=== PATIENT | female | born 1955 | race Caucasian/White ===

== ENCOUNTER → 2017-12-28 | Outpatient (CLI) | payer BC ==
[~2017-12-28] MED LIST: CIPR500T4 PO; IOHEXOL 350 MG/ML 100 ML (OMNIPAQUE 350) VIAL IV ONE; L.AC1CAP6 PO; LOPE-145 PO; METR500T21 PO; NS 250 ML (IVPB) BAG IV ONE; ONDA4TAB11 SL; PRM50SU RC; RANI150T11
--- NOTE | 2017-12-28 12:52 | Diagnostic Imaging Report ---
PROCEDURE: CT abdomen and pelvis with contrast, rule out appendicitis. TECHNIQUE: Multiple contiguous axial images were obtained through the abdomen and pelvis after the administration of intravenous contrast. INDICATION: Right lower quadrant pain. COMPARISON: None available. FINDINGS: Lower chest: The lung bases are clear. No pericardial or pleural effusion. Peritoneum: Liver and biliary system: Diffuse hypoattenuation of the liver is indicative of hepatic steatosis. No focal hepatic lesion. The gallbladder is normal. No biliary duct dilation. Spleen and Pancreas: Spleen is normal. The pancreas enhances normally without mass lesion or peripancreatic inflammatory changes. Adrenals: Normal. tract: The kidneys enhance normally without suspicious mass or obstruction. Urinary bladder is distended without wall thickening. The uterus and ovaries are normal in appearance. GI tract: Stomach is decompressed. No bowel obstruction. A circumferential wall thickening of the sigmoid colon with surrounding inflammation is compatible with acute colitis. From the level of the rectum extending proximally to the transverse colon, there is abnormal wall thickening of the colon but with less surrounding inflammation. There is no microperforation or abscess formation. Appendix is normal. Vasculature and Lymph nodes: Normal caliber aorta. No abdominal or pelvic lymphadenopathy. Musculoskeletal: No concerning osseous lesion. IMPRESSION: 1. There is a long segment of colitis extending from the transverse colon through the rectum, with the greatest degree of acute inflammation surrounding the sigmoid colon. Findings are most compatible with infectious colitis. Inflammatory and ischemic colitis are thought less likely given the distribution. 2. No perforation, abscess formation or bowel obstruction. 3. Normal appendix. 4. Diffuse hepatic steatosis. Dictated by: Dictated on workstation # [id number]
== END ==
LOC: RAD 11:31
PROVIDERS: ATTEND Nurse Practitioner Family
DX: K76.0 Fatty (change of) liver, not elsewhere classified (principal); K52.9 Noninfective gastroenteritis and colitis, unspecified
CPT/HCPCS: 74177

== ENCOUNTER 2017-12-30 17:40 | Inpatient (IN) | payer BC ==
[~2017-12-30] VITALS: Ht 162.6 cm; Wt 103.5 kg
[2017-12-30] MEDS ORDERED: RANI150T11 (18:10)
[2017-12-30] MEDS ORDERED: METR500T21 PO (18:10)
[2017-12-30] MEDS ORDERED: CIPR500T4 PO (18:10)
[2017-12-30] MEDS ORDERED: PRM50SU RC (18:10)
[2017-12-30] MEDS ORDERED: NS IV 1000 ML 1,000 ML IV STA (18:48)
[2017-12-30 18:54] LABS: BASOPHILS % (AUTO) 0 % (0-10); EOSINOPHILS % (AUTO) 1 % (0-10); HEMATOCRIT 27 % (35-52); HEMOGLOBIN 9.1 G/DL (11.5-16.0); LYMPHOCYTES # (AUTO) 1.1 X 10^3 (1.0-4.0); LYMPHOCYTES % (AUTO) 16 % (12-44); MEAN CORPUSCULAR HEMOGLOBIN 29 PG (25-34); MEAN CORPUSCULAR HGB CONC 33 G/DL (32-36); MEAN CORPUSCULAR VOLUME 86 FL (80-99); MEAN PLATELET VOLUME 9.7 FL (7.4-10.4); MONOCYTES # (AUTO) 0.7 X 10^3 (0.0-1.0); MONOCYTES % (AUTO) 10 % (0-12); NEUTROPHILS # (AUTO) 5.1 X 10^3 (1.8-7.8); NEUTROPHILS % (AUTO) 73 % (42-75); PLATELET COUNT 384 10^3/uL (130-400); RED BLOOD COUNT 3.18 10^6/uL (4.35-5.85); RED CELL DISTRIBUTION WIDTH 13.7 % (10.0-14.5)
--- NOTE | 2017-12-30 18:54 | ED Abdominal Pain ---
General Chief Complaint: Abdominal/GI Problems Stated Complaint: VOMITING/WEAKNESS Nursing Triage Note: AMB TO ROOM REPORTS HAS HAD VOMITING SINCE OCT HAS BEEN SEEN IN NUMEROUS URGENT CARES ,[facility] [facility],AND OUR ER. WAS SEEN IN OUR ON SUN. NEG WORK UP , SEEN AT URGENT CARE YESTERDAY RECEIVED 3 BAGS OF FLUID. Sepsis Screen: No Definite Risk Source of Information: Patient Exam Limitations: No Limitations History of Present Illness Date Seen by Provider: Dec 30, 2017 Time Seen by Provider: 18:35 Initial Comments Here with report of persistent nausea and vomiting area and she has been seen at different facilities including [facility] (formerly [facility] urgent care. She had CT scan done on Sunday which showed a significant amount of colitis. She was started on Cipro and Flagyl as well as has been on nausea medicine and she is unable to take her medications. She is unable to keep water down currently due to nausea and vomiting. Denies fever or chills. Denies weakness. Pain is generalized in the abdomen. Timing/Duration: 1 Week Severity/Quality: Moderate, Severe Location: Generalized Abdomen Radiation: No Radiation Activities at Onset: None Associated Symptoms: No Back Pain, No Chest Pain, No Fever/Chills, Nausea/ Vomiting, No Swelling/Mass in Abdomen, No Weakness Allergies and Home Medications Allergies Coded Allergies: No Known Drug Allergies (Unverified , 12/30/17) Patient Home Medication List Home Medication List Reviewed: Yes Review of Systems Constitutional: see HPI, No chills, No fever EENTM: No Symptoms Reported Respiratory: No Symptoms Reported Cardiovascular: No Symptoms Reported Gastrointestinal: See HPI, Abdominal Pain, Diarrhea, Nausea, Vomiting Genitourinary: No Symptoms Reported Musculoskeletal: no symptoms reported Skin: no symptoms reported All Other Systems Reviewed Negative Unless Noted: Yes Past Kwmsbiu-Bhnozy-Qvkdzu Hx Patient Social History Alcohol Use: Denies Use Recreational Drug Use: No Smoking Status: Never a Smoker Recent Foreign Travel: No Contact w/Someone Who Travel: No Recent Infectious Disease Expo: No Surgeries History of Surgeries: Yes Surgeries: Tubal Ligation Respiratory History of Respiratory Disorde: No Cardiovascular History of Cardiac Disorders: No Neurological History of Neurological Disord: No Genitourinary History of Genitourinary Disor: No Gastrointestinal History of Gastrointestinal Di: Yes Gastrointestinal Disorders: Colitis Musculoskeletal History of Musculoskeletal Dis: No HEENT History of HEENT Disorders: No Psychosocial History of Psychiatric Problem: Yes Reviewed Nursing Assessment Reviewed/Agree w Nursing PMH: Yes Family Medical History Significant Family History: No Pertinent Family Hx Physical Exam Vital Signs VS - Last 72 Hours, by Label 12/30/17 18:04 Temp 99.0 Pulse 109 Resp 18 B/P (MAP) 140/83 (102) Pulse Ox 99 O2 Delivery Room Air Capillary Refill : Less Than 3 Seconds General Appearance: WD/WN, no apparent distress HEENT: PERRL/EOMI, pharynx normal Neck: full range of motion, supple Respiratory: lungs clear, normal breath sounds Cardiovascular: no murmur, tachycardia Peripheral Pulses: 2+ Dorsalis Pedis (R), 2+ Left Dors-Pedis (L), 2+ Radial Pulses (R), 2+ Radial Pulses (L) Gastrointestinal: soft, abnormal bowel sounds (interactive), No guarding, No rebound, tenderness (mild diffuse) Extremities: non-tender, normal inspection Back: normal inspection, no CVA tenderness Neurologic/Psychiatric: alert, oriented x 3 Skin: normal color, warm/dry Focused Exam Evaluation Lactate Level Laboratory Tests 12/30/17 19:22: Lactic Acid Level 1.25 Lactic Acid Level Laboratory Tests Test 12/30/17 19:22 Lactic Acid Level 1.25 MMOL/L (0.50-2.00) Progress/Results/Core Measures Results/Orders Lab Results Laboratory Tests Test 12/30/17 18:45 12/30/17 19:22 12/30/17 20:00 Range/Units White Blood Count 7.0 4.3-11.0 10^3/uL Red Blood Count 3.18 L 4.35-5.85 10^6/uL Hemoglobin 9.1 L 11.5-16.0 G/DL Hematocrit 27 L 35-52 % Mean Corpuscular Volume 86 80-99 FL Mean Corpuscular Hemoglobin 29 25-34 PG Mean Corpuscular Hemoglobin Concent 33 32-36 G/DL Red Cell Distribution Width 13.7 10.0-14.5 % Platelet Count 384 130-400 10^3/uL Mean Platelet Volume 9.7 7.4-10.4 FL Neutrophils (%) (Auto) 73 42-75 % Lymphocytes (%) (Auto) 16 12-44 % Monocytes (%) (Auto) 10 0-12 % Eosinophils (%) (Auto) 1 0-10 % Basophils (%) (Auto) 0 0-10 % Neutrophils # (Auto) 5.1 1.8-7.8 X 10^3 Lymphocytes # (Auto) 1.1 1.0-4.0 X 10^3 Monocytes # (Auto) 0.7 0.0-1.0 X 10^3 Eosinophils # (Auto) 0.0 0.0-0.3 10^3/uL Basophils # (Auto) 0.0 0.0-0.1 10^3/uL Sodium Level 136 135-145 MMOL/L Potassium Level 2.8 L 3.6-5.0 MMOL/L Chloride Level 103 98-107 MMOL/L Carbon Dioxide Level 18 L 21-32 MMOL/L Anion Gap 15 H 5-14 MMOL/L Blood Urea Nitrogen 6 L 7-18 MG/DL Creatinine 0.64 0.60-1.30 MG/DL Estimat Glomerular Filtration Rate > 60 BUN/Creatinine Ratio 9 Glucose Level 105 70-105 MG/DL Calcium Level 8.0 L 8.5-10.1 MG/DL Total Bilirubin 0.5 0.1-1.0 MG/DL Aspartate Amino Transf (AST/SGOT) 18 5-34 U/L Alanine Aminotransferase (ALT/SGPT) 20 0-55 U/L Alkaline Phosphatase 72 40-136 U/L C-Reactive Protein High Sensitivity 20.97 H 0.00-0.50 MG/DL Total Protein 5.5 L 6.4-8.2 GM/DL Albumin 2.8 L 3.2-4.5 GM/DL Lactic Acid Level 1.25 0.50-2.00 MMOL/L Urine Color VIRIDIANA H Urine Clarity SLIGHTLY CLOUDY Urine pH 6 5-9 Urine Specific [place] 1.020 1.016-1.022 Urine Protein 2+ H NEGATIVE Urine Glucose (UA) NEGATIVE NEGATIVE Urine Ketones 4+ H NEGATIVE Urine Nitrite NEGATIVE NEGATIVE Urine Bilirubin NEGATIVE NEGATIVE Urine Urobilinogen NORMAL NORMAL MG/DL Urine Leukocyte Esterase 2+ H NEGATIVE Urine RBC (Auto) 1+ H NEGATIVE Urine RBC 0-2 /HPF Urine WBC 0-2 /HPF Urine Squamous Epithelial Cells 10-25 H /HPF Urine Crystals NONE /LPF Urine Bacteria FEW H /HPF Urine Casts NONE /LPF Urine Mucus SMALL H /LPF Urine Culture Indicated NO My Orders Orders - KINGSLEY JACKSON MD Cbc With Automated Diff (12/30/17 18:48) Comprehensive Metabolic Panel (12/30/17 18:48) Hs C Reactive Protein (12/30/17 18:48) Lactic Acid Analyzer (12/30/17 18:48) Ua Culture If Indicated (12/30/17 18:48) Blood Culture (12/30/17 18:48) Ondansetron Injection (Zofran Injectio (12/30/17 19:00) Ns Iv 1000 Ml (Sodium Chloride 0.9%) (12/30/17 18:48) Saline Lock/Iv-Start (12/30/17 18:48) Promethazine Injection (Phenergan Injec (12/30/17 20:13) Promethazine Injection (Phenergan Injec (12/30/17 20:15) Medications Given in ED Current Medications Medications Dose Ordered Sig/Leny Route Start Time Stop Time Status Last Admin Dose Admin Ondansetron HCl 8 mg ONCE ONCE IVP 12/30/17 19:00 12/30/17 19:01 DC 12/30/17 18:59 8 MG Promethazine HCl 25 mg STK-MED ONCE .ROUTE 12/30/17 20:13 12/30/17 20:16 DC 12/30/17 20:18 25 MG Vital Signs/I&O Vital Sign - Last 12Hours 12/30/17 18:04 Temp 99.0 Pulse 109 Resp 18 B/P (MAP) 140/83 (102) Pulse Ox 99 O2 Delivery Room Air Blood Pressure Mean: 102 Progress Note : Progress Note Seen and evaluated. IV, labs, UA, normal saline 1 L bolus. Zofran 8 mg IV. His. Admission due to outpatient failure. We have added lactic acid and blood cultures due to colitis findings on CT of the day. CT scan from 2 days ago as listed below for information purposes. 2011: Patient was feeling a little better. She has for ice chips which we gave her which she subsequently vomited. I discussed the case with Dr. Verduzco and she accepts patient for admission, inpatient status and requests surgical consult. 2013: I discussed the case with Dr. Alaniz and he agrees to consult. He is recommending Cipro and Flagyl IV which we will initiate via orders. Phenergan 25 mg IV ordered. Patient is hypokalemic and we will replace inpatient. Admit, inpatient status. Patient and family agree to plan. Diagnostic Imaging Diagonstic Imaging: CT Plain Films/CT/US/NM/MRI: abdomen, pelvis Comments These are CT results from 2 days ago NAME: DAVID CRABTREE [facility] REC#: [id number] PT STATUS: REG CLI : 1955 PHYSICIAN: JENNIFER NAGEL FERRY [employer]TAIN ADMIT DATE: 12/28/17/RAD Signed Date of Exam: 12/28/17 CT ABD/PELV W (APPENDICITIS) PROCEDURE: CT abdomen and pelvis with contrast, rule out appendicitis. TECHNIQUE: Multiple contiguous axial images were obtained through the abdomen and pelvis after the administration of intravenous contrast. INDICATION: Right lower quadrant pain. COMPARISON: None available. FINDINGS: Lower chest: The lung bases are clear. No pericardial or pleural effusion. Peritoneum: Liver and biliary system: Diffuse hypoattenuation of the liver is indicative of hepatic steatosis. No focal hepatic lesion. The gallbladder is normal. No biliary duct dilation. Spleen and Pancreas: Spleen is normal. The pancreas enhances normally without mass lesion or peripancreatic inflammatory changes. Adrenals: Normal. tract: The kidneys enhance normally without suspicious mass or obstruction. Urinary bladder is distended without wall thickening. The uterus and ovaries are normal in appearance. GI tract: Stomach is decompressed. No bowel obstruction. A circumferential wall thickening of the sigmoid colon with surrounding inflammation is compatible with acute colitis. From the level of the rectum extending proximally to the transverse colon, there is abnormal wall thickening of the colon but with less surrounding inflammation. There is no microperforation or abscess formation. Appendix is normal. Vasculature and Lymph nodes: Normal caliber aorta. No abdominal or pelvic lymphadenopathy. Musculoskeletal: No concerning osseous lesion. IMPRESSION: 1. There is a long segment of colitis extending from the transverse colon through the rectum, with the greatest degree of acute inflammation surrounding the sigmoid colon. Findings are most compatible with infectious colitis. Inflammatory and ischemic colitis are thought less likely given the distribution. 2. No perforation, abscess formation or bowel obstruction. 3. Normal appendix. 4. Diffuse hepatic steatosis. Dictated by: Dictated on workstation # [id number] Dict: 12/28/17 1242 Trans: 12/28/17 1343 Interpreted by: GRAEME TY MD Electronically signed by: GRAEME TY MD 12/28/17 1343 Departure Communication (Admissions) Time/Spoke to Admitting Phy: 20:12 Time/Spoke to Consulting Phy: 20:14 Impression Impression: Primary Impression: Colitis Additional Impressions: Intractable nausea and vomiting Qualified Codes: R11.2 - Nausea with vomiting, unspecified Hypokalemia Disposition: ADMITTED INPATIENT Condition: Stable Admissions Decision to Admit Reason: Admit from ER (General) Decision to Admit/Date: Dec 30, 2017 Time/Decision to Admit Time: 20:12 Departure-Patient Inst. Referrals: NO,LOCAL PHYSICIAN (PCP/Family) Primary Care Physician KINGSLEY JACKSON MD Dec 30, 2017 18:54
[2017-12-30] MEDS ORDERED: ONDANSETRON 4 MG/2 ML (SDV) Z0FRAN IVP ONE (19:00)
[2017-12-30 19:10] LABS: ALANINE AMINOTRANSFERASE 20 U/L (0-55); ALBUMIN 2.8 GM/DL (3.2-4.5); ALKALINE PHOSPHATASE 72 U/L (40-136); BILIRUBIN,TOTAL 0.5 MG/DL (0.1-1.0); BUN/CREATININE RATIO 9; CARBON DIOXIDE 18 MMOL/L (21-32); CHLORIDE 103 MMOL/L (98-107); CREATININE SERUM 0.64 MG/DL (0.60-1.30); GFR ESTIMATED > 60; GLUCOSE 105 MG/DL (70-105); POTASSIUM 2.8 MMOL/L (3.6-5.0); SODIUM 136 MMOL/L (135-145); TOTAL PROTEIN 5.5 GM/DL (6.4-8.2)
[2017-12-30] MEDS ORDERED: PROMETHAZINE INJ 25 MG/ML (PHENERGAN) AMP ONE (20:13)
[2017-12-30 20:14] LABS: BILIRUBIN,URINE NEGATIVE (NEGATIVE); CLARITY,URINE SLIGHTLY CLOUDY; COLOR,URINE AMBER; GLUCOSE, URINE (UA) NEGATIVE (NEGATIVE); KETONES,URINE 4+ (NEGATIVE); LEUKOCYTE ESTERASE ,URINE 2+ (NEGATIVE); NITRITE,URINE NEGATIVE (NEGATIVE); PH,URINE 6 (5-9); PROTEIN,URINE 2+ (NEGATIVE); UROBILINOGEN,URINE NORMAL (NORMAL)
[2017-12-30] MEDS ORDERED: PROMETHAZINE INJ 25 MG/ML (PHENERGAN) AMP IVP STA (20:15)
[2017-12-30 20:35] LABS: BACTERIA,URINE FEW /HPF; RBC,URINE 0-2 /HPF; WBC,URINE 0-2 /HPF
[2017-12-30] MEDS ORDERED: CATHETER FLUSH 10 ML SYR IV PRN (21:30)
[2017-12-30] MEDS ORDERED: fentaNYL INJECTION 100 MCG/2 ML AMP IV PRN (21:30)
[2017-12-30] MEDS: NS IV 1000 ML 1,000 ML IV SCH (21:45)
[2017-12-30] MEDS: metroNIDAZOLE 500 MG/100 ML IVPB (PRE-MIX) IV SCH (21:46)
[2017-12-30] MEDS: POTASSIUM CL 10 MEQ/50 ML IVPB (PRE-MIX) IV SCH ×2 (21:51→22:59)
[2017-12-30] MEDS: CATHETER FLUSH 10 ML SYR IV SCH (23:01)
[2017-12-30] MEDS: CIPROFLOXACIN 400 MG/D5W 200 ML (PRE-MIX) IV SCH (23:05)
[2017-12-31 00:10] VITALS: BP 122/66
[2017-12-31] MEDS: POTASSIUM CL 10 MEQ/50 ML IVPB (PRE-MIX) IV SCH ×2 (00:21→01:54)
[2017-12-31] MEDS: ACETAMINOPHEN 650 MG SUPP (TYLENOL) PR PRN ×2 (00:49→01:02)
[2017-12-31 04:10] VITALS: BP 114/64
[2017-12-31] MEDS: metroNIDAZOLE 500 MG/100 ML IVPB (PRE-MIX) IV SCH ×3 (05:51→21:59)
[2017-12-31] MEDS: CATHETER FLUSH 10 ML SYR IV SCH ×3 (06:05→21:03)
[2017-12-31] MEDS: NS IV 1000 ML 1,000 ML IV SCH ×3 (06:10→19:46)
[2017-12-31 06:30] LABS: BASOPHILS % (AUTO) 0 % (0-10); EOSINOPHILS # (AUTO) 0.1 10^3/uL (0.0-0.3); EOSINOPHILS % (AUTO) 2 % (0-10); HEMATOCRIT 29 % (35-52); HEMOGLOBIN 9.4 G/DL (11.5-16.0); LYMPHOCYTES # (AUTO) 1.2 X 10^3 (1.0-4.0); LYMPHOCYTES % (AUTO) 21 % (12-44); MEAN CORPUSCULAR HEMOGLOBIN 28 PG (25-34); MEAN CORPUSCULAR HGB CONC 33 G/DL (32-36); MEAN CORPUSCULAR VOLUME 87 FL (80-99); MEAN PLATELET VOLUME 9.9 FL (7.4-10.4); MONOCYTES # (AUTO) 0.7 X 10^3 (0.0-1.0); MONOCYTES % (AUTO) 12 % (0-12); NEUTROPHILS # (AUTO) 3.7 X 10^3 (1.8-7.8); NEUTROPHILS % (AUTO) 65 % (42-75); PLATELET COUNT 372 10^3/uL (130-400); RED BLOOD COUNT 3.31 10^6/uL (4.35-5.85); RED CELL DISTRIBUTION WIDTH 13.8 % (10.0-14.5); WHITE BLOOD COUNT 5.8 10^3/uL (4.3-11.0)
[2017-12-31 07:02] LABS: BUN/CREATININE RATIO 8; CALCIUM 7.8 MG/DL (8.5-10.1); CARBON DIOXIDE 23 MMOL/L (21-32); CHLORIDE 107 MMOL/L (98-107); CREATININE SERUM 0.61 MG/DL (0.60-1.30); GFR ESTIMATED > 60; GLUCOSE 88 MG/DL (70-105); POTASSIUM 2.9 MMOL/L (3.6-5.0); SODIUM 138 MMOL/L (135-145)
[2017-12-31] MEDS ORDERED: INFLUENZA TRIvalent 2017-2018 0.5 ML/45 MCG SYR IM ONE (07:30)
[2017-12-31] MEDS ORDERED: LOPE-145 PO (08:07)
[2017-12-31] MEDS ORDERED: L.AC1CAP6 PO (08:07)
[2017-12-31] MEDS ORDERED: ONDA4TAB11 SL (08:07)
[2017-12-31 08:30] VITALS: BP 117/62
[2017-12-31] MEDS: CIPROFLOXACIN 400 MG/D5W 200 ML (PRE-MIX) IV SCH ×2 (08:42→21:01)
[2017-12-31] MEDS: ONDANSETRON 4 MG/2 ML (SDV) Z0FRAN IV PRN ×3 (09:55→21:59)
[2017-12-31] MEDS: POTASSIUM CL 10MEQ/50ML IVPB 50 ML IV SCH ×4 (11:58→14:57)
[2017-12-31 12:00] VITALS: BP 118/77
--- NOTE | 2017-12-31 14:26 | History & Physical-Hospitalist ---
HPI History of Present Illness: HPI/Chief Complaint Pt is a 62yoCF who presented to the hospital with chief complaints of nausea and vomiting. She states her symptoms started in October and she was seen in the ER and given IVF and thought she just had a bug. She improved slightly for a while but never completely. She worsened 2 weeks ago with nausea and vomiting. She was seen at urgent care and was given 3L of fluid. She was seen here in the ER and was started on colitis on 12/28. She continued to worsen and was unable to take any PO intake in so presented to the ER for evaluation. She was found to have colitis on CT and meet sepsis criteria on arrival so was admitted for IV abx. She reports feeling very minimally better this morning though she vomited after some grape juice. Lying perfectly still is the only thing that helps. She is unsure if she has lost any weight. Source: patient Date Seen 12/31/17 Time Seen by Provider: 10:30 Attending Physician Elsie Verduzco DO PCP No,Local Physician Referring Physician Date of Admission Dec 30, 2017 at 20:20 Home Medications & Allergies Home Medications Reviewed patient Home Medication Reconciliation Form Allergies Allergies Coded Allergies No Known Drug Allergies (Unverified12/30/17) Past Pqrvysq-Njhrna-Zjcojv Hx Patient Social History Marrital Status: Employed/Student: part-time employed Alcohol Use: Denies Use Recreational Drug Use: No Smoking Status: Former Smoker (quit over 30 years ago) Physical Abuse Screen: No Sexual Abuse: No Recent Foreign Travel: No Contact w/other who traveled: No Recent Hopitalizations: No (ER) Recent Infectious Disease Expo: No Seasonal Allergies Seasonal Allergies: No Surgeries Yes Tubal Ligation (x2) Respiratory No Cardiovascular No Neurological No Genitourinary No Gastrointestinal Yes (new dx sunday) Colitis Musculoskeletal No Endocrine History of Endocrine Disorders: No HEENT History of HEENT Disorders: No Cancer No Psychosocial History of Psychiatric Problem: No Integumentary History of Skin or Integumenta: No Blood Transfusions History of Blood Disorders: No Reviewed Nursing Assessment Reviewed/Agree w Nursing PMH: Yes Family Medical History Significant Family History: No Pertinent Family Hx Family Hx: Patient reports no known family medical history. Review of Systems Constitutional: No chills, No fever, No weight loss EENTM: No blurred vision, No double vision, No nose congestion, No throat pain Respiratory: No cough, No dyspnea on exertion, No short of breath Cardiovascular: No chest pain, No edema, No palpitations Gastrointestinal: see HPI, No abdominal pain, No constipation, diarrhea, nausea , vomiting Genitourinary: No dysuria, No frequency Musculoskeletal: No joint pain, No muscle pain Skin: No lesions, No rash Psychiatric/Neurological: Denies Anxiety, Denies Depressed, Denies Headache, Denies Numbness, Denies Tingling Physical Exam Physical Exam Vital Signs Vital Signs - First Documented 12/30/17 18:04 Temp 99.0 Pulse 109 Resp 18 B/P (MAP) 140/83 (102) Pulse Ox 99 O2 Delivery Room Air Capillary Refill : Less Than 3 SecondsLess Than 3 Seconds General Appearance: No Apparent Distress, WD/WN HEENT: PERRL/EOMI, Moist Mucous Membranes Neck: No JVD, No Thyromegaly Respiratory: Lungs Clear, No Respiratory Distress Cardiovascular: Regular Rate, Rhythm, No Murmur Gastrointestinal: Normal Bowel Sounds, Non Tender, Soft Extremity: Normal Capillary Refill, No Calf Tenderness, No Pedal Edema Neurologic/Psychiatric: Alert, Oriented x3, Normal Mood/Affect Skin: Normal Color, Warm/Dry Results Results/Procedures Lab Laboratory Tests 12/30/17 18:45 12/31/17 05:34 Assessment/Plan Admission Diagnosis Sepsis due to colitis Admission Status: Inpatient Order (span 2 midnights) Reason for Inpatient Admission: Failed outpatient management twice Diagnosis/Problems Diagnosis/Problems (1) Colitis Status: Acute Assessment & Plan: meeting sepsis criteria On flagyl and cipro IV Blood cultures drawn in ER Lactic acid normal Not hypotensive Zofran and Phenergan prn nausea (2) Intractable nausea and vomiting Status: Acute Assessment & Plan: Phenergan and Zofran ordered prn still vomiting Will add scopolamine patch as well Continue IVF Qualifiers: Qualified Codes: R11.2 - Nausea with vomiting, unspecified (3) Hypokalemia Status: Acute Assessment & Plan: Replacement ordered Mag level ordered (4) Normocytic anemia Assessment & Plan: Trend Consider IV iron when sepsis resolved (5) Prophylactic measure Assessment & Plan: NS at 125ml/hr Lovenox Diet as tolerated Clinical Quality Measures DVT/VTE Risk/Contraindication: Risk Factor Score Per Nursin RFS Level Per Nursing on Admit: 2=Moderate YOLY NAVARRO MD Dec 31, 2017 14:26
[2017-12-31] MEDS: SCOPOLAMINE 1.5 MG (TRANSDERM-SCOP) PATCH TOP SCH (14:57)
[2017-12-31 15:34] VITALS: BP 138/74
[2017-12-31] MEDS: MAGNESIUM 1 GM/100 ML IVPB 100 ML IV SCH ×2 (17:25→18:13)
[2017-12-31 19:07] VITALS: BP 114/58
--- NOTE | 2017-12-31 21:06 | Consultation ---
History of Present Illness History of Present Illness Patient Consulted On(mario/time) 12/31/17 21:00 Date Seen by Provider: Dec 31, 2017 Time Seen by Provider: 11:12 History of Present Illness Consult requested by Dr. Verduzco for colitis. Patient is a 62-year-old female who has been having problems with nausea vomiting since October. She initially thought she had a bug and states that it did improve for short period of time. She then states about 2 weeks ago she began having problems again. She's feeling ill and having nausea and vomiting. She thinks food sometimes as many worse. She states nothing really seems to make it better as the nausea and vomiting has continued to worsen. She is never had a colonoscopy. She had a CT scan on December 28 which demonstrated colitis from the transverse colon down to the rectum. Patient states she's had a hard time keeping anything down. She denies any fever sweats chills shortness of breath or chest pain. Patient states that she's not having any abdominal pain. She denies any previous episodes prior to the last few months. Allergies and Home Medications Allergies Coded Allergies: No Known Drug Allergies (Unverified , 12/30/17) Home Medications Ciprofloxacin HCl 500 Mg Tablet, 500 MG PO BID, (Reported) 10 DAY SUPPLY FILLED 12-28-17 L.acidoph & Paracasei,B.lactis 1 Each Capsule, 1 CAP PO DAILY, (Reported) Loperamide HCl 2 Mg Capsule, PO UD PRN for DIARRHEA, (Reported) Metronidazole 500 Mg Tablet, 500 MG PO TID, (Reported) 10 DAY SUPPLY FILLED 18 Ondansetron 4 Mg Tab.rapdis, 4 MG SL Q4H PRN for NAUSEA/VOMITING-1ST LINE, ( Reported) Promethazine HCl 50 Mg Supp, 50 MG RC Q6H PRN for NAUSEA/VOMITING-2ND LINE, ( Reported) Patient Home Medication List Home Medication List Reviewed: Yes Past Edsdwfp-Bgnohr-Vwwfdz Hx Patient Social History Alcohol Use: Denies Use Recreational Drug Use: No Smoking Status: Former Smoker (quit over 30 years ago) Recent Foreign Travel: No Contact w/Someone Who Travel: No Recent Infectious Disease Expo: No Recent Hopitalizations: No (ER) Physical Abuse Screen: No Sexual Abuse: No Seasonal Allergies Seasonal Allergies: No Surgeries History of Surgeries: Yes Surgeries: Tubal Ligation (x2) Respiratory History of Respiratory Disorde: No Cardiovascular History of Cardiac Disorders: No Neurological History of Neurological Disord: No Genitourinary History of Genitourinary Disor: No Gastrointestinal History of Gastrointestinal Di: Yes (new dx sunday) Gastrointestinal Disorders: Colitis Musculoskeletal History of Musculoskeletal Dis: No Endocrine History of Endocrine Disorders: No HEENT History of HEENT Disorders: No Cancer History of Cancer: No Psychosocial History of Psychiatric Problem: No Integumentary History of Skin or Integumenta: No Blood Transfusions History of Blood Disorders: No Reviewed Nursing Assessment Reviewed/Agree w Nursing PMH: Yes Family Medical History Significant Family History: No Pertinent Family Hx Family Medial History: Patient reports no known family medical history. Review of Systems-General Constitutional: see HPI EENTM: no symptoms reported Respiratory: no symptoms reported Cardiovascular: no symptoms reported Gastrointestinal: see HPI Genitourinary: no symptoms reported Musculoskeletal: no symptoms reported Skin: no symptoms reported Psychiatric/Neurological: No Symptoms Reported Physical Exam-General Problems Physical Exam Vital Signs Vital Signs - First Documented 12/30/17 18:04 Temp 99.0 Pulse 109 Resp 18 B/P (MAP) 140/83 (102) Pulse Ox 99 O2 Delivery Room Air Capillary Refill : Less Than 3 SecondsLess Than 3 Seconds General Appearance: no apparent distress HEENT: PERRL/EOMI, normal ENT inspection Neck: non-tender, full range of motion, supple Respiratory: no respiratory distress, no accessory muscle use Cardiovascular: regular rate, rhythm Gastrointestinal: non tender, soft, no organomegaly, no pulsatile mass, No distended, No guarding, No rebound, No tenderness Rectal: deferred Back: normal inspection Extremities: non-tender, normal inspection Neurologic/Psychiatric: reflow operator II-XII nml as tested, no motor/sensory deficits, alert, normal mood/affect, oriented x 3 Skin: normal color, warm/dry Lymphatic: no adenopathy Data Review Labs Laboratory Tests 12/31/17 05:34: White Blood Count 5.8, Red Blood Count 3.31L, Hemoglobin 9.4L, Hematocrit 29L, Mean Corpuscular Volume 87, Mean Corpuscular Hemoglobin 28, Mean Corpuscular Hemoglobin Concent 33, Red Cell Distribution Width 13.8, Platelet Count 372, Mean Platelet Volume 9.9, Neutrophils (%) (Auto) 65, Lymphocytes (%) (Auto) 21, Monocytes (%) (Auto) 12, Eosinophils (%) (Auto) 2, Basophils (%) (Auto) 0, Neutrophils # (Auto) 3.7, Lymphocytes # (Auto) 1.2, Monocytes # (Auto) 0.7, Eosinophils # (Auto) 0.1, Basophils # (Auto) 0.0, Sodium Level 138, Potassium Level 2.9L, Chloride Level 107, Carbon Dioxide Level 23, Anion Gap 8, Blood Urea Nitrogen 5L, Creatinine 0.61, Estimat Glomerular Filtration Rate > 60, BUN/ Creatinine Ratio 8, Glucose Level 88, Calcium Level 7.8L, Magnesium Level 1.6L Microbiology 12/30/17 Blood Culture - Preliminary, Resulted No growth Assessment/Plan Assessment/Plan Assessment/Plan Patient is a 62-year-old female with colitis by CT scan from the transverse colon to the rectum, intractable nausea and vomiting. Patient on clear liquids we'll see if she tolerates. Patient continue on Cipro and Flagyl IV. We'll try to control nausea and vomiting. We'll continue to follow no surgical intervention at this time. We'll do a colonoscopy 6 weeks after this calms down Clinical Quality Measures DVT/VTE Risk/Contraindication: Risk Factor Score Per Nursin RFS Level Per Nursing on Admit: 2=Moderate TAMANNA ONEILL DO Dec 31, 2017 21:06
[2018-01-01 00:21] VITALS: BP 113/60
[2018-01-01 04:00] VITALS: BP 118/62
[2018-01-01] MEDS: NS IV 1000 ML 1,000 ML IV SCH (05:28)
[2018-01-01] MEDS: metroNIDAZOLE 500 MG/100 ML IVPB (PRE-MIX) IV SCH ×3 (05:28→23:08)
[2018-01-01] MEDS: CATHETER FLUSH 10 ML SYR IV SCH ×3 (05:31→22:02)
[2018-01-01 06:47] LABS: BASOPHILS % (AUTO) 0 % (0-10); EOSINOPHILS # (AUTO) 0.2 10^3/uL (0.0-0.3); EOSINOPHILS % (AUTO) 3 % (0-10); HEMATOCRIT 28 % (35-52); HEMOGLOBIN 9.2 G/DL (11.5-16.0); LYMPHOCYTES # (AUTO) 1.1 X 10^3 (1.0-4.0); LYMPHOCYTES % (AUTO) 18 % (12-44); MEAN CORPUSCULAR HEMOGLOBIN 28 PG (25-34); MEAN CORPUSCULAR HGB CONC 33 G/DL (32-36); MEAN CORPUSCULAR VOLUME 87 FL (80-99); MONOCYTES # (AUTO) 0.6 X 10^3 (0.0-1.0); MONOCYTES % (AUTO) 10 % (0-12); NEUTROPHILS # (AUTO) 3.9 X 10^3 (1.8-7.8); NEUTROPHILS % (AUTO) 68 % (42-75); PLATELET COUNT 398 10^3/uL (130-400); RED BLOOD COUNT 3.24 10^6/uL (4.35-5.85); WHITE BLOOD COUNT 5.8 10^3/uL (4.3-11.0)
[2018-01-01 07:07] LABS: BUN/CREATININE RATIO 7; CALCIUM 7.5 MG/DL (8.5-10.1); CARBON DIOXIDE 18 MMOL/L (21-32); CHLORIDE 108 MMOL/L (98-107); CREATININE SERUM 0.59 MG/DL (0.60-1.30); GFR ESTIMATED > 60; GLUCOSE 89 MG/DL (70-105); POTASSIUM 2.9 MMOL/L (3.6-5.0); SODIUM 139 MMOL/L (135-145)
[2018-01-01 08:00] VITALS: BP 120/66
[2018-01-01] MEDS: CIPROFLOXACIN 400 MG/D5W 200 ML (PRE-MIX) IV SCH ×2 (09:22→22:00)
[2018-01-01] MEDS: ONDANSETRON 4 MG/2 ML (SDV) Z0FRAN IV PRN ×2 (09:29→19:02)
[2018-01-01] MEDS ORDERED: D5 1/2 NS 1000 ML IV SOLUTION 1,000 ML IV SCH (11:30)
[2018-01-01] MEDS ORDERED: POTASSIUM CL 10MEQ/50ML IVPB 50 ML IV SCH (11:30)
[2018-01-01 12:00] VITALS: BP 131/63
[2018-01-01] MEDS ORDERED: KCL 20 MEQ TAB (K-DUR) PO NR (12:00)
--- NOTE | 2018-01-01 12:05 | Progress Note-Hospitalist ---
Subjective HPI/CC On Admission Date Seen by Provider: Jan 01, 2018 Time Seen by Provider: 11:25 Pt is a 62yoCF who presented to the hospital with chief complaints of nausea and vomiting. She states her symptoms started in October and she was seen in the ER and given IVF and thought she just had a bug. She improved slightly for a while but never completely. She worsened 2 weeks ago with nausea and vomiting. She was seen at urgent care and was given 3L of fluid. She was seen here in the ER and was started on colitis on 12/28. She continued to worsen and was unable to take any PO intake in so presented to the ER for evaluation. She was found to have colitis on CT and meet sepsis criteria on arrival so was admitted for IV abx. She reports feeling very minimally better this morning though she vomited after some grape juice. Lying perfectly still is the only thing that helps. She is unsure if she has lost any weight. Subjective/Events-last exam Pt reports still having nausea. States medications are not helping but in discussing with nurse she is refusing any nausea medicines. She feels the potassium and antibiotics are making it worse. Objective Exam Vital Signs Vital Signs Date Time Temp Pulse Resp B/P (MAP) Pulse Ox O2 Delivery O2 Flow Rate FiO2 12/30/17 18:04 99.0 109 18 140/83 (102) 99 Room Air Capillary Refill : Less Than 3 SecondsLess Than 3 Seconds General Appearance: WD/WN, Mild Distress Respiratory: Lungs Clear, No Respiratory Distress Cardiovascular: Regular Rate, Rhythm, No Murmur Gastrointestinal: Normal Bowel Sounds, Non Tender, Soft Extremity: No Calf Tenderness, No Pedal Edema Neurologic/Psychiatric: Alert, Oriented x3 Results/Procedures Lab Laboratory Tests 01/01/18 05:30 Assessment/Plan Assessment and Plan Assess & Plan/Chief Complaint Colitis Diagnosis/Problems Diagnosis/Problems (1) Colitis Status: Acute Assessment & Plan: met sepsis criteria but now resolved On flagyl and cipro IV Blood cultures drawn in ER- NGTD Zofran and Phenergan prn nausea Scopolamine added as well (2) Intractable nausea and vomiting Status: Acute Assessment & Plan: Phenergan and Zofran ordered prn still vomiting but she has been declined treatment Continue IVF- changed to D5 1/2 NS with 20KCL Qualifiers: Qualified Codes: R11.2 - Nausea with vomiting, unspecified (3) Hypokalemia Status: Acute Assessment & Plan: Replacement ordered- would like to try orally as IV makes her nauseated (4) Normocytic anemia Assessment & Plan: Trend- stable Consider IV iron when sepsis resolved (5) Prophylactic measure Assessment & Plan: d5 1/2NS with 20KCL at 100ml/hr Lovenox Diet as tolerated YOLY NAVARRO MD Jan 01, 2018 12:05
[2018-01-01] MEDS: PROMETHAZINE INJ 25 MG/ML (PHENERGAN) AMP IV PRN ×2 (12:35→21:53)
[2018-01-01] MEDS: D5 1/2 NS W/KCL 20 MEQ/L 1,000 ML IV SCH ×2 (12:39→22:35)
[2018-01-01] MEDS: ENOXAPARIN 40 MG/0.4 ML (LOVENOX) SYR SC SCH (12:39)
[2018-01-01 16:00] VITALS: BP 133/75
[2018-01-01] MEDS: POTASSIUM CL 10MEQ/50ML IVPB 50 ML IV SCH ×2 (19:55→21:04)
[2018-01-01 20:00] VITALS: BP 143/75
--- NOTE | 2018-01-01 22:23 | Progress Note ---
Subjective Date Seen by Provider: Jan 01, 2018 Time Seen by Provider: 12:48 Subjective/Events-last exam Still with nausea. Patient not having any abdominal pain. Not ambulating. No new complaints. Denies fever sweats chills shortness of breath or chest pain. Objective Exam Vital Signs Date Time Temp Pulse Resp B/P (MAP) Pulse Ox O2 Delivery O2 Flow Rate FiO2 01/01/18 20:00 100.6 99 20 143/75 (97) 98 Room Air 01/01/18 19:00 97 01/01/18 16:00 101.6 98 20 133/75 (94) 97 Room Air 01/01/18 12:00 98.9 86 18 131/63 (85) 94 Room Air 01/01/18 08:00 99.7 88 18 120/66 (84) 97 Room Air 01/01/18 04:00 97.4 87 19 118/62 (80) 96 Room Air 01/01/18 01:00 88 01/01/18 00:21 98.8 91 17 113/60 (77) 95 Room Air I & O 01/01/18 07:00 Intake Total 2700 ml Balance 2700 ml Capillary Refill : Less Than 3 SecondsLess Than 3 Seconds General Appearance: WD/WN, Mild Distress HEENT: PERRL/EOMI, Moist Mucous Membranes Neck: No JVD, No Thyromegaly Respiratory: Lungs Clear, No Respiratory Distress Cardiovascular: Regular Rate, Rhythm, No Murmur Peripheral Pulses: 2+ Dorsalis Pedis (R), 2+ Left Dors-Pedis (L), 2+ Radial Pulses (R), 2+ Radial Pulses (L) Gastrointestinal: non tender, soft, no organomegaly, no pulsatile mass, No distended, No guarding, No rebound, No tenderness Extremity: No Calf Tenderness, No Pedal Edema Neurologic/Psychiatric: Alert, Oriented x3 Skin: Normal Color, Warm/Dry Results Lab Laboratory Tests 01/01/18 05:30: White Blood Count 5.8, Red Blood Count 3.24L, Hemoglobin 9.2L, Hematocrit 28L, Mean Corpuscular Volume 87, Mean Corpuscular Hemoglobin 28, Mean Corpuscular Hemoglobin Concent 33, Red Cell Distribution Width 14.0, Platelet Count 398, Mean Platelet Volume 10.0, Neutrophils (%) (Auto) 68, Lymphocytes (%) (Auto) 18 , Monocytes (%) (Auto) 10, Eosinophils (%) (Auto) 3, Basophils (%) (Auto) 0, Neutrophils # (Auto) 3.9, Lymphocytes # (Auto) 1.1, Monocytes # (Auto) 0.6, Eosinophils # (Auto) 0.2, Basophils # (Auto) 0.0, Sodium Level 139, Potassium Level 2.9L, Chloride Level 108H, Carbon Dioxide Level 18L, Anion Gap 13, Blood Urea Nitrogen 4L, Creatinine 0.59L, Estimat Glomerular Filtration Rate > 60, BUN /Creatinine Ratio 7, Glucose Level 89, Calcium Level 7.5L, Magnesium Level 2.0 Microbiology 12/30/17 Blood Culture - Preliminary, Resulted No growth Assessment/Plan Assessment/Plan Assessment/Plan Patient is a 62-year-old female with colitis by CT scan from the transverse colon to the rectum, intractable nausea and vomiting. Hypokalemia being replaced. Patient on clear liquids we'll see if she tolerates. Patient continue on Cipro and Flagyl IV if continues to have nausea, consider changing. We'll try to control nausea and vomiting. We'll continue to follow no surgical intervention at this time. We'll do a colonoscopy 6 weeks after this calms down Clinical Quality Measures DVT/VTE Risk/Contraindication: Risk Factor Score Per Nursin RFS Level Per Nursing on Admit: 2=Moderate TAMANNA ONEILL DO Jan 01, 2018 22:23
[2018-01-01] MEDS ORDERED: PANTOPRAZOLE 40 MG/10 ML (PROTONIX) VIAL IV ONE (22:30)
[2018-01-02] VITALS: BP 130/70
[2018-01-02] MEDS: POTASSIUM CL 10MEQ/50ML IVPB 50 ML IV SCH ×6 (00:13→16:37)
[2018-01-02] MEDS: D5 1/2 NS W/KCL 20 MEQ/L 1,000 ML IV SCH ×2 (01:18→14:12)
[2018-01-02 04:00] VITALS: BP 120/74
[2018-01-02 05:57] LABS: BASOPHILS % (AUTO) 0 % (0-10); EOSINOPHILS # (AUTO) 0.2 10^3/uL (0.0-0.3); EOSINOPHILS % (AUTO) 3 % (0-10); HEMATOCRIT 28 % (35-52); HEMOGLOBIN 9.1 G/DL (11.5-16.0); LYMPHOCYTES # (AUTO) 1.4 X 10^3 (1.0-4.0); LYMPHOCYTES % (AUTO) 28 % (12-44); MEAN CORPUSCULAR HEMOGLOBIN 28 PG (25-34); MEAN CORPUSCULAR HGB CONC 33 G/DL (32-36); MEAN CORPUSCULAR VOLUME 85 FL (80-99); MEAN PLATELET VOLUME 9.6 FL (7.4-10.4); MONOCYTES # (AUTO) 0.6 X 10^3 (0.0-1.0); MONOCYTES % (AUTO) 12 % (0-12); NEUTROPHILS # (AUTO) 2.8 X 10^3 (1.8-7.8); NEUTROPHILS % (AUTO) 57 % (42-75); PLATELET COUNT 407 10^3/uL (130-400); RED BLOOD COUNT 3.23 10^6/uL (4.35-5.85); RED CELL DISTRIBUTION WIDTH 13.9 % (10.0-14.5); WHITE BLOOD COUNT 4.9 10^3/uL (4.3-11.0)
[2018-01-02] MEDS: CATHETER FLUSH 10 ML SYR IV SCH ×4 (06:13→21:13)
[2018-01-02] MEDS: metroNIDAZOLE 500 MG/100 ML IVPB (PRE-MIX) IV SCH ×3 (06:25→23:23)
[2018-01-02 06:41] LABS: BUN/CREATININE RATIO 3; CALCIUM 7.6 MG/DL (8.5-10.1); CARBON DIOXIDE 24 MMOL/L (21-32); CHLORIDE 107 MMOL/L (98-107); CREATININE SERUM 0.59 MG/DL (0.60-1.30); GFR ESTIMATED > 60; GLUCOSE 134 MG/DL (70-105); MAGNESIUM 1.7 MG/DL (1.8-2.4); POTASSIUM 3.1 MMOL/L (3.6-5.0); SODIUM 137 MMOL/L (135-145)
[2018-01-02 08:00] VITALS: BP 120/82
[2018-01-02] MEDS: CIPROFLOXACIN 400 MG/D5W 200 ML (PRE-MIX) IV SCH ×2 (09:24→21:12)
[2018-01-02] MEDS: PROMETHAZINE INJ 25 MG/ML (PHENERGAN) AMP IV PRN ×2 (09:33→16:48)
--- NOTE | 2018-01-02 10:22 | Progress Note-Hospitalist ---
Subjective HPI/CC On Admission Date Seen by Provider: Jan 02, 2018 Time Seen by Provider: 10:18 Pt is a 62yoCF who presented to the hospital with chief complaints of nausea and vomiting and found to have colitis. Subjective/Events-last exam She reports feeling better today. Less nausea. No abd pain. Has not vomited yet today. Had 14 BMs yesterday. None since early this AM. Would like to advance her diet today. No other complaints. Breathing well. No chest pain. Objective Exam Vital Signs Vital Signs Date Time Temp Pulse Resp B/P (MAP) Pulse Ox O2 Delivery O2 Flow Rate FiO2 12/30/17 18:04 99.0 109 18 140/83 (102) 99 Room Air Capillary Refill : Less Than 3 SecondsLess Than 3 Seconds General Appearance: No Apparent Distress, WD/WN Respiratory: Lungs Clear, No Respiratory Distress Cardiovascular: Regular Rate, Rhythm, No Murmur Gastrointestinal: Normal Bowel Sounds, Non Tender, Soft Neurologic/Psychiatric: Alert, Oriented x3 Results/Procedures Lab Laboratory Tests 01/02/18 05:25 Assessment/Plan Assessment and Plan Assess & Plan/Chief Complaint Colitis Diagnosis/Problems Diagnosis/Problems (1) Colitis Status: Acute Assessment & Plan: Cont on flagyl and cipro IV Blood cultures drawn in ER- NGTD Zofran and Phenergan prn nausea Scopolamine added as well Nausea improving, will advance diet Discussed with Dr Alaniz, consider EGD if still no improvement (2) Intractable nausea and vomiting Status: Acute Assessment & Plan: Phenergan and Zofran ordered prn Continue IVF- changed to D5 1/2 NS with 20KCL Protonix added Qualifiers: Qualified Codes: R11.2 - Nausea with vomiting, unspecified (3) Hypokalemia Status: Acute Assessment & Plan: Replace (4) Normocytic anemia Assessment & Plan: Trend- stable Consider IV iron when sepsis resolved Febrile last night so will hold (5) Prophylactic measure Assessment & Plan: d5 1/2NS with 20KCL at 100ml/hr Lovenox Diet as tolerated YOLY NAVARRO MD Jan 02, 2018 10:22
[2018-01-02 12:00] VITALS: BP 139/89
[2018-01-02] MEDS: ENOXAPARIN 40 MG/0.4 ML (LOVENOX) SYR SC SCH (12:03)
[2018-01-02 16:00] VITALS: BP 110/60
--- NOTE | 2018-01-02 17:40 | Progress Note ---
Subjective Date Seen by Provider: Jan 02, 2018 Time Seen by Provider: 08:18 Subjective/Events-last exam Patient feeling slightly better today. She did have some fever last night. Patient though notes that her nausea is still present but has slightly improved. She is tolerating some liquids. She denies any abdominal pain. She denies any sweats chills shortness of breath or chest pain. Objective Exam Vital Signs Date Time Temp Pulse Resp B/P (MAP) Pulse Ox O2 Delivery O2 Flow Rate FiO2 01/02/18 16:00 99.2 92 20 110/60 (77) 98 Room Air 01/02/18 12:00 99.1 93 18 139/89 (106) 95 Room Air 01/02/18 09:00 97 Room Air 01/02/18 08:00 99.5 92 18 120/82 (95) 96 Room Air 01/02/18 07:00 91 01/02/18 04:00 98.4 82 18 120/74 (89) 96 Room Air 01/02/18 01:00 102 01/02/18 00:00 100.6 92 16 130/70 (90) 96 Room Air 01/01/18 20:00 100.6 99 20 143/75 (97) 98 Room Air 01/01/18 19:00 97 I & O 01/02/18 07:00 Intake Total 2300 ml Balance 2300 ml Capillary Refill : Less Than 3 SecondsLess Than 3 Seconds General Appearance: No Apparent Distress, WD/WN HEENT: PERRL/EOMI, Moist Mucous Membranes Neck: No JVD, No Thyromegaly Respiratory: Lungs Clear, No Respiratory Distress Cardiovascular: Regular Rate, Rhythm, No Murmur Peripheral Pulses: 2+ Dorsalis Pedis (R), 2+ Left Dors-Pedis (L), 2+ Radial Pulses (R), 2+ Radial Pulses (L) Gastrointestinal: non tender, soft, no organomegaly, no pulsatile mass, No distended, No guarding, No rebound, No tenderness Extremity: No Calf Tenderness, No Pedal Edema Neurologic/Psychiatric: Alert, Oriented x3 Skin: Normal Color, Warm/Dry Lymphatic: No Adenopathy Results Lab Laboratory Tests 01/02/18 05:25: White Blood Count 4.9, Red Blood Count 3.23L, Hemoglobin 9.1L, Hematocrit 28L, Mean Corpuscular Volume 85, Mean Corpuscular Hemoglobin 28, Mean Corpuscular Hemoglobin Concent 33, Red Cell Distribution Width 13.9, Platelet Count 407H, Mean Platelet Volume 9.6, Neutrophils (%) (Auto) 57, Lymphocytes (%) (Auto) 28, Monocytes (%) (Auto) 12, Eosinophils (%) (Auto) 3, Basophils (%) (Auto) 0, Neutrophils # (Auto) 2.8, Lymphocytes # (Auto) 1.4, Monocytes # (Auto) 0.6, Eosinophils # (Auto) 0.2, Basophils # (Auto) 0.0, Sodium Level 137, Potassium Level 3.1L, Chloride Level 107, Carbon Dioxide Level 24, Anion Gap 6, Blood Urea Nitrogen 2L, Creatinine 0.59L, Estimat Glomerular Filtration Rate > 60, BUN /Creatinine Ratio 3, Glucose Level 134H, Calcium Level 7.6L, Magnesium Level 1.7L Microbiology 12/30/17 Blood Culture - Preliminary, Resulted No growth 01/02/18 C. difficile GDH Antigen & Toxins - Final, Complete Assessment/Plan Assessment/Plan Assessment/Plan Patient is a 62-year-old female with colitis by CT scan from the transverse colon to the rectum, intractable nausea and vomiting. Hypokalemia being replaced. Patient on clear liquids okay to advance as tolerates. Patient continue on Cipro and Flagyl IV if continues to have nausea, consider changing. We'll try to control nausea and vomiting. We'll continue to follow no surgical intervention at this time. We'll do a colonoscopy 6 weeks after this calms down If she continues to have symptoms of nausea vomiting would consider EGD Clinical Quality Measures DVT/VTE Risk/Contraindication: Risk Factor Score Per Nursin RFS Level Per Nursing on Admit: 2=Moderate TAMANNA ONEILL DO Jan 02, 2018 17:39
[2018-01-02] MEDS: MAGNESIUM 1 GM/100 ML IVPB 100 ML IV SCH ×2 (18:26→20:56)
[2018-01-02 20:00] VITALS: BP 114/61
[2018-01-03] VITALS: BP 117/62
[2018-01-03] MEDS: D5 1/2 NS W/KCL 20 MEQ/L 1,000 ML IV SCH ×2 (04:02→06:18)
[2018-01-03 04:15] VITALS: BP 110/67
[2018-01-03] MEDS: CATHETER FLUSH 10 ML SYR IV SCH ×3 (04:45→20:51)
[2018-01-03] MEDS: metroNIDAZOLE 500 MG/100 ML IVPB (PRE-MIX) IV SCH ×3 (06:16→22:58)
[2018-01-03 06:31] LABS: BASOPHILS % (AUTO) 0 % (0-10); EOSINOPHILS # (AUTO) 0.3 10^3/uL (0.0-0.3); EOSINOPHILS % (AUTO) 6 % (0-10); HEMATOCRIT 28 % (35-52); HEMOGLOBIN 9.3 G/DL (11.5-16.0); LYMPHOCYTES # (AUTO) 1.2 X 10^3 (1.0-4.0); LYMPHOCYTES % (AUTO) 24 % (12-44); MEAN CORPUSCULAR HEMOGLOBIN 28 PG (25-34); MEAN CORPUSCULAR HGB CONC 33 G/DL (32-36); MEAN CORPUSCULAR VOLUME 86 FL (80-99); MEAN PLATELET VOLUME 9.6 FL (7.4-10.4); MONOCYTES # (AUTO) 0.5 X 10^3 (0.0-1.0); MONOCYTES % (AUTO) 9 % (0-12); NEUTROPHILS # (AUTO) 3.1 X 10^3 (1.8-7.8); NEUTROPHILS % (AUTO) 61 % (42-75); PLATELET COUNT 414 10^3/uL (130-400); RED BLOOD COUNT 3.27 10^6/uL (4.35-5.85); RED CELL DISTRIBUTION WIDTH 14.2 % (10.0-14.5); WHITE BLOOD COUNT 5.1 10^3/uL (4.3-11.0)
[2018-01-03 06:53] LABS: BUN/CREATININE RATIO 4; CALCIUM 7.4 MG/DL (8.5-10.1); CARBON DIOXIDE 23 MMOL/L (21-32); CHLORIDE 106 MMOL/L (98-107); CREATININE SERUM 0.57 MG/DL (0.60-1.30); GFR ESTIMATED > 60; GLUCOSE 126 MG/DL (70-105); MAGNESIUM 2.1 MG/DL (1.8-2.4); POTASSIUM 3.4 MMOL/L (3.6-5.0); SODIUM 135 MMOL/L (135-145)
[2018-01-03 08:00] VITALS: BP 110/67
[2018-01-03] MEDS: CIPROFLOXACIN 400 MG/D5W 200 ML (PRE-MIX) IV SCH ×2 (09:15→20:52)
--- NOTE | 2018-01-03 10:09 | Progress Note-Hospitalist ---
Subjective HPI/CC On Admission Date Seen by Provider: Jan 03, 2018 Time Seen by Provider: 09:00 Pt is a 62yoCF who presented to the hospital with chief complaints of nausea and vomiting and found to have colitis. Subjective/Events-last exam She reports feeling well. Ate applesauce yesterday without emesis but did vomit this morning. Is unsure if she wants EGD done. Objective Exam Vital Signs Vital Signs Date Time Temp Pulse Resp B/P (MAP) Pulse Ox O2 Delivery O2 Flow Rate FiO2 12/30/17 18:04 99.0 109 18 140/83 (102) 99 Room Air Capillary Refill : Less Than 3 SecondsLess Than 3 Seconds General Appearance: No Apparent Distress, WD/WN Respiratory: Lungs Clear, No Respiratory Distress Cardiovascular: Regular Rate, Rhythm, No Murmur Gastrointestinal: Normal Bowel Sounds, Non Tender, Soft Extremity: Non Tender, No Calf Tenderness, No Pedal Edema Neurologic/Psychiatric: Alert, Oriented x3, Other (flat affect) Skin: Normal Color, Warm/Dry Results/Procedures Lab Laboratory Tests 01/03/18 05:55 Assessment/Plan Assessment and Plan Assess & Plan/Chief Complaint Colitis Diagnosis/Problems Diagnosis/Problems (1) Colitis Status: Acute Assessment & Plan: Cont on flagyl and cipro IV Blood cultures drawn in ER- NGTD Zofran and Phenergan prn nausea Scopolamine Discussed with Dr Alaniz, consider EGD if still no improvement and patient agrees Will do tomorrow if agreeable (2) Intractable nausea and vomiting Status: Acute Assessment & Plan: Scopolamine Phenergan and Zofran ordered prn Continue IVF- changed to D5 1/2 NS with 20KCL Protonix Advance diet to regular Qualifiers: Qualified Codes: R11.2 - Nausea with vomiting, unspecified (3) Hypokalemia Status: Acute Assessment & Plan: Replacing in fluids Mag normal (4) Normocytic anemia Assessment & Plan: Trend- stable Consider IV iron when sepsis resolved Febrile early yesterday morning (5) Prophylactic measure Assessment & Plan: d5 1/2NS with 20KCL at 50ml/hr Lovenox Diet as tolerated YOLY NAVARRO MD Jan 03, 2018 10:09 am
--- NOTE | 2018-01-03 11:33 | Progress Note ---
Subjective Date Seen by Provider: Jan 03, 2018 Time Seen by Provider: 11:28 Subjective/Events-last exam feeling better. less nausea but had one emesis she states. Did better with some food yesterday. she states liquid stools has turned into more solid. No abdominal pain. Denies sweats chills shortness of breath or chest pain. Objective Exam Vital Signs Date Time Temp Pulse Resp B/P (MAP) Pulse Ox O2 Delivery O2 Flow Rate FiO2 01/03/18 08:00 98.5 100 20 110/67 (81) 96 Room Air 01/03/18 07:00 90 01/03/18 04:15 98.9 89 18 110/67 (81) 97 Room Air 01/03/18 01:00 92 01/03/18 00:00 99.4 93 18 117/62 (80) 96 Room Air 01/02/18 20:00 100.1 96 18 114/61 (78) 97 Room Air 01/02/18 19:00 93 01/02/18 16:00 99.2 92 20 110/60 (77) 98 Room Air 01/02/18 13:00 100 01/02/18 12:00 99.1 93 18 139/89 (106) 95 Room Air I & O 01/03/18 07:00 Intake Total 3040 ml Output Total 1050 ml Balance 1990 ml Capillary Refill : Less Than 3 SecondsLess Than 3 Seconds General Appearance: No Apparent Distress, WD/WN HEENT: PERRL/EOMI, Moist Mucous Membranes Neck: No JVD, No Thyromegaly Respiratory: Lungs Clear, No Respiratory Distress Cardiovascular: Regular Rate, Rhythm, No Murmur Peripheral Pulses: 2+ Dorsalis Pedis (R), 2+ Left Dors-Pedis (L), 2+ Radial Pulses (R), 2+ Radial Pulses (L) Gastrointestinal: non tender, soft, no organomegaly, no pulsatile mass, No distended, No guarding, No rebound, No tenderness Extremity: Non Tender, No Calf Tenderness, No Pedal Edema Neurologic/Psychiatric: Alert, Oriented x3, Other (flat affect) Skin: Normal Color, Warm/Dry Lymphatic: No Adenopathy Results Lab Laboratory Tests 01/03/18 05:55: White Blood Count 5.1, Red Blood Count 3.27L, Hemoglobin 9.3L, Hematocrit 28L, Mean Corpuscular Volume 86, Mean Corpuscular Hemoglobin 28, Mean Corpuscular Hemoglobin Concent 33, Red Cell Distribution Width 14.2, Platelet Count 414H, Mean Platelet Volume 9.6, Neutrophils (%) (Auto) 61, Lymphocytes (%) (Auto) 24, Monocytes (%) (Auto) 9, Eosinophils (%) (Auto) 6, Basophils (%) (Auto) 0, Neutrophils # (Auto) 3.1, Lymphocytes # (Auto) 1.2, Monocytes # (Auto) 0.5, Eosinophils # (Auto) 0.3, Basophils # (Auto) 0.0, Sodium Level 135, Potassium Level 3.4L, Chloride Level 106, Carbon Dioxide Level 23, Anion Gap 6, Blood Urea Nitrogen < 2L, Creatinine 0.57L, Estimat Glomerular Filtration Rate > 60, BUN/Creatinine Ratio 4, Glucose Level 126H, Calcium Level 7.4L, Magnesium Level 2.1 Microbiology 12/30/17 Blood Culture - Preliminary, Resulted No growth 01/02/18 C. difficile GDH Antigen & Toxins - Final, Complete Assessment/Plan Assessment/Plan Assessment/Plan Patient is a 62-year-old female with colitis by CT scan from the transverse colon to the rectum, intractable nausea and vomiting. Hypokalemia Patient diet advance as tolerates. Patient continue on Cipro and Flagyl IV if continues to have nausea, consider changing. We'll try to control nausea and vomiting. We'll continue to follow no surgical intervention at this time. We'll do a colonoscopy 6 weeks after this calms down If she continues to have symptoms of nausea vomiting would consider EGD Patient considering egd tomorrow or as outpatient, see if she tolerates diet and if nausea continues, will consider. Clinical Quality Measures DVT/VTE Risk/Contraindication: Risk Factor Score Per Nursin RFS Level Per Nursing on Admit: 2=Moderate TAMANNA ONEILL DO Jan 03, 2018 11:33
[2018-01-03 12:00] VITALS: BP 133/75
[2018-01-03] MEDS: ENOXAPARIN 40 MG/0.4 ML (LOVENOX) SYR SC SCH (12:41)
[2018-01-03] MEDS: SCOPOLAMINE 1.5 MG (TRANSDERM-SCOP) PATCH TOP SCH (13:54)
[2018-01-03] MEDS: ONDANSETRON 4 MG/2 ML (SDV) Z0FRAN IV PRN ×2 (14:06→18:04)
[2018-01-03] MEDS ORDERED: SCOPOLAMINE PATCH REMOVAL TP SCH (14:45)
[2018-01-03 16:49] VITALS: BP 127/84
[2018-01-03 19:36] VITALS: BP 125/73
[2018-01-04] VITALS: BP 127/77
[2018-01-04] MEDS: CATHETER FLUSH 10 ML SYR IV SCH ×3 (03:20→22:16)
[2018-01-04 04:00] VITALS: BP 131/77
[2018-01-04] MEDS: metroNIDAZOLE 500 MG/100 ML IVPB (PRE-MIX) IV SCH (05:52)
[2018-01-04] MEDS: D5 1/2 NS W/KCL 20 MEQ/L 1,000 ML IV SCH (05:52)
[2018-01-04 06:44] LABS: BASOPHILS % (AUTO) 1 % (0-10); EOSINOPHILS # (AUTO) 0.2 10^3/uL (0.0-0.3); EOSINOPHILS % (AUTO) 3 % (0-10); HEMATOCRIT 28 % (35-52); HEMOGLOBIN 9.1 G/DL (11.5-16.0); LYMPHOCYTES # (AUTO) 1.5 X 10^3 (1.0-4.0); LYMPHOCYTES % (AUTO) 24 % (12-44); MEAN CORPUSCULAR HEMOGLOBIN 28 PG (25-34); MEAN CORPUSCULAR HGB CONC 32 G/DL (32-36); MEAN CORPUSCULAR VOLUME 86 FL (80-99); MEAN PLATELET VOLUME 9.9 FL (7.4-10.4); MONOCYTES # (AUTO) 0.5 X 10^3 (0.0-1.0); MONOCYTES % (AUTO) 8 % (0-12); NEUTROPHILS # (AUTO) 4.1 X 10^3 (1.8-7.8); NEUTROPHILS % (AUTO) 64 % (42-75); PLATELET COUNT 412 10^3/uL (130-400); RED BLOOD COUNT 3.26 10^6/uL (4.35-5.85); RED CELL DISTRIBUTION WIDTH 14.5 % (10.0-14.5); WHITE BLOOD COUNT 6.3 10^3/uL (4.3-11.0)
[2018-01-04 06:58] LABS: BUN/CREATININE RATIO 3; CALCIUM 7.5 MG/DL (8.5-10.1); CARBON DIOXIDE 23 MMOL/L (21-32); CHLORIDE 104 MMOL/L (98-107); CREATININE SERUM 0.58 MG/DL (0.60-1.30); GFR ESTIMATED > 60; GLUCOSE 103 MG/DL (70-105); POTASSIUM 3.1 MMOL/L (3.6-5.0); SODIUM 135 MMOL/L (135-145)
[2018-01-04 08:00] VITALS: BP 125/76
[2018-01-04] MEDS: CIPROFLOXACIN 400 MG/D5W 200 ML (PRE-MIX) IV SCH (09:05)
--- NOTE | 2018-01-04 10:08 | Progress Note-Hospitalist ---
Subjective HPI/CC On Admission Date Seen by Provider: Jan 04, 2018 Time Seen by Provider: 10:03 Pt is a 62yoCF who presented to the hospital with chief complaints of nausea and vomiting and found to have colitis. Subjective/Events-last exam Pt reports feeling better. Was able to keep her breakfast down so far but still feels somewhat nausea. States she is not ready to DC home. Other abreu no complaints. Objective Exam Vital Signs Vital Signs Date Time Temp Pulse Resp B/P (MAP) Pulse Ox O2 Delivery O2 Flow Rate FiO2 12/30/17 18:04 99.0 109 18 140/83 (102) 99 Room Air Capillary Refill : Less Than 3 SecondsLess Than 3 Seconds General Appearance: No Apparent Distress, WD/WN Respiratory: Lungs Clear, No Respiratory Distress Cardiovascular: Regular Rate, Rhythm, No Murmur Gastrointestinal: Normal Bowel Sounds, Non Tender, Soft Extremity: Non Tender, No Calf Tenderness Neurologic/Psychiatric: Alert, Oriented x3, Other (flat affect) Results/Procedures Lab Laboratory Tests 01/04/18 05:37 Assessment/Plan Assessment and Plan Assess & Plan/Chief Complaint Colitis Diagnosis/Problems Diagnosis/Problems (1) Colitis Status: Acute Assessment & Plan: Cont on flagyl and cipro Will switch to oral Blood cultures drawn in ER- NGTD Zofran and Phenergan prn nausea Scopolamine scheduled Declined EGD- will do at outpatient in 6 weeks Switching medications to oral in preparation for DC (2) Intractable nausea and vomiting Status: Acute Assessment & Plan: Scopolamine Phenergan and Zofran ordered prn Protonix Advance diet to regular Qualifiers: Qualified Codes: R11.2 - Nausea with vomiting, unspecified (3) Hypokalemia Status: Acute Assessment & Plan: Replacing in fluids Mag normal (4) Normocytic anemia Assessment & Plan: Trend- stable Consider IV iron when sepsis resolved Febrile early yesterday morning Has not tolerated extra IV medications well so will need as an outpatient later (5) Prophylactic measure Assessment & Plan: Saline lock Lovenox Diet as tolerated YOLY NAVARRO MD Jan 04, 2018 10:08 am
[2018-01-04] MEDS ORDERED: PROMETHAZINE 25 MG (PHENERGAN) TAB PO PRN (10:15)
[2018-01-04 12:00] VITALS: BP 120/75
[2018-01-04] MEDS: LACTOBACILLUS Acidoph/Bulgar (LACTINEX/FLORANEX) TAB PO SCH ×2 (12:32→16:57)
[2018-01-04] MEDS: ONDANSETRON 4 MG (ZOFRAN) ORAL DISSOLVE TAB PO PRN (12:32)
[2018-01-04] MEDS: ENOXAPARIN 40 MG/0.4 ML (LOVENOX) SYR SC SCH (12:33)
--- NOTE | 2018-01-04 13:13 | Progress Note ---
Subjective Date Seen by Provider: Jan 04, 2018 Time Seen by Provider: 13:10 Subjective/Events-last exam Tolerating breakfast so far. Slight nausea but improving. No fever this morning. Denies sweats chills shortness of breath or chest pain. Not having abdominal pain. Objective Exam Vital Signs Date Time Temp Pulse Resp B/P (MAP) Pulse Ox O2 Delivery O2 Flow Rate FiO2 01/04/18 12:00 98.9 94 20 120/75 (90) 96 Room Air 01/04/18 08:00 98.2 91 20 125/76 (92) 94 Room Air 01/04/18 07:00 87 01/04/18 04:00 98.9 92 18 131/77 (95) 95 Room Air 01/04/18 01:00 107 01/04/18 00:00 99.2 90 20 127/77 (94) 93 Room Air 01/03/18 19:36 100.7 100 20 125/73 (90) 96 Room Air 01/03/18 19:00 107 01/03/18 17:44 100.7 01/03/18 16:55 100.7 01/03/18 16:49 101.0 95 16 127/84 (98) 98 Room Air 01/03/18 13:44 97.7 I & O 01/04/18 07:00 Intake Total 970 ml Output Total 950 ml Balance 20 ml Capillary Refill : Less Than 3 SecondsLess Than 3 Seconds General Appearance: No Apparent Distress, WD/WN HEENT: PERRL/EOMI, Moist Mucous Membranes Neck: No JVD, No Thyromegaly Respiratory: Lungs Clear, No Respiratory Distress Cardiovascular: Regular Rate, Rhythm, No Murmur Peripheral Pulses: 2+ Dorsalis Pedis (R), 2+ Left Dors-Pedis (L), 2+ Radial Pulses (R), 2+ Radial Pulses (L) Gastrointestinal: non tender, soft, no organomegaly, no pulsatile mass, No distended, No guarding, No rebound, No tenderness Extremity: Non Tender, No Calf Tenderness Neurologic/Psychiatric: Alert, Oriented x3, Other (flat affect) Skin: Normal Color, Warm/Dry Lymphatic: No Adenopathy Results Lab Laboratory Tests 01/04/18 05:37: White Blood Count 6.3, Red Blood Count 3.26L, Hemoglobin 9.1L, Hematocrit 28L, Mean Corpuscular Volume 86, Mean Corpuscular Hemoglobin 28, Mean Corpuscular Hemoglobin Concent 32, Red Cell Distribution Width 14.5, Platelet Count 412H, Mean Platelet Volume 9.9, Neutrophils (%) (Auto) 64, Lymphocytes (%) (Auto) 24, Monocytes (%) (Auto) 8, Eosinophils (%) (Auto) 3, Basophils (%) (Auto) 1, Neutrophils # (Auto) 4.1, Lymphocytes # (Auto) 1.5, Monocytes # (Auto) 0.5, Eosinophils # (Auto) 0.2, Basophils # (Auto) 0.0, Sodium Level 135, Potassium Level 3.1L, Chloride Level 104, Carbon Dioxide Level 23, Anion Gap 8, Blood Urea Nitrogen 2L, Creatinine 0.58L, Estimat Glomerular Filtration Rate > 60, BUN /Creatinine Ratio 3, Glucose Level 103, Calcium Level 7.5L Microbiology 12/30/17 Blood Culture - Preliminary, Resulted No growth 01/02/18 C. difficile GDH Antigen & Toxins - Final, Complete Assessment/Plan Assessment/Plan Assessment/Plan Patient is a 62-year-old female with colitis by CT scan from the transverse colon to the rectum, intractable nausea and vomiting. Patient diet advance as tolerates. Patient continue on Cipro and Flagyl switching to oral We'll try to control nausea and vomiting. We'll continue to follow no surgical intervention at this time. We'll do a colonoscopy 6 weeks after this calms down If she continues to have symptoms of nausea vomiting would consider EGD but she has declined. Clinical Quality Measures DVT/VTE Risk/Contraindication: Risk Factor Score Per Nursin RFS Level Per Nursing on Admit: 2=Moderate TAMANNA ONEILL DO Jan 04, 2018 13:13
--- NOTE | 2018-01-04 13:52 | Occ Therapy Progress Note ---
Therapy Progress Note Order received for OT eval and treat. Chart review completed. Attempted OT evaluation at 1330. Pt in bed with washcloth on forehead and holding emesis bucket. Pt states she has just been up vomiting and is still nauseous at this time. Pt states she feels best when supine in bed, but nausea increases with activity. Pt declined therapy at this time. Will attempt to complete evaluation at next available time. Pt in bed with needs met. 1, visit MIMI BROWNLEE OT Jan 04, 2018 13:52
--- NOTE | 2018-01-04 14:28 | Physical Therapy Progress Note ---
Therapy Progress Note Dr. Hall notified of patient declined PT intervention x 3 on this date secondary to patient stating she is too sick and would vomit if she did. PT will attempt in a.m. 1 x 3 visits with refusal GURDEEP PUGA PT Jan 04, 2018 14:28
[2018-01-04 16:49] VITALS: BP 122/72
[2018-01-04] MEDS: NS IV 1000 ML 1,000 ML IV SCH (16:57)
[2018-01-04] MEDS: AUGMENTIN 500 MG TAB (AMOXICILLIN/CLAVULANATE) PO SCH (16:57)
[2018-01-04] MEDS ORDERED: ACETAMINOPHEN 325 MG TABLET/CAPLET (TYLENOL) PO PRN (17:00)
[2018-01-04 19:42] VITALS: BP 105/63
[2018-01-05] VITALS: BP_SYST 115; BP_SYST 134; BP_DIAS 54; BP_DIAS 87
[2018-01-05] MEDS: NS IV 1000 ML 1,000 ML IV SCH (00:55)
[2018-01-05] MEDS: ONDANSETRON 4 MG (ZOFRAN) ORAL DISSOLVE TAB PO PRN (01:23)
[2018-01-05 05:13] LABS: BASOPHILS % (AUTO) 0 % (0-10); EOSINOPHILS # (AUTO) 0.1 10^3/uL (0.0-0.3); EOSINOPHILS % (AUTO) 1 % (0-10); HEMATOCRIT 29 % (35-52); HEMOGLOBIN 9.4 G/DL (11.5-16.0); LYMPHOCYTES # (AUTO) 1.5 X 10^3 (1.0-4.0); LYMPHOCYTES % (AUTO) 22 % (12-44); MEAN CORPUSCULAR HEMOGLOBIN 28 PG (25-34); MEAN CORPUSCULAR HGB CONC 33 G/DL (32-36); MEAN CORPUSCULAR VOLUME 86 FL (80-99); MEAN PLATELET VOLUME 9.8 FL (7.4-10.4); MONOCYTES # (AUTO) 0.6 X 10^3 (0.0-1.0); MONOCYTES % (AUTO) 8 % (0-12); NEUTROPHILS # (AUTO) 4.9 X 10^3 (1.8-7.8); NEUTROPHILS % (AUTO) 69 % (42-75); PLATELET COUNT 426 10^3/uL (130-400); RED BLOOD COUNT 3.34 10^6/uL (4.35-5.85); RED CELL DISTRIBUTION WIDTH 14.6 % (10.0-14.5); WHITE BLOOD COUNT 7.1 10^3/uL (4.3-11.0)
[2018-01-05 05:30] LABS: BUN/CREATININE RATIO 7; CALCIUM 7.5 MG/DL (8.5-10.1); CARBON DIOXIDE 21 MMOL/L (21-32); CHLORIDE 106 MMOL/L (98-107); CREATININE SERUM 0.57 MG/DL (0.60-1.30); GFR ESTIMATED > 60; GLUCOSE 90 MG/DL (70-105); MAGNESIUM 1.7 MG/DL (1.8-2.4); POTASSIUM 3.1 MMOL/L (3.6-5.0); SODIUM 137 MMOL/L (135-145)
[2018-01-05 05:50] LABS: BAND NEUTROPHILS 45 %; EOSINOPHILS % (MANUAL) 1 %; LYMPHOCYTES % (MANUAL) 19 %; MONOCYTES % (MANUAL) 11 %; NEUTROPHILS % (MANUAL) 24 %; POIKILOCYTOSIS SLIGHT; POLYCHROMASIA SLIGHT; TOXIC GRANULATION/VACUOLAZATIO 1+
[2018-01-05] MEDS: LACTOBACILLUS Acidoph/Bulgar (LACTINEX/FLORANEX) TAB PO SCH (06:20)
[2018-01-05] MEDS: AUGMENTIN 500 MG TAB (AMOXICILLIN/CLAVULANATE) PO SCH (06:20)
[2018-01-05] MEDS ORDERED: ONDA4TAB11 SL (07:15)
[2018-01-05] MEDS ORDERED: ACID1TAB PO (07:16)
[2018-01-05] MEDS ORDERED: AMOX1TAB11 PO (07:16)
[2018-01-05] MEDS ORDERED: PROM25TA14 PO (07:16)
--- NOTE | 2018-01-05 07:20 | Discharge Instructions ---
Discharge Instructions Discharge Medications New, Converted or Re-Newed RX: Call to Patients Pharmacy New Medications: Amoxicillin/Potassium Clav (Amox Tr-K Clv 500-125 mg Tab) 1 Each Tablet 500 MG PO BID WITH MEALS, #14 TAB L. Acidophilus/Bulgaricus (Floranex Tablet) 1 Each Tablet 1 TAB.CHEW PO AC, #30 TAB Promethazine HCl (Promethazine Tablet) 25 Mg Tablet 25 MG PO Q4H PRN for NAUSEA/VOMITING-2ND LINE, #30 TAB Continued Medications: L.acidoph & Paracasei,B.lactis (Probiotic) 1 Each Capsule 1 CAP PO DAILY, CAP Ondansetron (Ondansetron Odt) 4 Mg Tab.rapdis 4 MG SL Q4H PRN for NAUSEA/VOMITING-1ST LINE, #30 TAB (This prescription has been renewed) Discontinued Medications: Ciprofloxacin HCl (Ciprofloxacin HCl) 500 Mg Tablet 500 MG PO BID for 10 Days, TAB 10 DAY SUPPLY FILLED 3-2-18 Loperamide HCl (Imodium A-D) 2 Mg Capsule PO UD PRN for DIARRHEA, CAP Metronidazole (Metronidazole) 500 Mg Tablet 500 MG PO TID for 10 Days, TAB 10 DAY SUPPLY FILLED 3-2-18 Promethazine HCl (Promethegan) 50 Mg Supp 50 MG RC Q6H PRN for NAUSEA/VOMITING-2ND LINE, EA Patient Instructions Goal/Follow Up Appt: Please schedule an appointment with a primary care provider in the next 1-[address] Alaniz in 6 weeks as well for colonoscopy. Return to The Hospital For: Inability to keep anything down orally, worsening abdominal pain, recurrent fevers that do not get better with Tylenol or Ibuprofen, or if you feel you are getting worse. Activity & Diet Discharge Diet: Other Diet (Continue clear liquids today and advance as tolerated) Activity as Tolerated: Yes YOLY NAVARRO MD Jan 05, 2018 07:20
[2018-01-05 07:59] VITALS: BP 110/73
--- NOTE | 2018-01-05 08:22 | Physical Therapy Progress Note ---
Therapy Progress Note Pt refused therapy evaluation on 01/04/18 on multiple attempts due to nausea. Attempted therapy evaluation 0815 on 01/05/18. Pt was being discharged to home at that time. Per nursing report patient was (I) with all mobility. Krishan Burns, PT KRISHAN BURNS PT Jan 05, 2018 08:22
--- NOTE | 2018-01-05 14:02 | Discharge Summary-Hospitalist ---
Diagnosis/Chief Complaint Date of Admission Dec 30, 2017 at 20:20 Date of Discharge Jan 05, 2018 at 08:17 Admission Diagnosis Sepsis due to colitis Discharge Diagnosis Colitis (1) Colitis Status: Acute Assessment & Plan: Tolerated orals- will complete course as outpatient Blood cultures drawn in ER- NGTD Zofran and Phenergan prn nausea Scopolamine scheduled Declined EGD- will do as outpatient in 6 weeks (2) Intractable nausea and vomiting Status: Acute Assessment & Plan: Scopolamine Phenergan and Zofran ordered prn Protonix Advance diet to regular (3) Hypokalemia Status: Acute Assessment & Plan: Replacing in fluids Mag normal (4) Normocytic anemia Assessment & Plan: Trend- stable Consider IV iron when sepsis resolved Febrile early yesterday morning Has not tolerated extra IV medications well so will need as an outpatient later (5) Prophylactic measure Assessment & Plan: Saline lock Lovenox Diet as tolerated Discharge Summary Consultations Dr Oneill- Surgery Discharge Physical Examination Allergies: Coded Allergies: No Known Drug Allergies (Unverified , 12/30/17) Vitals & I&Os Vital Signs Date Time Temp Pulse Resp B/P (MAP) Pulse Ox O2 Delivery O2 Flow Rate FiO2 01/05/18 08:02 Room Air 01/05/18 07:59 98.5 96 16 110/73 (85) 95 Hospital Course Pt is a 62yoCF who was admitted to the hospital for severe colitis that had failed outpatient treatment. She was unable to tolerate anything orally and presented back to the ER within 2 days of her first presentation and was admitted for failed outpatient treatment. She progressed slowly but after a few days was able to tolerate a diet. She had intermittent fevers as well throughout her admission despite antibiotics. She was trialed on all oral medication the day prior to discharge as she had had a slow course ot assure she was ready for discharge. She tolerated all of her medications well orally and had no further emesis. On day of discharge she stated she felt well and was comfortable with plan for DC. Her who was at bedside was agreeable to plan. Prescriptions were sent to her pharmacy and she was advised to schedule an appointment with Dr Lopez within a week and to follow up with Dr Oneill for outpatient colonoscopy in 6 weeks. She was advised to return to the hospital for inability to keep fluids down, intractable nausea or vomiting, worsening abd pain, or if she felt she was getting worse. Labs (last 24 hrs) Laboratory Tests 01/05/18 04:20: White Blood Count 7.1, Red Blood Count 3.34L, Hemoglobin 9.4L, Hematocrit 29L, Mean Corpuscular Volume 86, Mean Corpuscular Hemoglobin 28, Mean Corpuscular Hemoglobin Concent 33, Red Cell Distribution Width 14.6H, Platelet Count 426H, Mean Platelet Volume 9.8, Neutrophils (%) (Auto) 69, Lymphocytes (%) (Auto) 22, Monocytes (%) (Auto) 8, Eosinophils (%) (Auto) 1, Basophils (%) (Auto) 0, Neutrophils # (Auto) 4.9, Lymphocytes # (Auto) 1.5, Monocytes # (Auto) 0.6, Eosinophils # (Auto) 0.1, Basophils # (Auto) 0.0, Neutrophils % (Manual) 24, Lymphocytes % (Manual) 19, Monocytes % (Manual) 11, Eosinophils % (Manual) 1, Band Neutrophils 45, Toxic Granulation 1+, Polychromasia SLIGHT, Poikilocytosis SLIGHT, Sodium Level 137, Potassium Level 3.1L, Chloride Level 106, Carbon Dioxide Level 21, Anion Gap 10, Blood Urea Nitrogen 4L, Creatinine 0.57L, Estimat Glomerular Filtration Rate > 60, BUN/Creatinine Ratio 7, Glucose Level 90, Calcium Level 7.5L, Magnesium Level 1.7L Microbiology 12/30/17 Blood Culture - Final, Complete No growth 01/02/18 C. difficile GDH Antigen & Toxins - Final, Complete Discussion & Recommendations Discharge Planning: >30 minutes discharge planning Discharge Home Medications: Active Scripts Active Amox Tr-K Clv 500-125 mg Tab (Amoxicillin/Potassium Clav) 1 Each Tablet 500 Mg PO BID WITH MEALS Floranex Tablet (L. Acidophilus/Bulgaricus) 1 Each Tablet 1 Tab.chew PO AC Promethazine Tablet (Promethazine HCl) 25 Mg Tablet 25 Mg PO Q4H PRN Ondansetron Odt (Ondansetron) 4 Mg Tab.rapdis 4 Mg SL Q4H PRN Reported Probiotic (L.acidoph & Paracasei,B.lactis) 1 Each Capsule 1 Cap PO DAILY Instructions to patient/family Please see electronic discharge instructions given to patient. Clinical Quality Measures DVT/VTE Risk/Contraindication: Risk Factor Score Per Nursin RFS Level Per Nursing on Admit: 2=Moderate Copy Copies To 1: TAMANNA ONEILL DO; TADEO LOPEZ DO Problem Qualifiers (1) Intractable nausea and vomiting: Vomiting type: unspecified Qualified Codes: R11.2 - Nausea with vomiting, unspecified YOLY NAVARRO MD Jan 05, 2018 14:02
== END 2018-01-05 08:17 | disposition home or self-care (01) | DRG 392 ==
LOC: EDUNIT# 17:40 → ER 17:42 → 4TH 20:20
PROVIDERS: ADMIT Internal Medicine; ATTEND Internal Medicine
DX: K52.9 Noninfective gastroenteritis and colitis, unspecified (principal); E87.6 Hypokalemia; R11.2 Nausea with vomiting, unspecified; D64.9 Anemia, unspecified; Z87.891 Personal history of nicotine dependence
CPT/HCPCS: 36415; 80048; 80053; 81000; 83605; 83735; 85007; 85025; 85027; 86141; 87040; 87324; 87449; 96361; 96374; 96375

== ENCOUNTER 2018-01-11 13:44 | Inpatient (IN) | payer BC ==
[~2018-01-11] VITALS: Ht 162.6 cm; Wt 106.0 kg
[~2018-01-11 13:44] MED LIST changes: +ACID1TAB PO; +AMOX1TAB11 PO; -IOHEXOL 350 MG/ML 100 ML (OMNIPAQUE 350) VIAL IV ONE; -NS 250 ML (IVPB) BAG IV ONE; +PROM25TA14 PO
[2018-01-11] MEDS ORDERED: fentaNYL INJECTION 100 MCG/2 ML AMP IVP PRN (13:45)
[2018-01-11] MEDS ORDERED: ACETAMINOPHEN 500 MG TAB (TYLENOL) PO PRN (13:45)
[2018-01-11] MEDS ORDERED: ALPRAZolam 0.25 MG (XANAX) TAB PO PRN (13:45)
[2018-01-11] MEDS ORDERED: PIPERACILLIN SODIUM/TAZOBACTAM 4.5 GM in NS (IVPB) 100 ML IV SCH (13:45)
[2018-01-11 14:00] VITALS: BP 123/78
[2018-01-11 14:46] LABS: BASOPHILS # (AUTO) 0.1 10^3/uL (0.0-0.1); BASOPHILS % (AUTO) 1 % (0-10); EOSINOPHILS % (AUTO) 1 % (0-10); HEMATOCRIT 32 % (35-52); HEMOGLOBIN 10.2 G/DL (11.5-16.0); LYMPHOCYTES # (AUTO) 1.9 X 10^3 (1.0-4.0); LYMPHOCYTES % (AUTO) 24 % (12-44); MEAN CORPUSCULAR HEMOGLOBIN 28 PG (25-34); MEAN CORPUSCULAR HGB CONC 32 G/DL (32-36); MEAN CORPUSCULAR VOLUME 86 FL (80-99); MEAN PLATELET VOLUME 9.5 FL (7.4-10.4); MONOCYTES # (AUTO) 0.6 X 10^3 (0.0-1.0); MONOCYTES % (AUTO) 8 % (0-12); NEUTROPHILS # (AUTO) 5.1 X 10^3 (1.8-7.8); NEUTROPHILS % (AUTO) 67 % (42-75); PLATELET COUNT 565 10^3/uL (130-400); RED BLOOD COUNT 3.69 10^6/uL (4.35-5.85); RED CELL DISTRIBUTION WIDTH 15.5 % (10.0-14.5); WHITE BLOOD COUNT 7.7 10^3/uL (4.3-11.0)
[2018-01-11] MEDS ORDERED: PIPERACILLIN SODIUM/TAZOBACTAM 4.5 GM in NS (IVPB) 100 ML IV NR (15:00)
[2018-01-11] MEDS ORDERED: IOHEXOL 350 MG/ML 100 ML (OMNIPAQUE 350) VIAL IV ONE (15:00)
[2018-01-11] MEDS ORDERED: NS 250 ML (IVPB) BAG IV ONE (15:00)
[2018-01-11] MEDS ORDERED: RECEIVED CONTRAST (Hold Metformin) IV SCH (15:00)
[2018-01-11 15:05] LABS: ALANINE AMINOTRANSFERASE 13 U/L (0-55); ALBUMIN 2.5 GM/DL (3.2-4.5); ALKALINE PHOSPHATASE 67 U/L (40-136); BILIRUBIN,TOTAL 0.7 MG/DL (0.1-1.0); BUN/CREATININE RATIO 13; CALCIUM 7.6 MG/DL (8.5-10.1); CARBON DIOXIDE 25 MMOL/L (21-32); CHLORIDE 99 MMOL/L (98-107); CREATININE SERUM 0.69 MG/DL (0.60-1.30); GFR ESTIMATED > 60; GLUCOSE 116 MG/DL (70-105); POTASSIUM 3.2 MMOL/L (3.6-5.0); SODIUM 137 MMOL/L (135-145); TOTAL PROTEIN 5.6 GM/DL (6.4-8.2)
[2018-01-11 15:13] LABS: ERYTHROCYTE SEDIMENTATION RATE 31 MM/HR (0-30)
[2018-01-11 15:14] LABS: ANISOCYTOSIS SLIGHT; BAND NEUTROPHILS 31 %; EOSINOPHILS % (MANUAL) 2 %; LYMPHOCYTES % (MANUAL) 25 %; MONOCYTES % (MANUAL) 7 %; NEUTROPHILS % (MANUAL) 35 %; POIKILOCYTOSIS SLIGHT; POLYCHROMASIA SLIGHT; SPHEROCYTES SLIGHT
[2018-01-11] MEDS ORDERED: INFLUENZA TRIvalent 2017-2018 0.5 ML/45 MCG SYR IM ONE (15:15)
[2018-01-11] MEDS: CATHETER FLUSH 10 ML SYR IV PRN (15:21)
[2018-01-11] MEDS: POTASSIUM CHLORIDE INJ 10 MEQ in NS IV 1000 ML 1,000 ML IV SCH ×5 (15:48→23:30)
[2018-01-11] MEDS: PANTOPRAZOLE 40 MG/10 ML (PROTONIX) VIAL IV SCH (15:49)
[2018-01-11] MEDS: ENOXAPARIN 40 MG/0.4 ML (LOVENOX) SYR SC SCH (15:49)
[2018-01-11] MEDS: ONDANSETRON 4 MG/2 ML (SDV) Z0FRAN IVP PRN (15:49)
[2018-01-11] MEDS: SCOPOLAMINE 1.5 MG (TRANSDERM-SCOP) PATCH TOP SCH (15:49)
[2018-01-11 16:00] VITALS: BP 112/75
--- NOTE | 2018-01-11 16:07 | Diagnostic Imaging Report ---
INDICATION: Nausea and vomiting with diarrhea. Colitis. FINDINGS: PA and lateral chest shows some atelectasis right lung base with trace of right basilar pleural effusion. Left lung is clear with sharp costophrenic angle. Heart is not enlarged. There is no pulmonary edema. No pneumothorax. IMPRESSION: Small right basilar pleural effusion with mild right basilar discoid atelectasis. Dictated by: Dictated on workstation # [id number]
--- NOTE | 2018-01-11 16:18 | Diagnostic Imaging Report ---
PROCEDURE: CT abdomen and pelvis with contrast. TECHNIQUE: Multiple contiguous axial images were obtained through the abdomen and pelvis after administration of intravenous contrast. INDICATION: Nausea and vomiting for three months. Febrile. Abdominal pain. History of tubal ligation. Followup of colitis with abdominal distention and pain. COMPARISON: 12/28/2017. FINDINGS: There continues to be diffuse thickening of the colon bowel wall from just above the cecum throughout to the distal rectum. There has been slight increase in gaseous distention of the lumen, especially in the transverse and descending colon which contain a few air-fluid levels now. There continues to be diffuse edema and thickening of the sigmoid colon which shows very little gas, suggesting probable partial obstruction. There is a small amount of fluid in the rectum which shows thickening of the bowel wall. There is mild mesenteric edema along the sigmoid colon and rectum, consistent with inflammatory changes. There is no evidence of pneumatosis. No evidence of free air. The stomach and small bowel are not distended. The terminal ileum shows no thickening of the bowel wall. The appendix appears to be absent. The lung bases show atelectasis. Small right basilar effusion. There is hepatomegaly with hepatic steatosis. The gallbladder and bile ducts remain normal. Pancreas and spleen are normal. The adrenal glands and kidneys are normal. There is normal enhancement of the abdominal organs and vessels with minimal atherosclerotic change of the aorta. The vessels show good enhancement. IMPRESSION: 1. Findings are again consistent with long segment colitis from just above the cecum to the rectum. There is mild gaseous distention of the colon now to the sigmoid colon with the sigmoid colon gasless and edematous, suggesting probable partial obstruction. 2. There has been no evidence of pneumatosis or free air. There is no free fluid. 3. Development of small right basilar pleural effusion and right basilar atelectasis. Dictated by: Dictated on workstation # [id number]
--- NOTE | 2018-01-11 16:59 | Diagnostic Imaging Report ---
INDICATION: Nausea and vomiting. Diarrhea for two months. History of tubal ligation. FINDINGS: Upright and spine abdomen. The lung bases are free of infiltrate. There does appear to be a small right basilar effusion. There is gas throughout the colon to the rectum. The colon does not appear particularly distended though there is a diffuse thumbprinting present consistent with thickening of the colon bowel wall with edema. The small bowel is not distended. There does appear to be somewhat less edematous spasm of the descending colon when compared with previous CT scan of 12/28/2017. The stomach and small bowel are not distended. There is no organomegaly. No pathologic calcification. There is no evidence of free air. IMPRESSION: 1. Findings are consistent with long segment colitis. There does appear to be slight improvement when compared with previous CT scan of 12/28/2017 with slight increase in the gas within the lumen of the colon. There is no evidence of pneumatosis. No evidence of free air Dictated by: Dictated on workstation # [id number]
[2018-01-11] MEDS: MAGNESIUM 1 GM/100 ML IVPB 100 ML IV SCH ×2 (17:08→18:14)
[2018-01-11] MEDS: POTASSIUM CL 10MEQ/50ML IVPB 50 ML IV SCH ×4 (17:08→18:59)
--- NOTE | 2018-01-11 17:37 | Consultation ---
History of Present Illness History of Present Illness Patient Consulted On(mario/time) 01/11/18 17:29 Date Seen by Provider: Jan 11, 2018 Time Seen by Provider: 17:30 History of Present Illness Consult requested by Dr Verduzco for colitis. Patient is a 62 year old female with recent hospitalization for colitis. She has not had much oral intake the last few days. She has had episodes of nausea and then couldn't control it and have emesis. She is having diarrhea/loose stools approximately 2 times per day. She is not having any abdominal pain and not had any blood in her stools. She was seen in outpatient clinic today by Dr. Verduzco who admitted her to the hospital. She had a ct scan performed which demonstrated colitis from above cecum to rectum. Patient has not had colonoscopy to date. Allergies and Home Medications Allergies Coded Allergies: No Known Drug Allergies (Unverified , 12/30/17) Home Medications Amoxicillin/Potassium Clav 1 Each Tablet, 500 MG PO BID WITH MEALS Prescribed by: YOLY NAVARRO on 01/05/18 0716 L. Acidophilus/Bulgaricus 1 Each Tablet, 1 TAB.CHEW PO AC Prescribed by: YOLY NAVARRO on 01/05/18 0716 Ondansetron 4 Mg Tab.rapdis, 4 MG SL Q4H PRN for NAUSEA/VOMITING-1ST LINE Prescribed by: YOLY NAVARRO on 01/05/18 0715 Promethazine HCl 25 Mg Tablet, 25 MG PO Q4H PRN for NAUSEA/VOMITING-2ND LINE Prescribed by: YOLY NAVARRO on 01/05/18 0716 Patient Home Medication List Home Medication List Reviewed: Yes Past Totussr-Szuydo-Synhyz Hx Patient Social History Alcohol Use: Denies Use Recreational Drug Use: No Recent Foreign Travel: No Contact w/Someone Who Travel: No Recent Infectious Disease Expo: No Recent Hopitalizations: No (ER) Physical Abuse Screen: No Sexual Abuse: No Seasonal Allergies Seasonal Allergies: No Surgeries History of Surgeries: Yes Surgeries: Tubal Ligation Respiratory History of Respiratory Disorde: No Cardiovascular History of Cardiac Disorders: No Neurological History of Neurological Disord: No Genitourinary History of Genitourinary Disor: No Gastrointestinal History of Gastrointestinal Di: Yes (new dx sunday) Gastrointestinal Disorders: Colitis Musculoskeletal History of Musculoskeletal Dis: No Endocrine History of Endocrine Disorders: No HEENT History of HEENT Disorders: No Cancer History of Cancer: No Psychosocial History of Psychiatric Problem: No Integumentary History of Skin or Integumenta: No Blood Transfusions History of Blood Disorders: No Family Medical History Significant Family History: No Pertinent Family Hx Family Medial History: Patient reports no known family medical history. Review of Systems-General Constitutional: no symptoms reported EENTM: no symptoms reported Respiratory: no symptoms reported Cardiovascular: no symptoms reported Gastrointestinal: see HPI Genitourinary: no symptoms reported Musculoskeletal: no symptoms reported Skin: no symptoms reported Psychiatric/Neurological: No Symptoms Reported Physical Exam-General Problems Physical Exam Vital Signs Vital Signs - First Documented Capillary Refill : General Appearance: no apparent distress HEENT: PERRL/EOMI Neck: supple Respiratory: no respiratory distress, no accessory muscle use Cardiovascular: tachycardia Gastrointestinal: non tender, soft, no organomegaly Rectal: deferred Back: normal inspection Extremities: non-tender, normal inspection Neurologic/Psychiatric: executive director global brand marketing II-XII nml as tested, no motor/sensory deficits, alert, normal mood/affect, oriented x 3 Skin: warm/dry Lymphatic: no adenopathy Data Review Labs Laboratory Tests 01/11/18 14:25: White Blood Count 7.7, Red Blood Count 3.69L, Hemoglobin 10.2L, Hematocrit 32L, Mean Corpuscular Volume 86, Mean Corpuscular Hemoglobin 28, Mean Corpuscular Hemoglobin Concent 32, Red Cell Distribution Width 15.5H, Platelet Count 565H, Mean Platelet Volume 9.5, Neutrophils (%) (Auto) 67, Lymphocytes (%) (Auto) 24, Monocytes (%) (Auto) 8, Eosinophils (%) (Auto) 1, Basophils (%) (Auto) 1, Neutrophils # (Auto) 5.1, Lymphocytes # (Auto) 1.9, Monocytes # (Auto) 0.6, Eosinophils # (Auto) 0.0, Basophils # (Auto) 0.1, Neutrophils % (Manual) 35, Lymphocytes % (Manual) 25, Monocytes % (Manual) 7, Eosinophils % (Manual) 2, Band Neutrophils 31, Polychromasia SLIGHT, Poikilocytosis SLIGHT, Anisocytosis SLIGHT, Spherocytes SLIGHT, Erythrocyte Sedimentation Rate 31H, Sodium Level 137 , Potassium Level 3.2L, Chloride Level 99, Carbon Dioxide Level 25, Anion Gap 13 , Blood Urea Nitrogen 9, Creatinine 0.69, Estimat Glomerular Filtration Rate > 60, BUN/Creatinine Ratio 13, Glucose Level 116H, Calcium Level 7.6L, Total Bilirubin 0.7, Aspartate Amino Transf (AST/SGOT) 20, Alanine Aminotransferase ( ALT/SGPT) 13, Alkaline Phosphatase 67, Troponin I < 0.30, C-Reactive Protein High Sensitivity 14.67H, B-Type Natriuretic Peptide < 10.0, Total Protein 5.6L, Albumin 2.5L 01/11/18 15:47: Lactic Acid Level 1.95 Assessment/Plan Assessment/Plan Assessment/Plan colitis -unknown cause infectious vs low flow dehydration IV fluids On Zosyn/flagyl stool cultures c diff follow labs medical management no surgical intervention at this time will follow. Clinical Quality Measures DVT/VTE Risk/Contraindication: Risk Factor Score Per Nursin RFS Level Per Nursing on Admit: 3=High TAMANNA ONEILL DO Jan 11, 2018 17:37
[2018-01-11] MEDS ORDERED: methylPREDNISolone 40 MG/ML (Solu-MEDROL) VIAL IV SCH (18:00)
[2018-01-11 20:00] VITALS: BP 128/94
[2018-01-11] MEDS: PIPERACILLIN SODIUM/TAZOBACTAM 4.5 GM in NS (IVPB) 100 ML IV SCH (21:36)
[2018-01-11] MEDS: metroNIDAZOLE 500MG/100ML IVPB 100 ML IV SCH (21:38)
[2018-01-11] MEDS: RT-ALBUTEROL/IPRATROPIUM 3 ML (DUONEB) VIAL INH SCH (21:58)
[2018-01-11 23:59] VITALS: BP 115/66
[2018-01-12] MEDS: RT-ALBUTEROL/IPRATROPIUM 3 ML (DUONEB) VIAL INH SCH ×4 (02:55→20:31)
[2018-01-12] MEDS: POTASSIUM CHLORIDE INJ 10 MEQ in NS IV 1000 ML 1,000 ML IV SCH ×3 (03:19→13:34)
[2018-01-12 03:26] VITALS: BP 113/59
[2018-01-12 04:12] LABS: BASOPHILS % (AUTO) 0 % (0-10); EOSINOPHILS % (AUTO) 1 % (0-10); HEMATOCRIT 26 % (35-52); HEMOGLOBIN 8.3 G/DL (11.5-16.0); LYMPHOCYTES # (AUTO) 2.2 X 10^3 (1.0-4.0); LYMPHOCYTES % (AUTO) 34 % (12-44); MEAN CORPUSCULAR HEMOGLOBIN 28 PG (25-34); MEAN CORPUSCULAR HGB CONC 32 G/DL (32-36); MEAN CORPUSCULAR VOLUME 87 FL (80-99); MEAN PLATELET VOLUME 9.2 FL (7.4-10.4); MONOCYTES # (AUTO) 0.5 X 10^3 (0.0-1.0); MONOCYTES % (AUTO) 8 % (0-12); NEUTROPHILS # (AUTO) 3.6 X 10^3 (1.8-7.8); NEUTROPHILS % (AUTO) 57 % (42-75); PLATELET COUNT 470 10^3/uL (130-400); RED CELL DISTRIBUTION WIDTH 15.7 % (10.0-14.5); WHITE BLOOD COUNT 6.4 10^3/uL (4.3-11.0)
[2018-01-12] MEDS: PIPERACILLIN SODIUM/TAZOBACTAM 4.5 GM in NS (IVPB) 100 ML IV SCH ×3 (04:24→21:23)
[2018-01-12 04:44] LABS: ALANINE AMINOTRANSFERASE 9 U/L (0-55); ALBUMIN 1.9 GM/DL (3.2-4.5); ALKALINE PHOSPHATASE 46 U/L (40-136); BILIRUBIN,TOTAL 0.4 MG/DL (0.1-1.0); BUN/CREATININE RATIO 11; CALCIUM 6.7 MG/DL (8.5-10.1); CARBON DIOXIDE 20 MMOL/L (21-32); CHLORIDE 109 MMOL/L (98-107); CREATININE SERUM 0.63 MG/DL (0.60-1.30); GFR ESTIMATED > 60; GLUCOSE 100 MG/DL (70-105); POTASSIUM 3.4 MMOL/L (3.6-5.0); SODIUM 137 MMOL/L (135-145); TOTAL PROTEIN 4.1 GM/DL (6.4-8.2)
[2018-01-12] MEDS: metroNIDAZOLE 500MG/100ML IVPB 100 ML IV SCH ×3 (05:16→22:31)
[2018-01-12] MEDS: LACTOBACILLUS Acidoph/Bulgar (LACTINEX/FLORANEX) TAB PO SCH ×3 (06:33→17:45)
--- NOTE | 2018-01-12 08:16 | Progress Note ---
Subjective Date Seen by Provider: Jan 12, 2018 Time Seen by Provider: 08:10 Subjective/Events-last exam She states she's feeling a little better today. Keeping some clear liquids down. No fever. Had 2 loose stools last night. No blood in stools. Denies sweats chills shortness of breath or chest pain. Focused Exam Evaluation Lactate Level Laboratory Tests 01/11/18 15:47: Lactic Acid Level 1.95 Objective Exam Vital Signs Date Time Temp Pulse Resp B/P (MAP) Pulse Ox O2 Delivery O2 Flow Rate FiO2 01/12/18 04:00 Room Air 01/12/18 03:26 98.6 103 20 113/59 (77) 96 Room Air 01/12/18 02:55 93 Room Air 01/12/18 01:00 100 01/12/18 00:01 Room Air 01/11/18 23:59 98.9 104 18 115/66 (82) 93 Room Air 01/11/18 21:58 92 Room Air 01/11/18 21:00 95 Room Air 01/11/18 20:42 95 Room Air 01/11/18 20:00 128/94 (105) Room Air 01/11/18 19:39 Room Air 01/11/18 19:35 99.3 16 Room Air 01/11/18 19:00 100 01/11/18 16:13 Room Air 01/11/18 16:00 96 16 112/75 (87) 98 Room Air 01/11/18 14:00 Room Air 01/11/18 14:00 99.3 104 16 123/78 (93) 99 Room Air I & O 01/12/18 07:00 Intake Total 1305 ml Output Total 100 ml Balance 1205 ml Capillary Refill : General Appearance: No Apparent Distress HEENT: PERRL/EOMI Neck: Supple Respiratory: No Accessory Muscle Use, No Respiratory Distress Cardiovascular: Tachycardia Gastrointestinal: non tender (slight distention), soft, no organomegaly Extremity: Normal Inspection, Non Tender Neurologic/Psychiatric: Alert, Oriented x3 Skin: Warm/Dry Lymphatic: No Adenopathy Results Lab Laboratory Tests 01/11/18 14:25: White Blood Count 7.7, Red Blood Count 3.69L, Hemoglobin 10.2L, Hematocrit 32L, Mean Corpuscular Volume 86, Mean Corpuscular Hemoglobin 28, Mean Corpuscular Hemoglobin Concent 32, Red Cell Distribution Width 15.5H, Platelet Count 565H, Mean Platelet Volume 9.5, Neutrophils (%) (Auto) 67, Lymphocytes (%) (Auto) 24, Monocytes (%) (Auto) 8, Eosinophils (%) (Auto) 1, Basophils (%) (Auto) 1, Neutrophils # (Auto) 5.1, Lymphocytes # (Auto) 1.9, Monocytes # (Auto) 0.6, Eosinophils # (Auto) 0.0, Basophils # (Auto) 0.1, Neutrophils % (Manual) 35, Lymphocytes % (Manual) 25, Monocytes % (Manual) 7, Eosinophils % (Manual) 2, Band Neutrophils 31, Polychromasia SLIGHT, Poikilocytosis SLIGHT, Anisocytosis SLIGHT, Spherocytes SLIGHT, Erythrocyte Sedimentation Rate 31H, Sodium Level 137 , Potassium Level 3.2L, Chloride Level 99, Carbon Dioxide Level 25, Anion Gap 13 , Blood Urea Nitrogen 9, Creatinine 0.69, Estimat Glomerular Filtration Rate > 60, BUN/Creatinine Ratio 13, Glucose Level 116H, Calcium Level 7.6L, Total Bilirubin 0.7, Aspartate Amino Transf (AST/SGOT) 20, Alanine Aminotransferase ( ALT/SGPT) 13, Alkaline Phosphatase 67, Troponin I < 0.30, C-Reactive Protein High Sensitivity 14.67H, B-Type Natriuretic Peptide < 10.0, Total Protein 5.6L, Albumin 2.5L 01/11/18 15:47: Lactic Acid Level 1.95 01/11/18 20:30: Stool Occult Blood Immunoassay POSITIVEH 01/12/18 04:00: White Blood Count 6.4, Red Blood Count 3.00L, Hemoglobin 8.3L, Hematocrit 26L, Mean Corpuscular Volume 87, Mean Corpuscular Hemoglobin 28, Mean Corpuscular Hemoglobin Concent 32, Red Cell Distribution Width 15.7H, Platelet Count 470H, Mean Platelet Volume 9.2, Neutrophils (%) (Auto) 57, Lymphocytes (%) (Auto) 34, Monocytes (%) (Auto) 8, Eosinophils (%) (Auto) 1, Basophils (%) (Auto) 0, Neutrophils # (Auto) 3.6, Lymphocytes # (Auto) 2.2, Monocytes # (Auto) 0.5, Eosinophils # (Auto) 0.0, Basophils # (Auto) 0.0, Sodium Level 137, Potassium Level 3.4L, Chloride Level 109H, Carbon Dioxide Level 20L, Anion Gap 8, Blood Urea Nitrogen 7, Creatinine 0.63, Estimat Glomerular Filtration Rate > 60, BUN/ Creatinine Ratio 11, Glucose Level 100, Calcium Level 6.7L, Total Bilirubin 0.4 , Aspartate Amino Transf (AST/SGOT) 18, Alanine Aminotransferase (ALT/SGPT) 9, Alkaline Phosphatase 46, Total Protein 4.1L, Albumin 1.9L Assessment/Plan Assessment/Plan Assessment/Plan colitis -unknown cause infectious vs low flow dehydration IV fluids On Zosyn/flagyl stool cultures c diff follow labs medical management no surgical intervention at this time will follow. Clinical Quality Measures DVT/VTE Risk/Contraindication: Risk Factor Score Per Nursin RFS Level Per Nursing on Admit: 3=High TAMANNA ONEILL DO Jan 12, 2018 08:16
[2018-01-12] MEDS: PANTOPRAZOLE 40 MG/10 ML (PROTONIX) VIAL IV SCH (08:19)
[2018-01-12] MEDS: ONDANSETRON 4 MG/2 ML (SDV) Z0FRAN IVP PRN ×2 (10:53→20:20)
--- NOTE | 2018-01-12 11:34 | History & Physical-Hospitalist ---
History of Present Illness HPI/Chief Complaint CC: Severe dehydration from severe colitis refractory to treatment HPI: This is a 62-year-old white female that previously had no medical problems and had no regular doctor appointments or preventive care who I saw in a hospital follow-up after she was discharged on 01/05/18 from the hospitalist service for severe colitis and dehydration. Apparently she had presented to [facility] on 11/25/17 due to three-week history of nausea and vomiting diagnosed with gastritis given 2 L of IV fluids and discharged home then worsened to the point that she presented to urgent care on 12/28/17 and again on 12/29/17 then she presented to [facility] ER was found to have failed outpatient treatment for colitis confirmed on CT scan and was admitted to the hospitalist service with appropriate antibiotics and she failed Cipro and Flagyl as an outpatient. She had had all cultures that were negative C. difficile was negative at that time and she was doing well otherwise so she was discharged in improved condition on 01/05/18 but follow-up yesterday I walked in and she was febrile at 100.9 tachycardic at 124 and appeared to be very dehydrated and acutely ill. I did speak with Dr. Alaniz who had seen her on the hospitalist service in consultation and recommended the EGD for dysphagia 6 weeks after discharge so he graciously saw her yesterday and again this morning reviewed CT scan and changed the treatment plan from steroid initiation for autoimmune colitis to discontinuation of the steroids and adding Flagyl IV to the Zosyn empirically placed her on. Her C. difficile has yet to be obtained for testing but her Hemoccult is positive. Her hemoglobin did go down from 11- 8.3 but no ian blood per rectum. Her albumin decreased to 1.9 after 3 L bolus of normal saline IV fluid then at 175 after those are completed. She is still low on potassium so I will be replaced and that along with magnesium empirically. She denies any abdominal pain she reports no more nausea or vomiting and very minimal stools now. She is significantly ill and has lost a significant amount of reserve in the past 9 weeks since all of this started . Source: patient, family Exam Limitations: no limitations Date Seen 01/12/18 Time Seen by Provider: 11:00 Attending Physician Elsie Verduzco DO PCP No,Local Physician Referring Physician Date of Admission Jan 11, 2018 at 14:32 Home Medications & Allergies Home Medications Reviewed patient Home Medication Reconciliation performed by pharmacy medication reconciliations electrophysiology technician and/or nursing. Patients Allergies have been reviewed. 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 No Pertinent Family Hx (no colon or GI issues in FH) Review of Systems Constitutional: see HPI, dizziness, fever, malaise, weakness, weight loss (20# in 9 weeks) EENTM: throat pain Respiratory: no symptoms reported Cardiovascular: no symptoms reported Gastrointestinal: diarrhea, dysphagia, loss of appetite, nausea, vomiting Genitourinary: decreased output Musculoskeletal: no symptoms reported Skin: no symptoms reported Psychiatric/Neurological: Anxiety, Depressed All Other Systems Reviewed Negative Unless Noted: Yes Physical Exam Physical Exam Vital Signs Vital Signs - First Documented Capillary Refill : General Appearance: WD/WN, Chronically ill, Mild Distress (due to dehydration and acute illness) Eyes: Bilateral Eye Normal Inspection, Bilateral Eye PERRL HEENT: PERRL/EOMI, Normal ENT Inspection, Pharynx Normal Neck: Full Range of Motion, Normal Inspection, Non Tender, Supple, Carotid Bruit Respiratory: Chest Non Tender, Lungs Clear, Normal Breath Sounds, No Accessory Muscle Use, No Respiratory Distress Cardiovascular: No Edema, No Gallop, No JVD, No Murmur, Normal Peripheral Pulses, Tachycardia Gastrointestinal: Normal Bowel Sounds, No Organomegaly, No Pulsatile Mass, Non Tender, Soft Back: Normal Inspection, No CVA Tenderness, No Vertebral Tenderness Extremity: Normal Capillary Refill, Normal Inspection, Normal Range of Motion, Non Tender, No Calf Tenderness, No Pedal Edema Neurologic/Psychiatric: Alert, Oriented x3, No Motor/Sensory Deficits, Depressed Affect Skin: Normal Color, Warm/Dry Lymphatic: No Adenopathy Results Results/Procedures Labs Laboratory Tests 01/11/18 14:25 01/12/18 04:00 Patient resulted labs reviewed. Assessment/Plan Admission Diagnosis Severe colitis refractory to treatment Severe dehydration Admission Status: Inpatient Order (span 2 midnights) Reason for Inpatient Admission: Profound dehydration and colitis requiring IV abx and endoscopy once clinically stable Assessment and Plan Plan: Continue IV fluid but decreased normal saline to 100 mL an hour along with 20meq of potassium per liter Replace potassium and magnesium aggressively Supportive care I appreciate Dr. Alaniz's assistance Endoscopy likely on Sunday Out of bed with physical therapy today Guarded status so will remain in cardiac stepdown unit today Diagnosis/Problems Diagnosis/Problems (1) Dehydration Status: Acute Assessment & Plan: Profound and severe Continue IVF (2) Colitis Status: Acute Assessment & Plan: CT scan confirmed left sided colitis severe C diff pending this visit but negative 12/30/17 Cover with Zosyn and Flagyl and await C diff results (3) GI bleed Status: Acute Qualifiers: GI bleed type/associated pathology: unspecified gastrointestinal hemorrhage type Qualified Codes: K92.2 - Gastrointestinal hemorrhage, unspecified (4) Hypokalemia Status: Acute Assessment & Plan: Replace potassium aggressively (5) Protein malnutrition Status: Acute Assessment & Plan: Profound decline in reserve since 11/25/16 (6) Weight loss Status: Acute Assessment & Plan: 20# in 9 weeks (7) Normocytic anemia Status: Acute Assessment & Plan: Monitor closely (8) Dysphagia Status: Acute Qualifiers: Dysphagia type: pharyngoesophageal phase Qualified Codes: R13.14 - Dysphagia, pharyngoesophageal phase Clinical Quality Measures DVT/VTE Risk/Contraindication: Risk Factor Score Per Nursin RFS Level Per Nursing on Admit: 3=High ELSIE VERDUZCO DO Jan 12, 2018 11:34
[2018-01-12] MEDS: NS W/KCL 20 MEQ/L 1,000 ML IV SCH ×2 (11:45→19:46)
--- NOTE | 2018-01-12 12:18 | Physical Therapy Evaluation ---
PT Evaluation-General Medical Diagnosis Admission Date Jan 11, 2018 at 14:32 Medical Diagnosis: severe colitis/dehydration Onset Date: Jan 11, 2018 Therapy Diagnosis Therapy Diagnosis: debility Height/Weight Height (Feet): 5 Height (Inches): 4.00 Weight (Pounds): 231 Weight (Ounces): 1.0 Precautions Precautions/Isolations: Standard Precautions Weight Bear Status Right Lower Extremity: Right Full Weight Bearing Left Lower Extremity: Left Full Weight Bearing Referral Physician: Dax Reason for Referral: Evaluation/Treatment Medical History Current History chronic colitis/multiple hospital admits Reviewed History: Yes Social History Home: Single Level Current Living Status: Spouse Prior/Core FIM Prior Level of Function Functional [place] Measure 0=Not Assessed/NA 4=Minimal Assistance 1=Total Assistance 5=Supervision or Setup 2=Maximal Assistance 6=Modified [place] 3=Moderate Assistance 7=Complete [place] Bed Mobility: 7 Transfers (B,C,W/C) (FIM): 7 Gait: 7 PT Evaluation-Current Subjective Patient initially declined PT, then reluctantly agrees. Family present and very attentive. Pain Numeric Pain Scale: 5-Moderate Pain Location: Lower Location Body Site: Abdomen Pain Description: Ache Objective Patient Orientation: Normal For Age Problem Solving: Fair Attachments: IV ROM/Strength ROM Lower Extremities bilateral LE WNL Strength Lower Extremities bilateral LE WNL Integumentary/Posture Integumentary refer to nursing notes Bowel Incontinence: No Bladder Incontinence: No Posture WNL Neuromuscular (Tone, Coordination, Reflexes) grossly intact Sensory Vision: Functional Hearing: Functional Sensation Right Lower Extremit: Intact Sensation Left Lower Extremity: Intact Transfers Functional [place] Measure 0=Not Assessed/NA 4=Minimal Assistance 1=Total Assistance 5=Supervision or Setup 2=Maximal Assistance 6=Modified [place] 3=Moderate Assistance 7=Complete [place] Transfers (B, C, W/C) (FIM): 5 Scootin Rollin Supine to/from Sit: 5 Sit to/from Stand: 7 Gait Mode of Locomotion: Walk Anticipated Mode of Locomotion: Walk Gait (FIM): 1 Distance (FIM): 1=up to 49 ft Distance: 30' Gait Level of Assist: 7 Gait Assistive Device: None Comments/Gait Description safe and functional Balance Sitting Static: Normal Sitting Dynamic: Normal Standing Static: Normal Standing Dynamic: Normal Assessment/Needs 62 y.o. female, will be seen short term to ensure increase in activity level due to very low motivation. Rehab Potential: Fair Post Rehab Potential-Barriers: compliance PT Short Term Goals Short Term Goals Time Frame: Jan 16, 2018 Transfers (B,C,W/C) (FIM): 7 Gait (FIM): 7 Distance (FIM): 3=150 ft Gait Level of Assist: 7 Gait Assistive Device: None PT Plan Problem List motivation Treatment/Plan Treatment Plan: Continue Plan of Care Treatment Plan: Education, Functional Activity Filiberto, Functional Strength, Gait , Safety Treatment Duration: Jan 16, 2018 Frequency: 3 times per week Estimated Hrs Per Day: .25 hour per day Patient and/or Family Agrees t: Yes Time/GCodes Time In: 1140 Time Out: 1150 Total Billed Treatment Time: 10 Total Billed Treatment 1 visit EVLowC 10 min GURDEEP PUGA PT Jan 12, 2018 12:18
[2018-01-12] MEDS: PROMETHAZINE INJ 25 MG/ML (PHENERGAN) AMP IM PRN ×2 (12:35→17:54)
[2018-01-12] MEDS: MAGNESIUM 1 GM/100 ML IVPB 100 ML IV SCH ×2 (13:34→13:39)
[2018-01-12] MEDS: POTASSIUM CL 10MEQ/50ML IVPB 50 ML IV SCH ×7 (13:34→19:47)
[2018-01-12] MEDS ORDERED: MAGNESIUM 1 GM/100 ML IVPB 100 ML IV ONE (14:55)
[2018-01-12] MEDS: ENOXAPARIN 40 MG/0.4 ML (LOVENOX) SYR SC SCH (18:01)
[2018-01-12 20:20] VITALS: BP 113/59
[2018-01-13] VITALS: BP 111/62
[2018-01-13] MEDS: PROMETHAZINE INJ 25 MG/ML (PHENERGAN) AMP IM PRN (00:49)
[2018-01-13] MEDS: RT-ALBUTEROL/IPRATROPIUM 3 ML (DUONEB) VIAL INH SCH ×4 (03:03→19:49)
[2018-01-13 04:00] VITALS: BP 113/58
[2018-01-13 04:10] LABS: BASOPHILS % (AUTO) 0 % (0-10); EOSINOPHILS # (AUTO) 0.1 10^3/uL (0.0-0.3); EOSINOPHILS % (AUTO) 1 % (0-10); HEMATOCRIT 28 % (35-52); LYMPHOCYTES # (AUTO) 1.9 X 10^3 (1.0-4.0); LYMPHOCYTES % (AUTO) 29 % (12-44); MEAN CORPUSCULAR HEMOGLOBIN 27 PG (25-34); MEAN CORPUSCULAR HGB CONC 33 G/DL (32-36); MEAN CORPUSCULAR VOLUME 84 FL (80-99); MEAN PLATELET VOLUME 8.9 FL (7.4-10.4); MONOCYTES # (AUTO) 0.5 X 10^3 (0.0-1.0); MONOCYTES % (AUTO) 8 % (0-12); NEUTROPHILS % (AUTO) 61 % (42-75); PLATELET COUNT 511 10^3/uL (130-400); RED BLOOD COUNT 3.29 10^6/uL (4.35-5.85); RED CELL DISTRIBUTION WIDTH 16.2 % (10.0-14.5); WHITE BLOOD COUNT 6.5 10^3/uL (4.3-11.0)
[2018-01-13 04:32] LABS: ALANINE AMINOTRANSFERASE 9 U/L (0-55); ALKALINE PHOSPHATASE 60 U/L (40-136); BILIRUBIN,TOTAL 0.4 MG/DL (0.1-1.0); BUN/CREATININE RATIO 13; CALCIUM 7.3 MG/DL (8.5-10.1); CARBON DIOXIDE 17 MMOL/L (21-32); CHLORIDE 114 MMOL/L (98-107); CREATININE SERUM 0.61 MG/DL (0.60-1.30); GFR ESTIMATED > 60; GLUCOSE 87 MG/DL (70-105); POTASSIUM 4.7 MMOL/L (3.6-5.0); SODIUM 139 MMOL/L (135-145); TOTAL PROTEIN 4.6 GM/DL (6.4-8.2)
[2018-01-13] MEDS: PIPERACILLIN SODIUM/TAZOBACTAM 4.5 GM in NS (IVPB) 100 ML IV SCH ×3 (05:40→21:38)
[2018-01-13] MEDS: LACTOBACILLUS Acidoph/Bulgar (LACTINEX/FLORANEX) TAB PO SCH ×3 (06:11→16:48)
[2018-01-13] MEDS: NS W/KCL 20 MEQ/L 1,000 ML IV SCH (06:50)
[2018-01-13] MEDS: metroNIDAZOLE 500MG/100ML IVPB 100 ML IV SCH ×3 (06:50→22:37)
[2018-01-13 08:22] VITALS: BP 119/69
[2018-01-13] MEDS: PANTOPRAZOLE 40 MG/10 ML (PROTONIX) VIAL IV SCH (08:26)
[2018-01-13] MEDS: CATHETER FLUSH 10 ML SYR IV PRN (08:26)
--- NOTE | 2018-01-13 12:10 | Progress Note-Hospitalist ---
Progress Note HPI/CC on Admission CC: Severe dehydration from severe colitis refractory to treatment HPI: This is a 62-year-old white female that previously had no medical problems and had no regular doctor appointments or preventive care who I saw in a hospital follow-up after she was discharged on 01/05/18 from the hospitalist service for severe colitis and dehydration. Apparently she had presented to [facility] on 11/25/17 due to three-week history of nausea and vomiting diagnosed with gastritis given 2 L of IV fluids and discharged home then worsened to the point that she presented to urgent care on 12/28/17 and again on 12/29/17 then she presented to [facility] ER was found to have failed outpatient treatment for colitis confirmed on CT scan and was admitted to the hospitalist service with appropriate antibiotics and she failed Cipro and Flagyl as an outpatient. She had had all cultures that were negative C. difficile was negative at that time and she was doing well otherwise so she was discharged in improved condition on 01/05/18 but follow-up yesterday I walked in and she was febrile at 100.9 tachycardic at 124 and appeared to be very dehydrated and acutely ill. I did speak with Dr. Alaniz who had seen her on the hospitalist service in consultation and recommended the EGD for dysphagia 6 weeks after discharge so he graciously saw her yesterday and again this morning reviewed CT scan and changed the treatment plan from steroid initiation for autoimmune colitis to discontinuation of the steroids and adding Flagyl IV to the Zosyn empirically placed her on. Her C. difficile has yet to be obtained for testing but her Hemoccult is positive. Her hemoglobin did go down from 11- 8.3 but no ian blood per rectum. Her albumin decreased to 1.9 after 3 L bolus of normal saline IV fluid then at 175 after those are completed. She is still low on potassium so I will be replaced and that along with magnesium empirically. She denies any abdominal pain she reports no more nausea or vomiting and very minimal stools now. She is significantly ill and has lost a significant amount of reserve in the past 9 weeks since all of this started . Progress Notes/Assess & Plan Date Seen 01/13/18 Time Seen by Provider: 10:30 Admission Dx/Process Severe colitis refractory to treatment Severe dehydration Diagonsis/Assessment & Plan Having significant issues with motivation and I spoke with the nurse and then talk to the patient and her of 38 years regarding the need to motivate to get out of bed to take a shower to start recovery considering we are at a crossroads in if she does not contribute with motivation to become more active and get out of bed then a catastrophic decline will occur and there will be significant changes in her life that may even require care home placement Patient appears to understand the gravity of the situation and the opportunity to begin the recovery process today I have a suspicion that the left side of the colon has been disease for quite some time and could even require a partial resection but we will await for Dr. Alaniz's endoscopy findings before that is even at rest but I suspect that will be required Patient has not had a doctor or sought any medical care since her early 20s and I suspect a decline in her overall clinical status had begun as early as one year prior. Patient appears to be about the same but she does have a crystal clear understanding that she needs to motivate to get out of bed and will keep on stepdown status due to her weakened state and Jessy her nurse understands the plan Will begin peripheral nutrition with Clinimix Will place midline tomorrow Will likely require inpatient rehabilitation placement due to the severity of her weakness AFVSS, tachy 108, pale, ashen, weekend, chronically debilitated, flat affect, overtly depressed Tachy 100 HR CTAB no rales noted Non-tender abdomen Laboratory Tests 01/13/18 03:50 Severe colitis refractory to treatment Severe dehydration Plan: Change IVF to peripheral nutrition until midline placed and may very well require TPN Replaced potassium and magnesium aggressively yesterday which resolved the deficit Supportive care I appreciate Dr. Alaniz's assistance Endoscopy tomorrow by Dr Alaniz Out of bed and take shower today and use walker and begin walking Guarded status so will remain in cardiac stepdown unit today due to poor motivation and needs 1-on-1 with nurse as much as possible to salvage clinical status Placed on anti-depressant Focused Exam Evaluation Lactate Level Laboratory Tests 01/11/18 15:47: Lactic Acid Level 1.95 Diagnosis/Problems Diagnosis/Problems (1) Dehydration Status: Acute Assessment & Plan: Profound and severe Continue IVF but changed to Clinimix today and may need TPN (2) Colitis Status: Acute Assessment & Plan: CT scan confirmed left sided colitis severe C diff negative this visit and negative 12/30/17 Cover with Zosyn and Flagyl and and C diff negative (3) GI bleed Status: Acute Qualifiers: Qualified Codes: K92.2 - Gastrointestinal hemorrhage, unspecified (4) Hypokalemia Status: Acute Assessment & Plan: Replace potassium aggressively (5) Protein malnutrition Status: Acute Assessment & Plan: Profound decline in reserve since 11/25/16 (6) Weight loss Status: Acute Assessment & Plan: 20# in 9 weeks (7) Normocytic anemia Status: Acute Assessment & Plan: Monitor closely (8) Dysphagia Status: Acute Qualifiers: Qualified Codes: R13.14 - Dysphagia, pharyngoesophageal phase (9) Depressed affect Status: Acute (10) Lack of motivation Status: Acute (11) Debility Status: Acute TADEO LOPEZ DO Jan 13, 2018 12:10
[2018-01-13] MEDS: AA 4.25% W/LYTES IN D5W IV SOL 1,000 ML IV SCH ×2 (12:28→22:13)
[2018-01-13] MEDS: ONDANSETRON 4 MG/2 ML (SDV) Z0FRAN IVP PRN (12:28)
[2018-01-13 12:38] VITALS: BP 110/70
[2018-01-13 16:06] VITALS: BP 116/66
[2018-01-13 20:00] VITALS: BP 118/68
--- NOTE | 2018-01-13 20:39 | Progress Note ---
Subjective Date Seen by Provider: Jan 13, 2018 Time Seen by Provider: 16:14 Subjective/Events-last exam Patient feels about the same as yesterday. Had a couple of liquid stools today. No blood in stools. She is not having any abdominal pain. She is still having nausea but keeping some liquids down at this time. She is having some dysphagia which we are planning and EGD for tomorrow. Not having fever sweats chills shortness of breath or chest pain. Focused Exam Evaluation Lactate Level Laboratory Tests 01/11/18 15:47: Lactic Acid Level 1.95 Objective Exam Vital Signs Date Time Temp Pulse Resp B/P (MAP) Pulse Ox O2 Delivery O2 Flow Rate FiO2 01/13/18 20:00 Room Air 01/13/18 20:00 97.5 96 18 118/68 (85) 98 Room Air 01/13/18 19:51 96 Room Air 01/13/18 19:00 102 01/13/18 16:06 98.6 105 16 116/66 (83) 94 Room Air 01/13/18 16:00 Room Air 01/13/18 14:38 96 Room Air 01/13/18 13:00 93 01/13/18 12:38 Room Air 01/13/18 12:38 98.2 96 20 110/70 (83) 95 Room Air 01/13/18 08:22 97 Room Air 01/13/18 08:22 97 Room Air 01/13/18 08:22 98.8 104 14 119/69 (86) 97 Room Air 01/13/18 07:00 107 01/13/18 06:40 94 Room Air 01/13/18 04:00 98.6 110 14 113/58 (76) 98 Room Air 01/13/18 04:00 Room Air 01/13/18 03:04 90 Room Air 01/13/18 01:00 104 01/13/18 00:00 Room Air 01/13/18 00:00 98.6 105 16 111/62 (78) 98 Room Air 01/12/18 21:00 96 Room Air I & O 01/13/18 07:00 Intake Total 2610 ml Output Total 350 ml Balance 2260 ml Capillary Refill : General Appearance: No Apparent Distress (sitting up in chair), WD/WN, Chronically ill HEENT: PERRL/EOMI, Normal ENT Inspection, Pharynx Normal Neck: Full Range of Motion, Normal Inspection, Non Tender, Supple, Carotid Bruit Respiratory: Chest Non Tender, Lungs Clear, Normal Breath Sounds, No Accessory Muscle Use, No Respiratory Distress Cardiovascular: No Edema, No Gallop, No JVD, No Murmur, Normal Peripheral Pulses, Tachycardia Gastrointestinal: non tender (slight distention), soft, no organomegaly Extremity: Normal Capillary Refill, Normal Inspection, Normal Range of Motion, Non Tender, No Calf Tenderness, No Pedal Edema Neurologic/Psychiatric: Alert, Oriented x3, No Motor/Sensory Deficits, Depressed Affect Skin: Normal Color, Warm/Dry Lymphatic: No Adenopathy Results Lab Laboratory Tests 01/13/18 03:50: White Blood Count 6.5, Red Blood Count 3.29L, Hemoglobin 9.0L, Hematocrit 28L, Mean Corpuscular Volume 84, Mean Corpuscular Hemoglobin 27, Mean Corpuscular Hemoglobin Concent 33, Red Cell Distribution Width 16.2H, Platelet Count 511H, Mean Platelet Volume 8.9, Neutrophils (%) (Auto) 61, Lymphocytes (%) (Auto) 29, Monocytes (%) (Auto) 8, Eosinophils (%) (Auto) 1, Basophils (%) (Auto) 0, Neutrophils # (Auto) 4.0, Lymphocytes # (Auto) 1.9, Monocytes # (Auto) 0.5, Eosinophils # (Auto) 0.1, Basophils # (Auto) 0.0, Sodium Level 139, Potassium Level 4.7, Chloride Level 114H, Carbon Dioxide Level 17L, Anion Gap 8, Blood Urea Nitrogen 8, Creatinine 0.61, Estimat Glomerular Filtration Rate > 60, BUN/ Creatinine Ratio 13, Glucose Level 87, Calcium Level 7.3L, Total Bilirubin 0.4, Aspartate Amino Transf (AST/SGOT) 16, Alanine Aminotransferase (ALT/SGPT) 9, Alkaline Phosphatase 60, Total Protein 4.6L, Albumin 2.0L Microbiology 01/12/18 C. difficile GDH Antigen & Toxins - Final, Complete Assessment/Plan Assessment/Plan Assessment/Plan colitis -unknown cause infectious vs low flow dehydration dysphagia cdiff negative stool cultures preliminary normal tami altered, no aerobes, yeast abundant IV fluids On Zosyn/flagyl follow labs medical management plan EGD in am, will review ct scan with radiology and consider BE no surgical intervention at this time will follow. Clinical Quality Measures DVT/VTE Risk/Contraindication: Risk Factor Score Per Nursin RFS Level Per Nursing on Admit: 3=High TAMANNA ONEILL DO Jan 13, 2018 20:39
[2018-01-13] MEDS: SERTRALINE 50 MG (ZOLOFT) TABLET PO SCH (21:33)
[2018-01-13] MEDS: MIRTAZAPINE 15 MG (REMERON) TAB PO SCH (21:33)
[2018-01-14] VITALS (7 sets, daily range): BP systolic 115–140; BP diastolic 68–78
[2018-01-14] MEDS: ONDANSETRON 4 MG/2 ML (SDV) Z0FRAN IVP PRN ×3 (00:26→22:02)
[2018-01-14] MEDS: RT-ALBUTEROL/IPRATROPIUM 3 ML (DUONEB) VIAL INH SCH ×4 (02:48→21:11)
[2018-01-14] MEDS: PIPERACILLIN SODIUM/TAZOBACTAM 4.5 GM in NS (IVPB) 100 ML IV SCH ×3 (05:38→21:28)
[2018-01-14 05:59] LABS: BASOPHILS % (AUTO) 0 % (0-10); EOSINOPHILS # (AUTO) 0.1 10^3/uL (0.0-0.3); EOSINOPHILS % (AUTO) 3 % (0-10); HEMATOCRIT 26 % (35-52); HEMOGLOBIN 8.2 G/DL (11.5-16.0); LYMPHOCYTES % (AUTO) 25 % (12-44); MEAN CORPUSCULAR HEMOGLOBIN 28 PG (25-34); MEAN CORPUSCULAR HGB CONC 32 G/DL (32-36); MEAN CORPUSCULAR VOLUME 86 FL (80-99); MEAN PLATELET VOLUME 8.9 FL (7.4-10.4); MONOCYTES # (AUTO) 0.3 X 10^3 (0.0-1.0); MONOCYTES % (AUTO) 7 % (0-12); NEUTROPHILS # (AUTO) 2.7 X 10^3 (1.8-7.8); NEUTROPHILS % (AUTO) 65 % (42-75); PLATELET COUNT 486 10^3/uL (130-400); RED BLOOD COUNT 2.97 10^6/uL (4.35-5.85); RED CELL DISTRIBUTION WIDTH 16.3 % (10.0-14.5); WHITE BLOOD COUNT 4.2 10^3/uL (4.3-11.0)
[2018-01-14] MEDS: LACTOBACILLUS Acidoph/Bulgar (LACTINEX/FLORANEX) TAB PO SCH ×3 (06:00→16:07)
[2018-01-14] MEDS: metroNIDAZOLE 500MG/100ML IVPB 100 ML IV SCH (06:06)
[2018-01-14 06:39] LABS: ALANINE AMINOTRANSFERASE 7 U/L (0-55); ALBUMIN 1.9 GM/DL (3.2-4.5); ALKALINE PHOSPHATASE 63 U/L (40-136); BILIRUBIN,TOTAL 0.2 MG/DL (0.1-1.0); BUN/CREATININE RATIO 15; CALCIUM 7.2 MG/DL (8.5-10.1); CARBON DIOXIDE 21 MMOL/L (21-32); CHLORIDE 112 MMOL/L (98-107); CREATININE SERUM 0.61 MG/DL (0.60-1.30); GFR ESTIMATED > 60; GLUCOSE 150 MG/DL (70-105); SODIUM 137 MMOL/L (135-145); TOTAL PROTEIN 4.1 GM/DL (6.4-8.2)
--- NOTE | 2018-01-14 08:18 | Progress Note-Hospitalist ---
Subjective HPI/CC On Admission Date Seen by Provider: Jan 14, 2018 Time Seen by Provider: 08:12 CC: Severe dehydration from severe colitis refractory to treatment HPI: This is a 62-year-old white female that previously had no medical problems and had no regular doctor appointments or preventive care who I saw in a hospital follow-up after she was discharged on 01/05/18 from the hospitalist service for severe colitis and dehydration. Apparently she had presented to [facility] on 11/25/17 due to three-week history of nausea and vomiting diagnosed with gastritis given 2 L of IV fluids and discharged home then worsened to the point that she presented to urgent care on 12/28/17 and again on 12/29/17 then she presented to [facility] ER was found to have failed outpatient treatment for colitis confirmed on CT scan and was admitted to the hospitalist service with appropriate antibiotics and she failed Cipro and Flagyl as an outpatient. She had had all cultures that were negative C. difficile was negative at that time and she was doing well otherwise so she was discharged in improved condition on 01/05/18 but follow-up yesterday I walked in and she was febrile at 100.9 tachycardic at 124 and appeared to be very dehydrated and acutely ill. I did speak with Dr. Alaniz who had seen her on the hospitalist service in consultation and recommended the EGD for dysphagia 6 weeks after discharge so he graciously saw her yesterday and again this morning reviewed CT scan and changed the treatment plan from steroid initiation for autoimmune colitis to discontinuation of the steroids and adding Flagyl IV to the Zosyn empirically placed her on. Her C. difficile has yet to be obtained for testing but her Hemoccult is positive. Her hemoglobin did go down from 11- 8.3 but no ian blood per rectum. Her albumin decreased to 1.9 after 3 L bolus of normal saline IV fluid then at 175 after those are completed. She is still low on potassium so I will be replaced and that along with magnesium empirically. She denies any abdominal pain she reports no more nausea or vomiting and very minimal stools now. She is significantly ill and has lost a significant amount of reserve in the past 9 weeks since all of this started . Subjective/Events-last exam Pt reports feeling okay today. Had an episode of emesis overnight and one episode of diarrhea per . Otherwise no complaints. No abd pain. Focused Exam Evaluation Lactate Level Laboratory Tests 01/11/18 15:47: Lactic Acid Level 1.95 Objective Exam Vital Signs Vital Signs Date Time Temp Pulse Resp B/P (MAP) Pulse Ox O2 Delivery O2 Flow Rate FiO2 01/11/18 14:00 99.3 104 16 123/78 (93) 99 Room Air Capillary Refill : General Appearance: No Apparent Distress, WD/WN Respiratory: Lungs Clear, No Accessory Muscle Use, No Respiratory Distress Cardiovascular: Regular Rate, Rhythm, No Murmur Gastrointestinal: Normal Bowel Sounds, Non Tender, Soft Extremity: Normal Capillary Refill, No Calf Tenderness, No Pedal Edema Neurologic/Psychiatric: Alert, Oriented x3 Results/Procedures Lab Laboratory Tests 01/14/18 05:22 Patient resulted labs reviewed. Assessment/Plan Assessment and Plan Assess & Plan/Chief Complaint Colitis Diagnosis/Problems Diagnosis/Problems (1) Colitis Status: Acute Assessment & Plan: Continue on Zosyn/Flagyl Continue probiotic Surgery consulted, appreciate recs Discussed with Dr Alaniz- will push scope until tomorrow and attempt EGD and flex sig at same time Started on PO Vanc as well (2) Intractable nausea and vomiting Assessment & Plan: EGD planned for tomorrow Continue Zofran, Phenergan, and Scopolamine Continue PPI Qualifiers: Vomiting type: unspecified Qualified Codes: R11.2 - Nausea with vomiting, unspecified (3) Normocytic anemia Status: Acute Assessment & Plan: Will need IV iron likely at discharge (4) Depressed affect Status: Acute Assessment & Plan: Continue Zoloft and Remeron (5) Prophylactic measure Assessment & Plan: Started on TPN yesterday Lovenox held for EGD and potential biopsies CLD for scope prep Clinical Quality Measures DVT/VTE Risk/Contraindication: Risk Factor Score Per Nursin RFS Level Per Nursing on Admit: 3=High YOLY NAVARRO MD Jan 14, 2018 8:18 am
[2018-01-14] MEDS: AA 4.25% W/LYTES IN D5W IV SOL 1,000 ML IV SCH ×2 (08:25→16:07)
[2018-01-14] MEDS: PANTOPRAZOLE 40 MG/10 ML (PROTONIX) VIAL IV SCH (08:26)
[2018-01-14] MEDS: CATHETER FLUSH 10 ML SYR IV PRN (08:26)
[2018-01-14] MEDS: methylPREDNISolone 40 MG/ML (Solu-MEDROL) VIAL IV SCH ×2 (09:26→21:28)
--- NOTE | 2018-01-14 09:50 | Physical Therapy Progress Note ---
Therapy Progress Note Patient is in bed and PICC nursing present. Patient would not speak to PT. Spouse spoke for patient and reports she is able to get up with them and when she does she does not have any problem. PT educated spouse on importance of increasing activity to improve strength and mobility and he reports he understands. Patient continued to not speak. No PT given on this date and will continue to monitor patient status. 1 ref GURDEEP PUGA PT Jan 14, 2018 09:50
[2018-01-14] MEDS: VANCOMYCIN ORAL 250 MG/5 ML 60 ML PO SCH ×8 (10:11→23:52)
[2018-01-14] MEDS: GOLYTELY POWDER 4000 ML BTL PO NR ×2 (11:37→11:38)
[2018-01-14] MEDS: SCOPOLAMINE 1.5 MG (TRANSDERM-SCOP) PATCH TOP SCH (13:49)
--- NOTE | 2018-01-14 14:01 | Occupational Therapy Eval ---
OT Evaluation-General/PLF Medical Diagnosis Admission Date Jan 11, 2018 at 14:32 Medical Diagnosis: severe colitis/dehydration Onset Date: Jan 11, 2018 Therapy Diagnosis Therapy Diagnosis: decr funct use L UE, weakness Height/Weight Height (Feet): 5 Height (Inches): 4.00 Weight (Pounds): 235 Weight (Ounces): 3.2 Precautions Precautions/Isolations: Fall Prevention, Standard Precautions Safety Interventions: Notify Family Referral Physician: Dax Referral Reason: Evaluation/Treatment Medical History Additional Medical History GI bleed, weight loss, severe colitis Current History Admitted with dehydration and colitis. Nausea/vomiting and diarrhea Reviewed History: Yes Social History Home: Single Level Current Living Status: Spouse ADL-Prior Level of Function ADL PLOF Comments Pt and reported that she has been able to manage her basic self care needs except said that he sometimes helps her get clean after diarrhea episodes. OT Current Status Subjective Pt seen in room, up in bed, agreeable to OT. No pain mentioned Appearance Alert, cooperative, looks fatigued Mental Status/Objective Attachments: Central Line, IV Current Glasses/Contacts: Yes (reading) Hand Dominance: Right Upper Extremity ROM Grossly WFL bilat Upper Extremity Strength grossly 4/5 bilat Edema: Significant pitting edema L hand, pt thinks from IV ADL-Treatment ADL-Current Pt's and pt report that she has been walking to the bathroom and getting on/off toilet without difficulty. PT eval shows indep walking. She has had difficulty keeping food and drinks down. She has been wearing hospital gowns for comfort and ease in changing as needed. Functional [place] Measure 0=Not Assessed/NA 4=Minimal Assistance 1=Total Assistance 5=Supervision or Setup 2=Maximal Assistance 6=Modified [place] 3=Moderate Assistance 7=Complete IndependenceIRFPAI Quality Coding Scale 6 Independent with activity with or without an assistive device 5 Patient requires set up or clean up by helper. Patient completes activity by themselves 4 Supervision or touching assist (CGA). [place] provide cues , steadying assist 3 The helper provides less than half the effort to complete the activity 2 The helper provides more than half the effort to complete the activity 1 Dependent. The helper does all the effort to complete an activity 7 Patient refused to complete or attempt activity 9 The patient did not perform the activity before the current illness or injury 88 Not attempted due to Medical conditions or safety concerns Pt and spouse education on decreasing edema. Pt provided with additional pillow so that she can raise L arm above heart, to let gravity assist. Provided pt with lotion and education on retrograde massage, which she return demonstrated. Pt educ on three exercises that she can do every hour or so to help mobilize edema and maintain finger function -including intrinsic exercises. Pt return demo and information written on white board in room. Pt left up in bed, all needs met. Education OT Patient Education: Exercise program, Purpose of tx/functional activities, Rehab process, Other (alverto amanagement) Teaching Recipient: Patient, Family Teaching Methods: Demonstration, Discussion Response to Teaching: Verbalize Understanding, Return Demonstration, Reinforcement Needed OT Prison Goals Enforcement Officer Goals Time Frame: Jan 21, 2018 Toileting(FIM): 6 Toilet/Commode Transfer(FIM): 6 Edema decreased in L UE to allow functional use L hand Additional Goals: 2-Verbalize Understanding, 3-ImproveStrength/Filiberto 1=Demonstrate adherence to instructed precautions during ADL tasks. 2=Patient will verbalize/demonstrate understanding of assistive devices/ modifications for ADL. 3=Patient will improve strength/tolerance for activity to enable patient to perform ADL's. OT Education/Plan Problem List/Assessment Assessment: Decreased UE Strength, Edema Pt would benefit from skilled OT to increase use of L UE to increase her independence in basic self care. Discharge Recommendations Plan/Recommendations: Continue POC Treatment Plan/Plan of Care Treatment,Training & Education: Yes Patient would benefit from OT for education, treatment and training to promote independence in ADL's, mobility, safety and/or upper extremity function for ADL' s. Plan of Care: ADL Retraining, Caregiver Training, UE Funct Exercise/Act Treatment Duration: Jan 21, 2018 Frequency: 5 times per week Estimated Hrs Per Day: .25 hour per day Agreement: Yes Rehab Potential: Fair Time/GCodes Start Time: 13:30 Stop Time: 13:50 Total Time Billed (hr/min): 20 Billed Treatment Time visit, 10 minutes evaluation low intensity, 10 minutes ADL KUSH RYAN OT Jan 14, 2018 14:01
--- NOTE | 2018-01-14 16:43 | Progress Note ---
Subjective Date Seen by Provider: Jan 14, 2018 Time Seen by Provider: 08:11 Subjective/Events-last exam States she's feeling a little bit better today. She still having some nausea but not as bad as it has been. She still having liquid stools. Probably had approximately 4 over the last 24 hours she states. She has no abdominal pain. She denies any fever sweats chills shortness of breath or chest pain at this time. Objective Exam Vital Signs Date Time Temp Pulse Resp B/P (MAP) Pulse Ox O2 Delivery O2 Flow Rate FiO2 01/14/18 16:01 97.8 91 16 140/72 (94) 93 Room Air 01/14/18 14:30 94 Room Air 01/14/18 12:00 98.4 87 20 138/78 (98) 94 Room Air 01/14/18 10:28 98.6 94 20 139/68 (91) 94 Room Air 01/14/18 09:55 Room Air 01/14/18 09:55 98 Room Air 01/14/18 08:30 97.8 94 16 122/73 (89) 97 Room Air 01/14/18 08:30 Room Air 01/14/18 08:30 Room Air 01/14/18 07:00 93 01/14/18 04:00 Room Air 01/14/18 04:00 98.9 103 20 123/71 (88) 95 Room Air 01/14/18 02:50 94 Room Air 01/14/18 01:00 92 01/14/18 00:00 Room Air 01/14/18 00:00 98.4 96 20 115/71 (86) 96 Room Air 01/13/18 21:00 98 Room Air 01/13/18 20:00 Room Air 01/13/18 20:00 97.5 96 18 118/68 (85) 98 Room Air 01/13/18 19:51 96 Room Air 01/13/18 19:00 102 I & O 01/14/18 07:00 Intake Total 2255 ml Output Total 550 ml Balance 1705 ml Capillary Refill : General Appearance: No Apparent Distress, WD/WN HEENT: PERRL/EOMI, Normal ENT Inspection, Pharynx Normal Neck: Full Range of Motion, Normal Inspection, Non Tender, Supple Respiratory: Lungs Clear, No Accessory Muscle Use, No Respiratory Distress Cardiovascular: Regular Rate, Rhythm, No Murmur Gastrointestinal: non tender (slight distention), soft, no organomegaly Extremity: Normal Capillary Refill, No Calf Tenderness, No Pedal Edema Neurologic/Psychiatric: Alert, Oriented x3, No Motor/Sensory Deficits, Normal Mood/Affect, tumbler operator II-XII Norm as Tested Skin: Normal Color, Warm/Dry Lymphatic: No Adenopathy Results Lab Laboratory Tests 01/14/18 05:22: White Blood Count 4.2L, Red Blood Count 2.97L, Hemoglobin 8.2L, Hematocrit 26L, Mean Corpuscular Volume 86, Mean Corpuscular Hemoglobin 28, Mean Corpuscular Hemoglobin Concent 32, Red Cell Distribution Width 16.3H, Platelet Count 486H, Mean Platelet Volume 8.9, Neutrophils (%) (Auto) 65, Lymphocytes (%) (Auto) 25, Monocytes (%) (Auto) 7, Eosinophils (%) (Auto) 3, Basophils (%) (Auto) 0, Neutrophils # (Auto) 2.7, Lymphocytes # (Auto) 1.0, Monocytes # (Auto) 0.3, Eosinophils # (Auto) 0.1, Basophils # (Auto) 0.0, Sodium Level 137, Potassium Level 4.0, Chloride Level 112H, Carbon Dioxide Level 21, Anion Gap 4L, Blood Urea Nitrogen 9, Creatinine 0.61, Estimat Glomerular Filtration Rate > 60, BUN/ Creatinine Ratio 15, Glucose Level 150H, Calcium Level 7.2L, Total Bilirubin 0.2 , Aspartate Amino Transf (AST/SGOT) 16, Alanine Aminotransferase (ALT/SGPT) 7, Alkaline Phosphatase 63, Total Protein 4.1L, Albumin 1.9L Microbiology 01/14/18 Ova and Parasites, Unverified Pending Assessment/Plan Assessment/Plan Assessment/Plan colitis -unknown cause infectious vs low flow dehydration dysphagia cdiff negative stool cultures preliminary normal tami altered, no aerobes, yeast abundant IV fluids On Zosyn/flagyl Discussed with Dr. Luna about doing a barium enema but feels it would not be beneficial he recommends endoscopy. I discussed EGD and flexible sigmoidoscopy/colonoscopy with patient and she understands and understands that a flexible sigmoidoscopy/colonoscopy has a bit higher risk but may give us better input of diagnosis She agrees with endoscopies and we'll start GoLYTELY prep. Nothing by mouth after midnight. Scopes tomorrow. Also started her on oral vancomycin in case of C. difficile and also started low -dose steroids. Patient understands and agrees with plan. Clinical Quality Measures DVT/VTE Risk/Contraindication: Risk Factor Score Per Nursin RFS Level Per Nursing on Admit: 3=High TAMANNA ONEILL DO Jan 14, 2018 16:43
[2018-01-14] MEDS: SERTRALINE 50 MG (ZOLOFT) TABLET PO SCH (21:28)
[2018-01-14] MEDS: MIRTAZAPINE 15 MG (REMERON) TAB PO SCH (21:28)
[2018-01-15] VITALS (7 sets, daily range): BP systolic 132–188; BP diastolic 67–86
[2018-01-15] MEDS: AA 4.25% W/LYTES IN D5W IV SOL 1,000 ML IV SCH ×3 (02:21→23:34)
[2018-01-15] MEDS: ONDANSETRON 4 MG/2 ML (SDV) Z0FRAN IVP PRN (02:21)
[2018-01-15] MEDS: RT-ALBUTEROL/IPRATROPIUM 3 ML (DUONEB) VIAL INH SCH ×4 (05:06→19:32)
[2018-01-15] MEDS: VANCOMYCIN ORAL 250 MG/5 ML 60 ML PO SCH ×4 (05:07→12:14)
[2018-01-15] MEDS: PIPERACILLIN SODIUM/TAZOBACTAM 4.5 GM in NS (IVPB) 100 ML IV SCH ×3 (05:07→20:45)
[2018-01-15] MEDS: LACTOBACILLUS Acidoph/Bulgar (LACTINEX/FLORANEX) TAB PO SCH ×3 (06:08→16:21)
[2018-01-15 06:44] LABS: BASOPHILS % (AUTO) 0 % (0-10); EOSINOPHILS % (AUTO) 0 % (0-10); HEMATOCRIT 25 % (35-52); HEMOGLOBIN 7.9 G/DL (11.5-16.0); LYMPHOCYTES % (AUTO) 31 % (12-44); MEAN CORPUSCULAR HEMOGLOBIN 28 PG (25-34); MEAN CORPUSCULAR HGB CONC 31 G/DL (32-36); MEAN CORPUSCULAR VOLUME 89 FL (80-99); MONOCYTES # (AUTO) 0.2 X 10^3 (0.0-1.0); MONOCYTES % (AUTO) 7 % (0-12); NEUTROPHILS % (AUTO) 63 % (42-75); PLATELET COUNT 420 10^3/uL (130-400); RED BLOOD COUNT 2.87 10^6/uL (4.35-5.85); RED CELL DISTRIBUTION WIDTH 16.2 % (10.0-14.5); WHITE BLOOD COUNT 3.2 10^3/uL (4.3-11.0)
--- NOTE | 2018-01-15 07:12 | Physical Therapy Progress Note ---
Therapy Progress Note Patient to have procedure on this date. PT will continue to monitor patient status and progress as patient agrees. GURDEEP PUGA PT Jan 15, 2018 07:12
[2018-01-15 07:20] LABS: ALANINE AMINOTRANSFERASE 7 U/L (0-55); ALBUMIN 1.9 GM/DL (3.2-4.5); ALKALINE PHOSPHATASE 132 U/L (40-136); BILIRUBIN,TOTAL 0.2 MG/DL (0.1-1.0); BUN/CREATININE RATIO 19; CALCIUM 7.4 MG/DL (8.5-10.1); CARBON DIOXIDE 21 MMOL/L (21-32); CHLORIDE 108 MMOL/L (98-107); CREATININE SERUM 0.53 MG/DL (0.60-1.30); GFR ESTIMATED > 60; GLUCOSE 167 MG/DL (70-105); POTASSIUM 4.5 MMOL/L (3.6-5.0); SODIUM 133 MMOL/L (135-145); TOTAL PROTEIN 4.5 GM/DL (6.4-8.2)
[2018-01-15] MEDS: PANTOPRAZOLE 40 MG/10 ML (PROTONIX) VIAL IV SCH (08:00)
[2018-01-15] MEDS: methylPREDNISolone 40 MG/ML (Solu-MEDROL) VIAL IV SCH ×2 (08:00→20:44)
--- NOTE | 2018-01-15 10:25 | Progress Note-Hospitalist ---
Subjective HPI/CC On Admission Date Seen by Provider: Jan 15, 2018 Time Seen by Provider: 10:16 CC: Severe dehydration from severe colitis refractory to treatment HPI: This is a 62-year-old white female that previously had no medical problems and had no regular doctor appointments or preventive care who I saw in a hospital follow-up after she was discharged on 01/05/18 from the hospitalist service for severe colitis and dehydration. Apparently she had presented to [facility] on 11/25/17 due to three-week history of nausea and vomiting diagnosed with gastritis given 2 L of IV fluids and discharged home then worsened to the point that she presented to urgent care on 12/28/17 and again on 12/29/17 then she presented to [facility] ER was found to have failed outpatient treatment for colitis confirmed on CT scan and was admitted to the hospitalist service with appropriate antibiotics and she failed Cipro and Flagyl as an outpatient. She had had all cultures that were negative C. difficile was negative at that time and she was doing well otherwise so she was discharged in improved condition on 01/05/18 but follow-up yesterday I walked in and she was febrile at 100.9 tachycardic at 124 and appeared to be very dehydrated and acutely ill. I did speak with Dr. Alaniz who had seen her on the hospitalist service in consultation and recommended the EGD for dysphagia 6 weeks after discharge so he graciously saw her yesterday and again this morning reviewed CT scan and changed the treatment plan from steroid initiation for autoimmune colitis to discontinuation of the steroids and adding Flagyl IV to the Zosyn empirically placed her on. Her C. difficile has yet to be obtained for testing but her Hemoccult is positive. Her hemoglobin did go down from 11- 8.3 but no ian blood per rectum. Her albumin decreased to 1.9 after 3 L bolus of normal saline IV fluid then at 175 after those are completed. She is still low on potassium so I will be replaced and that along with magnesium empirically. She denies any abdominal pain she reports no more nausea or vomiting and very minimal stools now. She is significantly ill and has lost a significant amount of reserve in the past 9 weeks since all of this started . Subjective/Events-last exam She reports feeling "great." She was unable to tolerate the bowel prep yesterday and only drank half. She was requesting scrambled eggs and womack this morning to eat. Objective Exam Vital Signs Vital Signs Date Time Temp Pulse Resp B/P (MAP) Pulse Ox O2 Delivery O2 Flow Rate FiO2 01/11/18 14:00 99.3 104 16 123/78 (93) 99 Room Air Capillary Refill : General Appearance: No Apparent Distress, WD/WN Respiratory: Lungs Clear, No Accessory Muscle Use, No Respiratory Distress Cardiovascular: Regular Rate, Rhythm, No Edema, No Murmur Gastrointestinal: Normal Bowel Sounds, Non Tender, Soft Neurologic/Psychiatric: Alert, Oriented x3 Results/Procedures Lab Laboratory Tests 01/15/18 06:16 Patient resulted labs reviewed. Assessment/Plan Assessment and Plan Assess & Plan/Chief Complaint Colitis Diagnosis/Problems Diagnosis/Problems (1) Colitis Status: Acute Assessment & Plan: Continue on Zosyn/Flagyl Continue probiotic Surgery consulted, appreciate recs Discussed with Dr Alaniz- EGD and flex sig at same time hopefully today but will defer to Dr Alaniz as she had poor prep (2) Intractable nausea and vomiting Assessment & Plan: EGD planned for today Continue Zofran, Phenergan, and Scopolamine Continue PPI Qualifiers: Vomiting type: unspecified Qualified Codes: R11.2 - Nausea with vomiting, unspecified (3) Normocytic anemia Status: Acute Assessment & Plan: Will need IV iron likely at discharge (4) Depressed affect Status: Acute Assessment & Plan: Continue Zoloft and Remeron (5) Prophylactic measure Assessment & Plan: Started on Clinimix yesterday Lovenox held for EGD and potential biopsies NPO Clinical Quality Measures DVT/VTE Risk/Contraindication: Risk Factor Score Per Nursin RFS Level Per Nursing on Admit: 3=High YOLY NAVARRO MD Jan 15, 2018 10:25
[2018-01-15] MEDS ORDERED: proPOfol 200 MG/20 ML (DIPRIVAN) VIAL IV ONE (12:41)
[2018-01-15] MEDS ORDERED: MIDAZOLAM 2 MG/2 ML (VERSED) VIAL ONE (12:43)
[2018-01-15] MEDS ORDERED: LACTATED RINGERS 1,000 ML IV ONE ×2 (12:45→14:15)
--- NOTE | 2018-01-15 12:45 | Progress Note-Pre Operative ---
Pre-Operative Progress Note H&P Reviewed The H&P was reviewed, patient examined and no changes noted. Date Seen by Provider: Jan 15, 2018 Time Seen by Provider: 12:46 Date H&P Reviewed: Jan 15, 2018 Time H&P Reviewed: 12:45 Pre-Operative Diagnosis: dysphagia, colitis TAMANNA ONEILL DO Jan 15, 2018 12:45
[2018-01-15] MEDS ORDERED: HURRICAINE EXT TUBE (BENZOCAINE) XX PRN (13:30)
--- NOTE | 2018-01-15 14:36 | Anesthesia-General Post-Op ---
MAC Patient Condition Mental Status/LOC: Same as Preop Cardiovascular: Satisfactory Nausea/Vomiting: Absent Respiratory: Satisfactory Pain: Controlled Complications: Absent Post Op Complications Complications None Follow Up Care/Instructions Patient Instructions None needed. Anesthesiology Discharge Order Discharge Order Patient is doing well, no complaints, stable vital signs, no apparent adverse anesthesia problems. No complications reported per nursing. JESENIA BEAR CRNA Jan 15, 2018 14:36
--- NOTE | 2018-01-15 16:00 | Occupational Ther Daily Note ---
OT Current Status-Daily Note Subjective Pt seen in room, up in bed, agreeable to OT. Appearance Alert, cooperative but fatigued from medical procedure Mental Status/Objective Functional [place] Measure 0=Not Assessed/NA 4=Minimal Assistance 1=Total Assistance 5=Supervision or Setup 2=Maximal Assistance 6=Modified [place] 3=Moderate Assistance 7=Complete [place] ADL-Treatment Pt and both agreed that edema had gone down in L UE, with following elevation, massage and exercise. They were pleased that edema had decreased significantly and were encouraged to continue practices. asked if he could do gentle massage on her legs as well, which have pitting edema. Slipper socks adjusted for more even distribution. Pt left up in bed, all needs met. Education OT Patient Education: Instructions to caregiver, Progress toward Goal/Update tx plan, Purpose of tx/functional activities Teaching Recipient: Patient Teaching Methods: Discussion Response to Teaching: Verbalize Understanding OT Short Term Goals Short Term Goals 1=Demonstrate adherence to instructed precautions during ADL tasks. 2=Patient will verbalize/demonstrate understanding of assistive devices/ modifications for ADL. 3=Patient will improve strength/tolerance for activity to enable patient to perform ADL's. OT Cell Plasterer Goals Cell Plasterer Goals Time Frame: Jan 21, 2018 Toileting(FIM): 6 Toilet/Commode Transfer(FIM): 6 Edema decreased in L UE to allow functional use L hand Additional Goals: 2-Verbalize Understanding, 3-ImproveStrength/Fil[place]erto 1=Demonstrate adherence to instructed precautions during ADL tasks. 2=Patient will verbalize/demonstrate understanding of assistive devices/ modifications for ADL. 3=Patient will improve strength/tolerance for activity to enable patient to perform ADL's. OT Education/Plan Problem List/Assessment Pt would benefit from skilled OT to increase use of L UE to increase her independence in basic self care. Discharge Recommendations Plan/Recommendations: Continue POC Treatment Plan/Plan of Care Patient would benefit from OT for education, treatment and training to promote independence in ADL's, mobility, safety and/or upper extremity function for ADL' s. Plan of Care: ADL Retraining, Caregiver Training, UE Funct Exercise/Act Treatment Duration: Jan 21, 2018 Frequency: 5 times per week Estimated Hrs Per Day: .25 hour per day Agreement: Yes Rehab Potential: Fair Time/GCodes Start Time: 15:05 Stop Time: 15:15 Total Time Billed (hr/min): 10 Billed Treatment Time visit, 10 minutes KUSH LINARES OT Jan 15, 2018 16:00
--- NOTE | 2018-01-15 19:08 | Progress Note-Post Operative ---
Post-Operative Progess Note Surgeon (s)/Warp Yarn Sorter (s) Surgeon TAMANNA ONEILL DO Warp Yarn Sorter: na Pre-Operative Diagnosis dysphagia, colitis Post-Operative Diagnosis slight gastritis, small hiatal hernia, ulcerative colitis Procedure & Operative Findings Date of Procedure 01/15/18 Procedure Performed/Findings egd c biopsies, flexible sigmoidoscopy with cold rectal biopsies Anesthesia Type per financial health counselor Estimated Blood Loss Estimated blood loss (mL): none Specimens/Packing Specimens Removed antrum body, ge, rectum TAMANNA ONEILL DO Jan 15, 2018 19:07
[2018-01-15] MEDS: SERTRALINE 50 MG (ZOLOFT) TABLET PO SCH (20:45)
[2018-01-15] MEDS: MESALAMINE DR 400 MG (ASACOL/DELZICOL) TAB/CAPS PO SCH (20:45)
[2018-01-15] MEDS: MIRTAZAPINE 15 MG (REMERON) TAB PO SCH (20:46)
--- NOTE | 2018-01-15 22:25 | OPERATIVE REPORT ---
DATE OF SERVICE: 01/15/2018 PREOPERATIVE DIAGNOSES: Dysphagia, colitis. POSTOPERATIVE DIAGNOSES: Slight gastritis, small hiatal hernia, ulcerative colitis. PROCEDURE: EGD with biopsies and flexible sigmoidoscopy with colorectal biopsies. ANESTHESIA: Per TACO MAKER. SURGEON: Tamanna Alaniz DO ESTIMATED BLOOD LOSS: None. COMPLICATIONS: None. INDICATIONS: The patient is a 62-year-old female with dysphagia, nausea and vomiting. She also being treated for colitis and infectious source not able to be found. We discussed risks and benefits of an EGD and flexible sigmoidoscopy and all other indicated procedures. She understands risks and benefits and wishes to proceed. Consent was signed in the chart. PROCEDURE: The patient was taken to the endoscopy suite, placed in left lower recumbent position. Timeout was performed. Scope was inserted in mouth, down the esophagus, stomach and into the duodenum. There were no polyps, masses or ulcerations within the duodenum. Scope was slowly retracted back into the stomach where further insufflated. There was some slight erythematous changes around the stomach, which biopsy of the antrum and biopsy of the body was obtained. Scope was also retroflexed noting a small hiatal hernia. The scope was then returned to its normal position, slowly withdrawn to the distal esophagus. Biopsy of the GE junction was obtained. There is an area that have a little bit of narrowing but then is able to be does open up with a more air along the air to continue to buildup opens up without difficulty. Scope was able to be passed through this area without difficulty as well. Scope was then slowly retracted back with no other pathology noted. Digital rectal exam was performed. No palpable polyps, masses or ulcerations. Scope was inserted in the rectum and noted significant inflammatory changes with ulcerations. The scope was continually advanced up into the sigmoid colon, which this was a continuous process from the rectum. All have been in through the sigmoid colon. Some slight areas of slight ooze of blood from the areas of the colon. The characteristic consistent with ulcerative colitis present. Scope was then slowly retracted back. Prep was adequate for visualization. Cold biopsies of the rectum were obtained. Scope was slowly retracted back to completely removed. RECOMMENDATIONS: The patient has been started on steroids and mesalamine. The patient will need a repeat endoscopy in the near future once her symptoms have resolved approximately 6 weeks after that. Would also consider GI consultation. We will start on clear liquids and see how she does and continue to watch her progress. No surgical intervention at this time. Job ID: [id number] DocumentID: [id number] Dictated Date: 01/15/2018 19:14:21 Water Pipe Installer Date: 01/15/2018 22:25:09 Dictated By: TAMANNA ALANIZ DO
[2018-01-16] VITALS: BP 135/70
[2018-01-16] MEDS: RT-ALBUTEROL/IPRATROPIUM 3 ML (DUONEB) VIAL INH SCH ×4 (02:18→19:06)
[2018-01-16 04:00] VITALS: BP 142/87
[2018-01-16 06:11] LABS: BASOPHILS % (AUTO) 1 % (0-10); EOSINOPHILS % (AUTO) 0 % (0-10); HEMATOCRIT 28 % (35-52); HEMOGLOBIN 8.6 G/DL (11.5-16.0); LYMPHOCYTES # (AUTO) 0.9 X 10^3 (1.0-4.0); LYMPHOCYTES % (AUTO) 26 % (12-44); MEAN CORPUSCULAR HEMOGLOBIN 28 PG (25-34); MEAN CORPUSCULAR HGB CONC 31 G/DL (32-36); MEAN CORPUSCULAR VOLUME 90 FL (80-99); MEAN PLATELET VOLUME 8.9 FL (7.4-10.4); MONOCYTES # (AUTO) 0.3 X 10^3 (0.0-1.0); MONOCYTES % (AUTO) 8 % (0-12); NEUTROPHILS # (AUTO) 2.3 X 10^3 (1.8-7.8); NEUTROPHILS % (AUTO) 66 % (42-75); PLATELET COUNT 449 10^3/uL (130-400); RED BLOOD COUNT 3.08 10^6/uL (4.35-5.85); RED CELL DISTRIBUTION WIDTH 16.4 % (10.0-14.5); WHITE BLOOD COUNT 3.5 10^3/uL (4.3-11.0)
[2018-01-16 06:28] LABS: ALANINE AMINOTRANSFERASE 11 U/L (0-55); ALBUMIN 2.1 GM/DL (3.2-4.5); ALKALINE PHOSPHATASE 140 U/L (40-136); BILIRUBIN,TOTAL 0.2 MG/DL (0.1-1.0); BUN/CREATININE RATIO 18; CALCIUM 7.7 MG/DL (8.5-10.1); CARBON DIOXIDE 22 MMOL/L (21-32); CHLORIDE 108 MMOL/L (98-107); CREATININE SERUM 0.61 MG/DL (0.60-1.30); GFR ESTIMATED > 60; GLUCOSE 155 MG/DL (70-105); POTASSIUM 4.9 MMOL/L (3.6-5.0); SODIUM 135 MMOL/L (135-145); TOTAL PROTEIN 4.9 GM/DL (6.4-8.2)
[2018-01-16] MEDS: LACTOBACILLUS Acidoph/Bulgar (LACTINEX/FLORANEX) TAB PO SCH ×3 (06:46→16:30)
[2018-01-16] MEDS: PIPERACILLIN SODIUM/TAZOBACTAM 4.5 GM in NS (IVPB) 100 ML IV SCH ×2 (06:46→13:43)
[2018-01-16 08:00] VITALS: BP 136/74
[2018-01-16] MEDS ORDERED: ONDANSETRON 4 MG (ZOFRAN) ORAL DISSOLVE TAB PO PRN (09:00)
--- NOTE | 2018-01-16 09:09 | Progress Note-Hospitalist ---
Subjective HPI/CC On Admission Date Seen by Provider: Jan 16, 2018 Time Seen by Provider: 08:50 CC: Severe dehydration from severe colitis refractory to treatment HPI: This is a 62-year-old white female that previously had no medical problems and had no regular doctor appointments or preventive care who I saw in a hospital follow-up after she was discharged on 01/05/18 from the hospitalist service for severe colitis and dehydration. Apparently she had presented to [facility] on 11/25/17 due to three-week history of nausea and vomiting diagnosed with gastritis given 2 L of IV fluids and discharged home then worsened to the point that she presented to urgent care on 12/28/17 and again on 12/29/17 then she presented to [facility] ER was found to have failed outpatient treatment for colitis confirmed on CT scan and was admitted to the hospitalist service with appropriate antibiotics and she failed Cipro and Flagyl as an outpatient. She had had all cultures that were negative C. difficile was negative at that time and she was doing well otherwise so she was discharged in improved condition on 01/05/18 but follow-up yesterday I walked in and she was febrile at 100.9 tachycardic at 124 and appeared to be very dehydrated and acutely ill. I did speak with Dr. Alaniz who had seen her on the hospitalist service in consultation and recommended the EGD for dysphagia 6 weeks after discharge so he graciously saw her yesterday and again this morning reviewed CT scan and changed the treatment plan from steroid initiation for autoimmune colitis to discontinuation of the steroids and adding Flagyl IV to the Zosyn empirically placed her on. Her C. difficile has yet to be obtained for testing but her Hemoccult is positive. Her hemoglobin did go down from 11- 8.3 but no ian blood per rectum. Her albumin decreased to 1.9 after 3 L bolus of normal saline IV fluid then at 175 after those are completed. She is still low on potassium so I will be replaced and that along with magnesium empirically. She denies any abdominal pain she reports no more nausea or vomiting and very minimal stools now. She is significantly ill and has lost a significant amount of reserve in the past 9 weeks since all of this started . Subjective/Events-last exam Reports feeling better. No abd pain. Wanting to eat. Discussed options for rehab. Previously would walk 6 blocks most days and [place] Would like to go home for PT but is willing to talk to IRU today for evaluation. Objective Exam Vital Signs Vital Signs Date Time Temp Pulse Resp B/P (MAP) Pulse Ox O2 Delivery O2 Flow Rate FiO2 01/11/18 14:00 99.3 104 16 123/78 (93) 99 Room Air Capillary Refill : General Appearance: No Apparent Distress, WD/WN Respiratory: Lungs Clear, No Respiratory Distress Cardiovascular: Regular Rate, Rhythm, No Murmur Gastrointestinal: Normal Bowel Sounds, Non Tender, Soft Extremity: Normal Capillary Refill, No Calf Tenderness, Pedal Edema Neurologic/Psychiatric: Alert, Oriented x3, Other (flat affect though improving ) Results/Procedures Lab Laboratory Tests 01/16/18 05:15 01/16/18 05:39 Patient resulted labs reviewed. Assessment/Plan Assessment and Plan Assess & Plan/Chief Complaint Colitis Diagnosis/Problems Diagnosis/Problems (1) Colitis Status: Acute Assessment & Plan: Scope revealed ulcerative colitis Started on mesalamine and will switch steroids to orals DC Zosyn and Vanc Advance diet to soft (2) Intractable nausea and vomiting Assessment & Plan: Continue Zofran, Phenergan, and Scopolamine Attempt orals first in preparation for DC Continue PPI Qualifiers: Vomiting type: unspecified Qualified Codes: R11.2 - Nausea with vomiting, unspecified (3) Normocytic anemia Status: Acute Assessment & Plan: Will need IV iron likely upon discharge (4) Depressed affect Status: Acute Assessment & Plan: Continue Zoloft and Remeron (5) Prophylactic measure Assessment & Plan: Soft diet Lovenox Saline Lock Clinical Quality Measures DVT/VTE Risk/Contraindication: Risk Factor Score Per Nursin RFS Level Per Nursing on Admit: 3=High YOLY NAVARRO MD Jan 16, 2018 9:09 am
[2018-01-16] MEDS: MESALAMINE DR 400 MG (ASACOL/DELZICOL) TAB/CAPS PO SCH ×3 (09:46→20:21)
[2018-01-16] MEDS: predniSONE 20 MG TAB PO SCH ×2 (09:47→16:30)
[2018-01-16 12:00] VITALS: BP 113/64
[2018-01-16] MEDS: CATHETER FLUSH 10 ML SYR IV PRN (13:43)
--- NOTE | 2018-01-16 13:52 | Physical Therapy Daily Note ---
PT Daily Note-Current Subjective Patient report she is doing better all the time. She is walking ad rich with assist from her . She reports she does not need PT at this time. Mental Status Patient Orientation: Normal For Age Attachments: IV Transfers Functional [place] Measure 0=Not Assessed/NA 4=Minimal Assistance 1=Total Assistance 5=Supervision or Setup 2=Maximal Assistance 6=Modified [place] 3=Moderate Assistance 7=Complete IndependenceIRFPAI Quality Coding Scale 6 Independent with activity with or without an assistive device 5 Patient requires set up or clean up by helper. Patient completes activity by themselves 4 Supervision or touching assist (CGA). [place] provide cues , steadying assist 3 The helper provides less than half the effort to complete the activity 2 The helper provides more than half the effort to complete the activity 1 Dependent. The helper does all the effort to complete an activity 7 Patient refused to complete or attempt activity 9 The patient did not perform the activity before the current illness or injury 88 Not attempted due to Medical conditions or safety concerns Transfers (B, C, W/C) (FIM): 6 Scootin Rollin Supine to/from Sit: 6 Sit to/from Stand: 6 Holding IV during transfers. Pt is steady and not in need of assistive device. Weight Bearing Right Lower Extremity: Right Full Weight Bearing Left Lower Extremity: Left Full Weight Bearing Gait Training Distance (FIM): 3=150 ft Distance: 150 Gait Level of Assist: 6 Gait Assistive Device: None Assessment Current Status: Excellent Progress Pt has reached modified independent level for ambulation and transfers. She is doing long distance ambulation with assist for IV pole from her . Skilled PT intervention is no longer needed at this time. Pt is discharged from PT services with instruction to continue daily walks to build endurance. PT Short Term Goals Short Term Goals Time Frame: Jan 16, 2018 Gait (FIM): 7 Distance (FIM): 3=150 ft Gait Level of Assist: 7 Gait Assistive Device: None PT Plan Treatment/Plan Treatment Plan: Discontinue PT, goals met Treatment Plan: Education, Functional Activity Filiberto, Functional Strength, Gait , Safety Treatment Duration: Jan 16, 2018 Frequency: 3 times per week Estimated Hrs Per Day: .25 hour per day Patient and/or Family Agrees t: Yes Discharge Recommendations Therapy D/C Recommendations: Home w/ Family Support, Home Independently Time/GCodes Time In: 1035 Time Out: 1040 Total Billed Treatment Time: 5 Total Billed Treatment visit 5 minutes for dc instructions KALLIE MCALLISTER PT Jan 16, 2018 13:52
[2018-01-16] MEDS: ENOXAPARIN 40 MG/0.4 ML (LOVENOX) SYR SC SCH (14:04)
--- NOTE | 2018-01-16 14:41 | Occupational Ther Daily Note ---
OT Current Status-Daily Note Subjective Pt seen in room, up in bed, agreeable to OT. Very pleased with decrease in edema in L hand. Waiting for lunch, no pain reported Appearance Alert, cooperative Mental Status/Objective Functional [place] Measure 0=Not Assessed/NA 4=Minimal Assistance 1=Total Assistance 5=Supervision or Setup 2=Maximal Assistance 6=Modified [place] 3=Moderate Assistance 7=Complete [place] ADL-Treatment Edema in L hand essentially gone and pt used L hand for eating lunch, independent with setup. Pt and reported that he has been walking with her to the bathroom, helping with IV, but that she has been managing toilet transfers and toileting without assistance. Discussed bathroom needs at home and provided pt with information on how to make toilet about 3" taller, safely. did not think that they would need this but appreciated the information. All OT goals met. Will DC OT. Education OT Patient Education: Purpose of tx/functional activities, Use of adapted equipment Teaching Recipient: Patient, Family Teaching Methods: Discussion Response to Teaching: Verbalize Understanding OT Short Term Goals Short Term Goals 1=Demonstrate adherence to instructed precautions during ADL tasks. 2=Patient will verbalize/demonstrate understanding of assistive devices/ modifications for ADL. 3=Patient will improve strength/tolerance for activity to enable patient to perform ADL's. OT Director Of Teacher Education Goals Director Of Teacher Education Goals Time Frame: Jan 21, 2018 Toileting(FIM): 6 Toilet/Commode Transfer(FIM): 6 Edema decreased in L UE to allow functional use L hand Additional Goals: 2-Verbalize Understanding, 3-ImproveStrength/Filiberto 1=Demonstrate adherence to instructed precautions during ADL tasks. 2=Patient will verbalize/demonstrate understanding of assistive devices/ modifications for ADL. 3=Patient will improve strength/tolerance for activity to enable patient to perform ADL's. OT Education/Plan Problem List/Assessment Pt would benefit from skilled OT to increase use of L UE to increase her independence in basic self care. Discharge Recommendations Plan/Recommendations: Discharge/Goals Met Treatment Plan/Plan of Care Patient would benefit from OT for education, treatment and training to promote independence in ADL's, mobility, safety and/or upper extremity function for ADL' s. Plan of Care: ADL Retraining, Caregiver Training, UE Funct Exercise/Act Treatment Duration: Jan 21, 2018 Frequency: 5 times per week Estimated Hrs Per Day: .25 hour per day Agreement: Yes Rehab Potential: Fair Time/GCodes Start Time: 13:15 Stop Time: 13:35 Total Time Billed (hr/min): 20 Billed Treatment Time visit, 20 minutes ADL KUSH RYAN OT Jan 16, 2018 14:41
--- NOTE | 2018-01-16 15:07 | Progress Note ---
Subjective Date Seen by Provider: Jan 16, 2018 Time Seen by Provider: 08:12 Subjective/Events-last exam Doing better today than yesterday. Patient is passing flatus. She's not having any nausea vomiting she's been tolerating liquids. Her hemoglobin has increased. She denies any fever sweats chills shortness of breath or chest pain. No abdominal pain. Objective Exam Vital Signs Date Time Temp Pulse Resp B/P (MAP) Pulse Ox O2 Delivery O2 Flow Rate FiO2 01/16/18 14:37 95 Room Air 01/16/18 12:00 98.1 94 20 113/64 (80) 92 Room Air 01/16/18 08:55 97 Room Air 01/16/18 08:00 97.6 86 20 136/74 (94) 93 Room Air 01/16/18 08:00 Room Air 01/16/18 04:00 98.5 92 20 142/87 (105) 95 Room Air 01/16/18 02:19 Room Air 01/16/18 00:00 98.3 84 16 135/70 (91) 92 Room Air 01/15/18 21:00 Room Air 01/15/18 19:56 98.4 84 18 188/86 (120) 94 Room Air 01/15/18 19:32 96 Room Air 01/15/18 16:00 99.1 90 18 180/79 (112) 94 Room Air 01/15/18 15:38 93 Room Air I & O 01/16/18 07:00 Intake Total 1670 ml Balance 1670 ml Capillary Refill : General Appearance: No Apparent Distress, WD/WN HEENT: PERRL/EOMI, Normal ENT Inspection, Pharynx Normal Neck: Full Range of Motion, Normal Inspection, Non Tender, Supple Respiratory: Lungs Clear, No Accessory Muscle Use, No Respiratory Distress Cardiovascular: Regular Rate, Rhythm, No Murmur Gastrointestinal: non tender (less distention), soft, no organomegaly Extremity: Normal Capillary Refill, No Calf Tenderness, Pedal Edema Neurologic/Psychiatric: Alert, Oriented x3, No Motor/Sensory Deficits, Normal 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, 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 Norm as Tested, Other (flat affect though improving) Skin: Normal Color, Warm/Dry Lymphatic: No Adenopathy Results Lab Laboratory Tests 01/16/18 05:15: White Blood Count 3.5L, Red Blood Count 3.08L, Hemoglobin 8.6L, Hematocrit 28L, Mean Corpuscular Volume 90, Mean Corpuscular Hemoglobin 28, Mean Corpuscular Hemoglobin Concent 31L, Red Cell Distribution Width 16.4H, Platelet Count 449H, Mean Platelet Volume 8.9, Neutrophils (%) (Auto) 66, Lymphocytes (%) (Auto) 26, Monocytes (%) (Auto) 8, Eosinophils (%) (Auto) 0, Basophils (%) (Auto) 1, Neutrophils # (Auto) 2.3, Lymphocytes # (Auto) 0.9L, Monocytes # (Auto) 0.3, Eosinophils # (Auto) 0.0, Basophils # (Auto) 0.0 01/16/18 05:39: Sodium Level 135, Potassium Level 4.9, Chloride Level 108H, Carbon Dioxide Level 22, Anion Gap 5, Blood Urea Nitrogen 11, Creatinine 0.61, Estimat Glomerular Filtration Rate > 60, BUN/Creatinine Ratio 18, Glucose Level 155H, Calcium Level 7.7L, Total Bilirubin 0.2, Aspartate Amino Transf (AST/SGOT) 25, Alanine Aminotransferase (ALT/SGPT) 11, Alkaline Phosphatase 140H, Total Protein 4.9L, Albumin 2.1L Microbiology 01/14/18 C. difficile DNA Amplification - Final, Complete Assessment/Plan Assessment/Plan Assessment/Plan Ulcerative Colitis by endoscopy visualization Slight gastritis, hiatal hernia dehydration dysphagia Anemia - her hemoglobin improved cdiff negative stool cultures preliminary normal tami altered, no aerobes, yeast abundant Advance diet to soft On steroids and mesalamine they've been converted to oral home soon awaiting biopsy results Clinical Quality Measures DVT/VTE Risk/Contraindication: Risk Factor Score Per Nursin RFS Level Per Nursing on Admit: 3=High TAMANNA ONEILL DO Jan 16, 2018 15:07
[2018-01-16 16:00] VITALS: BP 112/65
[2018-01-16 19:54] VITALS: BP 124/79
[2018-01-16] MEDS: MIRTAZAPINE 15 MG (REMERON) TAB PO SCH (20:21)
[2018-01-16] MEDS: SERTRALINE 50 MG (ZOLOFT) TABLET PO SCH (20:21)
[2018-01-17] VITALS: BP 110/61
[2018-01-17] MEDS: RT-ALBUTEROL/IPRATROPIUM 3 ML (DUONEB) VIAL INH SCH ×2 (02:52→09:34)
[2018-01-17 04:00] VITALS: BP 118/65
[2018-01-17] MEDS: predniSONE 20 MG TAB PO SCH (06:24)
[2018-01-17] MEDS: LACTOBACILLUS Acidoph/Bulgar (LACTINEX/FLORANEX) TAB PO SCH ×2 (06:25→11:52)
[2018-01-17 06:46] LABS: BASOPHILS % (AUTO) 1 % (0-10); EOSINOPHILS # (AUTO) 0.1 10^3/uL (0.0-0.3); EOSINOPHILS % (AUTO) 2 % (0-10); HEMATOCRIT 26 % (35-52); HEMOGLOBIN 8.1 G/DL (11.5-16.0); LYMPHOCYTES # (AUTO) 1.1 X 10^3 (1.0-4.0); LYMPHOCYTES % (AUTO) 27 % (12-44); MEAN CORPUSCULAR HEMOGLOBIN 28 PG (25-34); MEAN CORPUSCULAR HGB CONC 31 G/DL (32-36); MEAN CORPUSCULAR VOLUME 88 FL (80-99); MEAN PLATELET VOLUME 9.5 FL (7.4-10.4); MONOCYTES # (AUTO) 0.4 X 10^3 (0.0-1.0); MONOCYTES % (AUTO) 8 % (0-12); NEUTROPHILS # (AUTO) 2.7 X 10^3 (1.8-7.8); NEUTROPHILS % (AUTO) 63 % (42-75); PLATELET COUNT 180 10^3/uL (130-400); RED BLOOD COUNT 2.94 10^6/uL (4.35-5.85); RED CELL DISTRIBUTION WIDTH 16.4 % (10.0-14.5); WHITE BLOOD COUNT 4.2 10^3/uL (4.3-11.0)
[2018-01-17] MEDS ORDERED: PANTOPRAZOLE 20 MG TABLET (PROTONIX) PO SCH (07:00)
[2018-01-17 07:17] LABS: ALANINE AMINOTRANSFERASE 16 U/L (0-55); ALBUMIN 2.2 GM/DL (3.2-4.5); ALKALINE PHOSPHATASE 180 U/L (40-136); BILIRUBIN,TOTAL 0.2 MG/DL (0.1-1.0); BUN/CREATININE RATIO 21; CALCIUM 7.6 MG/DL (8.5-10.1); CARBON DIOXIDE 22 MMOL/L (21-32); CHLORIDE 109 MMOL/L (98-107); CREATININE SERUM 0.53 MG/DL (0.60-1.30); GFR ESTIMATED > 60; GLUCOSE 126 MG/DL (70-105); POTASSIUM 4.6 MMOL/L (3.6-5.0); SODIUM 136 MMOL/L (135-145); TOTAL PROTEIN 4.6 GM/DL (6.4-8.2)
[2018-01-17] MEDS: MESALAMINE DR 400 MG (ASACOL/DELZICOL) TAB/CAPS PO SCH (07:48)
[2018-01-17 08:00] VITALS: BP 132/75
[2018-01-17] MEDS ORDERED: PRD20T PO (09:39)
[2018-01-17] MEDS ORDERED: Mesalamine PO (09:39)
[2018-01-17] MEDS ORDERED: MIRT15TA8 PO (09:39)
[2018-01-17] MEDS ORDERED: SERT50TA9 PO (09:39)
[2018-01-17 12:00] VITALS: BP 122/68
--- NOTE | 2018-01-17 13:06 | Progress Note ---
Subjective Date Seen by Provider: Jan 17, 2018 Time Seen by Provider: 09:30 Subjective/Events-last exam Patient continues to feel better. Passing flatus and having bm. Tolerating diet. Denies n/v fever sweats chills shortness of breath or chest pain. Objective Exam Vital Signs Date Time Temp Pulse Resp B/P (MAP) Pulse Ox O2 Delivery O2 Flow Rate FiO2 01/17/18 12:16 01/17/18 09:34 96 Room Air 01/17/18 08:51 Room Air 01/17/18 08:00 98.4 92 18 132/75 (94) 100 Room Air 01/17/18 04:00 98.2 83 16 118/65 (82) 93 Room Air 01/17/18 02:53 95 Room Air 01/17/18 00:00 98.2 78 16 110/61 (77) 92 Room Air 01/16/18 21:00 Room Air 01/16/18 19:54 98.5 98 20 124/79 (94) 92 Room Air 01/16/18 19:07 94 Room Air 01/16/18 16:00 98.3 99 20 112/65 (81) 95 Room Air 01/16/18 14:37 95 Room Air I & O 01/17/18 07:00 Intake Total 2580 ml Output Total 3 ml Balance 2577 ml Capillary Refill : General Appearance: No Apparent Distress, WD/WN HEENT: PERRL/EOMI, Normal ENT Inspection, Pharynx Normal Neck: Full Range of Motion, Normal Inspection, Non Tender, Supple Respiratory: Lungs Clear, No Accessory Muscle Use, No Respiratory Distress Cardiovascular: Regular Rate, Rhythm, No Murmur Gastrointestinal: non tender, soft, no organomegaly Extremity: Normal Capillary Refill, No Calf Tenderness, Pedal Edema Neurologic/Psychiatric: Alert, Oriented x3, No Motor/Sensory Deficits, Normal 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, 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, Other Skin: Normal Color, Warm/Dry Lymphatic: No Adenopathy Results Lab Laboratory Tests 01/17/18 06:35: White Blood Count 4.2L, Red Blood Count 2.94L, Hemoglobin 8.1L, Hematocrit 26L, Mean Corpuscular Volume 88, Mean Corpuscular Hemoglobin 28, Mean Corpuscular Hemoglobin Concent 31L, Red Cell Distribution Width 16.4H, Platelet Count 180, Mean Platelet Volume 9.5, Neutrophils (%) (Auto) 63, Lymphocytes (%) (Auto) 27, Monocytes (%) (Auto) 8, Eosinophils (%) (Auto) 2, Basophils (%) (Auto) 1, Neutrophils # (Auto) 2.7, Lymphocytes # (Auto) 1.1, Monocytes # (Auto) 0.4, Eosinophils # (Auto) 0.1, Basophils # (Auto) 0.0, Sodium Level 136, Potassium Level 4.6, Chloride Level 109H, Carbon Dioxide Level 22, Anion Gap 5, Blood Urea Nitrogen 11, Creatinine 0.53L, Estimat Glomerular Filtration Rate > 60, BUN /Creatinine Ratio 21, Glucose Level 126H, Calcium Level 7.6L, Total Bilirubin 0.2, Aspartate Amino Transf (AST/SGOT) 31, Alanine Aminotransferase (ALT/SGPT) 16, Alkaline Phosphatase 180H, Total Protein 4.6L, Albumin 2.2L Microbiology 01/14/18 C. difficile DNA Amplification - Final, Complete Assessment/Plan Assessment/Plan Assessment/Plan Ulcerative Colitis by endoscopy visualization Slight gastritis, hiatal hernia dehydration dysphagia Anemia cdiff negative stool cultures preliminary normal tami altered, no aerobes, yeast abundant Diet as tolerates On steroids and mesalamine oral wanting to go home no surgical intervention will follow up with me in 3 weeks. Clinical Quality Measures DVT/VTE Risk/Contraindication: Risk Factor Score Per Nursin RFS Level Per Nursing on Admit: 3=High TAMANNA ONEILL DO Jan 17, 2018 13:06
== END 2018-01-17 12:50 | disposition home or self-care (01) | DRG 641 ==
LOC: ICU 14:32 → 4TH 01-14 09:54
PROVIDERS: ADMIT Internal Medicine; ATTEND Internal Medicine
PROC: 0DBP8ZX Excision of Rectum, Via Natural or Artificial Opening Endoscopic, Diagnostic (ICD-10-PCS; 2018-01-15)
PROC: 0DJD8ZZ Inspection of Lower Intestinal Tract, Via Natural or Artificial Opening Endoscopic (ICD-10-PCS; 2018-01-15)
PROC: 0DB78ZX Excision of Stomach, Pylorus, Via Natural or Artificial Opening Endoscopic, Diagnostic (ICD-10-PCS; principal; 2018-01-15 12:45)
PROC: 0DB48ZX Excision of Esophagogastric Junction, Via Natural or Artificial Opening Endoscopic, Diagnostic (ICD-10-PCS; 2018-01-15 12:45)
DX: E86.0 Dehydration (principal); K51.90 Ulcerative colitis, unspecified, without complications; K92.2 Gastrointestinal hemorrhage, unspecified; E46 Unspecified protein-calorie malnutrition; E87.6 Hypokalemia; K44.9 Diaphragmatic hernia without obstruction or gangrene; K29.60 Other gastritis without bleeding; D64.9 Anemia, unspecified; R13.14 Dysphagia, pharyngoesophageal phase; F32.9 Major depressive disorder, single episode, unspecified; R53.81 Other malaise
CPT/HCPCS: 36415; 71046; 74019; 74177; 76937; 80053; 82274; 83605; 83880; 84484; 85007; 85025; 85027; 85652; 86141; 87045; 87046; 87177; 87324; 87328; 87449; 87493; 93005; 94640; 94664; 94760

== ENCOUNTER → 2018-02-25 | Outpatient (CLI) | payer BC ==
[~2018-02-25] MED LIST changes: +FOLI1TAB24 PO; +MESA800T3 PO; +METH2.5T PO; +METO-387 PO; +MIRT15TA8 PO; +Mesalamine PO; +NITA500T2 PO; +ONDA8TAB13 PO; +PRD20T PO; +SERT50TA9 PO; +VANC125S PO
== END ==
LOC: CARD 15:00
PROVIDERS: ATTEND Internal Medicine Gastroenterology
DX: I49.9 Cardiac arrhythmia, unspecified (principal)
CPT/HCPCS: 93005

== ENCOUNTER 2018-03-07 17:28 | Inpatient (IN) | payer BC ==
[~2018-03-07] VITALS: Ht 162.6 cm; Wt 94.3 kg
[~2018-03-07 17:28] MED LIST changes: -FOLI1TAB24 PO; -MESA800T3 PO; -METH2.5T PO; -METO-387 PO; -NITA500T2 PO; -ONDA8TAB13 PO; -VANC125S PO
[2018-03-07] MEDS ORDERED: LACTATED RINGERS 1,000 ML IV ONE (18:19)
[2018-03-07 18:29] LABS: BASOPHILS % (AUTO) 0 % (0-10); EOSINOPHILS # (AUTO) 0.1 10^3/uL (0.0-0.3); EOSINOPHILS % (AUTO) 1 % (0-10); HEMATOCRIT 33 % (35-52); HEMOGLOBIN 10.4 G/DL (11.5-16.0); LYMPHOCYTES # (AUTO) 2.5 X 10^3 (1.0-4.0); LYMPHOCYTES % (AUTO) 39 % (12-44); MEAN CORPUSCULAR HEMOGLOBIN 28 PG (25-34); MEAN CORPUSCULAR HGB CONC 32 G/DL (32-36); MEAN CORPUSCULAR VOLUME 87 FL (80-99); MEAN PLATELET VOLUME 9.4 FL (7.4-10.4); MONOCYTES # (AUTO) 0.4 X 10^3 (0.0-1.0); MONOCYTES % (AUTO) 6 % (0-12); NEUTROPHILS # (AUTO) 3.5 X 10^3 (1.8-7.8); NEUTROPHILS % (AUTO) 54 % (42-75); PLATELET COUNT 530 10^3/uL (130-400); RED BLOOD COUNT 3.77 10^6/uL (4.35-5.85); RED CELL DISTRIBUTION WIDTH 17.3 % (10.0-14.5); WHITE BLOOD COUNT 6.6 10^3/uL (4.3-11.0)
[2018-03-07] MEDS ORDERED: raNItidine 50 MG/2 ML INJ (ZANTAC) IJ ONE (18:30)
[2018-03-07] MEDS ORDERED: PROMETHAZINE INJ 25 MG/ML (PHENERGAN) AMP IVP ONE (18:30)
--- NOTE | 2018-03-07 18:37 | ED Abdominal Pain ---
General Chief Complaint: Abdominal/GI Problems Stated Complaint: V/D-COLITIS Nursing Triage Note: c/o abd pain/n-v/diarrhea. Diarrhea x 1 week. N/V last 2 days. Hx of ulcerative colitis. Sepsis Screen: No Definite Risk Source of Information: Patient, Old Records Exam Limitations: No Limitations History of Present Illness Date Seen by Provider: March 07, 2018 Time Seen by Provider: 18:12 Initial Comments This 62 year old woman presents to the emergency room with complaints of diarrhea for the past week and vomiting for the past 3 days. She has known history of ulcerative colitis and sees Dr. Hartley. A colonoscopy is planned for next week. She takes methotrexate and has also been prescribed mesalamine. She has not been able to keep down her medications because of vomiting. She reports symptoms worsened when she went off prednisone 4 days ago. She has had a small amount of blood in her stools. She is afebrile. She has lower abdominal pain. She took a sublingual Zofran just prior to arrival which she states did not improve her nausea. Dr. Lopez is her primary care provider. Allergies and Home Medications Allergies Coded Allergies: No Known Drug Allergies (Unverified , 12/30/17) Home Medications L. Acidophilus/Bulgaricus 1 Each Tablet, 1 TAB.CHEW PO AC Prescribed by: YOLY NAVARRO on 01/05/18715 Mirtazapine 15 Mg Tab.rapdis, 7.5 MG PO HS Prescribed by: YOLY NAVARRO on 01/17/18938 Ondansetron 4 Mg Tab.rapdis, 4 MG SL Q4H PRN for NAUSEA/VOMITING-1ST LINE Prescribed by: YOLY NAVARRO on 01/05/18714 Prednisone 20 Mg Tab, 40 MG PO BID WITH MEALS Prescribed by: YOLY NAVARRO on 01/17/18938 Promethazine HCl 25 Mg Tablet, 25 MG PO Q4H PRN for NAUSEA/VOMITING-2ND LINE Prescribed by: YOLY NAVARRO on 01/05/18715 Sertraline HCl 50 Mg Tablet, 50 MG PO HS Prescribed by: YOLY NAVARRO on 01/17/18938 [Mesalamine] 400 MG TAB, 800 MG PO TID Prescribed by: YOLY NAVARRO on 01/17/18938 Patient Home Medication List Home Medication List Reviewed: Yes Review of Systems Constitutional: no symptoms reported EENTM: No Symptoms Reported Respiratory: No Symptoms Reported Cardiovascular: No Symptoms Reported Gastrointestinal: See HPI Genitourinary: No Symptoms Reported Musculoskeletal: no symptoms reported Skin: no symptoms reported Psychiatric/Neurological: No Symptoms Reported Endocrine: No Symptoms Reported Hematologic/Lymphatic: See HPI Past Hheozxw-Jeayhj-Fdvdld Hx Patient Social History Alcohol Use: Denies Use Recreational Drug Use: No Recent Foreign Travel: No Contact w/Someone Who Travel: No Recent Infectious Disease Expo: No Recent Hopitalizations: No (ER) Immunizations Up To Date Tetanus Booster (TDap): Unknown Seasonal Allergies Seasonal Allergies: No Past Medical History Surgeries: Yes Tubal Ligation Respiratory: No Cardiac: No Neurological: No : No Reproductive Disorders: No Genitourinary: No Gastrointestinal: Yes Colitis (Ulcerative colitis) Musculoskeletal: No Endocrine: No HEENT: No Cancer: No Psychosocial: No Integumentary: No Blood Disorders: No Family Medical History Patient reports no known family medical history. No Pertinent Family Hx Physical Exam Vital Signs Vital Signs - First Documented 03/07/18 18:06 Temp 97.5 Pulse 70 Resp 16 B/P (MAP) 116/92 (100) Pulse Ox 98 O2 Delivery Room Air Capillary Refill : Less Than 3 Seconds General Appearance: WD/WN, no apparent distress HEENT: PERRL/EOMI, normal ENT inspection, other (oropharynx somewhat dry) Neck: normal inspection Respiratory: lungs clear, normal breath sounds, no respiratory distress, no accessory muscle use Cardiovascular: regular rate, rhythm, no edema, no murmur Peripheral Pulses: 0 Carotid (R), 0 Carotid (L), 0 Femoral (R), 0 Femoral (L), 0 Dorsalis Pedis (R), 0 Left Dors-Pedis (L), 0 Radial Pulses (R), 0 Radial Pulses (L) Gastrointestinal: normal bowel sounds, soft, tenderness (across the lower abdomen) Extremities: non-tender, no pedal edema Neurologic/Psychiatric: medical records coder II-XII nml as tested, no motor/sensory deficits, alert, normal mood/affect, oriented x 3 Skin: normal color, warm/dry Progress/Results/Core Measures Results/Orders Lab Results Laboratory Tests Test 03/07/18 18:00 Range/Units White Blood Count 6.6 4.3-11.0 10^3/uL Red Blood Count 3.77 L 4.35-5.85 10^6/uL Hemoglobin 10.4 L 11.5-16.0 G/DL Hematocrit 33 L 35-52 % Mean Corpuscular Volume 87 80-99 FL Mean Corpuscular Hemoglobin 28 25-34 PG Mean Corpuscular Hemoglobin Concent 32 32-36 G/DL Red Cell Distribution Width 17.3 H 10.0-14.5 % Platelet Count 530 H 130-400 10^3/uL Mean Platelet Volume 9.4 7.4-10.4 FL Neutrophils (%) (Auto) 54 42-75 % Lymphocytes (%) (Auto) 39 12-44 % Monocytes (%) (Auto) 6 0-12 % Eosinophils (%) (Auto) 1 0-10 % Basophils (%) (Auto) 0 0-10 % Neutrophils # (Auto) 3.5 1.8-7.8 X 10^3 Lymphocytes # (Auto) 2.5 1.0-4.0 X 10^3 Monocytes # (Auto) 0.4 0.0-1.0 X 10^3 Eosinophils # (Auto) 0.1 0.0-0.3 10^3/uL Basophils # (Auto) 0.0 0.0-0.1 10^3/uL Erythrocyte Sedimentation Rate 43 H 0-30 MM/HR Sodium Level 141 135-145 MMOL/L Potassium Level 3.2 L 3.6-5.0 MMOL/L Chloride Level 108 H 98-107 MMOL/L Carbon Dioxide Level 22 21-32 MMOL/L Anion Gap 11 5-14 MMOL/L Blood Urea Nitrogen 8 7-18 MG/DL Creatinine 0.74 0.60-1.30 MG/DL Estimat Glomerular Filtration Rate > 60 BUN/Creatinine Ratio 11 Glucose Level 105 70-105 MG/DL Calcium Level 8.2 L 8.5-10.1 MG/DL Total Bilirubin 0.5 0.1-1.0 MG/DL Aspartate Amino Transf (AST/SGOT) 21 5-34 U/L Alanine Aminotransferase (ALT/SGPT) 16 0-55 U/L Alkaline Phosphatase 87 40-136 U/L C-Reactive Protein High Sensitivity 8.38 H 0.00-0.50 MG/DL Total Protein 5.6 L 6.4-8.2 GM/DL Albumin 2.6 L 3.2-4.5 GM/DL Lipase 7 L 8-78 U/L My Orders Orders - HEATH VALADEZ MD Cbc With Automated Diff (03/07/18 18:19) Comprehensive Metabolic Panel (03/07/18 18:19) Hs C Reactive Protein (03/07/18 18:19) Lipase (03/07/18 18:19) Ua Culture If Indicated (03/07/18 18:) Erythrocyte Sedimentation Rate (03/07/18 18:19) Saline Lock/Iv-Start (03/07/18 18:19) Lactated Ringers (Lr 1000 Ml Iv Solution (03/07/18 18:19) Promethazine Injection (Phenergan Injec (03/07/18 18:30) Ranitidine Injection (Zantac Injection) (03/07/18 18:30) Potassium Chloride (Tablet) (Klor Con Ta (03/07/18 19:30) Methylprednisolone Sod Succ (Solu-Medrol (03/07/18 19:30) Medications Given in ED Current Medications Medications Dose Ordered Sig/Leny Route Start Time Stop Time Status Last Admin Dose Admin Lactated Ringer's 1,000 ml @ 0 mls/hr Q0M ONCE IV 03/07/18 18:19 03/07/18 18:23 DC 03/07/18 18:48 1,000 MLS/HR Methylprednisolone Sodium Succinate 125 mg ONCE ONCE IVP 03/07/18 19:30 03/07/18 19:32 DC 03/07/18 19:37 125 MG Potassium Chloride 20 meq ONCE ONCE PO 03/07/18 19:30 03/07/18 19:32 DC 03/07/18 19:37 20 MEQ Promethazine HCl 25 mg ONCE ONCE IVP 03/07/18 18:30 03/07/18 18:31 DC 03/07/18 18:47 25 MG Ranitidine HCl 50 mg ONCE ONCE IJ 03/07/18 18:30 03/07/18 18:31 DC 03/07/18 18:47 50 MG Vital Signs/I&O 03/07/18 5 18:06 18:47 Temp 97.5 97.5 Pulse 70 Resp 16 B/P (MAP) 116/92 (100) Pulse Ox 98 O2 Delivery Room Air Blood Pressure Mean: 4 Progress Progress Note #1: Time: 18:40 Progress Note Patient seen and examined. Labs are pending. A liter of LR is infusing. Nausea is being treated with Phenergan. Progress Note #2: Time: 19:36 Progress Note IV fluids are still infusing. Patient is denying any significant pain or nausea at the moment. We will try some oral water and oral potassium replacement. CRP and ESR both elevated. Therefore we will treat with steroids as well. Solu-Medrol 125 mg is being administered by IV route. Progress Note #3: Time: 20:23 Progress Note Patient tolerated oral fluids and potassium without problem. Dr. Lopez called to review case. She requests that the patient be admitted based on her past history with decompensation during exacerbation of ulcerative colitis in the past. She would like to exercise caution in this case. Patient is agreeable to admission. Admission orders were discussed with Dr. Lopez. Treatment plan includes Zosyn, stool studies, IV Solu-Medrol, and IV hydration with potassium supplementation. Departure Communication (Admissions) Time/Spoke to Admitting Phy: 20:20 Dr. Lopez Impression Primary Impression: Exacerbation of ulcerative colitis Qualified Codes: K51.918 - Ulcerative colitis, unspecified with other complication Additional Impression: Nausea vomiting and diarrhea Disposition: ADMITTED INPATIENT Condition: Improved Admissions Decision to Admit Reason: Admit from ER (General) Decision to Admit/Date: March 07, 2018 Time/Decision to Admit Time: 20:20 Departure-Patient Inst. Referrals: TADEO LOPEZ DO (PCP/Family) Primary Care Physician Patient Instructions: Ulcerative Colitis (DC) Add. Discharge Instructions: All discharge instructions reviewed with patient and/or family. Voiced understanding. HEATH VAALDEZ MD March 07, 2018 18:37
[2018-03-07 18:45] LABS: ALANINE AMINOTRANSFERASE 16 U/L (0-55); ALBUMIN 2.6 GM/DL (3.2-4.5); ALKALINE PHOSPHATASE 87 U/L (40-136); BILIRUBIN,TOTAL 0.5 MG/DL (0.1-1.0); BUN/CREATININE RATIO 11; CALCIUM 8.2 MG/DL (8.5-10.1); CARBON DIOXIDE 22 MMOL/L (21-32); CHLORIDE 108 MMOL/L (98-107); CREATININE SERUM 0.74 MG/DL (0.60-1.30); GFR ESTIMATED > 60; GLUCOSE 105 MG/DL (70-105); LIPASE 7 U/L (8-78); POTASSIUM 3.2 MMOL/L (3.6-5.0); SODIUM 141 MMOL/L (135-145); TOTAL PROTEIN 5.6 GM/DL (6.4-8.2)
[2018-03-07 18:47] LABS: ERYTHROCYTE SEDIMENTATION RATE 43 MM/HR (0-30)
[2018-03-07] MEDS ORDERED: methylPREDNISolone 125 MG (Solu-MEDROL) VIAL IVP ONE (19:30)
[2018-03-07] MEDS ORDERED: KCL 10 MEQ TAB (MICRO K) PO ONE (19:30)
[2018-03-07 21:10] VITALS: BP 126/73
[2018-03-07] MEDS ORDERED: PIPERACILLIN/TAZO 4.5 GM/D5W 100 ML IVPB IV ONE ×2 (21:30)
[2018-03-07] MEDS ORDERED: CATHETER FLUSH 10 ML SYR IV PRN (21:30)
[2018-03-07] MEDS ORDERED: ONDANSETRON 4 MG/2 ML (SDV) Z0FRAN IV PRN (21:30)
[2018-03-07] MEDS ORDERED: PROMETHAZINE INJ 25 MG/ML (PHENERGAN) AMP IV PRN (21:30)
[2018-03-07] MEDS ORDERED: fentaNYL INJECTION 100 MCG/2 ML AMP IV PRN (21:30)
[2018-03-07] MEDS: D5 1/2 NS W/KCL 20 MEQ/L 1,000 ML IV SCH (21:47)
[2018-03-07] MEDS: CATHETER FLUSH 10 ML SYR IV SCH (21:54)
[2018-03-07] MEDS ORDERED: ACETAMINOPHEN 500 MG TAB (TYLENOL) PO PRN (22:00)
[2018-03-07 23:14] VITALS: BP 111/59
[2018-03-07] MEDS: methylPREDNISolone 125 MG (Solu-MEDROL) VIAL IV SCH (23:17)
[2018-03-08] MEDS: PIPERACILLIN/TAZO 4.5 GM/D5W 100 ML IVPB IV SCH ×4 (02:38→09:46)
[2018-03-08 03:06] LABS: BILIRUBIN,URINE NEGATIVE (NEGATIVE); CLARITY,URINE CLEAR; COLOR,URINE YELLOW; GLUCOSE, URINE (UA) NEGATIVE (NEGATIVE); KETONES,URINE NEGATIVE (NEGATIVE); LEUKOCYTE ESTERASE ,URINE 2+ (NEGATIVE); NITRITE,URINE NEGATIVE (NEGATIVE); PH,URINE 6 (5-9); PROTEIN,URINE NEGATIVE (NEGATIVE); UROBILINOGEN,URINE NORMAL (NORMAL)
[2018-03-08 03:14] LABS: BACTERIA,URINE TRACE /HPF; RBC,URINE RARE /HPF; WBC,URINE 0-2 /HPF
[2018-03-08 04:00] VITALS: BP 96/61
[2018-03-08] MEDS: D5 1/2 NS W/KCL 20 MEQ/L 1,000 ML IV SCH ×3 (05:21→21:34)
[2018-03-08] MEDS: methylPREDNISolone 125 MG (Solu-MEDROL) VIAL IV SCH ×2 (05:21→17:17)
[2018-03-08] MEDS: CATHETER FLUSH 10 ML SYR IV SCH ×3 (05:21→21:34)
[2018-03-08 06:37] LABS: BASOPHILS % (AUTO) 0 % (0-10); EOSINOPHILS % (AUTO) 0 % (0-10); HEMATOCRIT 30 % (35-52); HEMOGLOBIN 9.2 G/DL (11.5-16.0); LYMPHOCYTES # (AUTO) 1.1 X 10^3 (1.0-4.0); LYMPHOCYTES % (AUTO) 36 % (12-44); MEAN CORPUSCULAR HEMOGLOBIN 27 PG (25-34); MEAN CORPUSCULAR HGB CONC 31 G/DL (32-36); MEAN CORPUSCULAR VOLUME 88 FL (80-99); MEAN PLATELET VOLUME 9.6 FL (7.4-10.4); MONOCYTES # (AUTO) 0.1 X 10^3 (0.0-1.0); MONOCYTES % (AUTO) 2 % (0-12); NEUTROPHILS # (AUTO) 1.9 X 10^3 (1.8-7.8); NEUTROPHILS % (AUTO) 62 % (42-75); PLATELET COUNT 417 10^3/uL (130-400); RED BLOOD COUNT 3.38 10^6/uL (4.35-5.85)
[2018-03-08 06:51] LABS: ALANINE AMINOTRANSFERASE 13 U/L (0-55); ALBUMIN 2.4 GM/DL (3.2-4.5); ALKALINE PHOSPHATASE 78 U/L (40-136); BILIRUBIN,TOTAL 0.3 MG/DL (0.1-1.0); BUN/CREATININE RATIO 8; CARBON DIOXIDE 21 MMOL/L (21-32); CHLORIDE 109 MMOL/L (98-107); CREATININE SERUM 0.83 MG/DL (0.60-1.30); GFR ESTIMATED > 60; GLUCOSE 185 MG/DL (70-105); SODIUM 141 MMOL/L (135-145)
[2018-03-08 07:14] LABS: ERYTHROCYTE SEDIMENTATION RATE 44 MM/HR (0-30)
[2018-03-08 07:53] VITALS: BP 99/63
[2018-03-08] MEDS ORDERED: raNItidine 50 MG/2 ML INJ (ZANTAC) IV SCH (09:00)
[2018-03-08] MEDS ORDERED: raNItidine 50 MG/NS 50 ML IVPB IV PRN ×2 (09:01)
[2018-03-08] MEDS ORDERED: ACID1TAB PO (09:02)
[2018-03-08] MEDS ORDERED: FOLI1TAB24 PO (09:02)
[2018-03-08] MEDS ORDERED: METH2.5T PO (09:02)
[2018-03-08] MEDS ORDERED: MESA800T3 PO (09:02)
[2018-03-08] MEDS ORDERED: METO-387 PO (09:02)
[2018-03-08] MEDS ORDERED: ONDA8TAB13 PO (09:02)
[2018-03-08] MEDS ORDERED: NS (IVPB) 50 ML ONE (09:03)
[2018-03-08] MEDS: raNItidine 50 MG/NS 50 ML IVPB IV SCH ×4 (09:07→21:29)
[2018-03-08] MEDS ORDERED: VANCOMYCIN ORAL SUSPENSION 60 ML BOTTLE PO SCH (11:00)
--- NOTE | 2018-03-08 11:02 | History & Physical-Hospitalist ---
History of Present Illness HPI/Chief Complaint CC: Vomiting and diarrhea HPI: This is a 62-year-old white female clinic patient of mine at the [facility] who had a recent diagnosis of ulcerative colitis [address] Alaniz's help and then referral to Dr. Hartley who I had just seen in the office one week prior preparing for a colonoscopy on 03/11/[address] Hartley fluid just completed the prednisone taper dose and currently on methotrexate and mesalamine who began having vomiting and diarrhea once again. She called the office Zofran was sent in that did not help so she was sent to the ER for further evaluation in case she was in septic shock and needed high volume fluid resuscitation and to evaluate for septic colitis but she was found to have just mild hypokalemia mild elevated inflammatory markers of sedimentation rate of 44 in need of fluid resuscitation and potassium supplements and IV steroids. I did confer with Dr. Hartley and updated him on all of the lab levels and clinical picture and he agreed that IV steroids and IV fluids and correction of the potassium was indicated and likely she'll require admission over the weekend and discharge early Sunday morning for arrival at [place] 6:00 in preparation for Hand colonoscopy for further evaluation and likely will require biological immunomodulators to control the severe colitis. She reports her cramping is much improved with the Zantac every 6 hours and she denies any other significant issues at all. Her vomiting is much improved on the Zofran and IV fluids and we will correct the potassium. Source: patient Exam Limitations: no limitations Date Seen 03/08/18 Time Seen by Provider: 09:00 Attending Physician Elsie Verduzco DO PCP Elsie Verduzco DO Referring Physician Date of Admission March 07, 2018 at 20:41 Home Medications & Allergies Home Medications Reviewed patient Home Medication Reconciliation performed by pharmacy medication reconciliations veterinary surgery technician and/or nursing. Patients Allergies have been reviewed. Allergies Allergies Coded Allergies No Known Drug Allergies (Unverified12/30/17) Past Hsabwsj-Togfli-Mwgeyv Hx Past Med/Social Hx: Reviewed Nursing Past Med/Soc Hx, Reviewed and Corrections made Patient Social History Marrital Status: Employed/Student: employed ([employer] dept) Alcohol Use: Denies Use Recreational Drug Use: No Smoking Status: Former Smoker Physical Abuse Screen: No Sexual Abuse: No Recent Foreign Travel: No Contact w/other who traveled: No Recent Hopitalizations: No (ER) Recent Infectious Disease Expo: No Immunizations Up To Date Tetanus Booster (TDap): Unknown Seasonal Allergies Seasonal Allergies: No Past Medical History Surgeries: Tubal Ligation : No Reproductive: No Gastrointestinal: Colitis (01/18/18 UC) History of Blood Disorders: No Family History Patient reports no known family medical history. No Pertinent Family Hx, Hypertension Review of Systems Constitutional: see HPI, diaphoresis, dizziness, fever, malaise, weakness EENTM: no symptoms reported Respiratory: no symptoms reported Cardiovascular: no symptoms reported Gastrointestinal: LUQ, abdominal pain (LLQ), diarrhea, heartburn, loss of appetite, nausea, vomiting Genitourinary: no symptoms reported Musculoskeletal: no symptoms reported Skin: no symptoms reported Psychiatric/Neurological: No Symptoms Reported All Other Systems Reviewed Negative Unless Noted: Yes Physical Exam Physical Exam Vital Signs Vital Signs - First Documented 03/07/18 18:06 Temp 97.5 Pulse 70 Resp 16 B/P (MAP) 116/92 (100) Pulse Ox 98 O2 Delivery Room Air Capillary Refill : Less Than 3 Seconds General Appearance: WD/WN, Chronically ill, Mild Distress Eyes: Bilateral Eye Normal Inspection, Bilateral Eye PERRL HEENT: PERRL/EOMI, Normal ENT Inspection, Pharynx Normal Neck: Full Range of Motion, Normal Inspection, Non Tender, Supple, Carotid Bruit Respiratory: Chest Non Tender, Lungs Clear, Normal Breath Sounds, No Accessory Muscle Use, No Respiratory Distress Cardiovascular: Regular Rate, Rhythm, No Edema, No Gallop, No JVD, No Murmur, Normal Peripheral Pulses Gastrointestinal: Soft, Abnormal Bowel Sounds, Tenderness Back: Normal Inspection, No CVA Tenderness, No Vertebral Tenderness Extremity: Normal Capillary Refill, Normal Inspection, Normal Range of Motion, Non Tender, No Calf Tenderness, No Pedal Edema Neurologic/Psychiatric: Alert, Oriented x3, No Motor/Sensory Deficits, Normal Mood/Affect Skin: Normal Color, Warm/Dry Lymphatic: No Adenopathy Results Results/Procedures Labs Laboratory Tests 03/07/18 18:00 03/08/18 05:39 Patient resulted labs reviewed. Assessment/Plan Admission Diagnosis Assessment: Severe Ulcerative Colitis flare Acute C. Diff colitis Severe dehydration Refractory vomiting Severe diarrhea with hemoccult positive stools Plan: IV steroids IVF Pain meds Zantac Vanc PO Flagyl IV Colonoscopy Sunday per Dr Hartley in [place] Admission Status: Inpatient Order (span 2 midnights) Reason for Inpatient Admission: Sevre UC in flare Diagnosis/Problems Diagnosis/Problems (1) C. difficile colitis Status: Acute (2) Exacerbation of ulcerative colitis Status: Acute Qualifiers: Digestive disease complication type: other complication Qualified Codes: K51.918 - Ulcerative colitis, unspecified with other complication (3) Intractable nausea and vomiting Status: Acute Qualifiers: Vomiting type: unspecified Qualified Codes: R11.2 - Nausea with vomiting, unspecified (4) GI bleed Status: Acute (5) Normocytic anemia Status: Acute (6) Weight loss Status: Acute (7) Hypokalemia Status: Acute (8) Dehydration Status: Acute (9) Protein malnutrition Status: Acute Clinical Quality Measures DVT/VTE Risk/Contraindication: Risk Factor Score Per Nursin RFS Level Per Nursing on Admit: 3=High ELSIE VERDUZCO DO March 08, 2018 11:02
[2018-03-08] MEDS: VANCOMYCIN ORAL 250 MG/5 ML 120 ML PO SCH ×6 (11:43→23:23)
[2018-03-08 12:00] VITALS: BP 116/76
[2018-03-08] MEDS: CHOLESTYRAMINE 4 GM (QUESTRAN LITE, PREVALITE) PKT PO SCH ×2 (12:13→20:10)
[2018-03-08] MEDS: metroNIDAZOLE 500MG/100ML IVPB 100 ML IV SCH ×2 (13:14→22:29)
[2018-03-08 16:45] VITALS: BP 98/64
[2018-03-09 00:24] VITALS: BP 107/71
[2018-03-09] MEDS: D5 1/2 NS W/KCL 20 MEQ/L 1,000 ML IV SCH (02:45)
[2018-03-09 04:31] LABS: BASOPHILS % (AUTO) 0 % (0-10); EOSINOPHILS % (AUTO) 0 % (0-10); HEMATOCRIT 25 % (35-52); HEMOGLOBIN 7.6 G/DL (11.5-16.0); LYMPHOCYTES # (AUTO) 1.3 X 10^3 (1.0-4.0); LYMPHOCYTES % (AUTO) 22 % (12-44); MEAN CORPUSCULAR HEMOGLOBIN 27 PG (25-34); MEAN CORPUSCULAR HGB CONC 30 G/DL (32-36); MEAN CORPUSCULAR VOLUME 89 FL (80-99); MEAN PLATELET VOLUME 9.3 FL (7.4-10.4); MONOCYTES # (AUTO) 0.5 X 10^3 (0.0-1.0); MONOCYTES % (AUTO) 8 % (0-12); NEUTROPHILS % (AUTO) 70 % (42-75); PLATELET COUNT 373 10^3/uL (130-400); RED BLOOD COUNT 2.84 10^6/uL (4.35-5.85); RED CELL DISTRIBUTION WIDTH 16.9 % (10.0-14.5); WHITE BLOOD COUNT 5.7 10^3/uL (4.3-11.0)
[2018-03-09] MEDS: VANCOMYCIN ORAL 250 MG/5 ML 120 ML PO SCH ×8 (05:06→23:17)
[2018-03-09] MEDS: methylPREDNISolone 125 MG (Solu-MEDROL) VIAL IV SCH ×2 (05:06→18:06)
[2018-03-09] MEDS: metroNIDAZOLE 500MG/100ML IVPB 100 ML IV SCH ×3 (05:06→21:47)
[2018-03-09] MEDS: CATHETER FLUSH 10 ML SYR IV SCH ×3 (05:11→21:12)
[2018-03-09 05:28] LABS: ALANINE AMINOTRANSFERASE 9 U/L (0-55); ALBUMIN 2.1 GM/DL (3.2-4.5); ALKALINE PHOSPHATASE 66 U/L (40-136); BILIRUBIN,TOTAL 0.1 MG/DL (0.1-1.0); BUN/CREATININE RATIO 10; CALCIUM 7.7 MG/DL (8.5-10.1); CARBON DIOXIDE 21 MMOL/L (21-32); CHLORIDE 113 MMOL/L (98-107); CREATININE SERUM 0.79 MG/DL (0.60-1.30); GFR ESTIMATED > 60; GLUCOSE 175 MG/DL (70-105); POTASSIUM 4.1 MMOL/L (3.6-5.0); SODIUM 140 MMOL/L (135-145); TOTAL PROTEIN 4.4 GM/DL (6.4-8.2)
[2018-03-09 08:00] VITALS: BP 108/71
[2018-03-09] MEDS: CHOLESTYRAMINE 4 GM (QUESTRAN LITE, PREVALITE) PKT PO SCH (08:38)
[2018-03-09] MEDS: raNItidine 50 MG/NS 50 ML IVPB IV SCH ×4 (08:39→21:11)
--- NOTE | 2018-03-09 10:37 | Progress Note-Hospitalist ---
Subjective HPI/CC On Admission Date Seen by Provider: March 09, 2018 Time Seen by Provider: 10:00 CC: Vomiting and diarrhea HPI: This is a 62-year-old white female clinic patient of mine at the [facility] who had a recent diagnosis of ulcerative colitis [address] Alaniz's help and then referral to Dr. Hartley who I had just seen in the office one week prior preparing for a colonoscopy on 03/11/[address] Hartley fluid just completed the prednisone taper dose and currently on methotrexate and mesalamine who began having vomiting and diarrhea once again. She called the office Zofran was sent in that did not help so she was sent to the ER for further evaluation in case she was in septic shock and needed high volume fluid resuscitation and to evaluate for septic colitis but she was found to have just mild hypokalemia mild elevated inflammatory markers of sedimentation rate of 44 in need of fluid resuscitation and potassium supplements and IV steroids. I did confer with Dr. Hartley and updated him on all of the lab levels and clinical picture and he agreed that IV steroids and IV fluids and correction of the potassium was indicated and likely she'll require admission over the weekend and discharge early Sunday morning for arrival at [place] 6:00 in preparation for Hand colonoscopy for further evaluation and likely will require biological immunomodulators to control the severe colitis. She reports her cramping is much improved with the Zantac every 6 hours and she denies any other significant issues at all. Her vomiting is much improved on the Zofran and IV fluids and we will correct the potassium. Subjective/Events-last exam Patient doing much better on Flagyl IV 500 MG IV every 8 hours in addition to vancomycin oral solution 4 times a day for C. difficile colitis Low potassium will be treated Stool culture they reported as positive for cryptosporidium and Giardiasis so I did confer with Dr. Hartley and placed her on treatment for both of those with Alinia 500 MG twice daily Colonoscopy has been canceled for Sunday per Dr. Hartley We'll monitor patient closely in the meantime Has started getting swollen so will decrease and Hep-Lock IV fluid and patient will ambulate Pain is controlled abdominal cramps are resolved Potassium replaced Diarrhea much improved and will DC Radha Review of Systems General: Fatigue Cardiovascular: Edema Objective Exam Vital Signs Vital Signs Date Time Temp Pulse Resp B/P (MAP) Pulse Ox O2 Delivery O2 Flow Rate FiO2 03/09/18 15:56 98.2 87 18 104/71 (82) 96 Room Air Capillary Refill : Less Than 3 Seconds General Appearance: No Apparent Distress, WD/WN Neck: Normal Inspection Respiratory: Lungs Clear, Normal Breath Sounds Cardiovascular: Regular Rate, Rhythm, No Edema Gastrointestinal: Non Tender, Soft Extremity: Normal Capillary Refill, Normal Inspection, Normal Range of Motion, Non Tender Neurologic/Psychiatric: Alert, Oriented x3, No Motor/Sensory Deficits, Normal Mood/Affect Results/Procedures Lab Laboratory Tests 03/09/18 04:18 Patient resulted labs reviewed. Assessment/Plan Assessment and Plan Assess & Plan/Chief Complaint Assessment: Acute C. difficile colitis Flare of ulcerative colitis on steroids Giardia on stool culture Cryptosporidium on stool culture Edema due to IV fluids Plan: Alinia Hep-Lock IV fluids Monitor labs Ambulate Diagnosis/Problems Diagnosis/Problems (1) Cryptosporidiosis Status: Acute (2) Giardiasis [lambliasis] Status: Acute (3) C. difficile colitis Status: Acute (4) Exacerbation of ulcerative colitis Status: Acute Qualifiers: Digestive disease complication type: other complication Qualified Codes: K51.918 - Ulcerative colitis, unspecified with other complication (5) Intractable nausea and vomiting Status: Acute Qualifiers: Vomiting type: unspecified Qualified Codes: R11.2 - Nausea with vomiting, unspecified (6) GI bleed Status: Acute (7) Normocytic anemia Status: Acute (8) Weight loss Status: Acute (9) Hypokalemia Status: Acute (10) Dehydration Status: Acute (11) Protein malnutrition Status: Acute Clinical Quality Measures DVT/VTE Risk/Contraindication: Risk Factor Score Per Nursin RFS Level Per Nursing on Admit: 3=High TADEO LOPEZ DO March 09, 2018 10:37
[2018-03-09] MEDS ORDERED: NITAZOXANIDE 500 MG PO SCH (14:02)
[2018-03-09] MEDS ORDERED: NITAZOXANIDE 500 MG PO ONE ×2 (14:18)
[2018-03-09 15:56] VITALS: BP 104/71
[2018-03-09] MEDS ORDERED: CALCIUM CARBONATE 500 MG (TUMS) TAB.CHEW PO PRN (19:30)
[2018-03-10] VITALS: BP 108/62
[2018-03-10] MEDS: NITAZOXANIDE 500 MG PO SCH ×2 (02:12→14:29)
[2018-03-10] MEDS ORDERED: NITAZOXANIDE 500 MG PO ONE ×4 (02:12→14:29)
[2018-03-10 04:49] LABS: BASOPHILS % (AUTO) 0 % (0-10); EOSINOPHILS % (AUTO) 0 % (0-10); HEMATOCRIT 26 % (35-52); HEMOGLOBIN 7.6 G/DL (11.5-16.0); LYMPHOCYTES # (AUTO) 1.1 X 10^3 (1.0-4.0); LYMPHOCYTES % (AUTO) 22 % (12-44); MEAN CORPUSCULAR HEMOGLOBIN 27 PG (25-34); MEAN CORPUSCULAR HGB CONC 30 G/DL (32-36); MEAN CORPUSCULAR VOLUME 90 FL (80-99); MEAN PLATELET VOLUME 9.5 FL (7.4-10.4); MONOCYTES # (AUTO) 0.4 X 10^3 (0.0-1.0); MONOCYTES % (AUTO) 9 % (0-12); NEUTROPHILS # (AUTO) 3.6 X 10^3 (1.8-7.8); NEUTROPHILS % (AUTO) 70 % (42-75); PLATELET COUNT 377 10^3/uL (130-400); RED BLOOD COUNT 2.82 10^6/uL (4.35-5.85); WHITE BLOOD COUNT 5.2 10^3/uL (4.3-11.0)
[2018-03-10 05:10] LABS: ALANINE AMINOTRANSFERASE 10 U/L (0-55); ALBUMIN 2.3 GM/DL (3.2-4.5); ALKALINE PHOSPHATASE 81 U/L (40-136); BILIRUBIN,TOTAL < 0.1 MG/DL (0.1-1.0); BUN/CREATININE RATIO 14; CALCIUM 7.9 MG/DL (8.5-10.1); CARBON DIOXIDE 18 MMOL/L (21-32); CHLORIDE 116 MMOL/L (98-107); GFR ESTIMATED > 60; GLUCOSE 125 MG/DL (70-105); POTASSIUM 4.3 MMOL/L (3.6-5.0); SODIUM 140 MMOL/L (135-145); TOTAL PROTEIN 4.4 GM/DL (6.4-8.2)
[2018-03-10] MEDS: CATHETER FLUSH 10 ML SYR IV SCH ×3 (05:44→20:24)
[2018-03-10] MEDS: methylPREDNISolone 125 MG (Solu-MEDROL) VIAL IV SCH (05:44)
[2018-03-10] MEDS: metroNIDAZOLE 500MG/100ML IVPB 100 ML IV SCH ×3 (05:44→22:18)
[2018-03-10] MEDS: VANCOMYCIN ORAL 250 MG/5 ML 120 ML PO SCH ×8 (05:45→23:58)
[2018-03-10 08:00] VITALS: BP 141/71
[2018-03-10] MEDS: raNItidine 50 MG/NS 50 ML IVPB IV SCH ×4 (08:48→20:24)
--- NOTE | 2018-03-10 11:46 | Progress Note-Hospitalist ---
Subjective HPI/CC On Admission Date Seen by Provider: March 10, 2018 Time Seen by Provider: 11:00 CC: Vomiting and diarrhea HPI: This is a 62-year-old white female clinic patient of mine at the [facility] who had a recent diagnosis of ulcerative colitis [address] Alaniz's help and then referral to Dr. Hartley who I had just seen in the office one week prior preparing for a colonoscopy on 03/11/[address] Hartley fluid just completed the prednisone taper dose and currently on methotrexate and mesalamine who began having vomiting and diarrhea once again. She called the office Zofran was sent in that did not help so she was sent to the ER for further evaluation in case she was in septic shock and needed high volume fluid resuscitation and to evaluate for septic colitis but she was found to have just mild hypokalemia mild elevated inflammatory markers of sedimentation rate of 44 in need of fluid resuscitation and potassium supplements and IV steroids. I did confer with Dr. Hartley and updated him on all of the lab levels and clinical picture and he agreed that IV steroids and IV fluids and correction of the potassium was indicated and likely she'll require admission over the weekend and discharge early Sunday morning for arrival at [place] 6:00 in preparation for Hand colonoscopy for further evaluation and likely will require biological immunomodulators to control the severe colitis. She reports her cramping is much improved with the Zantac every 6 hours and she denies any other significant issues at all. Her vomiting is much improved on the Zofran and IV fluids and we will correct the potassium. Subjective/Events-last exam Patient doing much better Notified her of Giardia and cryptosporidium in her stool studies in the [facility] Department will notify her Tolerating Alinia well No nausea and diarrhea is much improved Colonoscopy has been canceled that was scheduled for tomorrow due to the acute infection Vancomycin by mouth is maintained Objective Exam Vital Signs Vital Signs Date Time Temp Pulse Resp B/P (MAP) Pulse Ox O2 Delivery O2 Flow Rate FiO2 03/10/18 09:00 Room Air 03/10/18 08:00 97.7 88 20 141/71 (94) 95 Capillary Refill : Less Than 3 Seconds General Appearance: No Apparent Distress, WD/WN, Chronically ill Respiratory: Lungs Clear, Normal Breath Sounds Cardiovascular: Regular Rate, Rhythm, No Edema Gastrointestinal: Non Tender, Soft Neurologic/Psychiatric: Alert, Oriented x3, No Motor/Sensory Deficits, Normal Mood/Affect Skin: Normal Color, Warm/Dry Results/Procedures Lab Laboratory Tests 03/10/18 04:01 Patient resulted labs reviewed. Assessment/Plan Assessment and Plan Assess & Plan/Chief Complaint Assessment: Acute C. difficile colitis Flare of ulcerative colitis on steroids Giardia on stool culture Cryptosporidium on stool culture Edema due to IV fluids much improved since HLIVF yesterday Plan: Samara Hep-Lock IV fluids Monitor labs Ambulate DC home Sunday and follow up with me on Sunday, patient will need to call for appt. Diagnosis/Problems Diagnosis/Problems (1) Cryptosporidiosis Status: Acute (2) Giardiasis [lambliasis] Status: Acute (3) C. difficile colitis Status: Acute (4) Exacerbation of ulcerative colitis Status: Acute Qualifiers: Digestive disease complication type: other complication Qualified Codes: K51.918 - Ulcerative colitis, unspecified with other complication (5) Intractable nausea and vomiting Status: Acute Qualifiers: Vomiting type: unspecified Qualified Codes: R11.2 - Nausea with vomiting, unspecified (6) GI bleed Status: Acute (7) Normocytic anemia Status: Acute (8) Weight loss Status: Acute (9) Hypokalemia Status: Acute (10) Dehydration Status: Acute (11) Protein malnutrition Status: Acute Clinical Quality Measures DVT/VTE Risk/Contraindication: Risk Factor Score Per Nursin RFS Level Per Nursing on Admit: 3=High TADEO LOPEZ DO March 10, 2018 11:46
[2018-03-10] MEDS ORDERED: RELABEL FOR HOME USE MC SCH (15:45)
[2018-03-10 16:15] VITALS: BP 115/73
[2018-03-10] MEDS: methylPREDNISolone 40 MG/ML (Solu-MEDROL) VIAL IV SCH (18:28)
[2018-03-11 00:05] VITALS: BP 121/81
[2018-03-11] MEDS ORDERED: NITAZOXANIDE 500 MG PO ONE ×2 (01:57)
[2018-03-11] MEDS: NITAZOXANIDE 500 MG PO SCH (01:57)
[2018-03-11] MEDS: metroNIDAZOLE 500MG/100ML IVPB 100 ML IV SCH (05:22)
[2018-03-11] MEDS: VANCOMYCIN ORAL 250 MG/5 ML 120 ML PO SCH ×4 (05:23→11:29)
[2018-03-11] MEDS: methylPREDNISolone 40 MG/ML (Solu-MEDROL) VIAL IV SCH (05:23)
[2018-03-11] MEDS: CATHETER FLUSH 10 ML SYR IV SCH ×2 (05:23→10:53)
[2018-03-11 07:00] LABS: BASOPHILS % (AUTO) 0 % (0-10); EOSINOPHILS % (AUTO) 0 % (0-10); HEMATOCRIT 27 % (35-52); LYMPHOCYTES # (AUTO) 1.5 X 10^3 (1.0-4.0); LYMPHOCYTES % (AUTO) 26 % (12-44); MEAN CORPUSCULAR HEMOGLOBIN 27 PG (25-34); MEAN CORPUSCULAR HGB CONC 30 G/DL (32-36); MEAN CORPUSCULAR VOLUME 90 FL (80-99); MONOCYTES # (AUTO) 0.5 X 10^3 (0.0-1.0); MONOCYTES % (AUTO) 8 % (0-12); NEUTROPHILS # (AUTO) 3.7 X 10^3 (1.8-7.8); NEUTROPHILS % (AUTO) 66 % (42-75); PLATELET COUNT 406 10^3/uL (130-400); RED BLOOD COUNT 2.96 10^6/uL (4.35-5.85); RED CELL DISTRIBUTION WIDTH 17.5 % (10.0-14.5); WHITE BLOOD COUNT 5.6 10^3/uL (4.3-11.0)
[2018-03-11 07:30] LABS: ALANINE AMINOTRANSFERASE 9 U/L (0-55); ALBUMIN 2.4 GM/DL (3.2-4.5); ALKALINE PHOSPHATASE 83 U/L (40-136); BILIRUBIN,TOTAL 0.2 MG/DL (0.1-1.0); BUN/CREATININE RATIO 13; CALCIUM 7.9 MG/DL (8.5-10.1); CARBON DIOXIDE 21 MMOL/L (21-32); CHLORIDE 116 MMOL/L (98-107); GFR ESTIMATED > 60; GLUCOSE 111 MG/DL (70-105); SODIUM 141 MMOL/L (135-145); TOTAL PROTEIN 4.6 GM/DL (6.4-8.2)
[2018-03-11 07:42] LABS: ERYTHROCYTE SEDIMENTATION RATE 36 MM/HR (0-30)
[2018-03-11 08:00] VITALS: BP 145/94
[2018-03-11] MEDS: raNItidine 50 MG/NS 50 ML IVPB IV SCH ×2 (08:51)
[2018-03-11] MEDS ORDERED: NITA500T2 PO (09:48)
--- NOTE | 2018-03-11 10:56 | Discharge Inst-Simple/Standard ---
Discharge Inst-Standard Discharge Medications New, Converted or Re-Newed RX: Call to Patients Pharmacy Patient Instructions/Follow Up Plan of Care/Instructions/FU: Please continue to take your medications as written. Please make appt with Dr Verduzco on Sunday of this week and with Dr Sandoval in 2 weeks. Activity as Tolerated: Yes Discharge Diet: Avoid Fatty Foods Return to The Hospital For: Abd pain, nausea and vomiting, if you feel you are getting worse. YOLY NAVARRO MD March 11, 2018 10:56
[2018-03-11] MEDS ORDERED: VANC125S PO (10:59)
[2018-03-11 12:30] VITALS: BP 145/94
[2018-03-11] MEDS ORDERED: NITAZOXANIDE 500 MG PO SCH (14:00)
--- NOTE | 2018-03-11 20:58 | Discharge Summary-Hospitalist ---
Diagnosis/Chief Complaint Date of Admission March 07, 2018 at 20:41 Date of Discharge March 11, 2018 at 12:30 Discharge Date: March 11, 2018 Admission Diagnosis Assessment: Severe Ulcerative Colitis flare Acute C. Diff colitis Severe dehydration Refractory vomiting Severe diarrhea with hemoccult positive stools Plan: IV steroids IVF Pain meds Zantac Vanc PO Flagyl IV Colonoscopy Sunday per Dr Hartley in [place] Discharge Diagnosis (1) Cryptosporidiosis Status: Acute (2) Giardiasis [lambliasis] Status: Acute (3) C. difficile colitis Status: Acute (4) Exacerbation of ulcerative colitis Status: Acute (5) Intractable nausea and vomiting Status: Acute (6) GI bleed Status: Acute (7) Normocytic anemia Status: Acute (8) Weight loss Status: Acute (9) Hypokalemia Status: Acute (10) Dehydration Status: Acute (11) Protein malnutrition Status: Acute Discharge Summary Discharge Physical Exam Allergies: Coded Allergies: No Known Drug Allergies (Unverified , 12/30/17) Vitals & I&Os Vital Signs Date Time Temp Pulse Resp B/P (MAP) Pulse Ox O2 Delivery O2 Flow Rate FiO2 03/11/18 12:30 100 20 145/94 95 Room Air 03/11/18 08:00 98.1 General Appearance: Alert, Oriented X3, Cooperative HEENT: Atraumatic, PERRLA Respiratory: Clear to Auscultation, Normal Air Movement Abdominal: Normal Bowel Sounds, Soft Neuro: Normal Gait, Normal Speech, Strength at 5/5 X4 Ext Psych/Mental Status: Mental Status NL, Mood NL Hospital Course Hospital course: Patient had a brief Hospital course she was admitted due to flare of ulcerative colitis and hypokalemia and dehydration and was placed in isolation and C. difficile was diagnosed. I spoke with Dr. Hartley multiple times during the hospital stay especially when the ova and parasite tests came back positive for Giardia and cryptosporidium in addition to the C. difficile. Patient was placed on vancomycin oral and Alinia was initiated for treatment and overall patient will have close follow-up with Dr. Hartley for hand colonoscopy as was planned for day of discharge prior to her acute illness so that will be delayed and I will see her in close follow-up clinic in 4 days at the [facility]. Labs (last 24 hrs) Laboratory Tests 03/11/18 06:45: White Blood Count 5.6, Red Blood Count 2.96L, Hemoglobin 8.0L, Hematocrit 27L, Mean Corpuscular Volume 90, Mean Corpuscular Hemoglobin 27, Mean Corpuscular Hemoglobin Concent 30L, Red Cell Distribution Width 17.5H, Platelet Count 406H, Mean Platelet Volume 9.0, Neutrophils (%) (Auto) 66, Lymphocytes (%) (Auto) 26, Monocytes (%) (Auto) 8, Eosinophils (%) (Auto) 0, Basophils (%) (Auto) 0, Neutrophils # (Auto) 3.7, Lymphocytes # (Auto) 1.5, Monocytes # (Auto) 0.5, Eosinophils # (Auto) 0.0, Basophils # (Auto) 0.0, Erythrocyte Sedimentation Rate 36H, Sodium Level 141, Potassium Level 4.0, Chloride Level 116H, Carbon Dioxide Level 21, Anion Gap 4L, Blood Urea Nitrogen 9, Creatinine 0.70, Estimat Glomerular Filtration Rate > 60, BUN/Creatinine Ratio 13, Glucose Level 111H, Calcium Level 7.9L, Total Bilirubin 0.2, Aspartate Amino Transf (AST/SGOT) 14, Alanine Aminotransferase (ALT/SGPT) 9, Alkaline Phosphatase 83, Total Protein 4.6L, Albumin 2.4L Microbiology 03/08/18 C. difficile DNA Amplification - Final, Complete Patient resulted labs reviewed. Discussion & Recommendations Discharge Planning: <30 minutes discharge planning Discharge Home Medications: Active Scripts Active Vancomycin ORAL Compound 250mg/5 ml (Vancomycin HCl) 125 Mg/2.5 Ml Syringe 125 Mg PO QID 7 Days Alinia (Nitazoxanide) 500 Mg Tablet 500 Mg PO BID TAKE ONE DOSE ON 03/12/18 Reported Floranex Tablet (L. Acidophilus/Bulgaricus) 1 Each Tablet 1 Tab PO TID Mesalamine 800 Mg Tablet.dr 800 Mg PO TID Methotrexate (Methotrexate Sodium) 2.5 Mg Tablet 5 Mg PO TU TAKES 2 (2.5MG) TABLETS Folic Acid 1 Mg Tablet 1 Mg PO DAILY Metoprolol Succinate 25 Mg Tab.er.24h 25 Mg PO 1430 Ondansetron Odt (Ondansetron) 8 Mg Tab.rapdis 8 Mg PO Q6H PRN Instructions to patient/family Please see electronic discharge instructions given to patient. Clinical Quality Measures DVT/VTE Risk/Contraindication: Risk Factor Score Per Nursin RFS Level Per Nursing on Admit: 3=High Problem Qualifiers (1) Exacerbation of ulcerative colitis: Digestive disease complication type: other complication Qualified Codes: K51.918 - Ulcerative colitis, unspecified with other complication (2) Intractable nausea and vomiting: Vomiting type: unspecified Qualified Codes: R11.2 - Nausea with vomiting, unspecified TADEO LOPEZ DO March 11, 2018 20:58
== END 2018-03-11 12:30 | disposition home or self-care (01) | DRG 372 ==
LOC: EDUNIT# 17:28 → ER 17:30 → 4TH 20:41
PROVIDERS: ADMIT Internal Medicine; ATTEND Internal Medicine
DX: A04.72 Enterocolitis due to Clostridium difficile, not specified as recurrent (principal); K51.918 Ulcerative colitis, unspecified with other complication; A07.1 Giardiasis [lambliasis]; A07.2 Cryptosporidiosis; E46 Unspecified protein-calorie malnutrition; E86.0 Dehydration; E87.6 Hypokalemia; D64.9 Anemia, unspecified; R60.9 Edema, unspecified; R11.2 Nausea with vomiting, unspecified; Z79.899 Other long term (current) drug therapy
CPT/HCPCS: 36415; 80053; 81000; 82274; 83690; 85025; 85652; 86141; 87045; 87046; 87324; 87328; 87329; 87449; 87493; 96361; 96374; 96375

== ENCOUNTER 2018-03-15 15:01 | Inpatient (IN) | payer BC ==
[~2018-03-15] VITALS: Ht 162.6 cm; Wt 94.8 kg
[~2018-03-15 15:01] MED LIST changes: +FOLI1TAB24 PO; +MESA800T3 PO; +METH2.5T PO; +METO-387 PO; +NITA500T2 PO; +ONDA8TAB13 PO; +VANC125S PO
[2018-03-15 15:05] VITALS: BP 120/83
[2018-03-15] MEDS ORDERED: MILK OF MAGNESIA 400 MG/5 ML 30 ML UDC PO PRN (15:45)
[2018-03-15] MEDS ORDERED: ANTACID SUSP 30 ML UDC (MYLANTA) PO PRN (15:45)
[2018-03-15] MEDS ORDERED: PROMETHAZINE INJ 25 MG/ML (PHENERGAN) AMP IVP PRN (15:45)
[2018-03-15] MEDS ORDERED: MELATONIN 3 MG TABLET PO PRN (15:45)
--- NOTE | 2018-03-15 15:57 | History & Physical-Hospitalist ---
History of Present Illness HPI/Chief Complaint Pt is a 62yoCF well known to me frommultiple previous admissions who was direct admitted from her PCP's office due to dehydration. She was recently diagnosed with UC and has established with Dr Hartley for her GI. She was on a steroid taper and as soon as she was taken off she had a flare and was readmitted. She was also found to have C Diff, Giardia, and cryptosporidium in her stool and was treated with Oral vanc and Alinia. She has completed Alinia but has not been able to complete her course of Vanc due to her nausea and vomiting. She was discharged from her on 03/11 and on 03/13 started to feel ill again. She had profound nausea and vomiting. The only thing she has been able to keep down in the past two days is some chicken noodle soup. She was seen at her PCP's Dr Verduzco and was found to be dehydrated with HR in the 120s. Source: patient Date Seen 03/15/18 Time Seen by Provider: 15:56 Attending Physician Yoly Hall MD PCP Elsie Verduzco DO Referring Physician Date of Admission March 15, 2018 at 3:01 pm Home Medications & Allergies Home Medications Reviewed patient Home Medication Reconciliation performed by pharmacy medication reconciliations it service technician and/or nursing. Patients Allergies have been reviewed. Allergies Allergies Coded Allergies No Known Drug Allergies (Unverified03/15/18) Past Jszufdx-[id number]-Abklge Hx Past Med/Social Hx: Reviewed Nursing Past Med/Soc Hx Patient Social History Marrital Status: Alcohol Use: Denies Use Smoking Status: Former Smoker Former Smoker, Quit: Oct 29, 1967 Recent Foreign Travel: No Contact w/other who traveled: No Recent Hopitalizations: No (ER) Recent Infectious Disease Expo: No Immunizations Up To Date Tetanus Booster (TDap): Unknown Seasonal Allergies Seasonal Allergies: No Past Medical History Surgeries: Tubal Ligation Reproductive: No Gastrointestinal: Colitis History of Blood Disorders: No Family History Reviewed Nursing Family Hx Patient reports no known family medical history. No Pertinent Family Hx, Hypertension Review of Systems Constitutional: No chills, No fever; weakness EENTM: No blurred vision, No double vision, No nose congestion, No throat pain Respiratory: No cough, No dyspnea on exertion, No short of breath Cardiovascular: No chest pain, No edema, No palpitations Gastrointestinal: see HPI; No abdominal pain, No constipation; diarrhea (scant - mostly formed stools), nausea, vomiting Genitourinary: No dysuria, No frequency Musculoskeletal: No joint pain, No muscle pain Skin: No lesions, No rash Psychiatric/Neurological: Denies Headache, Denies Numbness, Denies Tingling Physical Exam Physical Exam Vital Signs Vital Signs - First Documented 03/15/18 15:05 Temp 98.9 Pulse 106 Resp 20 B/P (MAP) 120/83 (95) Pulse Ox 99 O2 Delivery Room Air Capillary Refill : General Appearance: No Apparent Distress, WD/WN Neck: Normal Inspection, Supple Respiratory: Lungs Clear, No Respiratory Distress Cardiovascular: Regular Rate, Rhythm, No Murmur Gastrointestinal: Normal Bowel Sounds, Non Tender, Soft Extremity: Non Tender, No Calf Tenderness, No Pedal Edema Neurologic/Psychiatric: Alert, Oriented x3, Normal Mood/Affect Skin: Normal Color, Warm/Dry Results Results/Procedures Labs Laboratory Tests 03/17/18 06:25 03/18/18 06:50 03/18/18 06:56 Patient resulted labs reviewed. Imaging: Reviewed Imaging Report Assessment/Plan Admission Diagnosis Colitis Admission Status: Inpatient Order (span 2 midnights) Reason for Inpatient Admission: failed outpatient management Diagnosis/Problems Diagnosis/Problems (1) Intractable nausea and vomiting Status: Acute Assessment & Plan: Dehydrated from persistent nausea Will get labs to make sure no electrolyte imbalance Zofran and Phenergan prn IVF Qualifiers: Vomiting type: unspecified Qualified Codes: R11.2 - Nausea with vomiting, unspecified (2) Colitis Status: Acute Assessment & Plan: No longer having diarrhea Will resume Vanc to complete course for recent c diff colitis Resume home meds (3) Dehydration Status: Acute Assessment & Plan: IVF (4) Prophylactic measure Assessment & Plan: NS @125ml/hr SCDs Soft Diet YOLY HALL MD March 15, 2018 15:57
[2018-03-15] MEDS ORDERED: CATHETER FLUSH 10 ML SYR IV PRN (16:00)
[2018-03-15] MEDS ORDERED: ACETAMINOPHEN 325 MG TABLET/CAPLET (TYLENOL) PO PRN (16:00)
[2018-03-15] MEDS: NS IV 1000 ML 1,000 ML IV SCH (16:13)
[2018-03-15 16:18] LABS: BASOPHILS % (AUTO) 0 % (0-10); EOSINOPHILS # (AUTO) 0.3 10^3/uL (0.0-0.3); EOSINOPHILS % (AUTO) 7 % (0-10); HEMATOCRIT 29 % (35-52); HEMOGLOBIN 8.9 G/DL (11.5-16.0); LYMPHOCYTES # (AUTO) 1.4 X 10^3 (1.0-4.0); LYMPHOCYTES % (AUTO) 31 % (12-44); MEAN CORPUSCULAR HEMOGLOBIN 27 PG (25-34); MEAN CORPUSCULAR HGB CONC 31 G/DL (32-36); MEAN CORPUSCULAR VOLUME 87 FL (80-99); MEAN PLATELET VOLUME 9.1 FL (7.4-10.4); MONOCYTES # (AUTO) 0.3 X 10^3 (0.0-1.0); MONOCYTES % (AUTO) 7 % (0-12); NEUTROPHILS # (AUTO) 2.4 X 10^3 (1.8-7.8); NEUTROPHILS % (AUTO) 55 % (42-75); PLATELET COUNT 470 10^3/uL (130-400); RED BLOOD COUNT 3.32 10^6/uL (4.35-5.85); RED CELL DISTRIBUTION WIDTH 17.9 % (10.0-14.5); WHITE BLOOD COUNT 4.3 10^3/uL (4.3-11.0)
[2018-03-15 16:36] LABS: ALANINE AMINOTRANSFERASE 13 U/L (0-55); ALBUMIN 2.5 GM/DL (3.2-4.5); ALKALINE PHOSPHATASE 95 U/L (40-136); BILIRUBIN,TOTAL 0.4 MG/DL (0.1-1.0); BUN/CREATININE RATIO 10; CALCIUM 8.1 MG/DL (8.5-10.1); CARBON DIOXIDE 25 MMOL/L (21-32); CHLORIDE 107 MMOL/L (98-107); CREATININE SERUM 0.72 MG/DL (0.60-1.30); GFR ESTIMATED > 60; GLUCOSE 96 MG/DL (70-105); MAGNESIUM 1.6 MG/DL (1.8-2.4); POTASSIUM 3.2 MMOL/L (3.6-5.0); SODIUM 140 MMOL/L (135-145)
[2018-03-15] MEDS ORDERED: [UNRECOGNIZED DRUG - OTHER] PO SCH (17:00)
[2018-03-15] MEDS ORDERED: VANCOMYCIN HCL PO SCH (17:00)
[2018-03-15] MEDS: VANCOMYCIN ORAL 250 MG/5 ML 120 ML PO SCH ×4 (17:13→23:41)
[2018-03-15] MEDS: POTASSIUM CL 10MEQ/50ML IVPB 50 ML IV SCH ×2 (18:21→19:58)
[2018-03-15] MEDS: MAGNESIUM 1 GM/100 ML IVPB 100 ML IV SCH ×2 (18:22→18:26)
[2018-03-15 19:30] VITALS: BP 117/56
[2018-03-15] MEDS: LACTOBACILLUS Acidoph/Bulgar (LACTINEX/FLORANEX) TAB PO SCH (19:58)
[2018-03-15] MEDS: MESALAMINE DR 400 MG (ASACOL/DELZICOL) TAB/CAPS PO SCH (19:58)
[2018-03-16 00:33] VITALS: BP 98/57
[2018-03-16] MEDS: NS IV 1000 ML 1,000 ML IV SCH ×4 (01:33→20:11)
[2018-03-16 04:20] VITALS: BP 90/54
[2018-03-16 06:03] LABS: BASOPHILS % (AUTO) 0 % (0-10); EOSINOPHILS # (AUTO) 0.3 10^3/uL (0.0-0.3); EOSINOPHILS % (AUTO) 8 % (0-10); HEMATOCRIT 26 % (35-52); HEMOGLOBIN 7.6 G/DL (11.5-16.0); LYMPHOCYTES # (AUTO) 1.1 X 10^3 (1.0-4.0); LYMPHOCYTES % (AUTO) 25 % (12-44); MEAN CORPUSCULAR HEMOGLOBIN 26 PG (25-34); MEAN CORPUSCULAR HGB CONC 30 G/DL (32-36); MEAN CORPUSCULAR VOLUME 89 FL (80-99); MONOCYTES # (AUTO) 0.3 X 10^3 (0.0-1.0); MONOCYTES % (AUTO) 7 % (0-12); NEUTROPHILS # (AUTO) 2.6 X 10^3 (1.8-7.8); NEUTROPHILS % (AUTO) 60 % (42-75); PLATELET COUNT 429 10^3/uL (130-400); RED BLOOD COUNT 2.89 10^6/uL (4.35-5.85); RED CELL DISTRIBUTION WIDTH 17.7 % (10.0-14.5); WHITE BLOOD COUNT 4.4 10^3/uL (4.3-11.0)
[2018-03-16 06:25] LABS: ALANINE AMINOTRANSFERASE 12 U/L (0-55); ALBUMIN 2.1 GM/DL (3.2-4.5); ALKALINE PHOSPHATASE 80 U/L (40-136); BILIRUBIN,TOTAL 0.2 MG/DL (0.1-1.0); BUN/CREATININE RATIO 8; CALCIUM 7.3 MG/DL (8.5-10.1); CARBON DIOXIDE 23 MMOL/L (21-32); CHLORIDE 110 MMOL/L (98-107); CREATININE SERUM 0.71 MG/DL (0.60-1.30); GFR ESTIMATED > 60; GLUCOSE 90 MG/DL (70-105); POTASSIUM 3.3 MMOL/L (3.6-5.0); SODIUM 139 MMOL/L (135-145); TOTAL PROTEIN 4.2 GM/DL (6.4-8.2)
[2018-03-16] MEDS: VANCOMYCIN ORAL 250 MG/5 ML 120 ML PO SCH ×6 (06:30→17:36)
[2018-03-16] MEDS: FOLIC ACID 1 MG TAB PO SCH (06:31)
[2018-03-16 08:30] VITALS: BP 107/68
[2018-03-16] MEDS: MESALAMINE DR 400 MG (ASACOL/DELZICOL) TAB/CAPS PO SCH ×3 (08:37→20:48)
[2018-03-16] MEDS: LACTOBACILLUS Acidoph/Bulgar (LACTINEX/FLORANEX) TAB PO SCH ×3 (08:37→20:49)
--- NOTE | 2018-03-16 10:44 | Progress Note-Hospitalist ---
Subjective HPI/CC On Admission Date Seen by Provider: March 16, 2018 Time Seen by Provider: 10:41 Pt is a 62yoCF well known to me frommultiple previous admissions who was direct admitted from her PCP's office due to dehydration. She was recently diagnosed with UC and has established with Dr Hartley for her GI. She was on a steroid taper and as soon as she was taken off she had a flare and was readmitted. She was also found to have C Diff, Giardia, and cryptosporidium in her stool and was treated with Oral vanc and Alinia. She has completed Alinia but has not been able to complete her course of Vanc due to her nausea and vomiting. She was discharged from her on 03/11 and on 03/13 started to feel ill again. She had profound nausea and vomiting. The only thing she has been able to keep down in the past two days is some chicken noodle soup. She was seen at her PCP's Dr Verduzco and was found to be dehydrated with HR in the 120s. Subjective/Events-last exam Reports feeling better. Did not eat last night but was able to tolerate malt-o- meal this morning. No other complaints or concerns. Objective Exam Vital Signs Vital Signs Date Time Temp Pulse Resp B/P (MAP) Pulse Ox O2 Delivery O2 Flow Rate FiO2 03/16/18 08:30 98.8 102 18 107/68 (81) 96 Room Air Capillary Refill : General Appearance: No Apparent Distress, WD/WN Respiratory: Lungs Clear, No Respiratory Distress Cardiovascular: Regular Rate, Rhythm, No Murmur Gastrointestinal: Normal Bowel Sounds, Soft Extremity: No Calf Tenderness, No Pedal Edema Neurologic/Psychiatric: Alert, Oriented x3, Normal Mood/Affect Results/Procedures Lab Laboratory Tests 03/15/18 16:09 03/16/18 05:20 Patient resulted labs reviewed. Imaging: Reviewed Imaging Report Assessment/Plan Assessment and Plan Assess & Plan/Chief Complaint Colitis Diagnosis/Problems Diagnosis/Problems (1) Intractable nausea and vomiting Status: Acute Assessment & Plan: Dehydrated from persistent nausea- improving Zofran and Phenergan prn IVF Dysphagia diet- can advance as tolerated Qualifiers: Vomiting type: unspecified Qualified Codes: R11.2 - Nausea with vomiting, unspecified (2) Colitis Status: Acute Assessment & Plan: No longer having diarrhea Will resume Vanc to complete course for recent c diff colitis (3) Dehydration Status: Acute Assessment & Plan: IVF Volume status improving (4) Prophylactic measure Assessment & Plan: NS @75ml/hr SCDs Soft Diet Clinical Quality Measures DVT/VTE Risk/Contraindication: Risk Factor Score Per Nursin RFS Level Per Nursing on Admit: 4+=Very High YOLY NAVARRO MD March 16, 2018 10:44
[2018-03-16] MEDS: POTASSIUM CL 10MEQ/50ML IVPB 50 ML IV SCH ×2 (11:06→13:16)
[2018-03-16 11:59] VITALS: BP 113/72
[2018-03-16 16:29] VITALS: BP 126/96
[2018-03-16 20:29] VITALS: BP 113/75
[2018-03-17] MEDS: VANCOMYCIN ORAL 250 MG/5 ML 120 ML PO SCH ×8 (00:04→18:09)
[2018-03-17 00:59] VITALS: BP 98/61
[2018-03-17 04:43] VITALS: BP 120/74
[2018-03-17] MEDS: FOLIC ACID 1 MG TAB PO SCH (06:40)
[2018-03-17 06:49] LABS: BASOPHILS % (AUTO) 0 % (0-10); EOSINOPHILS # (AUTO) 0.5 10^3/uL (0.0-0.3); EOSINOPHILS % (AUTO) 7 % (0-10); HEMATOCRIT 30 % (35-52); HEMOGLOBIN 9.2 G/DL (11.5-16.0); LYMPHOCYTES # (AUTO) 1.5 X 10^3 (1.0-4.0); LYMPHOCYTES % (AUTO) 22 % (12-44); MEAN CORPUSCULAR HEMOGLOBIN 27 PG (25-34); MEAN CORPUSCULAR HGB CONC 31 G/DL (32-36); MEAN CORPUSCULAR VOLUME 90 FL (80-99); MONOCYTES # (AUTO) 0.5 X 10^3 (0.0-1.0); MONOCYTES % (AUTO) 7 % (0-12); NEUTROPHILS # (AUTO) 4.4 X 10^3 (1.8-7.8); NEUTROPHILS % (AUTO) 64 % (42-75); PLATELET COUNT 496 10^3/uL (130-400); RED BLOOD COUNT 3.36 10^6/uL (4.35-5.85); RED CELL DISTRIBUTION WIDTH 18.2 % (10.0-14.5); WHITE BLOOD COUNT 6.9 10^3/uL (4.3-11.0)
[2018-03-17 07:07] LABS: ALANINE AMINOTRANSFERASE 15 U/L (0-55); ALBUMIN 2.4 GM/DL (3.2-4.5); ALKALINE PHOSPHATASE 107 U/L (40-136); BILIRUBIN,TOTAL 0.3 MG/DL (0.1-1.0); BUN/CREATININE RATIO 6; CALCIUM 7.7 MG/DL (8.5-10.1); CARBON DIOXIDE 18 MMOL/L (21-32); CHLORIDE 112 MMOL/L (98-107); CREATININE SERUM 0.66 MG/DL (0.60-1.30); GFR ESTIMATED > 60; GLUCOSE 89 MG/DL (70-105); POTASSIUM 3.5 MMOL/L (3.6-5.0); SODIUM 139 MMOL/L (135-145); TOTAL PROTEIN 4.9 GM/DL (6.4-8.2)
[2018-03-17 07:56] VITALS: BP 116/77
[2018-03-17] MEDS: MESALAMINE DR 400 MG (ASACOL/DELZICOL) TAB/CAPS PO SCH ×3 (08:21→20:36)
[2018-03-17] MEDS: LACTOBACILLUS Acidoph/Bulgar (LACTINEX/FLORANEX) TAB PO SCH ×3 (08:21→20:36)
[2018-03-17] MEDS: NS IV 1000 ML 1,000 ML IV SCH ×2 (09:44→18:09)
--- NOTE | 2018-03-17 10:31 | Progress Note-Hospitalist ---
Subjective HPI/CC On Admission Date Seen by Provider: March 17, 2018 Time Seen by Provider: 10:30 Pt is a 62yoCF well known to me frommultiple previous admissions who was direct admitted from her PCP's office due to dehydration. She was recently diagnosed with UC and has established with Dr Hartley for her GI. She was on a steroid taper and as soon as she was taken off she had a flare and was readmitted. She was also found to have C Diff, Giardia, and cryptosporidium in her stool and was treated with Oral vanc and Alinia. She has completed Alinia but has not been able to complete her course of Vanc due to her nausea and vomiting. She was discharged from her on 03/11 and on 03/13 started to feel ill again. She had profound nausea and vomiting. The only thing she has been able to keep down in the past two days is some chicken noodle soup. She was seen at her PCP's Dr Verduzco and was found to be dehydrated with HR in the 120s. Subjective/Events-last exam Pt reports feeling better. Would like to try advancing diet. Mild nausea but no vomiting with her current diet. Objective Exam Vital Signs Vital Signs Date Time Temp Pulse Resp B/P (MAP) Pulse Ox O2 Delivery O2 Flow Rate FiO2 03/17/18 09:00 96 Room Air 03/17/18 07:56 99.0 95 18 116/77 (90) Capillary Refill : General Appearance: No Apparent Distress, WD/WN Respiratory: Lungs Clear, No Respiratory Distress Cardiovascular: Regular Rate, Rhythm, No Murmur Gastrointestinal: Normal Bowel Sounds, Non Tender, Soft Neurologic/Psychiatric: Alert, Oriented x3, Normal Mood/Affect Results/Procedures Lab Laboratory Tests 03/17/18 06:25 Patient resulted labs reviewed. Imaging: Reviewed Imaging Report Assessment/Plan Assessment and Plan Assess & Plan/Chief Complaint Colitis Diagnosis/Problems Diagnosis/Problems (1) Intractable nausea and vomiting Status: Acute Assessment & Plan: Dehydration improved Zofran and Phenergan prn- has not needed Will advance diet to regular but discussed self limiting to bland and soft food Qualifiers: Vomiting type: unspecified Qualified Codes: R11.2 - Nausea with vomiting, unspecified (2) Colitis Status: Acute Assessment & Plan: No longer having diarrhea Will resume Vanc to complete course for recent c diff colitis Discussed with Dr Trotter who will assume care tomorrow Will contact Dr Johnson (GI at [facility]) to discuss possible transfer or outpatient referral (3) Dehydration Status: Acute Assessment & Plan: IVF Volume status improving (4) Hypokalemia Status: Acute Assessment & Plan: persistent but improving Will replace (5) Prophylactic measure Assessment & Plan: NS @75ml/hr SCDs Regular Diet Clinical Quality Measures DVT/VTE Risk/Contraindication: Risk Factor Score Per Nursin RFS Level Per Nursing on Admit: 4+=Very High YOLY NAVARRO MD March 17, 2018 10:31 am
[2018-03-17] MEDS: POTASSIUM CL 10MEQ/50ML IVPB 50 ML IV SCH ×2 (10:52→10:54)
[2018-03-17] MEDS: ONDANSETRON 4 MG/2 ML (SDV) Z0FRAN IV PRN (15:00)
[2018-03-17 16:00] VITALS: BP 117/73
[2018-03-18] MEDS: VANCOMYCIN ORAL 250 MG/5 ML 120 ML PO SCH ×6 (00:15→13:01)
[2018-03-18 00:50] VITALS: BP 109/70
[2018-03-18] MEDS: FOLIC ACID 1 MG TAB PO SCH (06:04)
[2018-03-18] MEDS: NS IV 1000 ML 1,000 ML IV SCH ×2 (06:52→21:10)
[2018-03-18 07:02] LABS: BASOPHILS % (AUTO) 1 % (0-10); EOSINOPHILS # (AUTO) 0.3 10^3/uL (0.0-0.3); EOSINOPHILS % (AUTO) 7 % (0-10); HEMATOCRIT 27 % (35-52); HEMOGLOBIN 8.1 G/DL (11.5-16.0); LYMPHOCYTES # (AUTO) 1.5 X 10^3 (1.0-4.0); LYMPHOCYTES % (AUTO) 36 % (12-44); MEAN CORPUSCULAR HEMOGLOBIN 27 PG (25-34); MEAN CORPUSCULAR HGB CONC 31 G/DL (32-36); MEAN CORPUSCULAR VOLUME 89 FL (80-99); MEAN PLATELET VOLUME 8.9 FL (7.4-10.4); MONOCYTES # (AUTO) 0.4 X 10^3 (0.0-1.0); MONOCYTES % (AUTO) 10 % (0-12); NEUTROPHILS # (AUTO) 1.9 X 10^3 (1.8-7.8); NEUTROPHILS % (AUTO) 46 % (42-75); PLATELET COUNT 395 10^3/uL (130-400); RED BLOOD COUNT 2.98 10^6/uL (4.35-5.85); RED CELL DISTRIBUTION WIDTH 17.6 % (10.0-14.5); WHITE BLOOD COUNT 4.1 10^3/uL (4.3-11.0)
[2018-03-18 07:25] LABS: ALANINE AMINOTRANSFERASE 12 U/L (0-55); ALBUMIN 2.1 GM/DL (3.2-4.5); ALKALINE PHOSPHATASE 96 U/L (40-136); BILIRUBIN,TOTAL 0.2 MG/DL (0.1-1.0); BUN/CREATININE RATIO 5; CALCIUM 7.5 MG/DL (8.5-10.1); CARBON DIOXIDE 20 MMOL/L (21-32); CHLORIDE 113 MMOL/L (98-107); CREATININE SERUM 0.64 MG/DL (0.60-1.30); GFR ESTIMATED > 60; GLUCOSE 92 MG/DL (70-105); POTASSIUM 3.4 MMOL/L (3.6-5.0); SODIUM 139 MMOL/L (135-145); TOTAL PROTEIN 4.2 GM/DL (6.4-8.2)
[2018-03-18 08:02] VITALS: BP 117/74
[2018-03-18] MEDS: MESALAMINE DR 400 MG (ASACOL/DELZICOL) TAB/CAPS PO SCH ×3 (08:26→21:08)
[2018-03-18] MEDS: LACTOBACILLUS Acidoph/Bulgar (LACTINEX/FLORANEX) TAB PO SCH ×3 (08:26→21:10)
[2018-03-18] MEDS: ONDANSETRON 4 MG/2 ML (SDV) Z0FRAN IV PRN (13:30)
--- NOTE | 2018-03-18 14:44 | Progress Note-Hospitalist ---
Progress Note Progress Notes/Assess & Plan Date Seen 03/18/18 Time Seen by Provider: 14:39 Assessment & Plan The patient is a 62-year-old white female who has been diagnosed of ulcerative colitis. Her symptoms began in October of this year and she is had virtually continuous problems since that time. There is blood in the stools at times. Prior to admission she had had several days of inability to eat or take water. During this hospitalization at on day 2 she had 7 loose and watery stools. She has had attempts at therapy but has had difficulty tolerating medications. She was also apparently was recently cultured and had positive identification of clostridium difficile, Giardia, and cryptosporidium. Dr. Rhodes increased her oral options yesterday. She has tolerated those poorly and feels as if she might vomited any time. She has had only one stool today. Physical exam: The patient appears rather washed out. Lungs are clear to auscultation. CV is regular without murmur. Abdomen was obese and soft. There was no pain to palpation. Bowel sounds were hypoactive Impression: Biopsy proven ulcerative colitis with poor performance at present MARISOL GARCIA MD March 18, 2018 14:44
[2018-03-18 16:00] VITALS: BP 128/72
[2018-03-19 00:21] VITALS: BP 126/62
[2018-03-19 04:56] LABS: BASOPHILS % (AUTO) 0 % (0-10); EOSINOPHILS # (AUTO) 0.3 10^3/uL (0.0-0.3); EOSINOPHILS % (AUTO) 5 % (0-10); HEMATOCRIT 25 % (35-52); HEMOGLOBIN 7.9 G/DL (11.5-16.0); LYMPHOCYTES # (AUTO) 1.6 X 10^3 (1.0-4.0); LYMPHOCYTES % (AUTO) 30 % (12-44); MEAN CORPUSCULAR HEMOGLOBIN 28 PG (25-34); MEAN CORPUSCULAR HGB CONC 31 G/DL (32-36); MEAN CORPUSCULAR VOLUME 88 FL (80-99); MEAN PLATELET VOLUME 9.2 FL (7.4-10.4); MONOCYTES # (AUTO) 0.6 X 10^3 (0.0-1.0); MONOCYTES % (AUTO) 10 % (0-12); NEUTROPHILS % (AUTO) 55 % (42-75); PLATELET COUNT 405 10^3/uL (130-400); RED BLOOD COUNT 2.87 10^6/uL (4.35-5.85); WHITE BLOOD COUNT 5.4 10^3/uL (4.3-11.0)
[2018-03-19 05:14] LABS: ALANINE AMINOTRANSFERASE 14 U/L (0-55); ALKALINE PHOSPHATASE 93 U/L (40-136); BILIRUBIN,TOTAL 0.2 MG/DL (0.1-1.0); BUN/CREATININE RATIO 3; CALCIUM 7.4 MG/DL (8.5-10.1); CARBON DIOXIDE 19 MMOL/L (21-32); CHLORIDE 113 MMOL/L (98-107); CREATININE SERUM 0.59 MG/DL (0.60-1.30); GFR ESTIMATED > 60; GLUCOSE 84 MG/DL (70-105); POTASSIUM 3.4 MMOL/L (3.6-5.0); SODIUM 141 MMOL/L (135-145); TOTAL PROTEIN 4.1 GM/DL (6.4-8.2)
[2018-03-19] MEDS: FOLIC ACID 1 MG TAB PO SCH (06:34)
[2018-03-19 08:30] VITALS: BP 115/72
[2018-03-19] MEDS: MESALAMINE DR 400 MG (ASACOL/DELZICOL) TAB/CAPS PO SCH (08:34)
[2018-03-19] MEDS: LACTOBACILLUS Acidoph/Bulgar (LACTINEX/FLORANEX) TAB PO SCH (08:35)
[2018-03-19] MEDS ORDERED: VANCOMYCIN ORAL SUSPENSION 60 ML BOTTLE PO SCH (09:30)
--- NOTE | 2018-03-19 09:30 | Discharge Summary-Hospitalist ---
Diagnosis/Chief Complaint Date of Admission March 15, 2018 at 15:01 Date of Discharge Discharge Date: March 19, 2018 Admission Diagnosis Colitis Discharge Diagnosis (1) Intractable nausea and vomiting Status: Acute Assessment & Plan: Dehydrated from persistent nausea Will get labs to make sure no electrolyte imbalance Zofran and Phenergan prn IVF (2) Colitis Status: Acute Assessment & Plan: No longer having diarrhea Will resume Vanc to complete course for recent c diff colitis Resume home meds (3) Dehydration Status: Acute Assessment & Plan: IVF (4) Prophylactic measure Assessment & Plan: NS @125ml/hr SCDs Soft Diet (5) C. difficile colitis Status: Acute (6) Cryptosporidiosis Status: Acute (7) Giardiasis [lambliasis] Status: Acute (8) Normocytic anemia Status: Acute (9) Weight loss Status: Acute (10) Hypokalemia Status: Acute (11) Protein malnutrition Status: Acute (12) Debility Status: Acute Discharge Summary Discharge Physical Exam Allergies: Coded Allergies: No Known Drug Allergies (Unverified , 03/15/18) Vitals & I&Os Vital Signs Date Time Temp Pulse Resp B/P (MAP) Pulse Ox O2 Delivery O2 Flow Rate FiO2 03/19/18 11:55 03/19/18 08:30 99.1 96 20 95 Room Air General Appearance: Alert, Oriented X3, Cooperative, Other (pale, flat affect) Respiratory: Clear to Auscultation, Normal Air Movement Abdominal: Normal Bowel Sounds, Soft Neuro: Normal Gait, Normal Speech, Strength at 5/5 X4 Ext Psych/Mental Status: Mental Status NL Hospital Course Hospital course: patient was directly admitted from [facility] on Sunday afternoon due to severe N/V and tachycardia and hypotension with diarrhea and abdominal cramping just as she had presented several times before. Considering the fact of more frequent hospital stays and less time in between those hospital stays because of the recurrent issue and the severity of her ulcerative colitis we maintained IV fluid monitor blood work and Anti-emetics maintained while her hospital stay progressed. It was at that point that we reached out to gastroenterology specialist Dr. Chris Johnson and relayed the entire case and considering the severity of her colitis it was not feasible for discharge and close outpatient follow-up so the process was initiated for transfer up to [facility] all details communicated to the transfer center and the process was completed in order to achieve higher level of care at an academic center and possibility of a resection of bowel if the severity of her ulcerative colitis cannot be managed with intensive medical treatment with the biological being held currently due to the C. difficile colitis and recent Giardia and cryptosporidium on O&P test 2 weeks prior. Labs (last 24 hrs) Laboratory Tests 03/19/18 04:30: White Blood Count 5.4, Red Blood Count 2.87L, Hemoglobin 7.9L, Hematocrit 25L, Mean Corpuscular Volume 88, Mean Corpuscular Hemoglobin 28, Mean Corpuscular Hemoglobin Concent 31L, Red Cell Distribution Width 18.0H, Platelet Count 405H, Mean Platelet Volume 9.2, Neutrophils (%) (Auto) 55, Lymphocytes (%) (Auto) 30, Monocytes (%) (Auto) 10, Eosinophils (%) (Auto) 5, Basophils (%) (Auto) 0, Neutrophils # (Auto) 3.0, Lymphocytes # (Auto) 1.6, Monocytes # (Auto) 0.6, Eosinophils # (Auto) 0.3, Basophils # (Auto) 0.0, Sodium Level 141, Potassium Level 3.4L, Chloride Level 113H, Carbon Dioxide Level 19L, Anion Gap 9, Blood Urea Nitrogen 2L, Creatinine 0.59L, Estimat Glomerular Filtration Rate > 60, BUN /Creatinine Ratio 3, Glucose Level 84, Calcium Level 7.4L, Total Bilirubin 0.2, Aspartate Amino Transf (AST/SGOT) 26, Alanine Aminotransferase (ALT/SGPT) 14, Alkaline Phosphatase 93, Total Protein 4.1L, Albumin 2.0L Patient resulted labs reviewed. Pending Labs Imaging: Reviewed Imaging Report Discussion & Recommendations Discharge Planning: >30 minutes discharge planning Discharge Home Medications: Active Scripts Active Vancomycin ORAL Compound 250mg/5 ml (Vancomycin HCl) 125 Mg/2.5 Ml Syringe 125 Mg PO QID 7 Days Reported Floranex Tablet (L. Acidophilus/Bulgaricus) 1 Each Tablet 1 Tab PO TID Mesalamine 800 Mg Tablet.dr 800 Mg PO TID Folic Acid 1 Mg Tablet 1 Mg PO DAILY Metoprolol Succinate 25 Mg Tab.er.24h 25 Mg PO 1430 Ondansetron Odt (Ondansetron) 8 Mg Tab.rapdis 8 Mg PO Q6H PRN Instructions to patient/family Please see electronic discharge instructions given to patient. Clinical Quality Measures DVT/VTE Risk/Contraindication: Risk Factor Score Per Nursin RFS Level Per Nursing on Admit: 4+=Very High Problem Qualifiers (1) Intractable nausea and vomiting: Vomiting type: unspecified Qualified Codes: R11.2 - Nausea with vomiting, unspecified TADEO LOPEZ DO March 19, 2018 09:30
[2018-03-19] MEDS: NS IV 1000 ML 1,000 ML IV SCH (09:43)
[2018-03-19] MEDS: MAGNESIUM 1 GM/100 ML IVPB 100 ML IV SCH ×2 (09:49→10:52)
[2018-03-19] MEDS: POTASSIUM CL 10MEQ/50ML IVPB 50 ML IV SCH ×2 (09:49→11:57)
[2018-03-19] MEDS ORDERED: VANCOMYCIN ORAL 250 MG/5 ML 120 ML PO SCH ×2 (12:00)
== END 2018-03-19 11:55 | disposition short-term general hospital (02) | DRG 372 ==
LOC: 4TH 15:01
PROVIDERS: ADMIT Family Medicine; ATTEND Family Medicine
DX: A07.2 Cryptosporidiosis (principal); K51.90 Ulcerative colitis, unspecified, without complications; E86.0 Dehydration; A04.72 Enterocolitis due to Clostridium difficile, not specified as recurrent; A07.1 Giardiasis [lambliasis]; E46 Unspecified protein-calorie malnutrition; E87.6 Hypokalemia; D64.9 Anemia, unspecified; R53.81 Other malaise; Z87.891 Personal history of nicotine dependence
CPT/HCPCS: 36415; 80053; 83735; 85025

== ENCOUNTER 2018-03-29 11:29 | Emergency (ER) | payer BC ==
[~2018-03-29] VITALS: Ht 162.6 cm; Wt 88.0 kg
--- NOTE | 2018-03-29 12:11 | ED GI ---
General Chief Complaint: Abdominal/GI Problems Stated Complaint: ABD PAIN VOMITING/DIARRHEA Source of Information: Patient Exam Limitations: No Limitations History of Present Illness Date Seen by Provider: Mar 29, 2018 Time Seen by Provider: 12:09 Initial Comments The patient is a 62-year-old white female patient of Dr. Veronica Lopez She has been recently hospitalized twice with GI problems. She began having troubles in October of this year was ultimately worked up and has biopsy proven ulcerative colitis. She has not been in remission since the onset of original symptoms. She was sent to [facility] on 03/19 for GI service workup and recommendations. She has returned home and has continued to fall back into the pits. Dr. Lopez had previously talked to Dr. Chris Johnson of the GI service. He recommended stabilizing her here and sending her back up there for admission. Timing/Duration: Other () Severity/Quality: Moderate Allergies and Home Medications Allergies Coded Allergies: No Known Drug Allergies (Unverified , 03/15/18) Home Medications Folic Acid 1 Mg Tablet, 1 MG PO DAILY, (Reported) L. Acidophilus/Bulgaricus 1 Each Tablet, 1 TAB PO TID, (Reported) Mesalamine 800 Mg Tablet.dr, 800 MG PO TID, (Reported) Metoprolol Succinate 25 Mg Tab.er.24h, 25 MG PO 1430, (Reported) Ondansetron 8 Mg Tab.rapdis, 8 MG PO Q6H PRN for NAUSEA/VOMITING-1ST LINE, ( Reported) Vancomycin HCl 125 Mg/2.5 Ml Syringe, 125 MG PO QID Prescribed by: YOLY NAVARRO on 03/11/18 1059 Patient Home Medication List Home Medication List Reviewed: Yes Review of Systems Constitutional: see HPI EENTM: No Symptoms Reported Respiratory: No Symptoms Reported Cardiovascular: No Symptoms Reported Gastrointestinal: Diarrhea, Nausea, Vomiting Genitourinary: No Symptoms Reported Musculoskeletal: no symptoms reported Skin: no symptoms reported Psychiatric/Neurological: No Symptoms Reported Endocrine: No Symptoms Reported Hematologic/Lymphatic: No Symptoms Reported Past Mvkwhjr-Essucx-Qudqtm Hx Patient Social History Former Smoker, Quit: Oct 29, 1967 Recent Foreign Travel: No Contact w/Someone Who Travel: No Recent Hopitalizations: Yes Immunizations Up To Date Tetanus Booster (TDap): Unknown Seasonal Allergies Seasonal Allergies: No Past Medical History Surgeries: Yes Tubal Ligation Respiratory: No (ASTHMA A CHILD) Asthma Cardiac: Yes Neurological: No Reproductive Disorders: No Genitourinary: No Gastrointestinal: Yes Colitis Musculoskeletal: No Endocrine: No HEENT: No Cancer: No Psychosocial: No Integumentary: No Blood Disorders: No Family Medical History Patient reports no known family medical history. No Pertinent Family Hx, Hypertension Physical Exam Vital Signs Vital Signs - First Documented 03/29/18 11:45 Temp 99.8 Pulse 109 Resp 20 B/P (MAP) 136/83 (100) Pulse Ox 97 Capillary Refill : General Appearance: mild distress, moderate distress HEENT: normal ENT inspection Neck: full range of motion Respiratory: chest non-tender, lungs clear, normal breath sounds, no respiratory distress, no accessory muscle use Cardiovascular: normal peripheral pulses, regular rate, rhythm, no edema, no gallop, no JVD, no murmur Gastrointestinal: abnormal bowel sounds (decreased) Extremities: normal range of motion, non-tender, normal inspection, no pedal edema, no calf tenderness, normal capillary refill, pelvis stable Back: normal inspection 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, no motor/sensory deficits, alert, normal mood/affect, oriented x 3 Skin: normal color, warm/dry Lymphatic: no adenopathy Progress/Results/Core Measures Results/Orders Lab Results Laboratory Tests Test 03/29/18 12:04 Range/Units White Blood Count 9.8 4.3-11.0 10^3/uL Red Blood Count 3.53 L 4.35-5.85 10^6/uL Hemoglobin 9.4 L 11.5-16.0 G/DL Hematocrit 31 L 35-52 % Mean Corpuscular Volume 88 80-99 FL Mean Corpuscular Hemoglobin 27 25-34 PG Mean Corpuscular Hemoglobin Concent 30 L 32-36 G/DL Red Cell Distribution Width 18.8 H 10.0-14.5 % Platelet Count 622 H 130-400 10^3/uL Mean Platelet Volume 9.0 7.4-10.4 FL Neutrophils (%) (Auto) 69 42-75 % Lymphocytes (%) (Auto) 22 12-44 % Monocytes (%) (Auto) 9 0-12 % Eosinophils (%) (Auto) 0 0-10 % Basophils (%) (Auto) 0 0-10 % Neutrophils # (Auto) 6.8 1.8-7.8 X 10^3 Lymphocytes # (Auto) 2.1 1.0-4.0 X 10^3 Monocytes # (Auto) 0.9 0.0-1.0 X 10^3 Eosinophils # (Auto) 0.0 0.0-0.3 10^3/uL Basophils # (Auto) 0.0 0.0-0.1 10^3/uL Sodium Level 141 135-145 MMOL/L Potassium Level 3.6 3.6-5.0 MMOL/L Chloride Level 108 H 98-107 MMOL/L Carbon Dioxide Level 22 21-32 MMOL/L Anion Gap 11 5-14 MMOL/L Blood Urea Nitrogen 8 7-18 MG/DL Creatinine 0.69 0.60-1.30 MG/DL Estimat Glomerular Filtration Rate > 60 BUN/Creatinine Ratio 12 Glucose Level 92 70-105 MG/DL Calcium Level 8.8 8.5-10.1 MG/DL Total Bilirubin 0.7 0.1-1.0 MG/DL Aspartate Amino Transf (AST/SGOT) 22 5-34 U/L Alanine Aminotransferase (ALT/SGPT) 18 0-55 U/L Alkaline Phosphatase 96 40-136 U/L Total Protein 5.9 L 6.4-8.2 GM/DL Albumin 3.1 L 3.2-4.5 GM/DL My Orders Orders - MARISOL GARCIA MD Cbc With Automated Diff (03/29/18 11:33) Comprehensive Metabolic Panel (03/29/18 11:33) Ns Iv 1000 Ml (Sodium Chloride 0.9%) (03/29/18 12:15) Urinalysis (03/29/18 12:40) Vital Signs/I&O 03/29/18 11:45 Temp 99.8 Pulse 109 Resp 20 B/P (MAP) 136/83 (100) Pulse Ox 97 Departure Communication (Admissions) 1318 discussed patient with the transfer service at [facility]. They took the information and will call back when they have a bed available. Impression Primary Impression: ulcerative colitis Additional Impression: colonic stricture Disposition: 02 XFER SHT-TRM HOSP Condition: Stable/Unchanged Transfer Time Spoke to Accepting Phy: 13:18 Transfer Progress Notes 1350 informed patient was still waiting for call back approval Transfer Time: 15:53 Transfer Facility: [facility] accepting physician Dr. MARTIN Method of Transfer: EMS Departure-Patient Inst. Referrals: VERONICA LOPEZ DO (PCP/Family) Primary Care Physician MARISOL GARCIA MD Mar 29, 2018 12:11
[2018-03-29 12:14] LABS: BASOPHILS % (AUTO) 0 % (0-10); EOSINOPHILS % (AUTO) 0 % (0-10); HEMATOCRIT 31 % (35-52); HEMOGLOBIN 9.4 G/DL (11.5-16.0); LYMPHOCYTES # (AUTO) 2.1 X 10^3 (1.0-4.0); LYMPHOCYTES % (AUTO) 22 % (12-44); MEAN CORPUSCULAR HEMOGLOBIN 27 PG (25-34); MEAN CORPUSCULAR HGB CONC 30 G/DL (32-36); MEAN CORPUSCULAR VOLUME 88 FL (80-99); MONOCYTES # (AUTO) 0.9 X 10^3 (0.0-1.0); MONOCYTES % (AUTO) 9 % (0-12); NEUTROPHILS # (AUTO) 6.8 X 10^3 (1.8-7.8); NEUTROPHILS % (AUTO) 69 % (42-75); PLATELET COUNT 622 10^3/uL (130-400); RED BLOOD COUNT 3.53 10^6/uL (4.35-5.85); RED CELL DISTRIBUTION WIDTH 18.8 % (10.0-14.5); WHITE BLOOD COUNT 9.8 10^3/uL (4.3-11.0)
[2018-03-29] MEDS ORDERED: NS IV 1000 ML 1,000 ML IV SCH ×2 (12:15→16:00)
[2018-03-29 12:35] LABS: ALANINE AMINOTRANSFERASE 18 U/L (0-55); ALBUMIN 3.1 GM/DL (3.2-4.5); ALKALINE PHOSPHATASE 96 U/L (40-136); BILIRUBIN,TOTAL 0.7 MG/DL (0.1-1.0); BUN/CREATININE RATIO 12; CALCIUM 8.8 MG/DL (8.5-10.1); CARBON DIOXIDE 22 MMOL/L (21-32); CHLORIDE 108 MMOL/L (98-107); CREATININE SERUM 0.69 MG/DL (0.60-1.30); GFR ESTIMATED > 60; GLUCOSE 92 MG/DL (70-105); POTASSIUM 3.6 MMOL/L (3.6-5.0); SODIUM 141 MMOL/L (135-145); TOTAL PROTEIN 5.9 GM/DL (6.4-8.2)
[2018-03-29 16:47] VITALS: BP 136/83
== END 2018-03-29 16:47 | disposition short-term general hospital (02) ==
LOC: EDUNIT# 11:29 → ER 11:31
DX: K51.90 Ulcerative colitis, unspecified, without complications (principal); K56.609 Unspecified intestinal obstruction, unspecified as to partial versus complete obstruction; J45.909 Unspecified asthma, uncomplicated; Z87.19 Personal history of other diseases of the digestive system; Z87.891 Personal history of nicotine dependence; Z98.51 Tubal ligation status
CPT/HCPCS: 36415; 80053; 85025; 96360; 96361

== ENCOUNTER → 2018-04-16 | Outpatient (CLI) | payer BC ==
[2018-04-16 16:08] LABS: BASOPHILS % (AUTO) 0 % (0-10); EOSINOPHILS % (AUTO) 0 % (0-10); HEMATOCRIT 33 % (35-52); HEMOGLOBIN 9.8 G/DL (11.5-16.0); LYMPHOCYTES # (AUTO) 1.1 X 10^3 (1.0-4.0); LYMPHOCYTES % (AUTO) 14 % (12-44); MEAN CORPUSCULAR HEMOGLOBIN 28 PG (25-34); MEAN CORPUSCULAR HGB CONC 29 G/DL (32-36); MEAN CORPUSCULAR VOLUME 95 FL (80-99); MEAN PLATELET VOLUME 10.1 FL (7.4-10.4); MONOCYTES # (AUTO) 0.2 X 10^3 (0.0-1.0); MONOCYTES % (AUTO) 2 % (0-12); NEUTROPHILS # (AUTO) 6.8 X 10^3 (1.8-7.8); NEUTROPHILS % (AUTO) 84 % (42-75); PLATELET COUNT 418 10^3/uL (130-400); RED BLOOD COUNT 3.52 10^6/uL (4.35-5.85); RED CELL DISTRIBUTION WIDTH 21.4 % (10.0-14.5); WHITE BLOOD COUNT 8.1 10^3/uL (4.3-11.0)
[2018-04-16 16:26] LABS: ALANINE AMINOTRANSFERASE 123 U/L (0-55); ALBUMIN 3.9 GM/DL (3.2-4.5); ALKALINE PHOSPHATASE 122 U/L (40-136); BILIRUBIN,TOTAL 0.2 MG/DL (0.1-1.0); BUN/CREATININE RATIO 25; CALCIUM 9.5 MG/DL (8.5-10.1); CARBON DIOXIDE 25 MMOL/L (21-32); CHLORIDE 111 MMOL/L (98-107); CREATININE SERUM 0.75 MG/DL (0.60-1.30); GFR ESTIMATED > 60; GLUCOSE 130 MG/DL (70-105); POTASSIUM 4.5 MMOL/L (3.6-5.0); SODIUM 143 MMOL/L (135-145); TOTAL PROTEIN 6.6 GM/DL (6.4-8.2)
== END ==
LOC: LAB 15:45
PROVIDERS: ATTEND Internal Medicine
DX: A04.72 Enterocolitis due to Clostridium difficile, not specified as recurrent (principal); K51.819 Other ulcerative colitis with unspecified complications
CPT/HCPCS: 36415; 80053; 85025; 85652; 86141

== ENCOUNTER 2018-05-13 14:41 | Outpatient (RCR) | payer BC ==
[2018-04-30 10:50] LABS: BASOPHILS % (AUTO) 0 % (0-10); EOSINOPHILS # (AUTO) 0.1 10^3/uL (0.0-0.3); EOSINOPHILS % (AUTO) 1 % (0-10); HEMATOCRIT 38 % (35-52); HEMOGLOBIN 11.5 G/DL (11.5-16.0); LYMPHOCYTES # (AUTO) 2.2 X 10^3 (1.0-4.0); LYMPHOCYTES % (AUTO) 24 % (12-44); MEAN CORPUSCULAR HEMOGLOBIN 29 PG (25-34); MEAN CORPUSCULAR HGB CONC 31 G/DL (32-36); MEAN CORPUSCULAR VOLUME 95 FL (80-99); MEAN PLATELET VOLUME 9.6 FL (7.4-10.4); MONOCYTES # (AUTO) 0.5 X 10^3 (0.0-1.0); MONOCYTES % (AUTO) 6 % (0-12); NEUTROPHILS # (AUTO) 6.2 X 10^3 (1.8-7.8); NEUTROPHILS % (AUTO) 69 % (42-75); PLATELET COUNT 353 10^3/uL (130-400); RED BLOOD COUNT 3.98 10^6/uL (4.35-5.85); RED CELL DISTRIBUTION WIDTH 19.7 % (10.0-14.5)
[2018-04-30 11:09] LABS: ALANINE AMINOTRANSFERASE 42 U/L (0-55); ALKALINE PHOSPHATASE 79 U/L (40-136); BILIRUBIN,TOTAL 0.3 MG/DL (0.1-1.0); BUN/CREATININE RATIO 23; CALCIUM 9.6 MG/DL (8.5-10.1); CARBON DIOXIDE 25 MMOL/L (21-32); CHLORIDE 108 MMOL/L (98-107); CREATININE SERUM 0.81 MG/DL (0.60-1.30); GFR ESTIMATED > 60; GLUCOSE 90 MG/DL (70-105); POTASSIUM 3.8 MMOL/L (3.6-5.0); SODIUM 142 MMOL/L (135-145); TOTAL PROTEIN 6.3 GM/DL (6.4-8.2)
[2018-04-30 11:22] LABS: ERYTHROCYTE SEDIMENTATION RATE 17 MM/HR (0-30)
[~2018-05-13 14:41] MED LIST changes: -METH2.5T PO; +MTX2.5T PO
[2018-05-13 14:49] LABS: BASOPHILS % (AUTO) 0 % (0-10); EOSINOPHILS # (AUTO) 0.1 10^3/uL (0.0-0.3); EOSINOPHILS % (AUTO) 2 % (0-10); HEMATOCRIT 40 % (35-52); HEMOGLOBIN 12.6 G/DL (11.5-16.0); LYMPHOCYTES # (AUTO) 2.2 X 10^3 (1.0-4.0); LYMPHOCYTES % (AUTO) 31 % (12-44); MEAN CORPUSCULAR HEMOGLOBIN 29 PG (25-34); MEAN CORPUSCULAR HGB CONC 31 G/DL (32-36); MEAN CORPUSCULAR VOLUME 93 FL (80-99); MEAN PLATELET VOLUME 9.9 FL (7.4-10.4); MONOCYTES # (AUTO) 0.5 X 10^3 (0.0-1.0); MONOCYTES % (AUTO) 6 % (0-12); NEUTROPHILS # (AUTO) 4.3 X 10^3 (1.8-7.8); NEUTROPHILS % (AUTO) 61 % (42-75); PLATELET COUNT 327 10^3/uL (130-400); RED BLOOD COUNT 4.33 10^6/uL (4.35-5.85); RED CELL DISTRIBUTION WIDTH 17.9 % (10.0-14.5); WHITE BLOOD COUNT 7.2 10^3/uL (4.3-11.0)
[2018-05-13 15:12] LABS: ALANINE AMINOTRANSFERASE 25 U/L (0-55); ALKALINE PHOSPHATASE 80 U/L (40-136); BILIRUBIN,TOTAL 0.3 MG/DL (0.1-1.0); BUN/CREATININE RATIO 26; CALCIUM 9.7 MG/DL (8.5-10.1); CARBON DIOXIDE 25 MMOL/L (21-32); CHLORIDE 107 MMOL/L (98-107); CREATININE SERUM 0.78 MG/DL (0.60-1.30); GFR ESTIMATED > 60; GLUCOSE 100 MG/DL (70-105); POTASSIUM 4.1 MMOL/L (3.6-5.0); SODIUM 141 MMOL/L (135-145); TOTAL PROTEIN 6.8 GM/DL (6.4-8.2)
[2018-05-13 15:23] LABS: ERYTHROCYTE SEDIMENTATION RATE 16 MM/HR (0-30)
[2018-06-17] MEDS ORDERED: ACHD5005 PO (13:51)
[2018-06-17] MEDS ORDERED: SULF1TAB35 PO (13:51)
[2018-06-17] MEDS ORDERED: ONDA4TAB8 SL (13:51)
[2018-06-19] MEDS ORDERED: FERR325T18 PO (09:46)
[2018-06-19] MEDS ORDERED: METH2.5T PO (09:46)
[2018-06-19] MEDS ORDERED: ASCO-262 PO (09:46)
[2018-06-19] MEDS ORDERED: PRED10TA22 PO (10:40)
[2018-06-19] MEDS ORDERED: DICY20TA10 PO (10:40)
[2018-06-20] MEDS ORDERED: ACET-2267 PO (16:50)
[2018-06-20] MEDS ORDERED: MULT-166 PO (16:50)
[2018-06-20] MEDS ORDERED: DOCU-143 PO (16:50)
[2018-06-23] MEDS ORDERED: PRED10TA22 PO (12:11)
== END 2018-05-28 | disposition home or self-care (01) ==
LOC: LAB 14:41
PROVIDERS: ATTEND Internal Medicine
DX: A04.72 Enterocolitis due to Clostridium difficile, not specified as recurrent (principal); K51.819 Other ulcerative colitis with unspecified complications
CPT/HCPCS: 36415; 80053; 85025; 85652; 86141

== ENCOUNTER 2018-07-26 13:24 | Inpatient (IN) | payer BC ==
[2018-07-26] VITALS (24 sets, daily range): BP systolic 86–140; BP diastolic 55–86
[~2018-07-26] VITALS: Ht 162.6 cm; Wt 103.9 kg
[~2018-07-26 13:24] MED LIST changes: +ACET-2267 PO; +ACHD5005 PO; +ASCO-262 PO; +DICY20TA10 PO; +DOCU-143 PO; +FERR325T18 PO; +METH2.5T PO; +MULT-166 PO; +ONDA4TAB8 SL; +PRED10TA22 PO; +SULF1TAB35 PO
[2018-07-26] MEDS ORDERED: methylPREDNISolone 125 MG (Solu-MEDROL) VIAL IV NR (13:30)
[2018-07-26] MEDS ORDERED: HYDROcodone/APAP 5 MG/325 MG (LORTAB) TAB PO PRN (13:30)
[2018-07-26] MEDS ORDERED: ALPRAZolam 0.25 MG (XANAX) TAB PO PRN (13:30)
[2018-07-26] MEDS ORDERED: methylPREDNISolone 125 MG (Solu-MEDROL) VIAL IM NR (13:30)
[2018-07-26] MEDS ORDERED: NS IV ONE (13:30)
[2018-07-26] MEDS ORDERED: CATHETER FLUSH 10 ML SYR IV PRN (13:45)
[2018-07-26 14:21] LABS: ABG BASE EXCESS -1.1 MMOL/L (-2.5-2.5); ABG OXYGEN SATURATION 98 % (94-100); ABG PCO2 22 MMHG (35-45); ABG PH 7.58 (7.37-7.43); ABG PO2 86 MMHG (79-93); ABG TCO2 21.2 MMOL/L (21.0-31.0)
[2018-07-26 14:23] LABS: ALLENS TEST POSITIVE; PATIENT TEMP 100; VENTILATOR NO
[2018-07-26] MEDS: ONDANSETRON 4 MG/2 ML (SDV) Z0FRAN IVP PRN (14:37)
[2018-07-26] MEDS ORDERED: FLU QUADRIvalent (5+ YOA) 2018-2019 (AFLURIA) 0.5 ML IM ONE (15:00)
[2018-07-26 15:01] LABS: BASOPHILS % (AUTO) 0 % (0-10); EOSINOPHILS % (AUTO) 0 % (0-10); HEMATOCRIT 44 % (35-52); HEMOGLOBIN 14.8 G/DL (11.5-16.0); LYMPHOCYTES # (AUTO) 1.5 X 10^3 (1.0-4.0); LYMPHOCYTES % (AUTO) 7 % (12-44); MEAN CORPUSCULAR HEMOGLOBIN 30 PG (25-34); MEAN CORPUSCULAR HGB CONC 34 G/DL (32-36); MEAN CORPUSCULAR VOLUME 89 FL (80-99); MEAN PLATELET VOLUME 9.9 FL (7.4-10.4); MONOCYTES # (AUTO) 1.4 X 10^3 (0.0-1.0); MONOCYTES % (AUTO) 6 % (0-12); NEUTROPHILS # (AUTO) 19.8 X 10^3 (1.8-7.8); NEUTROPHILS % (AUTO) 87 % (42-75); PLATELET COUNT 280 10^3/uL (130-400); RED BLOOD COUNT 4.89 10^6/uL (4.35-5.85); WHITE BLOOD COUNT 22.8 10^3/uL (4.3-11.0)
[2018-07-26 15:20] LABS: ALANINE AMINOTRANSFERASE 20 U/L (0-55); ALBUMIN 3.2 GM/DL (3.2-4.5); ALKALINE PHOSPHATASE 62 U/L (40-136); BILIRUBIN,TOTAL 1.2 MG/DL (0.1-1.0); BUN/CREATININE RATIO 24; CALCIUM 8.8 MG/DL (8.5-10.1); CARBON DIOXIDE 21 MMOL/L (21-32); CHLORIDE 104 MMOL/L (98-107); CREATININE SERUM 0.79 MG/DL (0.60-1.30); GFR ESTIMATED > 60; GLUCOSE 129 MG/DL (70-105); POTASSIUM 3.3 MMOL/L (3.6-5.0); SODIUM 137 MMOL/L (135-145); TOTAL PROTEIN 5.7 GM/DL (6.4-8.2)
[2018-07-26 15:30] LABS: BAND NEUTROPHILS 23 %; BASOPHILS % (MANUAL) 0 %; EOSINOPHILS % (MANUAL) 0 %; LYMPHOCYTES % (MANUAL) 9 %; MONOCYTES % (MANUAL) 6 %; NEUTROPHILS % (MANUAL) 62 %; RBC MORPH NORMAL
[2018-07-26] MEDS: fentaNYL INJECTION 100 MCG/2 ML AMP IVP PRN (15:35)
--- NOTE | 2018-07-26 15:35 | Diagnostic Imaging Report ---
PATIENT HISTORY: Sepsis, nausea, vomiting, ulcerative colitis TECHNIQUE: Single frontal view of the chest COMPARISON: 06/18/2018 FINDINGS: Lung volumes are normal. No focal consolidation is seen. There is no pleural effusion or pneumothorax. There is mild central vascular congestion. The cardiac silhouette is normal in size. IMPRESSION: 1. Mild central vascular congestion with no acute pulmonary abnormality seen. Dictated by: Dictated on workstation # [id number]
--- NOTE | 2018-07-26 15:43 | Progress Note-Hospitalist ---
Progress Note Patient seen in [facility] as scheduled but had the acute illness that abruptly came on. Patient has been experiencing for a few days nausea, vomiting, abdominal pain Not able to keep down medication to keep pain at bay Today she is in lots of pain, has not eaten, has not been able to take any meds No change to medications- reviewed medications Denies blood in vomit Exam: patient is lying down, appears very uncomfortable, diaphoretic, unable to talk, describes pain in bilateral lower abdominal compartments A: Crohn's flare, dehydration, possible sepsis Plan: iv fluids, steroids, antibiotics, Dr Salazar consultation, avoid abx due to severe C diff in the past TADEO LOPEZ DO Jul 26, 2018 15:43
[2018-07-26] MEDS ORDERED: MAGNESIUM 1 GM/100 ML IVPB 100 ML IV ONE (15:45)
[2018-07-26] MEDS ORDERED: PRED10TA22 PO (16:03)
[2018-07-26] MEDS ORDERED: DILTIAZEM IV FOR DRIP 125 MG in NS (IVPB) 100 ML IV SCH (16:30)
[2018-07-26] MEDS ORDERED: PIPERACILLIN/TAZO 4.5 GM/NS 100 ML IV NR ×2 (16:30)
[2018-07-26] MEDS ORDERED: DILTIAZEM 25 MG/5 ML INJ (CARDIZEM) VIAL ONE (16:40)
--- NOTE | 2018-07-26 16:44 | Consultation ---
History of Present Illness History of Present Illness Patient Consulted On(mario/time) 07/26/18 16:38 Time Seen by Provider: 16:01 History of Present Illness Surgery asked to consult regarding abdominal pain and UC flare up. HPI: pt was admitted with a sepsis diagnosis. She states that she has been doing good for about a month and then a few days ago started having diffuse abdominal pain, "felt like cramps" and then started vomiting "mostly dry heaves". She continues to have daily diarrhea, denies recent blood in it. She states nothing has helped the pain. She thinks she had a fever at home but didn't check temp. Allergies and Home Medications Allergies Coded Allergies: sulfamethoxazole (Verified Allergy, Unknown, 06/21/18) Flushing trimethoprim (Verified Allergy, Unknown, 06/21/18) Flushing Home Medications Acetaminophen 500 Mg Tablet, 1,000 MG PO Q6H PRN for PAIN-MILD, (Reported) Ascorbate Calcium 500 Mg Tablet, 2 TAB PO DAILY, (Reported) Dicyclomine HCl 20 Mg Tablet, 20 MG PO ACHS PRN for ABDOMINAL PAIN Prescribed by: TADEO LOPEZ on 06/19/18 1040 Docusate Sodium 100 Mg Capsule, 100 MG PO DAILY PRN for CONSTIPATION-1ST LINE, ( Reported) Ferrous Sulfate 325 Mg Tablet, 325 MG PO TuTh, (Reported) Folic Acid 1 Mg Tablet, 1 MG PO DAILY, (Reported) L. Acidophilus/Bulgaricus 1 Each Tablet, 1 TAB PO BID, (Reported) Mesalamine 800 Mg Tablet.dr, 800 MG PO TID, (Reported) Methotrexate Sodium 2.5 Mg Tablet, 5 MG PO Tu, (Reported) TAKES 2 (2.5MG) TABLETS Multivitamin with Minerals 1 Each Tablet, 1 TAB PO DAILY, (Reported) Prednisone 10 Mg Tab.ds.pk, 32.5 MG PO DAILY, (Reported) START 32.5MG DAILY DOSE 07-26-18 AND TAPER DOWN 2.5MG EVERY TWO WEEKS Patient Home Medication List Home Medication List Reviewed: Yes Past Etibkaq-Pezwns-Tgsyvo Hx Patient Social History Alcohol Use: Denies Use Recreational Drug Use: No Smoking Status: Never a Smoker Former Smoker, Quit: Oct 29, 1967 2nd Hand Smoke Exposure: No Recent Foreign Travel: No Contact w/Someone Who Travel: No Recent Infectious Disease Expo: No Recent Hopitalizations: Yes (06/19) Physical Abuse Screen: No Sexual Abuse: No Immunizations Up To Date Tetanus Booster (TDap): Unknown Seasonal Allergies Seasonal Allergies: No Surgeries History of Surgeries: No Surgeries: Tubal Ligation Respiratory History of Respiratory Disorde: Yes Respiratory Disorders: Asthma Cardiovascular History of Cardiac Disorders: Yes Cardiac Disorders: Hypertension Neurological History of Neurological Disord: No Reproductive System Hx Reproductive Disorders: No Sexually Transmitted Disease: No HIV/AIDS: No Female Reproductive Disorders: Denies 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, 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 Genitourinary History of Genitourinary Disor: No Gastrointestinal History of Gastrointestinal Di: Yes Gastrointestinal Disorders: Colitis Musculoskeletal History of Musculoskeletal Dis: No Endocrine History of Endocrine Disorders: No HEENT History of HEENT Disorders: No Loss of Vision: Denies Hearing Impairment: Denies Cancer History of Cancer: No Psychosocial History of Psychiatric Problem: No Behavioral Health Disorders: Anxiety Integumentary History of Skin or Integumenta: No Blood Transfusions History of Blood Disorders: No Adverse Reaction to a Blood Tr: No Family Medical History Significant Family History: Hypertension Family Medial History: Colitis G8 BROTHER G8 SISTER Respiratory disorder 19 MOTHER (COPD) Review of Systems-General Constitutional: No chills, No diaphoresis; weakness EENTM: No blurred vision, No double vision, No mouth pain, No mouth swelling, No epistaxis Respiratory: No cough, No dyspnea on exertion, No phlegm, No short of breath Cardiovascular: No chest pain; palpitations Gastrointestinal: abdominal pain, diarrhea; No hematemesis, No jaundice; vomiting Genitourinary: No dysuria, No frequency, No hematuria Musculoskeletal: back pain, muscle pain, muscle stiffness Skin: No change in color, No change in hair/nails Psychiatric/Neurological: Anxiety, Depressed Other pt denies any abnormal bruising or bleeding, no heat or cold intolerance Physical Exam-General Problems Physical Exam Vital Signs Vital Signs - First Documented 07/26/18 13:49 Temp 100.7 Pulse 80 Resp 20 B/P (MAP) 100/74 (83) Pulse Ox 99 O2 Delivery Room Air Capillary Refill : General Appearance: WD/WN, mild distress Eyes: Bilateral Eye PERRL, Bilateral Eye EOMI HEENT: pharynx normal; No scleral icterus (R), No scleral icterus (L) Neck: non-tender, full range of motion, supple, normal inspection Respiratory: chest non-tender, lungs clear, normal breath sounds, no respiratory distress, no accessory muscle use Cardiovascular: no JVD, no murmur, irregularly irregular Gastrointestinal: normal bowel sounds, soft, no organomegaly; No guarding, No rebound; tenderness (diffusely to even mild palpation) Back: no CVA tenderness, no vertebral tenderness Extremities: normal range of motion, non-tender, normal inspection, no pedal edema, no calf tenderness 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, no motor/sensory deficits, alert, normal mood/affect, oriented x 3 Skin: normal color, warm/dry Lymphatic: no adenopathy (neck, axilla or groin) Data Review Labs Laboratory Tests 07/26/18 14:15: Blood Gas Puncture Site LEFT RADIAL, Blood Gas Patient Temperature 100, Arterial Blood pH 7.58H, Arterial Blood Partial Pressure CO2 22L, Arterial Blood Partial Pressure O2 86, Arterial Blood HCO3 21L, Arterial Blood Total CO2 21.2, Arterial Blood Oxygen Saturation 98, Arterial Blood Base Excess -1.1, Calos Test POSITIVE, Blood Gas Ventilator Setting NO, Blood Gas Inspired Oxygen N/A 07/26/18 14:45: White Blood Count 22.8H, Red Blood Count 4.89, Hemoglobin 14.8, Hematocrit 44, Mean Corpuscular Volume 89, Mean Corpuscular Hemoglobin 30, Mean Corpuscular Hemoglobin Concent 34, Red Cell Distribution Width 16.0H, Platelet Count 280, Mean Platelet Volume 9.9, Neutrophils (%) (Auto) 87H, Lymphocytes (%) (Auto) 7L , Monocytes (%) (Auto) 6, Eosinophils (%) (Auto) 0, Basophils (%) (Auto) 0, Neutrophils # (Auto) 19.8H, Lymphocytes # (Auto) 1.5, Monocytes # (Auto) 1.4H, Eosinophils # (Auto) 0.0, Basophils # (Auto) 0.0, Neutrophils % (Manual) 62, Lymphocytes % (Manual) 9, Monocytes % (Manual) 6, Eosinophils % (Manual) 0, Basophils % (Manual) 0, Band Neutrophils 23, Blood Morphology Comment NORMAL, Sodium Level 137, Potassium Level 3.3L, Chloride Level 104, Carbon Dioxide Level 21, Anion Gap 12, Blood Urea Nitrogen 19H, Creatinine 0.79, Estimat Glomerular Filtration Rate > 60, BUN/Creatinine Ratio 24, Glucose Level 129H, Lactic Acid Level 2.35*H, Calcium Level 8.8, Corrected Calcium 9.4, Total Bilirubin 1.2H, Aspartate Amino Transf (AST/SGOT) 18, Alanine Aminotransferase ( ALT/SGPT) 20, Alkaline Phosphatase 62, Total Protein 5.7L, Albumin 3.2 Assessment/Plan Assessment/Plan Assessment/Plan Abdominal Pain Ulcerative Colitis - flare up Atrial Fibrillation Pt is on steroids for her flare up, has IV ABX ordered but will hold until we get a stool sample. Will monitor with serial abdominal exams and possibly another KUB. My main concern is that the pt has such bad disease that medicines are not going to work and she will need a Total Colectomy; pt is very resistant to this and I have not tried to discuss this again with her today (maybe while she is here this weekend). Max medical management. Clinical Quality Measures DVT/VTE Risk/Contraindication: Risk Factor Score Per Nursin RFS Level Per Nursing on Admit: 2=Moderate SINDHU TENA DO Jul 26, 2018 16:44
[2018-07-26] MEDS ORDERED: DILTIAZEM 25 MG/5 ML INJ (CARDIZEM) VIAL IVP NR (16:45)
--- NOTE | 2018-07-26 17:10 | Diagnostic Imaging Report ---
Indication: Ulcerative colitis with nausea and vomiting KUB at 3:27 PM The descending colon appears stiff with thickened nodular mucosa. There also appears to be nodular irregularity of the hepatic flexure and transverse colon which are partly air-filled. Impression: Abnormal nodular appearance of the transverse and descending colon consistent with inflammatory bowel disease. Dictated by: Dictated on workstation # [id number]
[2018-07-26] MEDS: NS IV 1000 ML 1,000 ML IV SCH ×3 (17:18→22:13)
[2018-07-26] MEDS: POTASSIUM CL 10MEQ/50ML IVPB 50 ML IV SCH ×3 (17:19→20:55)
[2018-07-26] MEDS: methylPREDNISolone 40 MG/ML (Solu-MEDROL) VIAL IV SCH ×2 (18:46→23:50)
[2018-07-26] MEDS: PIPERACILLIN SODIUM/TAZOBACTAM 4.5 GM in NS (IVPB) 100 ML IV SCH (22:13)
[2018-07-27] VITALS (15 sets, daily range): BP systolic 100–159; BP diastolic 66–99
[2018-07-27] MEDS ORDERED: NS IV 1000 ML 1,000 ML ONE (02:18)
[2018-07-27] MEDS: NS IV 1000 ML 1,000 ML IV SCH ×2 (02:23→09:24)
[2018-07-27 03:12] LABS: BASOPHILS % (AUTO) 0 % (0-10); EOSINOPHILS % (AUTO) 0 % (0-10); HEMATOCRIT 41 % (35-52); HEMOGLOBIN 13.4 G/DL (11.5-16.0); LYMPHOCYTES # (AUTO) 0.8 X 10^3 (1.0-4.0); LYMPHOCYTES % (AUTO) 3 % (12-44); MEAN CORPUSCULAR HEMOGLOBIN 30 PG (25-34); MEAN CORPUSCULAR HGB CONC 33 G/DL (32-36); MEAN CORPUSCULAR VOLUME 91 FL (80-99); MEAN PLATELET VOLUME 9.9 FL (7.4-10.4); MONOCYTES # (AUTO) 0.4 X 10^3 (0.0-1.0); MONOCYTES % (AUTO) 2 % (0-12); NEUTROPHILS # (AUTO) 21.6 X 10^3 (1.8-7.8); NEUTROPHILS % (AUTO) 95 % (42-75); PLATELET COUNT 313 10^3/uL (130-400); RED BLOOD COUNT 4.51 10^6/uL (4.35-5.85); RED CELL DISTRIBUTION WIDTH 16.2 % (10.0-14.5); WHITE BLOOD COUNT 22.8 10^3/uL (4.3-11.0)
[2018-07-27 03:37] LABS: ALANINE AMINOTRANSFERASE 20 U/L (0-55); ALBUMIN 2.7 GM/DL (3.2-4.5); ALKALINE PHOSPHATASE 57 U/L (40-136); BILIRUBIN,TOTAL 0.6 MG/DL (0.1-1.0); BUN/CREATININE RATIO 21; CALCIUM 8.2 MG/DL (8.5-10.1); CARBON DIOXIDE 18 MMOL/L (21-32); CHLORIDE 112 MMOL/L (98-107); CREATININE SERUM 0.73 MG/DL (0.60-1.30); GFR ESTIMATED > 60; GLUCOSE 156 MG/DL (70-105); MAGNESIUM 1.8 MG/DL (1.8-2.4); PHOSPHORUS 2.8 MG/DL (2.3-4.7); POTASSIUM 3.9 MMOL/L (3.6-5.0); SODIUM 139 MMOL/L (135-145); TOTAL PROTEIN 4.7 GM/DL (6.4-8.2)
[2018-07-27] MEDS: methylPREDNISolone 40 MG/ML (Solu-MEDROL) VIAL IV SCH ×3 (05:49→18:36)
[2018-07-27] MEDS: PIPERACILLIN SODIUM/TAZOBACTAM 4.5 GM in NS (IVPB) 100 ML IV SCH (05:49)
--- NOTE | 2018-07-27 07:10 | Pulmonary Consultation ---
History of Present Illness History of Present Illness Date of Consultation 07/27/18 07:05 Time Seen by Provider: 07:05 Date of Admission History of Present Illness 63yo with hx of ulcerative colitis francine admitted secondary to progressive abdominal crampy pain, nausea, vomiting, and diarrhea. Nothing has improved abdominal pain. SHe has had previous similar episodes. Upon admission she found to have sepsis. SHe is on Zosyn. Surgery is consulted. No BM since admission. SHe has not had anything to eat since Sun. I am consulted for ICU management. Allergies and Home Medications Allergies Coded Allergies: sulfamethoxazole (Verified Allergy, Unknown, 06/21/18) Flushing trimethoprim (Verified Allergy, Unknown, 06/21/18) Flushing Home Medications Acetaminophen 500 Mg Tablet, 1,000 MG PO Q6H PRN for PAIN-MILD, (Reported) Ascorbate Calcium 500 Mg Tablet, 2 TAB PO DAILY, (Reported) Dicyclomine HCl 20 Mg Tablet, 20 MG PO ACHS PRN for ABDOMINAL PAIN Prescribed by: TADEO LOPEZ on 06/19/18 1040 Docusate Sodium 100 Mg Capsule, 100 MG PO DAILY PRN for CONSTIPATION-1ST LINE, ( Reported) Ferrous Sulfate 325 Mg Tablet, 325 MG PO TuTh, (Reported) Folic Acid 1 Mg Tablet, 1 MG PO DAILY, (Reported) L. Acidophilus/Bulgaricus 1 Each Tablet, 1 TAB PO BID, (Reported) Mesalamine 800 Mg Tablet.dr, 800 MG PO TID, (Reported) Methotrexate Sodium 2.5 Mg Tablet, 5 MG PO Tu, (Reported) TAKES 2 (2.5MG) TABLETS Multivitamin with Minerals 1 Each Tablet, 1 TAB PO DAILY, (Reported) Prednisone 10 Mg Tab.ds.pk, 32.5 MG PO DAILY, (Reported) START 32.5MG DAILY DOSE 07-26-18 AND TAPER DOWN 2.5MG EVERY TWO WEEKS Past Zyjexfj-Vjarqf-Fqogdn Hx Patient Social History Alcohol Use: Denies Use Recreational Drug Use: No Smoking Status: Never a Smoker Former Smoker, Quit: Oct 29, 1967 2nd Hand Smoke Exposure: No Recent Foreign Travel: No Contact w/Someone Who Travel: No Recent Infectious Disease Expo: No Recent Hopitalizations: Yes (06/19) Immunizations Up To Date Tetanus Booster (TDap): Unknown Seasonal Allergies Seasonal Allergies: No Past Medical History Surgeries: No Tubal Ligation Respiratory: Yes Asthma Currently Using CPAP: No Currently Using BIPAP: No Cardiac: Yes Hypertension Neurological: No Reproductive Disorders: No Female 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, 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 Sexually Transmitted Disease: No HIV/AIDS: No Genitourinary: No Gastrointestinal: Yes Colitis Musculoskeletal: No Endocrine: No HEENT: No Loss of Vision: Denies Hearing Impairment: Denies Cancer: No Did You Recieve Any Treatments: No Psychosocial: No Anxiety Integumentary: No Blood Disorders: No Adverse Reaction/Blood Tranf: No Family Medical History Colitis G8 BROTHER G8 SISTER Respiratory disorder 19 MOTHER (COPD) Hypertension Review of Systems Time Seen by Provider: 07:17 Constitutional: Fever, Sweats, Weakness, Malaise Eyes: No: Pain, Vision change, Conjunctivae inflammation, Eyelid inflammation, Other, Redness Respiratory: No: Cough, Dry, Shortness of breath, SOB with excertion, Wheezing , Hemoptysis, Pleuritic Pain, Sputum, Wheezing, Other Gastrointestinal: Nausea, Vomiting, Abdominal Pain, Diarrhea, Constipation Neurological: Weakness Sepsis Event Evaluation Height, Weight, BMI Height: 5'4.00" Weight: 232lbs. 3.0oz. 105.895043pj; 38.4 BMI Method:Stated Exam Exam Vital Signs Date Time Temp Pulse Resp B/P (MAP) Pulse Ox O2 Delivery O2 Flow Rate FiO2 07/27/18 06:00 95 15 143/88 (106) 95 Room Air 07/27/18 05:00 96 15 149/85 (106) 93 Room Air 07/27/18 04:15 98.1 07/27/18 04:00 Room Air 07/27/18 04:00 96 15 147/85 (105) 92 Room Air 07/27/18 03:00 97 16 145/88 (107) 93 Room Air 07/27/18 02:00 101 16 100/66 (77) 94 Room Air 07/27/18 01:00 101 15 147/90 (109) 93 Room Air 07/27/18 00:47 98 07/27/18 00:18 97.9 07/27/18 00:00 98 15 118/77 (91) 93 Room Air 07/27/18 00:00 Room Air 07/26/18 23:52 97.2 07/26/18 23:00 100 15 103/55 (71) 91 Room Air 07/26/18 22:00 105 17 132/81 (98) 93 Room Air 07/26/18 21:00 104 16 134/85 (101) 94 Room Air 07/26/18 20:55 99.1 07/26/18 20:00 Room Air 07/26/18 20:00 105 16 131/85 (100) 92 Room Air 07/26/18 19:00 112 12 120/76 (91) 95 Room Air 07/26/18 19:00 112 07/26/18 18:15 113 18 140/81 (100) 95 Room Air 07/26/18 18:00 112 12 137/85 (102) 94 Room Air 07/26/18 17:45 114 17 131/82 (98) 92 Room Air 07/26/18 17:30 117 12 138/79 (98) 94 Room Air 07/26/18 17:15 116 12 129/80 (96) 95 Room Air 07/26/18 17:00 120 15 127/76 (93) 95 Room Air 07/26/18 16:51 124 13 126/84 95 07/26/18 16:46 125 07/26/18 16:45 Room Air 07/26/18 16:45 128 14 124/73 (90) 94 Room Air 07/26/18 16:36 98.7 Room Air 07/26/18 16:10 117 07/26/18 16:00 178 07/26/18 15:55 68 118/68 (85) 07/26/18 15:46 107 126/86 (99) 07/26/18 15:35 156 126/85 (99) 93 Room Air 07/26/18 15:23 146 103/74 (84) 97 07/26/18 15:19 91 119/77 (91) 96 Room Air 07/26/18 15:11 99 115/83 (94) 07/26/18 15:03 121 103/63 (76) 07/26/18 14:41 89 122/73 (89) 97 Room Air 07/26/18 14:28 Room Air 07/26/18 14:24 117 125/85 (98) 99 Room Air 07/26/18 14:11 100.7 96 112/68 (83) 98 Room Air 07/26/18 14:03 123 86/63 (71) 96 Room Air 07/26/18 13:49 100.7 80 20 100/74 (83) 99 Room Air I & O 07/27/18 07:00 Intake Total 5440 ml Output Total 600 ml Balance 4840 ml Height & Weight Height: 5'4.00" Weight: 232lbs. 3.0oz. 105.612725tw; 38.4 BMI Method:Stated General Appearance: No Apparent Distress, WD/WN, Anxious, Obese HEENT: PERRL/EOMI, Pharynx Normal Neck: Full Range of Motion, Normal Inspection, Non Tender, Supple Respiratory: Chest Non Tender, No Accessory Muscle Use, No Respiratory Distress , Decreased Breath Sounds Cardiovascular: Regular Rate, Rhythm Capillary Refill: Less Than 3 Seconds Gastrointestinal: normal bowel sounds, soft, no organomegaly; No guarding, No rebound; tenderness (diffusely to even mild palpation) Extremity: Normal Capillary Refill, Normal Inspection Neurologic/Psychiatric: Alert, Oriented x3 Skin: Normal Color, Warm/Dry Lymphatic: No Adenopathy Results Lab Laboratory Tests 07/26/18 14:45 07/27/18 02:52 Assessment/Plan Assessment/Plan Abdominal pain with ulcerative colitis Acute exacerbation -- Pt states abdominal pain is now improved. -Solumedrol -Surgery is following Sepsis -Continue Zosyn -IVF Metabolic lactic acidosis MAGALIS KATE DO Jul 27, 2018 07:10
--- NOTE | 2018-07-27 08:12 | Diagnostic Imaging Report ---
INDICATION: Arrhythmia. Portable chest 3:36 a.m. FINDINGS: Heart size and pulmonary vascularity are normal. Lungs are clear. There are no effusions or pneumothoraces. IMPRESSION: Negative chest. Dictated by: Dictated on workstation # [id number]
[2018-07-27] MEDS: ONDANSETRON 4 MG/2 ML (SDV) Z0FRAN IVP PRN ×3 (09:25→19:57)
[2018-07-27] MEDS: fentaNYL INJECTION 100 MCG/2 ML AMP IVP PRN (09:25)
--- NOTE | 2018-07-27 10:15 | Consultation-Cardiology ---
HPI-Cardiology Cardiology Consultation Date of Consultation 07/27/18 Date of Admission Time Seen by Provider: 10:10 Indication: Atrial fibrillation HPI 63 years old lady with history of ulcerative colitis, she was admitted by Dr. Verduzco for flare up of her ulcerative colitis yesterday. While she was in the hospital she went to atrial fibrillation and rapid ventricular response. Patient was started on Cardizem drip and transferred up to the ICU, converted back to sinus rhythm on Cardizem drip. Denied any history of atrial fibrillation in the past. She was a symptomatically during the episode active around her abdominal pain. She denied any chest pain, palpitation, syncope or near syncopal episodes. No claudication, no previous cardiac history. Home Medications & Allergies Allergies: Coded Allergies: sulfamethoxazole (Verified Allergy, Unknown, 06/21/18) Flushing trimethoprim (Verified Allergy, Unknown, 06/21/18) Flushing Home Medication List Reviewed: Yes KCM-Hrwsum-Dcthxg Hx Patient Social History Alcohol Use: Denies Use Recreational Drug Use: No Smoking Status: Never a Smoker 2nd Hand Smoke Exposure: No Recent Foreign Travel: No Recent Infectious Disease Expo: No Recent Hopitalizations: Yes (06/19) Physical Abuse Screen: No Sexual Abuse: No Immunizations Up To Date Tetanus Booster (TDap): Unknown Past Medical History Past medical history as described above Family Medical History Significant Family History: Hypertension Family History: Colitis G8 BROTHER G8 SISTER Respiratory disorder 19 MOTHER (COPD) Review of Systems Constitutional: no symptoms reported, see HPI EENTM: see HPI, no symptoms reported Respiratory: see HPI; No cough, No dyspnea on exertion, No hemoptysis, No orthopnea, No phlegm, No short of breath, No stridor, No wheezing, No other Cardiovascular: see HPI; No chest pain, No edema, No Hx of Intervention, No palpitations, No syncope, No vascular heart diseas, No other Gastrointestinal: see HPI, abdominal pain Genitourinary: no symptoms reported, see HPI Musculoskeletal: no symptoms reported, see HPI Skin: no symptoms reported, see HPI Psychiatric/Neurological: No Symptoms Reported, See HPI Reviewed Test Results Reviewed Test Results Lab Laboratory Tests Test 07/26/18 14:15 07/26/18 14:45 07/26/18 17:00 07/27/18 02:52 Range/Units Blood Gas Puncture Site LEFT RADIAL Blood Gas Patient Temperature 100 Arterial Blood pH 7.58 H 7.37-7.43 Arterial Blood Partial Pressure CO2 22 L 35-45 MMHG Arterial Blood Partial Pressure O2 86 79-93 MMHG Arterial Blood HCO3 21 L 23-27 MMOL/L Arterial Blood Total CO2 21.2 21.0-31.0 MMOL/L Arterial Blood Oxygen Saturation 98 94-100 % Arterial Blood Base Excess -1.1 -2.5-2.5 MMOL/L Calos Test POSITIVE Blood Gas Ventilator Setting NO Blood Gas Inspired Oxygen N/A White Blood Count 22.8 H 22.8 H 4.3-11.0 10^3/uL Red Blood Count 4.89 4.51 4.35-5.85 10^6/uL Hemoglobin 14.8 13.4 11.5-16.0 G/DL Hematocrit 44 41 35-52 % Mean Corpuscular Volume 89 91 80-99 FL Mean Corpuscular Hemoglobin 30 30 25-34 PG Mean Corpuscular Hemoglobin Concent 34 33 32-36 G/DL Red Cell Distribution Width 16.0 H 16.2 H 10.0-14.5 % Platelet Count 280 313 130-400 10^3/uL Mean Platelet Volume 9.9 9.9 7.4-10.4 FL Neutrophils (%) (Auto) 87 H 95 H 42-75 % Lymphocytes (%) (Auto) 7 L 3 L 12-44 % Monocytes (%) (Auto) 6 2 0-12 % Eosinophils (%) (Auto) 0 0 0-10 % Basophils (%) (Auto) 0 0 0-10 % Neutrophils # (Auto) 19.8 H 21.6 H 1.8-7.8 X 10^3 Lymphocytes # (Auto) 1.5 0.8 L 1.0-4.0 X 10^3 Monocytes # (Auto) 1.4 H 0.4 0.0-1.0 X 10^3 Eosinophils # (Auto) 0.0 0.0 0.0-0.3 10^3/uL Basophils # (Auto) 0.0 0.0 0.0-0.1 10^3/uL Neutrophils % (Manual) 62 % Lymphocytes % (Manual) 9 % Monocytes % (Manual) 6 % Eosinophils % (Manual) 0 % Basophils % (Manual) 0 % Band Neutrophils 23 % Blood Morphology Comment NORMAL Sodium Level 137 139 135-145 MMOL/L Potassium Level 3.3 L 3.9 3.6-5.0 MMOL/L Chloride Level 104 112 H 98-107 MMOL/L Carbon Dioxide Level 21 18 L 21-32 MMOL/L Anion Gap 12 9 5-14 MMOL/L Blood Urea Nitrogen 19 H 15 7-18 MG/DL Creatinine 0.79 0.73 0.60-1.30 MG/DL Estimat Glomerular Filtration Rate > 60 > 60 BUN/Creatinine Ratio 24 21 Glucose Level 129 H 156 H 70-105 MG/DL Lactic Acid Level 2.35 *H 1.24 0.50-2.00 MMOL/L Calcium Level 8.8 8.2 L 8.5-10.1 MG/DL Corrected Calcium 9.4 9.2 8.5-10.1 MG/DL Total Bilirubin 1.2 H 0.6 0.1-1.0 MG/DL Aspartate Amino Transf (AST/SGOT) 18 16 5-34 U/L Alanine Aminotransferase (ALT/SGPT) 20 20 0-55 U/L Alkaline Phosphatase 62 57 40-136 U/L Total Protein 5.7 L 4.7 L 6.4-8.2 GM/DL Albumin 3.2 2.7 L 3.2-4.5 GM/DL Phosphorus Level 2.8 2.3-4.7 MG/DL Magnesium Level 1.8 1.8-2.4 MG/DL Physical Exam Vital Signs Vital Signs - First Documented 07/26/18 13:49 Temp 100.7 Pulse 80 Resp 20 B/P (MAP) 100/74 (83) Pulse Ox 99 O2 Delivery Room Air Capillary Refill : Less Than 3 Seconds Height, Weight, BMI Height: 5'4.00" Weight: 232lbs. 3.0oz. [id number]; 38.4 BMI Method:Stated General Appearance: No Apparent Distress, WD/WN Eyes: Bilateral Eye Normal Inspection, Bilateral Eye PERRL, Bilateral Eye EOMI HEENT: PERRL/EOMI, TMs Normal, Normal ENT Inspection, Pharynx Normal Neck: Full Range of Motion, Normal Inspection, Non Tender, Supple, Carotid Bruit Respiratory: Chest Non Tender, Lungs Clear, Normal Breath Sounds, No Accessory Muscle Use, No Respiratory Distress Cardiovascular: Regular Rate, Rhythm, No Edema, No Gallop, No JVD, No Murmur, Normal Peripheral Pulses Gastrointestinal: Normal Bowel Sounds, No Organomegaly, No Pulsatile Mass, Non Tender, Soft Back: Normal Inspection, No CVA Tenderness, No Vertebral Tenderness Extremity: Normal Capillary Refill, Normal Inspection, Normal Range of Motion, Non Tender, No Calf Tenderness, No Pedal Edema Neurologic/Psychiatric: Alert, Oriented x3, No Motor/Sensory Deficits, Normal Mood/Affect Skin: Normal Color, Warm/Dry Lymphatic: No Adenopathy A/P-Cardiology Admission Diagnosis Paroxysmal atrial fibrillation Abdominal pain Ulcerative colitis Sepsis Assessment/Plan Paroxysmal atrial fibrillation, converted to sinus rhythm while on Cardizem drip , it was discontinued. Has been in sinus tachycardia. I will start low-dose beta blockers and evaluate her tolerance and response [id number] score of 1, yearly risk of stroke without oral anticoagulation is 1.3 percent due to the fact that it is a female. Without any other comorbid condition her score will be 0. Patient would benefit from taking aspirin daily if tolerated Ulcerative colitis, status post flareup, managed by primary care physician Sepsis, metabolic acidosis, improving. Monitored and managed by primary care team Clinical Quality Measures DVT/VTE Risk/Contraindication: Risk Factor Score Per Nursin RFS Level Per Nursing on Admit: 2=Moderate RAFA VILLARREAL MD Jul 27, 2018 10:15
--- NOTE | 2018-07-27 12:34 | History & Physical-Hospitalist ---
History of Present Illness HPI/Chief Complaint CC: Near syncope HPI: This is a 63-year-old clinic patient of [facility] who has a past medical history of ulcerative colitis diagnosed by Dr. Alaniz in 12/[address] Hartley and had received a couple of consultations from [facility] who presented to my office for an already scheduled appointment for the last 6 months on the schedule that abruptly became ill 2 days prior after she thought she ate something bad with the raw potato and worsen to the point she was near critical status when I saw her at my [facility] clinic yesterday afternoon at 1 o'clock. She was immediately assessed to have a heart rate of 129 but blood pressure was maintained a low-grade fever was noted at 100.5. She was promptly admitted laboratory work evaluated and sepsis protocol aggressive IV fluids were empirically placed in process and lactic acid did come back at 2.35. Dr. Salazar was consulted. She then began having new onset atrial fibrillation with rapid ventricular response noted on telemetry so she was sent up to the ICU Dr. oWlf was consulted placed on a Cardizem drip at that point atrial fibrillation converted to normal sinus rhythm after Cardizem bolus. Elevated white count at 22,000 and low-grade fever and elevated lactic acid was concerning for acute colitis so she was placed empirically on Zosyn but she has a history of C. difficile colitis so had to balance the risk for that and Dr. Salazar agreed. She has not had any diarrhea so C. difficile has not been collected. It is been a major concern considering the mesalamine and methotrexate have not provided adequate treatment for the inflammatory bowel disease but she was placed on a slow taper and biological immunosuppression was held until failure was apparent but it does indeed appear that a complete colectomy may very well be the best treatment option for this patient considering the severity of the ulcerative colitis when she presented early this year and the continued problems she has even though being on adequate therapy and the nodular appearance of the abdominal x-ray indicating severe active bowel disease. Source: patient Exam Limitations: no limitations Date Seen 07/27/18 Time Seen by a Provider: 11:00 Attending Physician Elsie Lopez DO PCP Elsie Lopez DO Referring Physician Date of Admission Jul 26, 2018 at 13:30 Home Medications & Allergies Home Medications Reviewed patient Home Medication Reconciliation performed by pharmacy medication reconciliations artificial breeding technician and/or nursing. Patients Allergies have been reviewed. Allergies Allergies Coded Allergies sulfamethoxazole (Verified Allergy, Unknown, 06/21/18) Flushing trimethoprim (Verified Allergy, Unknown, 06/21/18) Flushing Past Vlqaytw-Lspnfe-Jrgsqg Hx Past Med/Social Hx: Reviewed Nursing Past Med/Soc Hx, Reviewed and Corrections made Patient Social History Marrital Status: Employed/Student: employed Alcohol Use: Denies Use Recreational Drug Use: No Smoking Status: Never a Smoker Former Smoker, Quit: Oct 29, 1967 2nd Hand Smoke Exposure: No Physical Abuse Screen: No Sexual Abuse: No Recent Foreign Travel: No Contact w/other who traveled: No Recent Hopitalizations: Yes (06/19) Recent Infectious Disease Expo: No Immunizations Up To Date Tetanus Booster (TDap): Unknown Seasonal Allergies Seasonal Allergies: No Past Medical History Surgeries: Tubal Ligation Respiratory: Asthma Currently Using CPAP: No Currently Using BIPAP: No Cardiac: Hypertension Reproductive: No Sexually Transmitted Disease: No HIV/AIDS: No Female Reproductive Disorders: Denies Tubal Ligation, Menopausal Gastrointestinal: Colitis Loss of Vision: Denies Hearing Impairment: Denies Did You Recieve Any Treatments: No Psychosocial: Anxiety History of Blood Disorders: No Adverse Reaction to Blood [place]: No Family History Colitis G8 BROTHER G8 SISTER Respiratory disorder 19 MOTHER (COPD) Hypertension Review of Systems Constitutional: see HPI, chills, diaphoresis, dizziness, fever, malaise, weakness EENTM: no symptoms reported Respiratory: no symptoms reported Cardiovascular: no symptoms reported Gastrointestinal: abdominal pain (LLQ), heartburn, loss of appetite, nausea, vomiting Genitourinary: decreased output Musculoskeletal: no symptoms reported Skin: no symptoms reported Psychiatric/Neurological: Anxiety All Other Systems Reviewed Negative Unless Noted: Yes Physical Exam Physical Exam Vital Signs Vital Signs - First Documented 07/26/18 13:49 Temp 100.7 Pulse 80 Resp 20 B/P (MAP) 100/74 (83) Pulse Ox 99 O2 Delivery Room Air Capillary Refill : Less Than 3 Seconds Height, Weight, BMI Height: 5'4.00" Weight: 232lbs. 3.0oz. 105.771991be; 38.4 BMI Method:Stated General Appearance: WD/WN, Chronically ill, Mild Distress Eyes: Bilateral Eye Normal Inspection, Bilateral Eye PERRL HEENT: PERRL/EOMI, TMs Normal, Normal ENT Inspection, Pharynx Normal Neck: Full Range of Motion, Normal Inspection, Non Tender, Supple, Carotid Bruit Respiratory: Chest Non Tender, Lungs Clear, Normal Breath Sounds, No Accessory Muscle Use, No Respiratory Distress Cardiovascular: Regular Rate, Rhythm, No Edema, No Gallop, No JVD, No Murmur, Normal Peripheral Pulses, Tachycardia Gastrointestinal: Normal Bowel Sounds, No Organomegaly, No Pulsatile Mass, Soft , Tenderness Back: Normal Inspection, No CVA Tenderness, No Vertebral Tenderness Extremity: Normal Capillary Refill, Normal Inspection, Normal Range of Motion, Non Tender, No Calf Tenderness, No Pedal Edema Neurologic/Psychiatric: Alert, Oriented x3, No Motor/Sensory Deficits, Normal Mood/Affect Skin: Normal Color, Warm/Dry Lymphatic: No Adenopathy Results Results/Procedures Labs Laboratory Tests 07/26/18 14:45 07/27/18 02:52 Patient resulted labs reviewed. Assessment/Plan Admission Diagnosis Acute bacterial colitis with sepsis and fever and elevated lactic acid Ulcerative colitis not in remission Dehydration AF episode Plan: Continue IVF but decrease rate Ambulate Tx to 4th SCD's PO status per general surgery Needs colectomy Admission Status: Inpatient Order (span 2 midnights) Reason for Inpatient Admission: Severe UC flare and colitis will require IV steroids and IV abx and IVF for at least 3 days Diagnosis/Problems Diagnosis/Problems (1) Sepsis Status: Resolved Qualifiers: Sepsis type: sepsis due to unspecified organism Qualified Codes: A41.9 - Sepsis, unspecified organism (2) Atrial fibrillation with RVR Status: Resolved (3) Leukocytosis Status: Acute Qualifiers: Leukocytosis type: leukemoid reaction Qualified Codes: D72.823 - Leukemoid reaction (4) Intractable nausea and vomiting Status: Resolved (5) Ulcerative colitis, acute Status: Acute Qualifiers: Digestive disease complication type: unspecified complication Qualified Codes: K51.919 - Ulcerative colitis, unspecified with unspecified complications (6) Dehydration Status: Acute (7) Colitis Status: Acute (8) Hypokalemia Status: Resolved (9) Protein malnutrition Status: Chronic Clinical Quality Measures DVT/VTE Risk/Contraindication: Risk Factor Score Per Nursin RFS Level Per Nursing on Admit: 2=Moderate ELSIE LPOEZ DO Jul 27, 2018 12:34
--- NOTE | 2018-07-27 12:38 | Progress Note ---
Subjective Time Seen by a Provider: 11:20 Subjective/Events-last exam Pt seen and examined, states she feels fine except if she moves; then she has abdominal pain. Denies nausea and vomiting. Review of Systems General: No Chills, No Night Sweats Pulmonary: No Dyspnea, No Cough Cardiovascular: No: Chest Pain Gastrointestinal: No: Nausea, Vomiting Focused Exam Lactate Level 07/26/18 14:45: Lactic Acid Level 2.35*H 07/26/18 17:00: Lactic Acid Level 1.24 Objective Exam Vital Signs Date Time Temp Pulse Resp B/P (MAP) Pulse Ox O2 Delivery O2 Flow Rate FiO2 07/27/18 11:00 98 16 137/94 (108) 92 Room Air 07/27/18 10:00 105 17 135/89 (104) 94 Room Air 07/27/18 09:00 98 16 133/77 (95) 94 Room Air 07/27/18 08:00 99 17 137/99 (112) 96 Room Air 07/27/18 07:00 99 14 128/80 (96) 94 Room Air 07/27/18 07:00 99 07/27/18 06:00 95 15 143/88 (106) 95 Room Air 07/27/18 05:00 96 15 149/85 (106) 93 Room Air 07/27/18 04:15 98.1 07/27/18 04:00 Room Air 07/27/18 04:00 96 15 147/85 (105) 92 Room Air 07/27/18 03:00 97 16 145/88 (107) 93 Room Air 07/27/18 02:00 101 16 100/66 (77) 94 Room Air 07/27/18 01:00 101 15 147/90 (109) 93 Room Air 07/27/18 00:47 98 07/27/18 00:18 97.9 07/27/18 00:00 98 15 118/77 (91) 93 Room Air 07/27/18 00:00 Room Air 07/26/18 23:52 97.2 07/26/18 23:00 100 15 103/55 (71) 91 Room Air 07/26/18 22:00 105 17 132/81 (98) 93 Room Air 07/26/18 21:00 104 16 134/85 (101) 94 Room Air 07/26/18 20:55 99.1 07/26/18 20:00 Room Air 07/26/18 20:00 105 16 131/85 (100) 92 Room Air 07/26/18 19:00 112 12 120/76 (91) 95 Room Air 07/26/18 19:00 112 07/26/18 18:15 113 18 140/81 (100) 95 Room Air 07/26/18 18:00 112 12 137/85 (102) 94 Room Air 07/26/18 17:45 114 17 131/82 (98) 92 Room Air 07/26/18 17:30 117 12 138/79 (98) 94 Room Air 07/26/18 17:15 116 12 129/80 (96) 95 Room Air 07/26/18 17:00 120 15 127/76 (93) 95 Room Air 07/26/18 16:51 124 13 126/84 95 07/26/18 16:46 125 07/26/18 16:45 Room Air 07/26/18 16:45 128 14 124/73 (90) 94 Room Air 07/26/18 16:36 98.7 Room Air 07/26/18 16:10 117 07/26/18 16:00 178 07/26/18 15:55 68 118/68 (85) 07/26/18 15:46 107 126/86 (99) 07/26/18 15:35 156 126/85 (99) 93 Room Air 07/26/18 15:23 146 103/74 (84) 97 07/26/18 15:19 91 119/77 (91) 96 Room Air 07/26/18 15:11 99 115/83 (94) 07/26/18 15:03 121 103/63 (76) 07/26/18 14:41 89 122/73 (89) 97 Room Air 07/26/18 14:28 Room Air 07/26/18 14:24 117 125/85 (98) 99 Room Air 07/26/18 14:11 100.7 96 112/68 (83) 98 Room Air 07/26/18 14:03 123 86/63 (71) 96 Room Air 07/26/18 13:49 100.7 80 20 100/74 (83) 99 Room Air I & O 07/27/18 07:00 Intake Total 5440 ml Output Total 600 ml Balance 4840 ml Capillary Refill : Less Than 3 Seconds General Appearance: No Apparent Distress, WD/WN HEENT: PERRL/EOMI, Moist Mucous Membranes Neck: Full Range of Motion, Carotid Bruit Respiratory: Chest Non Tender, Lungs Clear, Normal Breath Sounds, No Accessory Muscle Use, No Respiratory Distress Cardiovascular: Regular Rate, Rhythm, No Edema, No Murmur, Normal Peripheral Pulses Gastrointestinal: normal bowel sounds, soft, no organomegaly; No guarding, No rebound; tenderness (diffusely to even mild palpation) Extremity: No Calf Tenderness, No Pedal Edema Neurologic/Psychiatric: Alert, Oriented x3, No Motor/Sensory Deficits, Normal Mood/Affect Skin: Normal Color, Warm/Dry Lymphatic: No Adenopathy Results Lab Laboratory Tests 07/26/18 14:15: Blood Gas Puncture Site LEFT RADIAL, Blood Gas Patient Temperature 100, Arterial Blood pH 7.58H, Arterial Blood Partial Pressure CO2 22L, Arterial Blood Partial Pressure O2 86, Arterial Blood HCO3 21L, Arterial Blood Total CO2 21.2, Arterial Blood Oxygen Saturation 98, Arterial Blood Base Excess -1.1, Calos Test POSITIVE, Blood Gas Ventilator Setting NO, Blood Gas Inspired Oxygen N/A 07/26/18 14:45: White Blood Count 22.8H, Red Blood Count 4.89, Hemoglobin 14.8, Hematocrit 44, Mean Corpuscular Volume 89, Mean Corpuscular Hemoglobin 30, Mean Corpuscular Hemoglobin Concent 34, Red Cell Distribution Width 16.0H, Platelet Count 280, Mean Platelet Volume 9.9, Neutrophils (%) (Auto) 87H, Lymphocytes (%) (Auto) 7L , Monocytes (%) (Auto) 6, Eosinophils (%) (Auto) 0, Basophils (%) (Auto) 0, Neutrophils # (Auto) 19.8H, Lymphocytes # (Auto) 1.5, Monocytes # (Auto) 1.4H, Eosinophils # (Auto) 0.0, Basophils # (Auto) 0.0, Neutrophils % (Manual) 62, Lymphocytes % (Manual) 9, Monocytes % (Manual) 6, Eosinophils % (Manual) 0, Basophils % (Manual) 0, Band Neutrophils 23, Blood Morphology Comment NORMAL, Sodium Level 137, Potassium Level 3.3L, Chloride Level 104, Carbon Dioxide Level 21, Anion Gap 12, Blood Urea Nitrogen 19H, Creatinine 0.79, Estimat Glomerular Filtration Rate > 60, BUN/Creatinine Ratio 24, Glucose Level 129H, Lactic Acid Level 2.35*H, Calcium Level 8.8, Corrected Calcium 9.4, Total Bilirubin 1.2H, Aspartate Amino Transf (AST/SGOT) 18, Alanine Aminotransferase ( ALT/SGPT) 20, Alkaline Phosphatase 62, Total Protein 5.7L, Albumin 3.2 07/26/18 17:00: Lactic Acid Level 1.24 07/27/18 02:52: White Blood Count 22.8H, Red Blood Count 4.51, Hemoglobin 13.4, Hematocrit 41, Mean Corpuscular Volume 91, Mean Corpuscular Hemoglobin 30, Mean Corpuscular Hemoglobin Concent 33, Red Cell Distribution Width 16.2H, Platelet Count 313, Mean Platelet Volume 9.9, Neutrophils (%) (Auto) 95H, Lymphocytes (%) (Auto) 3L , Monocytes (%) (Auto) 2, Eosinophils (%) (Auto) 0, Basophils (%) (Auto) 0, Neutrophils # (Auto) 21.6H, Lymphocytes # (Auto) 0.8L, Monocytes # (Auto) 0.4, Eosinophils # (Auto) 0.0, Basophils # (Auto) 0.0, Sodium Level 139, Potassium Level 3.9, Chloride Level 112H, Carbon Dioxide Level 18L, Anion Gap 9, Blood Urea Nitrogen 15, Creatinine 0.73, Estimat Glomerular Filtration Rate > 60, BUN/ Creatinine Ratio 21, Glucose Level 156H, Calcium Level 8.2L, Corrected Calcium 9.2, Total Bilirubin 0.6, Aspartate Amino Transf (AST/SGOT) 16, Alanine Aminotransferase (ALT/SGPT) 20, Alkaline Phosphatase 57, Total Protein 4.7L, Albumin 2.7L, Phosphorus Level 2.8, Magnesium Level 1.8 Assessment/Plan Assessment/Plan Assessment/Plan Abdominal Pain Ulcerative Colitis - flare up Atrial Fibrillation Pt is on steroids for her flare up, has IV ABX ordered but will hold until we get a stool sample. I sat down with pt and broached the subject of Total Colectomy, J-pouch, etc and we went over all the surgical options. I explained my main concern is that if she continues to have pain like this; she will eventually perforate her jose , because the meds aren't really working. She stated she has actually been thinking about this and considering it. She does not want to go to , she doesn't like it there. We sat and talked for about 20 minutes. Clinical Quality Measures DVT/VTE Risk/Contraindication: Risk Factor Score Per Nursin RFS Level Per Nursing on Admit: 2=Moderate SINDHU TENA DO Jul 27, 2018 12:38
[2018-07-27] MEDS ORDERED: VANCOMYCIN ORAL SUSPENSION 60 ML BOTTLE PO SCH (13:45)
[2018-07-27] MEDS: NS W/KCL 20 MEQ/L 1,000 ML IV SCH (15:01)
[2018-07-27] MEDS: VANCOMYCIN ORAL 250 MG/5 ML 120 ML PO SCH ×4 (15:03→18:38)
[2018-07-27] MEDS: CALCIUM CARBONATE 500 MG (TUMS) TAB.CHEW PO PRN (17:45)
[2018-07-28] VITALS: BP 125/86
[2018-07-28] MEDS: VANCOMYCIN ORAL 250 MG/5 ML 120 ML PO SCH ×8 (00:01→18:36)
[2018-07-28] MEDS: methylPREDNISolone 40 MG/ML (Solu-MEDROL) VIAL IV SCH ×4 (00:01→23:38)
[2018-07-28] MEDS: NS W/KCL 20 MEQ/L 1,000 ML IV SCH ×4 (01:24→21:44)
[2018-07-28 04:00] VITALS: BP 137/87
--- NOTE | 2018-07-28 04:12 | Pulmonary Progress Note ---
Subjective Time Seen by a Provider: 04:10 Subjective/Events-last exam PT is considering colectomy with Dr. Salazar. Sepsis Event Evaluation Height, Weight, BMI Height: 5'4.00" Weight: 232lbs. 3.0oz. 105.975559wo; 38.4 BMI Method:Stated Focused Exam Lactate Level 07/26/18 14:45: Lactic Acid Level 2.35*H 07/26/18 17:00: Lactic Acid Level 1.24 Exam Exam Vital Signs Date Time Temp Pulse Resp B/P (MAP) Pulse Ox O2 Delivery O2 Flow Rate FiO2 07/28/18 01:01 100 07/28/18 00:00 97.9 97 20 125/86 (99) 96 Room Air 07/27/18 21:00 Room Air 07/27/18 20:31 98.3 107 16 135/85 (102) 93 Room Air 07/27/18 19:09 108 07/27/18 16:56 99.8 108 16 154/88 (110) 94 Room Air 07/27/18 12:27 97.7 105 11 159/89 (112) 95 Room Air 07/27/18 12:27 Room Air 07/27/18 11:00 98 16 137/94 (108) 92 Room Air 07/27/18 10:00 105 17 135/89 (104) 94 Room Air 07/27/18 09:25 99.0 Room Air 07/27/18 09:25 Room Air 07/27/18 09:00 98 16 133/77 (95) 94 Room Air 07/27/18 08:00 99 17 137/99 (112) 96 Room Air 07/27/18 07:00 99 14 128/80 (96) 94 Room Air 07/27/18 07:00 99 07/27/18 06:00 95 15 143/88 (106) 95 Room Air 07/27/18 05:00 96 15 149/85 (106) 93 Room Air 07/27/18 04:15 98.1 I & O 07/28/18 07:00 Intake Total 100 ml Output Total 301 ml Balance -201 ml Height & Weight Height: 5'4.00" Weight: 232lbs. 3.0oz. 105.609658uf; 38.4 BMI Method:Stated General Appearance: No Apparent Distress, WD/WN, Chronically ill HEENT: PERRL/EOMI, TMs Normal, Normal ENT Inspection, Pharynx Normal Neck: Full Range of Motion, Normal Inspection, Non Tender, Supple, Carotid Bruit Respiratory: Chest Non Tender, Lungs Clear, Normal Breath Sounds, No Accessory Muscle Use, No Respiratory Distress Cardiovascular: Regular Rate, Rhythm, No Edema, No Gallop, No JVD, No Murmur, Normal Peripheral Pulses, Tachycardia Capillary Refill: Less Than 3 Seconds Gastrointestinal: normal bowel sounds, soft, no organomegaly; No guarding, No rebound; tenderness (diffusely to even mild palpation) Extremity: Normal Capillary Refill, Normal Inspection, Normal Range of Motion, Non Tender, No Calf Tenderness, No Pedal Edema Neurologic/Psychiatric: Alert, Oriented x3, No Motor/Sensory Deficits, Normal Mood/Affect Skin: Normal Color, Warm/Dry Lymphatic: No Adenopathy Results Lab Laboratory Tests 07/26/18 14:45 07/27/18 02:52 Assessment/Plan Assessment/Plan Abdominal pain with ulcerative colitis Acute exacerbation -- Pt states abdominal pain is now improved. -Solumedrol -Surgery is following Sepsis with CDiff -Vanco PO - Zosyn d/c'd -IVF Metabolic lactic acidosis MAGALIS KATE DO Jul 28, 2018 04:12
[2018-07-28 06:41] LABS: BASOPHILS % (AUTO) 0 % (0-10); EOSINOPHILS % (AUTO) 0 % (0-10); HEMATOCRIT 44 % (35-52); HEMOGLOBIN 14.3 G/DL (11.5-16.0); LYMPHOCYTES # (AUTO) 0.8 X 10^3 (1.0-4.0); LYMPHOCYTES % (AUTO) 4 % (12-44); MEAN CORPUSCULAR HEMOGLOBIN 30 PG (25-34); MEAN CORPUSCULAR HGB CONC 32 G/DL (32-36); MEAN CORPUSCULAR VOLUME 92 FL (80-99); MEAN PLATELET VOLUME 10.6 FL (7.4-10.4); MONOCYTES # (AUTO) 1.3 X 10^3 (0.0-1.0); MONOCYTES % (AUTO) 6 % (0-12); NEUTROPHILS # (AUTO) 19.1 X 10^3 (1.8-7.8); NEUTROPHILS % (AUTO) 90 % (42-75); PLATELET COUNT 360 10^3/uL (130-400); RED CELL DISTRIBUTION WIDTH 16.1 % (10.0-14.5); WHITE BLOOD COUNT 21.2 10^3/uL (4.3-11.0)
[2018-07-28 06:59] LABS: ALANINE AMINOTRANSFERASE 15 U/L (0-55); ALBUMIN 2.5 GM/DL (3.2-4.5); ALKALINE PHOSPHATASE 53 U/L (40-136); BILIRUBIN,TOTAL 0.3 MG/DL (0.1-1.0); BUN/CREATININE RATIO 23; CALCIUM 8.6 MG/DL (8.5-10.1); CARBON DIOXIDE 20 MMOL/L (21-32); CHLORIDE 112 MMOL/L (98-107); CREATININE SERUM 0.81 MG/DL (0.60-1.30); GFR ESTIMATED > 60; GLUCOSE 158 MG/DL (70-105); POTASSIUM 4.4 MMOL/L (3.6-5.0); SODIUM 141 MMOL/L (135-145); TOTAL PROTEIN 4.7 GM/DL (6.4-8.2)
[2018-07-28 07:53] VITALS: BP 139/86
[2018-07-28] MEDS: ONDANSETRON 4 MG/2 ML (SDV) Z0FRAN IVP PRN ×2 (08:01→13:08)
[2018-07-28] MEDS: ACETAMINOPHEN 500 MG TAB (TYLENOL) PO PRN (08:02)
--- NOTE | 2018-07-28 08:09 | Cardiology Progress Note ---
Subjective Date Seen by Provider: Jul 28, 2018 Time Seen by Provider: 08:08 Subjective/Events-last exam Patient is in bed, feeling better, no new complaint Review of Systems General: No Chills, No Night Sweats, No Fatigue, No Malaise, No Appetite, No Other HEENT: No Head Aches, No Visual Changes, No Eye Pain, No Ear Pain, No Dysphasia , No Sinus Congestion, No Post Nasal Drip, No Sore Throat, No Other Pulmonary: No Dyspnea, No Cough, No Pleuritic Chest Pain, No Other Cardiovascular: No: Chest Pain, Palpitations, Orthopnea, Paroxysmal Noc. Dyspnea, Edema, Lt Headedness, Other Focused Exam Lactate Level 07/26/18 14:45: Lactic Acid Level 2.35*H 07/26/18 17:00: Lactic Acid Level 1.24 Objective-Cardiology Exam Last Set of Vital Signs Vital Signs 07/28/18 07:53 Temp 100.4 Pulse 92 Resp 18 B/P (MAP) 139/86 (103) Pulse Ox 94 O2 Delivery Room Air Capillary Refill : Less Than 3 Seconds I&O Intake and Output 07/28/18 00:00 Intake Total 1200 ml Output Total 901 ml Balance 299 ml Intake Oral 100 ml IV Total 1100 ml Output Urine Total 900 ml Stool Total 1 ml # Voids 1 General: Alert, Oriented X3, Cooperative HEENT: Atraumatic, PERRLA Neck: Supple, No JVD, No Thyromegaly Lungs: Clear to Auscultation, Normal Air Movement Heart: Regular Rate, Normal S1, Normal S2, No Murmurs Abdomen: Normal Bowel Sounds, Soft, No Tenderness, No Hepatosplenomegaly, No Masses Extremities: No Clubbing, No Cyanosis, No Edema, Normal Pulses, No Tenderness/ Swelling Skin: No Rashes, No Breakdown, No Significant Lesion Neuro: Normal Gait, Normal Speech, Strength at 5/5 X4 Ext, Normal Tone, Sensation Intact Psych/Mental Status: Mental Status NL, Mood NL Results Lab Laboratory Tests 07/28/18 05:45 A/P-Cardiology Admission Diagnosis Paroxysmal atrial fibrillation Abdominal pain Ulcerative colitis Sepsis Assessment/Plan Paroxysmal atrial fibrillation, Transient, converted to sinus rhythm on Cardizem drip, currently in sinus rhythm, no further episodes of arrhythmia. Continue to monitor Sinus tachycardia, improved after starting beta blockers, tolerating it well. Continue to monitor [id number] score of 1, yearly risk of stroke without oral anticoagulation is 1.3 percent due to the fact that it is a female. Without any other comorbid condition her score will be 0. Patient would benefit from taking aspirin daily if tolerated Ulcerative colitis, status post flareup, managed by primary care physician Sepsis, metabolic acidosis, improving. Monitored and managed by primary care team Clinical Quality Measures DVT/VTE Risk/Contraindication: Risk Factor Score Per Nursin RFS Level Per Nursing on Admit: 2=Moderate RAFA VILLARREAL MD Jul 28, 2018 08:09
[2018-07-28 11:59] VITALS: BP 129/82
--- NOTE | 2018-07-28 12:13 | Progress Note-Hospitalist ---
Subjective HPI/CC On Admission Date Seen by Provider: Jul 28, 2018 Time Seen by Provider: 11:00 CC: Near syncope HPI: This is a 63-year-old clinic patient of [facility] who has a past medical history of ulcerative colitis diagnosed by Dr. Alaniz in 12/[address] Hartley and had received a couple of consultations from [facility] who presented to my office for an already scheduled appointment for the last 6 months on the schedule that abruptly became ill 2 days prior after she thought she ate something bad with the raw potato and worsen to the point she was near critical status when I saw her at my [facility] clinic yesterday afternoon at 1 o'clock. She was immediately assessed to have a heart rate of 129 but blood pressure was maintained a low-grade fever was noted at 100.5. She was promptly admitted laboratory work evaluated and sepsis protocol aggressive IV fluids were empirically placed in process and lactic acid did come back at 2.35. Dr. Salazar was consulted. She then began having new onset atrial fibrillation with rapid ventricular response noted on telemetry so she was sent up to the ICU Dr. Wolf was consulted placed on a Cardizem drip at that point atrial fibrillation converted to normal sinus rhythm after Cardizem bolus. Elevated white count at 22,000 and low-grade fever and elevated lactic acid was concerning for acute colitis so she was placed empirically on Zosyn but she has a history of C. difficile colitis so had to balance the risk for that and Dr. Salazar agreed. She has not had any diarrhea so C. difficile has not been collected. It is been a major concern considering the mesalamine and methotrexate have not provided adequate treatment for the inflammatory bowel disease but she was placed on a slow taper and biological immunosuppression was held until failure was apparent but it does indeed appear that a complete colectomy may very well be the best treatment option for this patient considering the severity of the ulcerative colitis when she presented early this year and the continued problems she has even though being on adequate therapy and the nodular appearance of the abdominal x-ray indicating severe active bowel disease. Subjective/Events-last exam Patient doing ok Abdominal pain continues IVF maintained C Diff confirmed yesterday so Zosyn was DC and Vanc PO was initiated Patient will be meeting with Dr Hartley on 08/14/18 and will discuss colectomy and biologicals No nausea Tolerating CLD Checked meds and labs Review of Systems General: Fatigue Gastrointestinal: Abdominal Pain, Diarrhea Focused Exam Lactate Level 07/26/18 14:45: Lactic Acid Level 2.35*H 07/26/18 17:00: Lactic Acid Level 1.24 Objective Exam Vital Signs Vital Signs Date Time Temp Pulse Resp B/P (MAP) Pulse Ox O2 Delivery O2 Flow Rate FiO2 07/28/18 11:59 98.9 94 20 129/82 (98) 96 Room Air Capillary Refill : Less Than 3 Seconds General Appearance: No Apparent Distress, WD/WN, Chronically ill Respiratory: Chest Non Tender, Lungs Clear, Normal Breath Sounds, No Accessory Muscle Use, No Respiratory Distress Cardiovascular: Regular Rate, Rhythm, No Edema, No Gallop, No JVD, No Murmur, Normal Peripheral Pulses Gastrointestinal: Distended, Tenderness Neurologic/Psychiatric: Alert, Oriented x3, No Motor/Sensory Deficits, Normal Mood/Affect Results/Procedures Lab Laboratory Tests 07/28/18 05:45 Patient resulted labs reviewed. Assessment/Plan Assessment and Plan Assess & Plan/Chief Complaint Assessment: Sepsis C diff colitis acute on recurrent status Severe UC on MTX, steroids, Asacol AF episode Sunday now resolved after bolus of Cardizem Decreased albumin Plan: Supportive care Vanc PO Pain meds Ambulate Diagnosis/Problems Diagnosis/Problems (1) Sepsis Status: Resolved Qualifiers: Sepsis type: sepsis due to unspecified organism Qualified Codes: A41.9 - Sepsis, unspecified organism (2) C. difficile colitis Status: Acute (3) Atrial fibrillation with RVR Status: Resolved (4) Leukocytosis Status: Acute Qualifiers: Leukocytosis type: leukemoid reaction Qualified Codes: D72.823 - Leukemoid reaction (5) Intractable nausea and vomiting Status: Resolved (6) Ulcerative colitis, acute Status: Acute Qualifiers: Digestive disease complication type: unspecified complication Qualified Codes: K51.919 - Ulcerative colitis, unspecified with unspecified complications (7) Dehydration Status: Resolved (8) Hypokalemia Status: Resolved (9) Protein malnutrition Status: Chronic Clinical Quality Measures DVT/VTE Risk/Contraindication: Risk Factor Score Per Nursin RFS Level Per Nursing on Admit: 2=Moderate TADEO LOPEZ DO Jul 28, 2018 12:13
[2018-07-28] MEDS: ENOXAPARIN 40 MG/0.4 ML (LOVENOX) SYR SC SCH (13:08)
--- NOTE | 2018-07-28 13:43 | Progress Note ---
Subjective Time Seen by a Provider: 12:32 Subjective/Events-last exam Pt seen and examined, she states she feels fine and is tolerating diet. Still has some abdominal pain "when I move around". Still has diarrhea, denies any blood. Review of Systems General: No Chills; Night Sweats, Fatigue Pulmonary: No Dyspnea, No Cough Cardiovascular: No: Chest Pain, Palpitations Gastrointestinal: Abdominal Pain; No: Nausea, Vomiting Genitourinary: No Dysuria, No Frequency Focused Exam Lactate Level 07/26/18 14:45: Lactic Acid Level 2.35*H 07/26/18 17:00: Lactic Acid Level 1.24 Objective Exam Vital Signs Date Time Temp Pulse Resp B/P (MAP) Pulse Ox O2 Delivery O2 Flow Rate FiO2 07/28/18 11:59 98.9 94 20 129/82 (98) 96 Room Air 07/28/18 08:00 Room Air 07/28/18 07:53 100.4 92 18 139/86 (103) 94 Room Air 07/28/18 07:00 91 07/28/18 04:00 97.2 95 20 137/87 (104) 95 Room Air 07/28/18 01:01 100 07/28/18 00:00 97.9 97 20 125/86 (99) 96 Room Air 07/27/18 21:00 Room Air 07/27/18 20:31 98.3 107 16 135/85 (102) 93 Room Air 07/27/18 19:09 108 07/27/18 16:56 99.8 108 16 154/88 (110) 94 Room Air I & O 07/28/18 07:00 Intake Total 1150 ml Output Total 301 ml Balance 849 ml Capillary Refill : Less Than 3 Seconds General Appearance: No Apparent Distress, WD/WN, Chronically ill HEENT: PERRL/EOMI, Moist Mucous Membranes Neck: Carotid Bruit Respiratory: Chest Non Tender, Lungs Clear, Normal Breath Sounds, No Accessory Muscle Use, No Respiratory Distress Cardiovascular: Regular Rate, Rhythm, No Edema, No Murmur, Normal Peripheral Pulses Gastrointestinal: normal bowel sounds, soft, no organomegaly, tenderness ( diffusely, not worse than yesterday) Extremity: Normal Capillary Refill, Normal Inspection, Normal Range of Motion, Non Tender, No Calf Tenderness, No Pedal Edema Neurologic/Psychiatric: Alert, Oriented x3, No Motor/Sensory Deficits, Normal Mood/Affect, hand gluer and slicer II-XII Norm as Tested Skin: Diaphoresis; No Ecchymosis Results Lab Laboratory Tests 07/28/18 05:45: White Blood Count 21.2H, Red Blood Count 4.80, Hemoglobin 14.3, Hematocrit 44, Mean Corpuscular Volume 92, Mean Corpuscular Hemoglobin 30, Mean Corpuscular Hemoglobin Concent 32, Red Cell Distribution Width 16.1H, Platelet Count 360, Mean Platelet Volume 10.6H, Neutrophils (%) (Auto) 90H, Lymphocytes (%) (Auto) 4L, Monocytes (%) (Auto) 6, Eosinophils (%) (Auto) 0, Basophils (%) (Auto) 0, Neutrophils # (Auto) 19.1H, Lymphocytes # (Auto) 0.8L, Monocytes # (Auto) 1.3H, Eosinophils # (Auto) 0.0, Basophils # (Auto) 0.0, Sodium Level 141, Potassium Level 4.4, Chloride Level 112H, Carbon Dioxide Level 20L, Anion Gap 9, Blood Urea Nitrogen 19H, Creatinine 0.81, Estimat Glomerular Filtration Rate > 60, BUN /Creatinine Ratio 23, Glucose Level 158H, Calcium Level 8.6, Corrected Calcium 9.8, Total Bilirubin 0.3, Aspartate Amino Transf (AST/SGOT) 15, Alanine Aminotransferase (ALT/SGPT) 15, Alkaline Phosphatase 53, Total Protein 4.7L, Albumin 2.5L Microbiology 07/26/18 Blood Culture - Preliminary, Resulted No growth 07/27/18 C. difficile GDH Antigen & Toxins - Final, Complete 07/26/18 MRSA Screen - Final, Complete MRSA not isolated Assessment/Plan Assessment/Plan Assessment/Plan Abdominal Pain Ulcerative Colitis - flare up Atrial Fibrillation C. Diff + started on Oral Vancomycin I again talked with pt and her sister regarding the subject of Total Colectomy, J-pouch, etc and we went over all the surgical options. Pt stated "I was kind of out of it yesterday". I answered all her questions and her sister's questions; again explaining my concern of bowel perforation. I also talked about why a Evans- Rectal surgeon was necessary and she stated "I will do more research on it". I spoke with her and her sister for about 20 minutes. Clinical Quality Measures DVT/VTE Risk/Contraindication: Risk Factor Score Per Nursin RFS Level Per Nursing on Admit: 2=Moderate SINDHU TENA DO Jul 28, 2018 13:43
[2018-07-28 15:20] VITALS: BP 156/83
[2018-07-28] MEDS: CALCIUM CARBONATE 500 MG (TUMS) TAB.CHEW PO PRN ×2 (16:49→23:38)
[2018-07-28 19:15] VITALS: BP 138/77
[2018-07-29] VITALS: BP 140/83
[2018-07-29] MEDS: VANCOMYCIN ORAL 250 MG/5 ML 120 ML PO SCH ×10 (00:15→23:48)
[2018-07-29] MEDS: ENOXAPARIN 40 MG/0.4 ML (LOVENOX) SYR SC SCH ×3 (00:16→23:48)
[2018-07-29 04:00] VITALS: BP 164/98
[2018-07-29 06:05] LABS: BASOPHILS % (AUTO) 0 % (0-10); EOSINOPHILS % (AUTO) 0 % (0-10); HEMATOCRIT 45 % (35-52); HEMOGLOBIN 14.2 G/DL (11.5-16.0); LYMPHOCYTES # (AUTO) 0.9 X 10^3 (1.0-4.0); LYMPHOCYTES % (AUTO) 5 % (12-44); MEAN CORPUSCULAR HEMOGLOBIN 29 PG (25-34); MEAN CORPUSCULAR HGB CONC 32 G/DL (32-36); MEAN CORPUSCULAR VOLUME 92 FL (80-99); MEAN PLATELET VOLUME 10.2 FL (7.4-10.4); MONOCYTES # (AUTO) 0.7 X 10^3 (0.0-1.0); MONOCYTES % (AUTO) 4 % (0-12); NEUTROPHILS # (AUTO) 15.7 X 10^3 (1.8-7.8); NEUTROPHILS % (AUTO) 91 % (42-75); PLATELET COUNT 397 10^3/uL (130-400); RED BLOOD COUNT 4.89 10^6/uL (4.35-5.85); RED CELL DISTRIBUTION WIDTH 16.1 % (10.0-14.5); WHITE BLOOD COUNT 17.2 10^3/uL (4.3-11.0)
[2018-07-29 06:28] LABS: ALANINE AMINOTRANSFERASE 19 U/L (0-55); ALBUMIN 2.8 GM/DL (3.2-4.5); ALKALINE PHOSPHATASE 54 U/L (40-136); BILIRUBIN,TOTAL 0.3 MG/DL (0.1-1.0); BUN/CREATININE RATIO 31; CALCIUM 8.6 MG/DL (8.5-10.1); CARBON DIOXIDE 23 MMOL/L (21-32); CHLORIDE 111 MMOL/L (98-107); CREATININE SERUM 0.77 MG/DL (0.60-1.30); GFR ESTIMATED > 60; GLUCOSE 147 MG/DL (70-105); POTASSIUM 4.6 MMOL/L (3.6-5.0); SODIUM 141 MMOL/L (135-145); TOTAL PROTEIN 4.9 GM/DL (6.4-8.2)
[2018-07-29] MEDS: NS W/KCL 20 MEQ/L 1,000 ML IV SCH (07:43)
[2018-07-29 08:00] VITALS: BP 162/87
--- NOTE | 2018-07-29 08:01 | Cardiology Progress Note ---
Subjective Date Seen by Provider: Jul 29, 2018 Time Seen by Provider: 07:59 Subjective/Events-last exam Patient is laying down in bed, denied any chest pain. No palpitation. Review of Systems General: No Chills, No Night Sweats, No Fatigue, No Malaise, No Appetite, No Other HEENT: No Head Aches, No Visual Changes, No Eye Pain, No Ear Pain, No Dysphasia , No Sinus Congestion, No Post Nasal Drip, No Sore Throat, No Other Pulmonary: No Dyspnea, No Cough, No Pleuritic Chest Pain, No Other Cardiovascular: No: Chest Pain, Palpitations, Orthopnea, Paroxysmal Noc. Dyspnea, Edema, Lt Headedness, Other Focused Exam Lactate Level 07/26/18 14:45: Lactic Acid Level 2.35*H 07/26/18 17:00: Lactic Acid Level 1.24 Objective-Cardiology Exam Last Set of Vital Signs Vital Signs 07/29/18 07/29/18 04:00 07:00 Temp 97.9 Pulse 90 Resp 16 B/P (MAP) 164/98 (120) Pulse Ox 94 O2 Delivery Room Air Capillary Refill : Less Than 3 Seconds I&O Intake and Output 07/29/18 00:00 Intake Total 3630 ml Output Total 1000 ml Balance 2630 ml Intake Oral 630 ml IV Total 3000 ml Output Urine Total 1000 ml # Voids 1 # Bowel Movements 1 General: Alert, Oriented X3, Cooperative HEENT: Atraumatic, PERRLA Neck: Supple, No JVD, No Thyromegaly Lungs: Clear to Auscultation, Normal Air Movement Heart: Regular Rate, Normal S1, Normal S2, No Murmurs Abdomen: Normal Bowel Sounds, Soft, No Tenderness, No Hepatosplenomegaly, No Masses Extremities: No Clubbing, No Cyanosis, No Edema, Normal Pulses, No Tenderness/ Swelling Skin: No Rashes, No Breakdown, No Significant Lesion Neuro: Normal Gait, Normal Speech, Strength at 5/5 X4 Ext, Normal Tone, Sensation Intact Psych/Mental Status: Mental Status NL, Mood NL Results Lab Laboratory Tests 07/29/18 05:42 A/P-Cardiology Admission Diagnosis Paroxysmal atrial fibrillation Abdominal pain Ulcerative colitis Sepsis Assessment/Plan Paroxysmal atrial fibrillation, Transient, converted to sinus rhythm on Cardizem drip, currently in sinus rhythm, maintained for now on metoprolol 25 mg daily. Doing better, had transient episode of palpitation yesterday. No changes are recommended Sinus tachycardia, improved after starting beta blockers, tolerating it well. Continue to monitor [id number] score of 1, yearly risk of stroke without oral anticoagulation is 1.3 percent due to the fact that it is a female. Without any other comorbid condition her score will be 0. Patient would benefit from taking aspirin daily if tolerated Ulcerative colitis, status post flareup, possible colectomy, management per Dr. Salazar C. difficile colitis, started on oral vancomycin. Monitored by primary care team Sepsis, metabolic acidosis, improving. Monitored and managed by primary care team Clinical Quality Measures DVT/VTE Risk/Contraindication: Risk Factor Score Per Nursin RFS Level Per Nursing on Admit: 2=Moderate RAFA VILLARREAL MD Jul 29, 2018 08:01
[2018-07-29] MEDS: methylPREDNISolone 40 MG/ML (Solu-MEDROL) VIAL IV SCH ×2 (08:05→21:31)
--- NOTE | 2018-07-29 09:58 | Progress Note-Hospitalist ---
Subjective HPI/CC On Admission Date Seen by Provider: Jul 29, 2018 Time Seen by Provider: 09:15 CC: Near syncope HPI: This is a 63-year-old clinic patient of [facility] [employer] who has a past medical history of ulcerative colitis diagnosed by Dr. Alaniz in 12/[address] Hartley and had received a couple of consultations from [facility] who presented to my office for an already scheduled appointment for the last 6 months on the schedule that abruptly became ill 2 days prior after she thought she ate something bad with the raw potato and worsen to the point she was near critical status when I saw her at my [facility] clinic yesterday afternoon at 1 o'clock. She was immediately assessed to have a heart rate of 129 but blood pressure was maintained a low-grade fever was noted at 100.5. She was promptly admitted laboratory work evaluated and sepsis protocol aggressive IV fluids were empirically placed in process and lactic acid did come back at 2.35. Dr. Salazar was consulted. She then began having new onset atrial fibrillation with rapid ventricular response noted on telemetry so she was sent up to the ICU Dr. Wolf was consulted placed on a Cardizem drip at that point atrial fibrillation converted to normal sinus rhythm after Cardizem bolus. Elevated white count at 22,000 and low-grade fever and elevated lactic acid was concerning for acute colitis so she was placed empirically on Zosyn but she has a history of C. difficile colitis so had to balance the risk for that and Dr. Salazar agreed. She has not had any diarrhea so C. difficile has not been collected. It is been a major concern considering the mesalamine and methotrexate have not provided adequate treatment for the inflammatory bowel disease but she was placed on a slow taper and biological immunosuppression was held until failure was apparent but it does indeed appear that a complete colectomy may very well be the best treatment option for this patient considering the severity of the ulcerative colitis when she presented early this year and the continued problems she has even though being on adequate therapy and the nodular appearance of the abdominal x-ray indicating severe active bowel disease. Subjective/Events-last exam Patient doing better Wants to have the colectomy Checked meds and labs wbc improved Drinking well so will HLIVF Review of Systems Gastrointestinal: Abdominal Pain, Diarrhea Focused Exam Lactate Level 07/26/18 14:45: Lactic Acid Level 2.35*H 07/26/18 17:00: Lactic Acid Level 1.24 Objective Exam Vital Signs Vital Signs Date Time Temp Pulse Resp B/P (MAP) Pulse Ox O2 Delivery O2 Flow Rate FiO2 07/29/18 12:00 97.4 86 18 140/72 (94) 96 Room Air Capillary Refill : Less Than 3 SecondsLess Than 3 Seconds General Appearance: No Apparent Distress, WD/WN, Chronically ill Respiratory: Chest Non Tender, Lungs Clear, Normal Breath Sounds, No Accessory Muscle Use, No Respiratory Distress Cardiovascular: Regular Rate, Rhythm, No Edema, No Gallop, No JVD, No Murmur, Normal Peripheral Pulses Genital/Rectal: Tenderness Neurologic/Psychiatric: Alert, Oriented x3, No Motor/Sensory Deficits, Normal Mood/Affect Results/Procedures Lab Laboratory Tests 07/29/18 05:42 Patient resulted labs reviewed. Assessment/Plan Assessment and Plan Assess & Plan/Chief Complaint Assessment: Sepsis C diff colitis acute on recurrent status Severe UC on MTX, steroids, Asacol AF episode Sunday now resolved after bolus of Cardizem Decreased albumin Plan: Supportive care Vanc PO Pain meds Ambulate HLIVF Diagnosis/Problems Diagnosis/Problems (1) Sepsis Status: Resolved Qualifiers: Sepsis type: sepsis due to unspecified organism Qualified Codes: A41.9 - Sepsis, unspecified organism (2) C. difficile colitis Status: Acute (3) Atrial fibrillation with RVR Status: Resolved (4) Leukocytosis Status: Acute Qualifiers: Leukocytosis type: leukemoid reaction Qualified Codes: D72.823 - Leukemoid reaction (5) Intractable nausea and vomiting Status: Resolved (6) Ulcerative colitis, acute Status: Acute Qualifiers: Digestive disease complication type: unspecified complication Qualified Codes: K51.919 - Ulcerative colitis, unspecified with unspecified complications (7) Dehydration Status: Resolved (8) Hypokalemia Status: Resolved (9) Protein malnutrition Status: Chronic Clinical Quality Measures DVT/VTE Risk/Contraindication: Risk Factor Score Per Nursin RFS Level Per Nursing on Admit: 2=Moderate TADOE LOPEZ DO Jul 29, 2018 09:58
[2018-07-29 12:00] VITALS: BP 140/72
--- NOTE | 2018-07-29 13:52 | Progress Note ---
Subjective Time Seen by a Provider: 13:16 Subjective/Events-last exam Pt seen and examined, only complaint is of mild nausea and she is hungry. She denies diarrhea. Review of Systems General: Night Sweats, Fatigue Pulmonary: No Dyspnea, No Cough Cardiovascular: No: Chest Pain, Palpitations Gastrointestinal: Nausea; No: Vomiting, Abdominal Pain Focused Exam Lactate Level 07/26/18 14:45: Lactic Acid Level 2.35*H 07/26/18 17:00: Lactic Acid Level 1.24 Objective Exam Vital Signs Date Time Temp Pulse Resp B/P (MAP) Pulse Ox O2 Delivery O2 Flow Rate FiO2 07/29/18 12:00 97.4 86 18 140/72 (94) 96 Room Air 07/29/18 08:18 Room Air 07/29/18 08:00 98.1 95 16 162/87 (112) 95 Room Air 07/29/18 07:00 90 07/29/18 04:00 97.9 87 16 164/98 (120) 94 Room Air 07/29/18 01:00 83 07/29/18 00:00 97.4 86 20 140/83 (102) 95 Room Air 07/28/18 22:00 97.2 07/28/18 21:00 Room Air 07/28/18 19:15 99.5 88 18 138/77 (97) 95 Room Air 07/28/18 19:00 94 07/28/18 15:20 97.6 95 18 156/83 (107) 93 Room Air I & O 07/29/18 07:00 Intake Total 3171 ml Output Total 1000 ml Balance 2171 ml Capillary Refill : Less Than 3 SecondsLess Than 3 Seconds General Appearance: No Apparent Distress, WD/WN, Chronically ill HEENT: PERRL/EOMI, Moist Mucous Membranes Neck: Carotid Bruit Respiratory: Chest Non Tender, Lungs Clear, Normal Breath Sounds, No Accessory Muscle Use, No Respiratory Distress Cardiovascular: Regular Rate, Rhythm, No Edema, No Gallop, No JVD, No Murmur, Normal Peripheral Pulses Gastrointestinal: normal bowel sounds, soft, no organomegaly, tenderness ( diffusely, not worse than yesterday) Extremity: Normal Capillary Refill, Non Tender, No Calf Tenderness, No Pedal Edema Neurologic/Psychiatric: Alert, Oriented x3, No Motor/Sensory Deficits, Normal Mood/Affect Skin: Diaphoresis; No Ecchymosis Results Lab Laboratory Tests 07/29/18 05:42: White Blood Count 17.2H, Red Blood Count 4.89, Hemoglobin 14.2, Hematocrit 45, Mean Corpuscular Volume 92, Mean Corpuscular Hemoglobin 29, Mean Corpuscular Hemoglobin Concent 32, Red Cell Distribution Width 16.1H, Platelet Count 397, Mean Platelet Volume 10.2, Neutrophils (%) (Auto) 91H, Lymphocytes (%) (Auto) 5L , Monocytes (%) (Auto) 4, Eosinophils (%) (Auto) 0, Basophils (%) (Auto) 0, Neutrophils # (Auto) 15.7H, Lymphocytes # (Auto) 0.9L, Monocytes # (Auto) 0.7, Eosinophils # (Auto) 0.0, Basophils # (Auto) 0.0, Sodium Level 141, Potassium Level 4.6, Chloride Level 111H, Carbon Dioxide Level 23, Anion Gap 7, Blood Urea Nitrogen 24H, Creatinine 0.77, Estimat Glomerular Filtration Rate > 60, BUN /Creatinine Ratio 31, Glucose Level 147H, Calcium Level 8.6, Corrected Calcium 9.6, Total Bilirubin 0.3, Aspartate Amino Transf (AST/SGOT) 17, Alanine Aminotransferase (ALT/SGPT) 19, Alkaline Phosphatase 54, Total Protein 4.9L, Albumin 2.8L Microbiology 07/26/18 Blood Culture - Preliminary, Resulted No growth 07/27/18 C. difficile GDH Antigen & Toxins - Final, Complete 07/26/18 MRSA Screen - Final, Complete MRSA not isolated Assessment/Plan Assessment/Plan Assessment/Plan Abdominal Pain Ulcerative Colitis - flare up Atrial Fibrillation C. Diff + started on Oral Vancomycin Will start soft diet and give her one more day of oral ABX, probably will be ok to go home tomorrow. She had no questions today. Clinical Quality Measures DVT/VTE Risk/Contraindication: Risk Factor Score Per Nursin RFS Level Per Nursing on Admit: 2=Moderate SINDHU TENA DO Jul 29, 2018 13:52
[2018-07-29] MEDS: ONDANSETRON 4 MG/2 ML (SDV) Z0FRAN IVP PRN (14:24)
[2018-07-29 16:00] VITALS: BP 164/95
[2018-07-29] MEDS: ACETAMINOPHEN 500 MG TAB (TYLENOL) PO PRN (17:15)
[2018-07-29] MEDS ORDERED: SCOPOLAMINE 1.5 MG (TRANSDERM-SCOP) PATCH TOP SCH (17:30)
[2018-07-29 19:55] VITALS: BP 174/94
[2018-07-30] VITALS: BP 144/83
[2018-07-30 04:00] VITALS: BP 156/81
[2018-07-30] MEDS: ONDANSETRON 4 MG/2 ML (SDV) Z0FRAN IVP PRN (05:58)
[2018-07-30] MEDS: VANCOMYCIN ORAL 250 MG/5 ML 120 ML PO SCH ×2 (05:59)
[2018-07-30 06:09] LABS: BASOPHILS % (AUTO) 0 % (0-10); EOSINOPHILS % (AUTO) 0 % (0-10); HEMATOCRIT 43 % (35-52); HEMOGLOBIN 14.3 G/DL (11.5-16.0); LYMPHOCYTES # (AUTO) 1.2 X 10^3 (1.0-4.0); LYMPHOCYTES % (AUTO) 8 % (12-44); MEAN CORPUSCULAR HEMOGLOBIN 30 PG (25-34); MEAN CORPUSCULAR HGB CONC 34 G/DL (32-36); MEAN CORPUSCULAR VOLUME 90 FL (80-99); MEAN PLATELET VOLUME 10.1 FL (7.4-10.4); MONOCYTES # (AUTO) 0.5 X 10^3 (0.0-1.0); MONOCYTES % (AUTO) 3 % (0-12); NEUTROPHILS # (AUTO) 12.4 X 10^3 (1.8-7.8); NEUTROPHILS % (AUTO) 88 % (42-75); PLATELET COUNT 386 10^3/uL (130-400); RED BLOOD COUNT 4.74 10^6/uL (4.35-5.85); RED CELL DISTRIBUTION WIDTH 15.5 % (10.0-14.5); WHITE BLOOD COUNT 14.1 10^3/uL (4.3-11.0)
[2018-07-30 06:28] LABS: ALANINE AMINOTRANSFERASE 24 U/L (0-55); ALBUMIN 2.9 GM/DL (3.2-4.5); ALKALINE PHOSPHATASE 60 U/L (40-136); BILIRUBIN,TOTAL 0.3 MG/DL (0.1-1.0); BUN/CREATININE RATIO 34; CALCIUM 8.4 MG/DL (8.5-10.1); CARBON DIOXIDE 22 MMOL/L (21-32); CHLORIDE 106 MMOL/L (98-107); CREATININE SERUM 0.73 MG/DL (0.60-1.30); GFR ESTIMATED > 60; GLUCOSE 157 MG/DL (70-105); POTASSIUM 4.5 MMOL/L (3.6-5.0); SODIUM 137 MMOL/L (135-145); TOTAL PROTEIN 4.9 GM/DL (6.4-8.2)
[2018-07-30] MEDS: ACETAMINOPHEN 500 MG TAB (TYLENOL) PO PRN (06:41)
[2018-07-30 08:00] VITALS: BP 151/83
[2018-07-30] MEDS: methylPREDNISolone 40 MG/ML (Solu-MEDROL) VIAL IV SCH (09:17)
--- NOTE | 2018-07-30 09:29 | Cardiology Progress Note ---
Subjective Date Seen by Provider: Jul 30, 2018 Time Seen by Provider: 08:30 Subjective/Events-last exam Patient is laying down in bed, feeling better, denied any chest pain. Review of Systems General: No Chills, No Night Sweats, No Fatigue, No Malaise, No Appetite, No Other HEENT: No Head Aches, No Visual Changes, No Eye Pain, No Ear Pain, No Dysphasia , No Sinus Congestion, No Post Nasal Drip, No Sore Throat, No Other Pulmonary: No Dyspnea, No Cough, No Pleuritic Chest Pain, No Other Cardiovascular: No: Chest Pain, Palpitations, Orthopnea, Paroxysmal Noc. Dyspnea, Edema, Lt Headedness, Other Objective-Cardiology Exam Last Set of Vital Signs Vital Signs 07/30/18 07/30/18 04:00 07:00 Temp 98.9 Pulse 68 Resp 16 B/P (MAP) 156/81 (106) Pulse Ox 98 O2 Delivery Room Air Capillary Refill : Less Than 3 SecondsLess Than 3 Seconds I&O Intake and Output 07/30/18 00:00 Intake Total 3691 ml Output Total 600 ml Balance 3091 ml Intake Oral 2341 ml IV Total 1350 ml Output Urine Total 600 ml # Voids 4 # Bowel Movements 2 General: Alert, Oriented X3, Cooperative HEENT: Atraumatic, PERRLA Neck: Supple, No JVD, No Thyromegaly Lungs: Clear to Auscultation, Normal Air Movement Heart: Regular Rate, Normal S1, Normal S2, No Murmurs Abdomen: Normal Bowel Sounds, Soft, No Tenderness, No Hepatosplenomegaly, No Masses Extremities: No Clubbing, No Cyanosis, No Edema, Normal Pulses, No Tenderness/ Swelling Skin: No Rashes, No Breakdown, No Significant Lesion Neuro: Normal Gait, Normal Speech, Strength at 5/5 X4 Ext, Normal Tone, Sensation Intact Psych/Mental Status: Mental Status NL, Mood NL Results Lab Laboratory Tests 07/30/18 05:52 A/P-Cardiology Admission Diagnosis Paroxysmal atrial fibrillation Abdominal pain Ulcerative colitis Sepsis Assessment/Plan Paroxysmal atrial fibrillation, Transient, converted to sinus rhythm on Cardizem drip, currently in sinus rhythm, maintained for now on metoprolol 25 mg daily. Doing better, had transient episode of palpitation. No changes are recommended Sinus tachycardia, improved after starting beta blockers, tolerating it well. Continue to monitor [id number] score of 1, yearly risk of stroke without oral anticoagulation is 1.3 percent due to the fact that it is a female. Without any other comorbid condition her score will be 0. Patient would benefit from taking aspirin daily if tolerated Ulcerative colitis, status post flareup, possible colectomy in the future, started on oral antibiotics, management per Dr. Salazar C. difficile colitis, started on oral vancomycin. Monitored by primary care team Sepsis, metabolic acidosis, improving. Monitored and managed by primary care team Clinical Quality Measures DVT/VTE Risk/Contraindication: Risk Factor Score Per Nursin RFS Level Per Nursing on Admit: 2=Moderate RAFA VILLARREAL MD Jul 30, 2018 09:29
[2018-07-30] MEDS ORDERED: VANC125S PO (09:51)
[2018-07-30] MEDS ORDERED: ACHD5005 PO (09:51)
[2018-07-30] MEDS ORDERED: METO-387 PO (09:51)
--- NOTE | 2018-07-30 09:58 | Discharge Summary-Hospitalist ---
TADEO LOPEZ DO 07/30/18 0958: Diagnosis/Chief Complaint Date of Admission Jul 26, 2018 at 13:30 Date of Discharge Discharge Date: Jul 30, 2018 Admission Diagnosis Acute bacterial colitis with sepsis and fever and elevated lactic acid Ulcerative colitis not in remission Dehydration AF episode Plan: Continue IVF but decrease rate Ambulate Tx to 4th SCD's PO status per general surgery Needs colectomy Discharge Diagnosis (1) Sepsis Status: Resolved (2) C. difficile colitis Status: Acute (3) Atrial fibrillation with RVR Status: Resolved (4) Leukocytosis Status: Acute (5) Intractable nausea and vomiting Status: Resolved (6) Ulcerative colitis, acute Status: Acute (7) Dehydration Status: Resolved (8) Hypokalemia Status: Resolved (9) Protein malnutrition Status: Chronic Discharge Summary Discharge Physical Exam Allergies: Coded Allergies: sulfamethoxazole (Verified Allergy, Unknown, 06/21/18) Flushing trimethoprim (Verified Allergy, Unknown, 06/21/18) [place]ushing Vitals & I&Os Vital Signs Date Time Temp Pulse Resp B/P (MAP) Pulse Ox O2 Delivery O2 Flow Rate FiO2 07/30/18 11:30 07/30/18 09:00 Room Air 07/30/18 08:00 98.9 92 20 94 General Appearance: No Apparent Distress, WD/WN, Chronically ill Respiratory: Chest Non Tender, Lungs Clear, Normal Breath Sounds, No Accessory Muscle Use, No Respiratory Distress Cardiovascular: Regular Rate, Rhythm, No Edema, No Gallop, No JVD, No Murmur, Normal Peripheral Pulses Neurologic/Psychiatric: Alert, Oriented x3, No Motor/Sensory Deficits, Normal Mood/Affect Hospital Course patient was admitted in a near critical status and was given aggressive IVF then experienced new onset AF easily aborted after Cardizem bolus. Pt was found to have c diff so empiric abx were DC after minimal doses. Pt responded to treatment rapidly and was found to be ready for DC with close f/u. Labs (last 24 hrs) Microbiology 07/26/18 Blood Culture - Preliminary, Resulted No growth 07/27/18 C. difficile GDH Antigen & Toxins - Final, Complete 07/26/18 MRSA Screen - Final, Complete MRSA not isolated Patient resulted labs reviewed. Pending Labs Discussion & Recommendations Discharge Planning: <30 minutes discharge planning Discharge Home Medications: Active Scripts Active Vancomycin ORAL Compound 250mg/5 ml (Vancomycin HCl) 125 Mg/2.5 Ml Syringe 125 Mg PO QID 28 Days Hydrocodone/Acetaminophen 5/325mg Tablet (Acetaminophen/Hydrocodone Bitart) 1 Tab Tab 1 Tab PO Q4H PRN Metoprolol Succinate 25 Mg Tab.er.24h 25 Mg PO DAILY Dicyclomine HCl 20 Mg Tablet 20 Mg PO ACHS PRN Reported Prednisone 10 Mg Tab.ds.pk 32.5 Mg PO DAILY 14 Days START 32.5MG DAILY DOSE 07-26-18 AND TAPER DOWN 2.5MG EVERY TWO WEEKS Tylenol Extra Strength (Acetaminophen) 500 Mg Tablet 1,000 Mg PO Q6H PRN Colace (Docusate Sodium) 100 Mg Capsule 100 Mg PO DAILY PRN Multivitamins with Minerals (Multivitamin with Minerals) 1 Each Tablet 1 Tab PO DAILY Ferrous Sulfate 325 Mg Tablet 325 Mg PO TUTH Vitamin C (Ascorbate Calcium) 500 Mg Tablet 2 Tab PO DAILY Floranex Tablet (L. Acidophilus/Bulgaricus) 1 Each Tablet 1 Tab PO BID Mesalamine 800 Mg Tablet.dr 800 Mg PO TID Folic Acid 1 Mg Tablet 1 Mg PO DAILY Instructions to patient/family Please see electronic discharge instructions given to patient. Clinical Quality Measures DVT/VTE Risk/Contraindication: Risk Factor Score Per Nursin RFS Level Per Nursing on Admit: 2=Moderate [employer] MEDICAL STUDENT 07/30/18 1043: Diagnosis/Chief Complaint Discharge Time: 10:38 Discharge Summary Discharge Physical Exam Allergies: Coded Allergies: sulfamethoxazole (Verified Allergy, Unknown, 06/21/18) Flushing trimethoprim (Verified Allergy, Unknown, 06/21/18) Flushing General Appearance: No Apparent Distress, WD/WN HEENT: Normal ENT Inspection Respiratory: Chest Non Tender, Lungs Clear, Normal Breath Sounds, No Accessory Muscle Use, No Respiratory Distress Cardiovascular: Regular Rate, Rhythm, No Edema, No Gallop, No JVD, No Murmur, Normal Peripheral Pulses Gastrointestinal: Normal Bowel Sounds, Non Tender, Soft; No Distended, No Guarding, No Tenderness Extremity: Normal Inspection, Non Tender, No Calf Tenderness Skin: Normal Color, Warm/Dry Neurologic/Psychiatric: Alert, Oriented x3, Normal Mood/Affect Hospital Course Acute bacterial colitis with sepsis and fever and elevated lactic acid: This is a 63-year-old clinic patient of [employer] who has a past medical history of ulcerative colitis diagnosed by Dr. Alaniz in 12/[address] Hartley and had received a couple of consultations from [facility] who presented to my office for an already scheduled appointment for the last 6 months on the schedule that abruptly became ill 2 days prior. At that tiem, she was near critical status when I saw her at my [facility] clinic on . Patient has C Diff colitis with recurrent status. At admission, elevated white count at 22,000 and low-grade fever and elevated lactic acid was concerning for C diff acute colitis so she was placed on oral Vancomycin. Since , her WBC has improved. Discussion of continual abx treatment until resolution of C Diff symptoms was discussed with the patient. This will be followed by primary care. Ulcerative colitis not in remission: Her severe UC will be treated with MTX, steroids and Asacol. It is been a major concern considering the mesalamine and methotrexate have not provided adequate treatment. She is now agreeable with the concept of a complete colectomy considering the severity of the ulcerative colitis when she presented early this year and the continued problems she has even though being on adequate therapy. She will follow up with Dr. Salazar considering a colectomy in the future. Dehydration: Improved w/ HLIVF AF episode: She then began having new onset atrial fibrillation with rapid ventricular response noted on telemetry so she was sent up to the ICU Dr. Wolf was consulted placed on a Cardizem drip at that point atrial fibrillation converted to normal sinus rhythm after Cardizem bolus. She will go home on metoprolol 25mg qD per Dr. Wolf's instructions. Radiology Reviewed Imaging: Date of Exam: 07/26/18 CHEST 1 VIEW, AP/PA ONLY PATIENT HISTORY: Sepsis, nausea, vomiting, ulcerative colitis TECHNIQUE: Single frontal view of the chest COMPARISON: 06/18/2018 FINDINGS: Lung volumes are normal. No focal consolidation is seen. There is no pleural effusion or pneumothorax. There is mild central vascular congestion. The cardiac silhouette is normal in size. IMPRESSION: 1. Mild central vascular congestion with no acute pulmonary abnormality seen. Date of Exam: 07/27/18 CHEST 1 VIEW, AP/PA ONLY INDICATION: Arrhythmia. Portable chest 3:36 a.m. FINDINGS: Heart size and pulmonary vascularity are normal. Lungs are clear. There are no effusions or pneumothoraces. IMPRESSION: Negative chest. Date of Exam: 07/26/18 ABDOMEN/KUB 1VIEW Indication: Ulcerative colitis with nausea and vomiting KUB at 3:27 PM The descending colon appears stiff with thickened nodular mucosa. There also appears to be nodular irregularity of the hepatic flexure and transverse colon which are partly air-filled. Impression: Abnormal nodular appearance of the transverse and descending colon consistent with inflammatory bowel disease. Imaging: Reviewed Imaging Report Discussion & Recommendations Discharge Planning: <30 minutes discharge planning Problem Qualifiers (1) Sepsis: Sepsis type: sepsis due to unspecified organism Qualified Codes: A41.9 - Sepsis, unspecified organism (2) Leukocytosis: Leukocytosis type: leukemoid reaction Qualified Codes: D72.823 - Leukemoid reaction (3) Ulcerative colitis, acute: Digestive disease complication type: unspecified complication Qualified Codes : K51.919 - Ulcerative colitis, unspecified with unspecified complications TADEO LOPEZ DO Jul 30, 2018 09:58 [employer] MED[employer] STUDENT Jul 30, 2018 10:43
[2018-07-30] MEDS ORDERED: RELABEL FOR HOME USE MC SCH (10:00)
--- NOTE | 2018-07-30 11:04 | Progress Note ---
Subjective Time Seen by a Provider: 09:42 Subjective/Events-last exam Pt seen and examined states she is feeling much better, no major complaints. Tolerating diet and is going to be sent home today. She states she has decided to go ahead with surgery and does not want the J- pouch, she has chosen to go with permanent ileostomy. She will follow up in a week or so to discuss and schedule surgery. Review of Systems General: No Chills, No Night Sweats Cardiovascular: Palpitations; No: Chest Pain Gastrointestinal: No: Nausea, Vomiting, Abdominal Pain Objective Exam Vital Signs Date Time Temp Pulse Resp B/P (MAP) Pulse Ox O2 Delivery O2 Flow Rate FiO2 07/30/18 09:00 Room Air 07/30/18 08:00 98.9 92 20 151/83 (105) 94 Room Air 07/30/18 07:00 68 07/30/18 04:00 98.9 78 16 156/81 (106) 98 Room Air 07/30/18 01:00 77 07/30/18 00:00 98.0 69 20 144/83 (103) 95 Room Air 07/29/18 19:55 97.2 81 20 174/94 (120) 95 Room Air 07/29/18 19:00 76 07/29/18 16:00 99.2 80 16 164/95 (118) 96 Room Air 07/29/18 13:00 84 07/29/18 12:00 97.4 86 18 140/72 (94) 96 Room Air I & O 07/30/18 07:00 Intake Total 3250 ml Output Total 600 ml Balance 2650 ml Capillary Refill : Less Than 3 SecondsLess Than 3 Seconds General Appearance: No Apparent Distress, WD/WN HEENT: Normal ENT Inspection Neck: Carotid Bruit Respiratory: Chest Non Tender, Lungs Clear, Normal Breath Sounds, No Accessory Muscle Use, No Respiratory Distress Cardiovascular: Regular Rate, Rhythm, No Edema, No Gallop, No JVD, No Murmur, Normal Peripheral Pulses Gastrointestinal: normal bowel sounds, soft, no organomegaly, tenderness (much improved, basically gone) Extremity: Normal Inspection, Non Tender, No Calf Tenderness Neurologic/Psychiatric: Alert, Oriented x3, Normal Mood/Affect Skin: Normal Color, Warm/Dry Results Lab Laboratory Tests 07/30/18 05:52: White Blood Count 14.1H, Red Blood Count 4.74, Hemoglobin 14.3, Hematocrit 43, Mean Corpuscular Volume 90, Mean Corpuscular Hemoglobin 30, Mean Corpuscular Hemoglobin Concent 34, Red Cell Distribution Width 15.5H, Platelet Count 386, Mean Platelet Volume 10.1, Neutrophils (%) (Auto) 88H, Lymphocytes (%) (Auto) 8L , Monocytes (%) (Auto) 3, Eosinophils (%) (Auto) 0, Basophils (%) (Auto) 0, Neutrophils # (Auto) 12.4H, Lymphocytes # (Auto) 1.2, Monocytes # (Auto) 0.5, Eosinophils # (Auto) 0.0, Basophils # (Auto) 0.0, Sodium Level 137, Potassium Level 4.5, Chloride Level 106, Carbon Dioxide Level 22, Anion Gap 9, Blood Urea Nitrogen 25H, Creatinine 0.73, Estimat Glomerular Filtration Rate > 60, BUN/ Creatinine Ratio 34, Glucose Level 157H, Calcium Level 8.4L, Corrected Calcium 9.3, Total Bilirubin 0.3, Aspartate Amino Transf (AST/SGOT) 25, Alanine Aminotransferase (ALT/SGPT) 24, Alkaline Phosphatase 60, Total Protein 4.9L, Albumin 2.9L Microbiology 07/26/18 Blood Culture - Preliminary, Resulted No growth 07/27/18 C. difficile GDH Antigen & Toxins - Final, Complete 07/26/18 MRSA Screen - Final, Complete MRSA not isolated Assessment/Plan Assessment/Plan Assessment/Plan Abdominal Pain Ulcerative Colitis - flare up Atrial Fibrillation C. Diff + started on Oral Vancomycin Plan is to D/C home, with oral vanc and Asacol. Once the C. Diff is treated and her flare up is better, will schedule Total Colectomy. She will follow up in the office to discuss this more. Clinical Quality Measures DVT/VTE Risk/Contraindication: Risk Factor Score Per Nursin RFS Level Per Nursing on Admit: 2=Moderate SINDHU TENA DO Jul 30, 2018 11:04
[2018-07-30] MEDS ORDERED: ENOXAPARIN 40 MG/0.4 ML (LOVENOX) SYR SC SCH (21:00)
[2018-08-01] MEDS ORDERED: SCOPOLAMINE PATCH REMOVAL TP SCH (17:29)
== END 2018-07-30 11:30 | disposition home or self-care (01) | DRG 872 ==
LOC: 4TH 13:30 → ICU 16:35 → 4TH 07-27 13:30
PROVIDERS: ADMIT Internal Medicine; ATTEND Internal Medicine
DX: A41.9 Sepsis, unspecified organism (principal); A04.71 Enterocolitis due to Clostridium difficile, recurrent; K51.919 Ulcerative colitis, unspecified with unspecified complications; E87.2 Acidosis; E46 Unspecified protein-calorie malnutrition; E66.9 Obesity, unspecified; Z68.41 Body mass index [BMI] 40.0-44.9, adult; I48.0 Paroxysmal atrial fibrillation; E87.6 Hypokalemia; E86.0 Dehydration; R00.0 Tachycardia, unspecified; J45.909 Unspecified asthma, uncomplicated; I10 Essential (primary) hypertension; F41.9 Anxiety disorder, unspecified; F32.9 Major depressive disorder, single episode, unspecified; Z87.891 Personal history of nicotine dependence
CPT/HCPCS: 36415; 36600; 71045; 74018; 80053; 82805; 83605; 83735; 84100; 85007; 85025; 85027; 87040; 87081; 87324; 87449; 93005; 93306

== ENCOUNTER 2018-07-31 20:24 | Inpatient (IN) | payer BC ==
[~2018-07-31] VITALS: Ht 162.6 cm; Wt 105.8 kg
[2018-07-31] MEDS ORDERED: NS IV 1000 ML 1,000 ML IV ONE (23:20)
[2018-07-31 23:27] LABS: BASOPHILS # (AUTO) 0.1 10^3/uL (0.0-0.1); BASOPHILS % (AUTO) 0 % (0-10); EOSINOPHILS % (AUTO) 0 % (0-10); HEMATOCRIT 46 % (35-52); HEMOGLOBIN 15.6 G/DL (11.5-16.0); LYMPHOCYTES % (AUTO) 14 % (12-44); MEAN CORPUSCULAR HEMOGLOBIN 29 PG (25-34); MEAN CORPUSCULAR HGB CONC 34 G/DL (32-36); MEAN CORPUSCULAR VOLUME 87 FL (80-99); MEAN PLATELET VOLUME 9.9 FL (7.4-10.4); MONOCYTES # (AUTO) 0.9 X 10^3 (0.0-1.0); MONOCYTES % (AUTO) 7 % (0-12); NEUTROPHILS # (AUTO) 11.1 X 10^3 (1.8-7.8); NEUTROPHILS % (AUTO) 79 % (42-75); PLATELET COUNT 392 10^3/uL (130-400); RED BLOOD COUNT 5.31 10^6/uL (4.35-5.85); RED CELL DISTRIBUTION WIDTH 15.6 % (10.0-14.5); WHITE BLOOD COUNT 14.1 10^3/uL (4.3-11.0)
[2018-07-31] MEDS ORDERED: ONDANSETRON 4 MG/2 ML (SDV) Z0FRAN IVP ONE (23:30)
[2018-07-31 23:41] LABS: ALANINE AMINOTRANSFERASE 34 U/L (0-55); ALBUMIN 2.9 GM/DL (3.2-4.5); ALKALINE PHOSPHATASE 71 U/L (40-136); BILIRUBIN,TOTAL 0.4 MG/DL (0.1-1.0); BUN/CREATININE RATIO 27; CALCIUM 8.5 MG/DL (8.5-10.1); CARBON DIOXIDE 22 MMOL/L (21-32); CHLORIDE 103 MMOL/L (98-107); CREATININE SERUM 0.71 MG/DL (0.60-1.30); GFR ESTIMATED > 60; GLUCOSE 102 MG/DL (70-105); LIPASE 28 U/L (8-78); MAGNESIUM 2.3 MG/DL (1.8-2.4); POTASSIUM 4.3 MMOL/L (3.6-5.0); SODIUM 134 MMOL/L (135-145); TOTAL PROTEIN 4.8 GM/DL (6.4-8.2)
[2018-07-31 23:55] LABS: BAND NEUTROPHILS 3 %; BASOPHILS % (MANUAL) 0 %; EOSINOPHILS % (MANUAL) 0 %; LYMPHOCYTES % (MANUAL) 20 %; MONOCYTES % (MANUAL) 6 %; NEUTROPHILS % (MANUAL) 65 %; REACTIVE LYMPHOCYTES 6 %
[2018-07-31 23:56] LABS: ANISOCYTOSIS SLIGHT; PLATELET CLUMPS SLIGHT
[2018-08-01 00:35] LABS: CLARITY,URINE CLEAR; COLOR,URINE YELLOW; GLUCOSE, URINE (UA) NEGATIVE (NEGATIVE); KETONES,URINE 2+ (NEGATIVE); LEUKOCYTE ESTERASE ,URINE 3+ (NEGATIVE); NITRITE,URINE NEGATIVE (NEGATIVE); PH,URINE 6 (5-9); PROTEIN,URINE 2+ (NEGATIVE); UROBILINOGEN,URINE 1 MG/DL (NORMAL)
[2018-08-01 00:50] LABS: BILIRUBIN,URINE 1+ (NEGATIVE)
[2018-08-01 00:52] LABS: BACTERIA,URINE FEW /HPF; HYALINE CASTS, URINE 0-2 /LPF
[2018-08-01] MEDS ORDERED: PROMETHAZINE INJ 25 MG/ML (PHENERGAN) AMP IVP ONE (01:30)
--- NOTE | 2018-08-01 02:44 | ED GI ---
General Chief Complaint: Abdominal/GI Problems Stated Complaint: LETHARGIC,C-DIFF INFECTION Nursing Triage Note: Pt arrives to ED Room #8 with c/o lethargy, C-Diff infection. Pt states that she has been nauseated and vomitting. Pt states that she did not take any of her anti-nausea medication petrona. HX: c-diff with hospitalization, enteric colitis. Sepsis Screen: No Definite Risk Source of Information: Patient Exam Limitations: No Limitations History of Present Illness Date Seen by Provider: Jul 31, 2018 Time Seen by Provider: 23:10 Initial Comments This 63-year-old woman presents to the emergency room with complaints of vomiting and diarrhea. She has history of ulcerative colitis and C. difficile colitis. She is on oral vancomycin. She was recently admitted to the hospital and discharged yesterday for similar symptoms. She has some intermittent abdominal pain but no fevers. Her primary complaint is that she cannot keep down her medications. She has Zofran at home but did not think to take it. Instead, she presented to the emergency room. She reports that she is anticipating colectomy with Dr. Tena in the near future. She denies any hematochezia. Allergies and Home Medications Allergies Coded Allergies: sulfamethoxazole (Verified Allergy, Unknown, 06/21/18) Flushing trimethoprim (Verified Allergy, Unknown, 06/21/18) Flushing Home Medications Acetaminophen 500 Mg Tablet, 1,000 MG PO Q6H PRN for PAIN-MILD, (Reported) Ascorbate Calcium 500 Mg Tablet, 2 TAB PO DAILY, (Reported) Dicyclomine HCl 20 Mg Tablet, 20 MG PO ACHS PRN for ABDOMINAL PAIN Prescribed by: TADEO LOPEZ on 06/19/18 1040 Docusate Sodium 100 Mg Capsule, 100 MG PO DAILY PRN for CONSTIPATION-1ST LINE, ( Reported) Ferrous Sulfate 325 Mg Tablet, 325 MG PO TuTh, (Reported) Folic Acid 1 Mg Tablet, 1 MG PO DAILY, (Reported) Hydrocodone Bit/Acetaminophen 1 Tab Tab, 1 TAB PO Q4H PRN for PAIN-MODERATE Prescribed by: TADEO LOPEZ on 07/30/18 0951 L. Acidophilus/Bulgaricus 1 Each Tablet, 1 TAB PO BID, (Reported) Mesalamine 800 Mg Tablet.dr, 800 MG PO TID, (Reported) Metoprolol Succinate 25 Mg Tab.er.24h, 25 MG PO DAILY Prescribed by: TADEO LOPEZ on 07/30/18950 Multivitamin with Minerals 1 Each Tablet, 1 TAB PO DAILY, (Reported) Prednisone 10 Mg Tab.ds.pk, 32.5 MG PO DAILY, (Reported) START 32.5MG DAILY DOSE 07-26-18 AND TAPER DOWN 2.5MG EVERY TWO WEEKS Promethazine HCl 12.5 Mg Tablet, 12.5 MG PO Q6H PRN for NAUSEA/VOMITING-2ND LINE Prescribed by: HEATH OKEEFE on 08/01/18 0245 Vancomycin HCl 125 Mg/2.5 Ml Syringe, 125 MG PO QID Prescribed by: TADEO LOPEZ on 07/30/18950 Patient Home Medication List Home Medication List Reviewed: Yes Review of Systems Review of Systems Constitutional: no symptoms reported EENTM: No Symptoms Reported Respiratory: No Symptoms Reported Cardiovascular: No Symptoms Reported Gastrointestinal: See HPI Genitourinary: No Symptoms Reported Musculoskeletal: no symptoms reported Skin: no symptoms reported Psychiatric/Neurological: No Symptoms Reported Endocrine: No Symptoms Reported Hematologic/Lymphatic: No Symptoms Reported Past Pckkzxg-Ptktnu-Dkkfdp Hx Past Med/Social Hx: Reviewed and Corrections made Patient Social History Alcohol Use: Denies Use Recreational Drug Use: No Smoking Status: Never a Smoker Former Smoker, Quit: Oct 29, 1967 2nd Hand Smoke Exposure: No Recent Foreign Travel: No Contact w/Someone Who Travel: No Recent Infectious Disease Expo: Yes Recent Hopitalizations: Yes (06/19) Physical Abuse: No Sexual Abuse: No Mistreated: No Fear: No Immunizations Up To Date Tetanus Booster (TDap): Unknown Seasonal Allergies Seasonal Allergies: No Past Medical History Surgeries: Yes Tubal Ligation Respiratory: Yes Asthma Currently Using CPAP: No Currently Using BIPAP: No Cardiac: Yes Hypertension Neurological: No : No Reproductive Disorders: No 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, 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 Sexually Transmitted Disease: No HIV/AIDS: No Genitourinary: No Gastrointestinal: Yes Colitis (ulcerative colitis), C-Diff Musculoskeletal: No Endocrine: No HEENT: No Loss of Vision: Denies Hearing Impairment: Denies Cancer: No Did You Recieve Any Treatments: No Psychosocial: No Anxiety Integumentary: No Blood Disorders: No Adverse Reaction/Blood Tranf: No Family Medical History Reviewed Nursing Family Hx Colitis G8 BROTHER G8 SISTER Respiratory disorder 19 MOTHER (COPD) Hypertension Physical Exam Vital Signs Vital Signs - First Documented 07/31/18 22:30 Temp 98.4 Pulse 86 Resp 15 B/P (MAP) 136/98 (111) Pulse Ox 96 O2 Delivery Room Air Capillary Refill : Less Than 3 Seconds Height/Weight/BMI Height: 5'4.00" Weight: 229lbs. 3.0oz. 103.762102ql; 38.4 BMI Method:Stated General Appearance: WD/WN, no apparent distress HEENT: PERRL/EOMI, normal ENT inspection, pharynx normal Neck: normal inspection Respiratory: lungs clear, normal breath sounds, no respiratory distress, no accessory muscle use Cardiovascular: regular rate, rhythm, no edema, no murmur Gastrointestinal: normal bowel sounds, soft, tenderness (minimal generalized discomfort) Extremities: normal inspection, no pedal edema Neurologic/Psychiatric: manager economic II-XII nml as tested, no motor/sensory deficits, alert, normal mood/affect, oriented x 3 Skin: normal color, warm/dry Progress/Results/Core Measures Results/Orders Lab Results Laboratory Tests Test 07/31/18 22:50 08/01/18 00:30 Range/Units White Blood Count 14.1 H 4.3-11.0 10^3/uL Red Blood Count 5.31 4.35-5.85 10^6/uL Hemoglobin 15.6 11.5-16.0 G/DL Hematocrit 46 35-52 % Mean Corpuscular Volume 87 80-99 FL Mean Corpuscular Hemoglobin 29 25-34 PG Mean Corpuscular Hemoglobin Concent 34 32-36 G/DL Red Cell Distribution Width 15.6 H 10.0-14.5 % Platelet Count 392 130-400 10^3/uL Mean Platelet Volume 9.9 7.4-10.4 FL Neutrophils (%) (Auto) 79 H 42-75 % Lymphocytes (%) (Auto) 14 12-44 % Monocytes (%) (Auto) 7 0-12 % Eosinophils (%) (Auto) 0 0-10 % Basophils (%) (Auto) 0 0-10 % Neutrophils # (Auto) 11.1 H 1.8-7.8 X 10^3 Lymphocytes # (Auto) 2.0 1.0-4.0 X 10^3 Monocytes # (Auto) 0.9 0.0-1.0 X 10^3 Eosinophils # (Auto) 0.0 0.0-0.3 10^3/uL Basophils # (Auto) 0.1 0.0-0.1 10^3/uL Neutrophils % (Manual) 65 % Lymphocytes % (Manual) 20 % Monocytes % (Manual) 6 % Eosinophils % (Manual) 0 % Basophils % (Manual) 0 % Band Neutrophils 3 % Reactive Lymphocytes 6 % Clumped Platelets SLIGHT Anisocytosis SLIGHT Erythrocyte Sedimentation Rate 1 0-30 MM/HR Sodium Level 134 L 135-145 MMOL/L Potassium Level 4.3 3.6-5.0 MMOL/L Chloride Level 103 98-107 MMOL/L Carbon Dioxide Level 22 21-32 MMOL/L Anion Gap 9 5-14 MMOL/L Blood Urea Nitrogen 19 H 7-18 MG/DL Creatinine 0.71 0.60-1.30 MG/DL Estimat Glomerular Filtration Rate > 60 BUN/Creatinine Ratio 27 Glucose Level 102 70-105 MG/DL Calcium Level 8.5 8.5-10.1 MG/DL Corrected Calcium 9.4 8.5-10.1 MG/DL Magnesium Level 2.3 1.8-2.4 MG/DL Total Bilirubin 0.4 0.1-1.0 MG/DL Aspartate Amino Transf (AST/SGOT) 34 5-34 U/L Alanine Aminotransferase (ALT/SGPT) 34 0-55 U/L Alkaline Phosphatase 71 40-136 U/L C-Reactive Protein High Sensitivity 5.48 H 0.00-0.50 MG/DL Total Protein 4.8 L 6.4-8.2 GM/DL Albumin 2.9 L 3.2-4.5 GM/DL Lipase 28 8-78 U/L Urine Color YELLOW Urine Clarity CLEAR Urine pH 6 5-9 Urine Specific [place] 1.025 H 1.016-1.022 Urine Protein 2+ H NEGATIVE Urine Glucose (UA) NEGATIVE NEGATIVE Urine Ketones 2+ H NEGATIVE Urine Nitrite NEGATIVE NEGATIVE Urine Bilirubin 1+ H NEGATIVE Urine Urobilinogen 1 NORMAL MG/DL Urine Leukocyte Esterase 3+ H NEGATIVE Urine RBC (Auto) 1+ H NEGATIVE Urine RBC NONE /HPF Urine WBC 5-10 H /HPF Urine Squamous Epithelial Cells 5-10 /HPF Urine Crystals NONE /LPF Urine Bacteria FEW H /HPF Urine Casts PRESENT /LPF Urine Hyaline Casts 0-2 H /LPF Urine Mucus SMALL H /LPF Urine Culture Indicated YES My Orders Orders - HEATH VALADEZ MD Cbc With Automated Diff (07/31/18 23:20) Comprehensive Metabolic Panel (07/31/18 23:20) Lipase (07/31/18 23:20) Magnesium (07/31/18 23:20) Ua Culture If Indicated (07/31/18 23:20) Saline Lock/Iv-Start (07/31/18 23:20) Ns Iv 1000 Ml (Sodium Chloride 0.9%) (07/31/18 23:20) Ondansetron Injection (Zofran Injectio (07/31/18 23:30) Hs C Reactive Protein (07/31/18 23:23) Erythrocyte Sedimentation Rate (07/31/18 23:23) Manual Differential (07/31/18 22:50) Urine Culture (08/01/18 00:30) Promethazine Injection (Phenergan Injec (08/01/18 01:30) Medications Given in ED Current Medications Medications Dose Ordered Sig/Leny Route Start Time Stop Time Status Last Admin Dose Admin Ondansetron HCl 8 mg ONCE ONCE IVP 07/31/18 23:30 07/31/18 23:31 DC 07/31/18 23:30 8 MG Promethazine HCl 25 mg ONCE ONCE IVP 08/01/18 01:30 08/01/18 01:31 DC 08/01/18 01:39 25 MG Sodium Chloride 1,000 ml @ 0 mls/hr Q0M ONCE IV 07/31/18 23:20 07/31/18 23:22 DC 07/31/18 23:30 1,000 MLS/HR Vital Signs/I&O 07/31/18 08/01/18 22:30 01:54 Temp 98.4 98.2 Pulse 86 81 Resp 15 18 B/P (MAP) 136/98 (111) 126/78 Pulse Ox 96 98 O2 Delivery Room Air Room Air Blood Pressure Mean: 111 Progress Progress Note : Progress Note Patient's lab work was reviewed. It is relatively unchanged from yesterday. UA showed some subtle suggestion of urinary tract infection. Because of presence of C. difficile, patient is known to be treated with antibiotics until culture results are known. Nausea was not well controlled with Zofran and patient had a small amount of emesis. Phenergan was given which seemed to control her nausea. Patient was prepped for discharge, but she then began to vomit as she was getting into the wheelchair to depart. It was then felt necessary to admit her as she had been treated with Zofran, Phenergan, and had a scopolamine patch on at the time. IV was reestablished and she was admitted. Departure Communication (Admissions) Time/Spoke to Admitting Phy: 03:16 Dr. Lopez Impression Primary Impression: Nausea and vomiting Qualified Codes: R11.2 - Nausea with vomiting, unspecified Additional Impressions: C. difficile colitis Ulcerative colitis, acute Qualified Codes: K51.919 - Ulcerative colitis, unspecified with unspecified complications Disposition: 01 HOME, SELF-CARE Condition: Improved Admissions Decision to Admit Reason: Admit from ER (General) Decision to Admit/Date: Aug 01, 2018 Time/Decision to Admit Time: 03:10 Departure-Patient Inst. Decision time for Depature: 02:40 Referrals: TADEO LOPEZ DO (PCP/Family) Primary Care Physician Patient Instructions: Clostridium difficile Add. Discharge Instructions: Drink plenty of clear liquids. Gradually advance diet with small quantities of bland food as tolerated. Use Zofran (ondansetron) as prescribed for nausea and vomiting. If your nausea is not well-controlled after 10-15 minutes, add Phenergan (promethazine) as prescribed. Then you may try drinking again 15-30 minutes after taking the Phenergan. Call Dr. Lopez or return to the ER if symptoms are not controlled. Review urine culture results with Dr. Lopez at your follow-up appointment on Sunday. All discharge instructions reviewed with patient and/or family. Voiced understanding. Scripts Promethazine HCl (Promethazine HCl) 12.5 Mg Tablet 12.5 MG PO Q6H PRN for NAUSEA/VOMITING-2ND LINE, #20 TAB Prov: HEATH VALADEZ MD 08/01/18 Copy Copies To 1: TADEO LOPEZ DO Copies To 2: SINDHU TENA JOSHUA T MD Aug 01, 2018 02:44
[2018-08-01] MEDS ORDERED: PROM12.59 PO (02:45)
[2018-08-01 05:00] VITALS: BP 144/84
[2018-08-01] MEDS: D5 1/2 NS W/KCL 20 MEQ/L 1,000 ML IV SCH ×3 (05:47→14:55)
[2018-08-01] MEDS: SCOPOLAMINE 1.5 MG (TRANSDERM-SCOP) PATCH TOP SCH (05:47)
[2018-08-01] MEDS ORDERED: FLU QUADRIvalent (5+ YOA) 2018-2019 (AFLURIA) 0.5 ML IM ONE (06:45)
[2018-08-01 08:00] VITALS: BP 131/82
[2018-08-01] MEDS: VANCOMYCIN ORAL 250 MG/5 ML 120 ML PO SCH ×6 (10:06→21:29)
[2018-08-01] MEDS: FAMOTIDINE 20MG/2ML IV (PEPCID) IV SCH ×2 (10:07→21:29)
--- NOTE | 2018-08-01 10:46 | History & Physical-Hospitalist ---
History of Present Illness HPI/Chief Complaint CC: Nausea and vomiting refractory HPI: This is a 63yo[facility] clinic patient of mine since early this year after dx of UC who presents to the ER last night 6 hours after she was DC for N/V and C diff colitis. Currently patient can no longer be upright due to N/V and had a large amount of diarrhea this morning. Pt is appears more and more declined and the fact that we can't fully treat the C diff without PO access we can't treat the UC with any type of aggressive immunosuppressive meds or surgery. Dr Salazar will come and see the patient but something needs to be decided regarding the next step because she appears to be worse since last seen yesterday morning. Thrush noted so initiated Diflucan IV since can't tolerate PO. Labs reviewed. Source: patient, family, RN/MD Exam Limitations: no limitations Date Seen 08/01/18 Time Seen by a Provider: 11:30 Attending Physician Elsie Verduzco DO PCP Elsie Verduzco DO Referring Physician Date of Admission Aug 01, 2018 at 03:22 Home Medications & Allergies Home Medications Reviewed patient Home Medication Reconciliation performed by pharmacy medication reconciliations light technician and/or nursing. Patients Allergies have been reviewed. 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 Alcohol Use: Denies Use Recreational Drug Use: No Smoking Status: Former Smoker Former Smoker, Quit: Oct 29, 1967 2nd Hand Smoke Exposure: No Physical Abuse Screen: No Sexual Abuse: No Recent Foreign Travel: No Contact w/other who traveled: No Recent Hopitalizations: Yes (06/19) Recent Infectious Disease Expo: No Immunizations Up To Date Tetanus Booster (TDap): Unknown Seasonal Allergies Seasonal Allergies: No Past Medical History Surgeries: Tubal Ligation Respiratory: Asthma Currently Using CPAP: No Currently Using BIPAP: No Cardiac: Hypertension : No Reproductive: No Sexually Transmitted Disease: No HIV/AIDS: No Female Reproductive Disorders: Denies Tubal Ligation, Menopausal Gastrointestinal: Colitis (ulcerative colitis), C-Diff Loss of Vision: Denies Hearing Impairment: Denies Did You Recieve Any Treatments: No Psychosocial: Anxiety History of Blood Disorders: No Adverse Reaction to Blood [place]: No Family History Reviewed Nursing Family Hx Colitis G8 BROTHER G8 SISTER Respiratory disorder 19 MOTHER (COPD) Hypertension Review of Systems Constitutional: see HPI, dizziness, malaise, weakness EENTM: no symptoms reported Respiratory: no symptoms reported Cardiovascular: no symptoms reported Gastrointestinal: abdominal pain (LLQ), diarrhea, loss of appetite, nausea, vomiting Genitourinary: no symptoms reported Musculoskeletal: no symptoms reported Skin: no symptoms reported Psychiatric/Neurological: No Symptoms Reported All Other Systems Reviewed Negative Unless Noted: Yes Physical Exam Physical Exam Vital Signs Vital Signs - First Documented 07/31/18 22:30 Temp 98.4 Pulse 86 Resp 15 B/P (MAP) 136/98 (111) Pulse Ox 96 O2 Delivery Room Air Capillary Refill : Less Than 3 SecondsLess Than 3 Seconds Height, Weight, BMI Height: 5'4.00" Weight: 233lbs. 3.0oz. 105.633415ey; 40.0 BMI Method:Stated General Appearance: Anxious, Chronically ill, Obese, Other (acutely ill, fatigued) Neck: Full Range of Motion, Normal Inspection, Non Tender, Supple, Carotid Bruit Respiratory: Chest Non Tender, Lungs Clear, Normal Breath Sounds, No Accessory Muscle Use, No Respiratory Distress Cardiovascular: Regular Rate, Rhythm, No Edema, No Gallop, No JVD, No Murmur, Normal Peripheral Pulses Gastrointestinal: Abnormal Bowel Sounds, Tenderness (generalized) Extremity: Normal Capillary Refill, Normal Inspection, Normal Range of Motion, Non Tender, No Calf Tenderness, No Pedal Edema Neurologic/Psychiatric: Alert, Oriented x3, No Motor/Sensory Deficits, Normal Mood/Affect Skin: Normal Color, Warm/Dry Lymphatic: No Adenopathy Results Results/Procedures Labs Laboratory Tests 07/31/18 22:50 Patient resulted labs reviewed. Assessment/Plan Admission Diagnosis Assessment: Refractory N/V C diff colitis refractory Thrush Severe UC Episode of AF last admit last week IVF Dr Salazar to direct treatment Mooklucveronika Admission Status: Inpatient Order (span 2 midnights) Reason for Inpatient Admission: Pt with severe UC and refractory C diff will require IV fluids for supportive care Diagnosis/Problems Diagnosis/Problems (1) Intractable nausea and vomiting Status: Acute Qualifiers: Vomiting type: unspecified Qualified Codes: R11.2 - Nausea with vomiting, unspecified (2) C. difficile colitis Status: Acute (3) Ulcerative colitis, acute Status: Chronic Qualifiers: Digestive disease complication type: unspecified complication Qualified Codes: K51.919 - Ulcerative colitis, unspecified with unspecified complications (4) Dehydration Status: Acute (5) Protein malnutrition Status: Chronic (6) Normocytic anemia Status: Chronic Clinical Quality Measures DVT/VTE Risk/Contraindication: Risk Factor Score Per Nursin RFS Level Per Nursing on Admit: 4+=Very High ELSIE VERDUZCO DO Aug 01, 2018 10:46
[2018-08-01 12:00] VITALS: BP 132/80
[2018-08-01] MEDS ORDERED: FLUCONAZOLE 200 MG/100 ML 100 ML IV NR (12:30)
[2018-08-01] MEDS ORDERED: MIDAZOLAM 2 MG/2 ML (VERSED) VIAL ONE (14:07)
[2018-08-01] MEDS ORDERED: fentaNYL INJECTION 100 MCG/2 ML AMP ONE ×3 (14:07→18:10)
[2018-08-01] MEDS ORDERED: LIDOCAINE PF 2% 2 ML (XYLOCAINE) VIAL ONE (14:09)
[2018-08-01] MEDS ORDERED: DEXAMETHASONE 10 MG/ML (DECADRON) 1 ML VIAL ONE (14:09)
[2018-08-01] MEDS ORDERED: proPOfol 200 MG/20 ML (DIPRIVAN) VIAL IV ONE (14:09)
[2018-08-01] MEDS ORDERED: ROCURONIUM 10 MG/ML 5 ML SYRINGE IV ONE ×2 (14:09→17:01)
[2018-08-01] MEDS ORDERED: ONDANSETRON 4 MG/2 ML (SDV) Z0FRAN ONE (14:09)
--- NOTE | 2018-08-01 15:59 | Consultation ---
History of Present Illness History of Present Illness Patient Consulted On(mario/time) 08/01/18 15:53 Time Seen by Provider: 11:10 History of Present Illness Surgery asked to consult regarding abdominal pain, Ulcerative Colitis and C. Diff. HPI per IM: This is a 63yoWF clinic patient of mine since early this year after dx of UC who presents to the ER last night 6 hours after she was DC for N/ V and C diff colitis. Currently patient can no longer be upright due to N/V and had a large amount of diarrhea this morning. Pt is appears more and more declined and the fact that we can't fully treat the C diff without PO access we can't treat the UC with any type of aggressive immunosuppressive meds or surgery. Dr Salazar will come and see the patient but something needs to be decided regarding the next step because she appears to be worse since last seen yesterday morning. Andrew noted so initiated Diflucan IV since can't tolerate PO. Pt was released from hospital and home for a day, when she had to come back. Pt cannot eat and is losing weight, she is fatigued and complains of abdominal pain. Rates the pain as 6 out of 10, and thinks is it getting slightly worse; "definitely not better". Allergies and Home Medications Allergies Coded Allergies: sulfamethoxazole (Verified Allergy, Unknown, 06/21/18) Flushing trimethoprim (Verified Allergy, Unknown, 06/21/18) [place]ushing Home Medications Acetaminophen 500 Mg Tablet, 1,000 MG PO Q6H PRN for PAIN-MILD, (Reported) Ascorbate Calcium 500 Mg Tablet, 2 TAB PO DAILY, (Reported) Dicyclomine HCl 20 Mg Tablet, 20 MG PO ACHS PRN for ABDOMINAL PAIN Prescribed by: TADEO LOPEZ on 06/19/18 1040 Docusate Sodium 100 Mg Capsule, 100 MG PO DAILY PRN for CONSTIPATION-1ST LINE, ( Reported) Ferrous Sulfate 325 Mg Tablet, 325 MG PO TuTh, (Reported) Folic Acid 1 Mg Tablet, 1 MG PO DAILY, (Reported) Hydrocodone Bit/Acetaminophen 1 Tab Tab, 1 TAB PO Q4H PRN for PAIN-MODERATE Prescribed by: TADEO LOPEZ on 07/30/18 0951 L. Acidophilus/Bulgaricus 1 Each Tablet, 1 TAB PO BID, (Reported) Mesalamine 800 Mg Tablet.dr, 800 MG PO TID, (Reported) Metoprolol Succinate 25 Mg Tab.er.24h, 25 MG PO DAILY Prescribed by: TADEO LOPEZ on 07/30/18 09 Multivitamin with Minerals 1 Each Tablet, 1 TAB PO DAILY, (Reported) Prednisone 10 Mg Tab.ds.pk, 32.5 MG PO DAILY, (Reported) START 32.5MG DAILY DOSE 07-26-18 AND TAPER DOWN 2.5MG EVERY TWO WEEKS Promethazine HCl 12.5 Mg Tablet, 12.5 MG PO Q6H PRN for NAUSEA/VOMITING-2ND LINE Prescribed by: HEATH OKEEFE on 08/01/18 0245 Vancomycin HCl 125 Mg/2.5 Ml Syringe, 125 MG PO QID Prescribed by: TADEO LOPEZ on 07/30/18950 Patient Home Medication List Home Medication List Reviewed: Yes Past Vpwkmhp-Cbsbsu-Gcesgr Hx Patient Social History Alcohol Use: Denies Use Recreational Drug Use: No Smoking Status: Former Smoker Former Smoker, Quit: Oct 29, 1967 2nd Hand Smoke Exposure: No Recent Foreign Travel: No Contact w/Someone Who Travel: No Recent Infectious Disease Expo: No Recent Hopitalizations: Yes (06/19) Physical Abuse Screen: No Sexual Abuse: No Immunizations Up To Date Tetanus Booster (TDap): Unknown Seasonal Allergies Seasonal Allergies: No Surgeries History of Surgeries: Yes Surgeries: Tubal Ligation Respiratory History of Respiratory Disorde: Yes Respiratory Disorders: Asthma Cardiovascular History of Cardiac Disorders: Yes Cardiac Disorders: Hypertension Neurological History of Neurological Disord: No Reproductive System : No Hx Reproductive Disorders: No Sexually Transmitted Disease: No HIV/AIDS: No Female Reproductive Disorders: Denies COMMUNITY DIRECTOR History: Tubal Ligation, Menopausal Genitourinary History of Genitourinary Disor: No Gastrointestinal History of Gastrointestinal Di: Yes Gastrointestinal Disorders: Colitis (ulcerative colitis), C-Diff Musculoskeletal History of Musculoskeletal Dis: No Endocrine History of Endocrine Disorders: No HEENT History of HEENT Disorders: No Loss of Vision: Denies Hearing Impairment: Denies Cancer History of Cancer: No Psychosocial History of Psychiatric Problem: No Behavioral Health Disorders: Anxiety Integumentary History of Skin or Integumenta: No Blood Transfusions History of Blood Disorders: No Adverse Reaction to a Blood Tr: No Family Medical History Significant Family History: Hypertension, Lung Disease Family Medial History: Colitis G8 BROTHER G8 SISTER Respiratory disorder 19 MOTHER (COPD) Review of Systems-General Constitutional: chills, diaphoresis, malaise, weakness EENTM: No double vision, No eye pain, No mouth swelling, No epistaxis Respiratory: No cough; dyspnea on exertion; No hemoptysis, No wheezing Cardiovascular: No chest pain, No edema; palpitations Gastrointestinal: abdominal pain, diarrhea; No hematemesis Genitourinary: No dysuria, No frequency, No hematuria Musculoskeletal: joint pain, joint swelling, muscle stiffness Skin: No change in color, No change in hair/nails Psychiatric/Neurological: Depressed, Headache; Denies Seizure Other pt denies any abnormal bruising or bleeding, no heat or cold intolerance Physical Exam-General Problems Physical Exam Vital Signs Vital Signs - First Documented 07/31/18 22:30 Temp 98.4 Pulse 86 Resp 15 B/P (MAP) 136/98 (111) Pulse Ox 96 O2 Delivery Room Air Capillary Refill : Less Than 3 SecondsLess Than 3 Seconds General Appearance: moderate distress, other (looks ill) Eyes: Bilateral Eye PERRL, Bilateral Eye EOMI HEENT: pharynx normal; No scleral icterus (R), No scleral icterus (L) Neck: non-tender, supple Respiratory: chest non-tender, lungs clear, normal breath sounds, no respiratory distress, no accessory muscle use Cardiovascular: regular rate, rhythm, no murmur Gastrointestinal: soft; No distended; guarding (voluntary), tenderness ( diffusely) Rectal: deferred Back: no CVA tenderness, no vertebral tenderness Extremities: normal range of motion, no pedal edema, no calf tenderness Neurologic/Psychiatric: overweaver II-XII nml as tested, no motor/sensory deficits, alert, oriented x 3, depressed affect Skin: cool, diaphoresis, pallor Lymphatic: no adenopathy (neck, axilla or groin) Data Review Labs Laboratory Tests 07/31/18 22:50: White Blood Count 14.1H, Red Blood Count 5.31, Hemoglobin 15.6, Hematocrit 46, Mean Corpuscular Volume 87, Mean Corpuscular Hemoglobin 29, Mean Corpuscular Hemoglobin Concent 34, Red Cell Distribution Width 15.6H, Platelet Count 392, Mean Platelet Volume 9.9, Neutrophils (%) (Auto) 79H, Lymphocytes (%) (Auto) 14 , Monocytes (%) (Auto) 7, Eosinophils (%) (Auto) 0, Basophils (%) (Auto) 0, Neutrophils # (Auto) 11.1H, Lymphocytes # (Auto) 2.0, Monocytes # (Auto) 0.9, Eosinophils # (Auto) 0.0, Basophils # (Auto) 0.1, Neutrophils % (Manual) 65, Lymphocytes % (Manual) 20, Monocytes % (Manual) 6, Eosinophils % (Manual) 0, Basophils % (Manual) 0, Band Neutrophils 3, Reactive Lymphocytes 6, Clumped Platelets SLIGHT, Anisocytosis SLIGHT, Erythrocyte Sedimentation Rate 1, Sodium Level 134L, Potassium Level 4.3, Chloride Level 103, Carbon Dioxide Level 22, Anion Gap 9, Blood Urea Nitrogen 19H, Creatinine 0.71, Estimat Glomerular Filtration Rate > 60, BUN/Creatinine Ratio 27, Glucose Level 102, Calcium Level 8.5, Corrected Calcium 9.4, Magnesium Level 2.3, Total Bilirubin 0.4, Aspartate Amino Transf (AST/SGOT) 34, Alanine Aminotransferase (ALT/SGPT) 34, Alkaline Phosphatase 71, C-Reactive Protein High Sensitivity 5.48H, Total Protein 4.8L, Albumin 2.9L, Lipase 28 08/01/18 00:30: Urine Color YELLOW, Urine Clarity CLEAR, Urine pH 6, Urine Specific [place] 1.025H, Urine Protein 2+H, Urine Glucose (UA) NEGATIVE, Urine Ketones 2+H, Urine Nitrite NEGATIVE, Urine Bilirubin 1+H, Urine Urobilinogen 1, Urine Leukocyte Esterase 3+H, Urine RBC (Auto) 1+H, Urine RBC NONE, Urine WBC 5-10H, Urine Squamous Epithelial Cells 5-10, Urine Crystals NONE, Urine Bacteria FEWH, Urine Casts PRESENT, Urine Hyaline Casts 0-2H, Urine Mucus SMALLH, Urine Culture Indicated YES Microbiology 08/01/18 Urine Culture - Preliminary, Resulted Sent To [facility] Assessment/Plan Assessment/Plan Assessment/Plan Ulcerative Colitis - resistant to medical treatmen C. Diff Malnutrition Abd pain with Nausea I met with pt and her family 3 times to discuss options and treatment. The pt states she is ready for surgey; tired of the pain and wants to start getting better. She has already tried medical therapy and it keeps failing. I went over surgical options Total colectomy with APR or Subtotal colectomy; both with ileostomy creation. Pt did not want a J-pouch, but I explained to her that it might be better to at least have that option for now. At a later date we can always remove the entire rectum and anus if that is what she really wants. The family discussed this and have chosen to go with this option. All questions answered to their satisfaction and went over risks and complications; not limited to pain, bleeding, infection , scar and need for further procedure. Clinical Quality Measures DVT/VTE Risk/Contraindication: Risk Factor Score Per Nursin RFS Level Per Nursing on Admit: 4+=Very High SINDHU SALAZAR DO Aug 01, 2018 15:59
[2018-08-01] MEDS: LACTATED RINGERS 1,000 ML IV PRN ×5 (16:03→18:55)
[2018-08-01] MEDS ORDERED: LIDOCAINE/EPI 1%-1:200,000 (XYLOCAINE) 10 ML VIAL ONE (16:34)
[2018-08-01] MEDS ORDERED: PHENYLEPHRINE 100 MCG/ML 10 ML (ANESTHESIA) SYR ONE (17:00)
[2018-08-01] MEDS ORDERED: LABETALOL HCL 20 MG/4 ML VIAL ONE (17:00)
[2018-08-01] MEDS ORDERED: morphine INJ 10 MG/ML 1ML (SYR OR VIAL) IVP ONE (17:15)
[2018-08-01] MEDS ORDERED: ONDANSETRON 4 MG/2 ML (SDV) Z0FRAN IVP PRN (17:15)
[2018-08-01] MEDS ORDERED: SUGAMMADEX 500 MG/5 ML VIAL (BRIDION) IV ONE (19:08)
[2018-08-01] MEDS ORDERED: SEVOFLURANE (ULTANE) 15 ML INHAL SOLN ONE (19:08)
--- NOTE | 2018-08-01 20:00 | Progress Note-Post Operative ---
Post-Operative Progess Note Surgeon (s)/Heating Equipment Repairer (s) Surgeon SINDHU TENA DO Heating Equipment Repairer: Katty Pre-Operative Diagnosis Ulcerative Colitis, C. Diff, Malnutrition, Abd pain with nausea Post-Operative Diagnosis Same plus Meckel's Diverticula Procedure & Operative Findings Date of Procedure 08/01/18 Procedure Performed/Findings 1. Subtotal Colectomy with ileostomy creation 2. Meckel's Diverticulectomy Anesthesia Type GET Estimated Blood Loss Estimated blood loss (mL): 500ml Specimens/Packing Specimens Removed Entire Large intestine except rectal stump with small portion of TI Meckel's diverticulum SINDHU TENA DO Aug 01, 2018 20:00
[2018-08-01 21:15] VITALS: BP 124/81
[2018-08-01] MEDS: LACTATED RINGERS 1,000 ML IV SCH ×2 (21:44→22:46)
[2018-08-01] MEDS: fentaNYL INJECTION 100 MCG/2 ML AMP IV PRN (23:39)
[2018-08-02] VITALS: BP 132/75
[2018-08-02] MEDS: fentaNYL INJECTION 100 MCG/2 ML AMP IV PRN ×8 (03:18→20:37)
[2018-08-02 04:00] VITALS: BP 119/66
[2018-08-02] MEDS: LACTATED RINGERS 1,000 ML IV SCH ×2 (06:14→13:35)
[2018-08-02 08:00] VITALS: BP 120/76
[2018-08-02] MEDS: FLUCONAZOLE 200 MG/100 ML 100 ML IV SCH (08:45)
[2018-08-02] MEDS: FAMOTIDINE 20MG/2ML IV (PEPCID) IV SCH ×2 (08:45→21:30)
[2018-08-02 10:44] LABS: BASOPHILS % (AUTO) 0 % (0-10); EOSINOPHILS % (AUTO) 0 % (0-10); HEMATOCRIT 34 % (35-52); HEMOGLOBIN 11.1 G/DL (11.5-16.0); LYMPHOCYTES % (AUTO) 8 % (12-44); MEAN CORPUSCULAR HEMOGLOBIN 29 PG (25-34); MEAN CORPUSCULAR HGB CONC 32 G/DL (32-36); MEAN CORPUSCULAR VOLUME 90 FL (80-99); MEAN PLATELET VOLUME 9.7 FL (7.4-10.4); MONOCYTES # (AUTO) 0.5 X 10^3 (0.0-1.0); MONOCYTES % (AUTO) 4 % (0-12); NEUTROPHILS # (AUTO) 10.8 X 10^3 (1.8-7.8); NEUTROPHILS % (AUTO) 88 % (42-75); PLATELET COUNT 252 10^3/uL (130-400); RED BLOOD COUNT 3.81 10^6/uL (4.35-5.85); RED CELL DISTRIBUTION WIDTH 15.4 % (10.0-14.5); WHITE BLOOD COUNT 12.2 10^3/uL (4.3-11.0)
--- NOTE | 2018-08-02 10:44 | Progress Note-Hospitalist ---
TADEO LOPEZ 08/02/18 1043: Subjective HPI/CC On Admission Date Seen by Provider: Aug 02, 2018 Time Seen by Provider: 10:00 CC: Nausea and vomiting refractory HPI: This is a 63yoWF clinic patient of mine since early this year after dx of UC who presents to the ER last night 6 hours after she was DC for N/V and C diff colitis. Currently patient can no longer be upright due to N/V and had a large amount of diarrhea this morning. Pt is appears more and more declined and the fact that we can't fully treat the C diff without PO access we can't treat the UC with any type of aggressive immunosuppressive meds or surgery. Dr Salazar will come and see the patient but something needs to be decided regarding the next step because she appears to be worse since last seen yesterday morning. Thrush noted so initiated Diflucan IV since can't tolerate PO. Labs reviewed. Subjective/Events-last exam Patient is doing very well since surgery Pain is controlled IVF maintained No nausea Objective Exam Vital Signs Vital Signs Date Time Temp Pulse Resp B/P (MAP) Pulse Ox O2 Delivery O2 Flow Rate FiO2 08/02/18 08:00 97.7 76 18 120/76 (91) 97 Nasal Cannula 1.50 Capillary Refill : Less Than 3 SecondsLess Than 3 Seconds General Appearance: No Apparent Distress, WD/WN, Chronically ill Respiratory: Chest Non Tender, Lungs Clear, Normal Breath Sounds, No Accessory Muscle Use, No Respiratory Distress Cardiovascular: Regular Rate, Rhythm, No Edema, No Gallop, No JVD, No Murmur, Normal Peripheral Pulses Neurologic/Psychiatric: Alert, Oriented x3, No Motor/Sensory Deficits, Normal Mood/Affect Results/Procedures Lab Laboratory Tests 08/02/18 10:30 Patient resulted labs reviewed. Assessment/Plan Assessment and Plan Assess & Plan/Chief Complaint s/p subtotal colectomy Severe debility Diagnosis/Problems Diagnosis/Problems (1) Status post colectomy Status: Acute (2) Intractable nausea and vomiting Status: Acute Qualifiers: Vomiting type: unspecified Qualified Codes: R11.2 - Nausea with vomiting, unspecified (3) C. difficile colitis Status: Acute (4) Ulcerative colitis, acute Status: Chronic Qualifiers: Digestive disease complication type: unspecified complication Qualified Codes: K51.919 - Ulcerative colitis, unspecified with unspecified complications (5) Dehydration Status: Acute (6) Protein malnutrition Status: Chronic (7) Normocytic anemia Status: Chronic Clinical Quality Measures DVT/VTE Risk/Contraindication: Risk Factor Score Per Nursin RFS Level Per Nursing on Admit: 4+=Very High MANSOOR GHOTRA MEDICAL STUDENT 08/02/18 1224: Subjective HPI/CC On Admission Time Seen by Provider: 08:00 Subjective/Events-last exam Feeling well since surgery. Has pain at surgical site, reports no other. Slept through the night comfortably. No nausea reported since surgery. Objective Exam General Appearance: No Apparent Distress, WD/WN Respiratory: Chest Non Tender, Lungs Clear, Normal Breath Sounds, No Accessory Muscle Use, No Respiratory Distress Cardiovascular: Regular Rate, Rhythm, No Edema, No Gallop, No JVD, No Murmur, Normal Peripheral Pulses Assessment/Plan Assessment and Plan Assess & Plan/Chief Complaint 1. Ulcerative colitis S/p hemicolectomy. 2. C. diff colitis. Will continue oral vanco (?) 3. Refractory Nausea/Vomiting Improved since colectomy. Continue to monitor. Medical therapy if indicated. TADEO LOPEZ DO Aug 02, 2018 10:43 MANSOOR GHOTRA MEDICAL STUDENT Aug 02, 2018 12:24
--- NOTE | 2018-08-02 10:51 | OPERATIVE REPORT ---
DATE OF SERVICE: 08/01/2018 PREOPERATIVE DIAGNOSES: 1. Clostridium difficile. 2. Ulcerative colitis. 3. Malnutrition. POSTOPERATIVE DIAGNOSES: 1. Clostridium difficile. 2. Ulcerative colitis. 3. Malnutrition. 4. Meckel diverticulum and another diverticulum seen on the 4th portion of the duodenum. PROCEDURES: 1. Subtotal colectomy with ileostomy began laparoscopically and had to convert to open. 2. Meckel's diverticulectomy. 3. Takedown of splenic flexure. SURGEON: Jayden Salazar DO PANTOMIMIST: Doe Alaniz DO ANESTHESIA: General endotracheal tube. BLOOD LOSS: Approximately 500 mL. FLUIDS: Per anesthesia. POSTOPERATIVE CONDITION: Stable. INDICATION FOR PROCEDURE: The patient is a 63-year-old female who has ulcerative colitis and on top of that she has C. difficile. She is malnourished because she cannot eat. She continued to have abdominal pain and her ulcerative colitis is not getting better with outpatient medical therapy. FINDINGS: The patient had a very thickened colon, found a Meckel's diverticulum. Also found a small diverticulum on the fourth portion of the duodenum. There was also an area like of almost twisting and inflammation and hardening in the sigmoid colon. PROCEDURE NOTE: After informed consent was obtained, the patient was brought to the operating room, placed on the operating table in lithotomy position. She was sterilely prepped and draped in normal fashion. Local lidocaine was used to infiltrate the skin starting just above the umbilicus to below the umbilicus. Approximately 5 cm incision made with a #15 blade, carried down through skin and subcutaneous tissue, then deepened down to subcutaneous tissue with Bovie electrocautery down to fascia. Fascia incised with Bovie electrocautery. Bluntly entered the abdomen, swept the finger around, increased the incision protecting the bowel with fingers under the fascia. Once this was done, I then made a small incision in left lower quadrant after first infiltrating with local, made an incision with #11 blade, carried down through skin and subcutaneous tissue, then advanced a VersaStep system under palpation, placed a malleable into the abdomen to protect the intestine, advanced this VersaStep needle and then removed this and placed a 12 mm VersaStep port. At this point, I then placed the wound protector and the hand-assisted piece into the abdomen, created pneumoperitoneum, placed another port in the left lower quadrant. Again using local lidocaine, 11 blade for stab incision and the VersaStep system under direct visualization. Looked around, it was very hard to see the bowel, it was very distended and thickened. Started coming up the right pericolic gutter with blunt dissection as well as with the LigaSure, clamping, coagulating and transecting and then with some blunt dissection sweeping this portion of the colon inward, then went to the left side, again using LigaSure to come through the right pericolic gutter up towards the liver and gallbladder and carefully the mesentery and omentum away from the gallbladder and rotating this tissue in as well. At this point came under the terminal ileum with a LigaSure, clamping, coagulating and transecting in this fashion getting under their. Tried coming up the mesentery of the colon, but just not enough space to get to the colon. It was so thick and distended, tried to bring this up through the hand port and the wound protector, but again this was just not big enough incision, so elected to make the incision bigger going up towards the xiphoid with Bovie electrocautery through the skin down into the subcutaneous tissue and through the fascia. Placed a Bookwalter retractor and then held this up, then started coming across the small intestine did a LYNDSAY across the terminal ileum, clamped and then held for 30 seconds and transected and then came across the mesentery under the terminal ileum with LigaSure, clamping, coagulating and transecting, freeing up the appendix and then come across this mesentery of the cecum and ascending colon in a stepwise fashion clamping, coagulating and transecting going up to the hepatic flexure, coming around the hepatic flexure, then coming through the omentum from the stomach and then continued to come across the mesentery coming under the transverse colon to remove this. Continuing towards the hepatic flexure. I had carefully taken the splenic flexure previously using laparoscopically and with some blunt dissection, pulling everything to the middle, continued to come across this and across the mesentery. At the base of the mesentery, saw the duodenum at the ligament of Treitz and noted a diverticula on the small bowel and then continued to come across the splenic flexure and then coming down the descending colon again still coming across the base of the mesentery clamping, coagulating and transecting in a stepwise fashion going down to the descending colon then down to the sigmoid and into the rectum. Went all the way down to the peritoneal reflection and with below the peritoneal reflection. This is a low anterior resection using the LigaSure to go through this peritoneal reflection and then using the LigaSure to get the mesentery under here. Once all this was freed up, then placed a contour stapler across the colon, clamped and held for 30 seconds then fired and held for 20 seconds and then released. Unfortunately it looked like the contour stapler had failed. The left side of the colon actually had ann marie all the way across, but that was opened, so this was closed with 3-0 Vicryl pop-offs, 3 [id number] sutures used to close this. Removed the entire intestine. At this point, I then copiously irrigated with warm normal saline, suctioned this out. There was a little bit of bleeding down into the pelvis. This was taken care of. There was a lot of backbleeding from the colon, but packed the right pericolic gutter, liver, packed the spleen and packed the left pericolic gutter with lap sponges to hold pressure and then at this point then started running the small intestine. About 20 cm from the terminal ileum came across a Meckel's diverticulum. Elected to resect this, resected this with a LYNDSAY stapler, ran the rest of the small bowel, did not find anything besides the small, what looked like another diverticula but the fourth portion of the duodenum. At this point, then removed all packing sponges. There was no bleeding and elected to make a new hole because the right port hole was a little bit too low. Made an incision in the skin with a #10 blade, carried down to skin and subcutaneous tissue then deep down the subcutaneous tissue with Bovie electrocautery moving the fat out of the way with Santana's and [employer]'s down to the fascia, made a small cruciate incision into the fascia, brought two fingers through and then able to grasp the terminal ileum with a Reshma and pulled this through, this would create our Veronica ileostomy. At this point, then again looked in the abdomen, no bleeding. Everything looked good and then elected to close the incision, closing the fascia with #1 double stranded PDS suture, one from the superior portion, one from the inferior portion running together and meeting in the middle and then tying. Irrigated this midline incision then closed the skin with ann marie. Closed the two 12 mm port incisions with ann marie and then placed a 10/10 drape to protect the midline incision and then created a Veronica ileostomy, cut off at the distal portion of the terminal ileum and then at the 3, 6, 9, and 12 o'clock position, used 3-0 Vicryl popoff to get the skin bottom portion of the ileum and then the opening to [place] this terminal ileum down to create the ileostomy and then in between each of these placed 2 more sutures in between the 3, 6, 9, and 12 o'clock position for a total of 8 more sutures. Ileostomy looked nice, ileostomy placed, dressings placed on the rest of the incisions. The patient tolerated the procedure and she was transferred to recovery room in stable condition. Sponge, instrument and needle count correct at the end of the case. Dr. Alaniz assisted in this case helping to make incisions, close incisions, helping to identify anatomy, hold the anatomy out of the way. Job ID: [id number] DocumentID: [id number] Dictated Date: 08/01/2018 22:44:29 Theater Usher Date: 08/02/2018 00:21:04 Dictated By: DO ISAIAH CELIS
[2018-08-02 11:06] LABS: ALANINE AMINOTRANSFERASE 25 U/L (0-55); ALBUMIN 2.1 GM/DL (3.2-4.5); ALKALINE PHOSPHATASE 42 U/L (40-136); BILIRUBIN,TOTAL 0.4 MG/DL (0.1-1.0); BUN/CREATININE RATIO 11; CARBON DIOXIDE 30 MMOL/L (21-32); CHLORIDE 99 MMOL/L (98-107); CREATININE SERUM 0.64 MG/DL (0.60-1.30); GFR ESTIMATED > 60; GLUCOSE 114 MG/DL (70-105); POTASSIUM 4.6 MMOL/L (3.6-5.0); SODIUM 135 MMOL/L (135-145); TOTAL PROTEIN 3.7 GM/DL (6.4-8.2)
--- NOTE | 2018-08-02 11:34 | Anesthesia-General Post-Op ---
General Patient Condition Mental Status/LOC: Same as Preop Cardiovascular: Satisfactory Nausea/Vomiting: Absent Respiratory: Satisfactory Pain: Controlled Complications: Absent Post Op Complications Complications None Follow Up Care/Instructions Patient Instructions None needed. Anesthesia/Patient Condition Patient Condition Patient is doing well, no complaints, stable vital signs, no apparent adverse anesthesia problems. No complications reported per nursing. CHRIS ARMENTA CRNA Aug 02, 2018 11:34
--- NOTE | 2018-08-02 11:48 | Progress Note ---
Subjective Time Seen by a Provider: 09:40 Subjective/Events-last exam Pt seen and examined, actually smiling today and looks better. Main complaint is of pain at incision site, abdominal pain from before is gone and not having any nausea right now. Review of Systems General: No Chills, No Night Sweats Cardiovascular: No: Chest Pain, Palpitations Gastrointestinal: Abdominal Pain; No: Nausea, Vomiting Objective Exam Vital Signs Date Time Temp Pulse Resp B/P (MAP) Pulse Ox O2 Delivery O2 Flow Rate FiO2 08/02/18 08:00 97.7 76 18 120/76 (91) 97 Nasal Cannula 1.50 08/02/18 07:44 Nasal Cannula 1.50 08/02/18 04:00 97.9 79 18 119/66 (83) 96 OxyMask 2.00 08/02/18 00:00 97.9 82 18 132/75 (94) 96 OxyMask 2.00 08/01/18 21:15 97.7 87 20 124/81 (95) 96 OxyMask 2.00 08/01/18 21:15 OxyMask 2.00 08/01/18 12:00 97.9 97 18 132/80 (97) 94 Room Air I & O 08/02/18 07:00 Intake Total 4100 ml Output Total 2800 ml Balance 1300 ml Capillary Refill : Less Than 3 SecondsLess Than 3 Seconds General Appearance: Anxious, Chronically ill, Obese, Other (acutely ill, fatigued) Respiratory: Chest Non Tender, Lungs Clear, Normal Breath Sounds, No Accessory Muscle Use, No Respiratory Distress Cardiovascular: Regular Rate, Rhythm, No Murmur, Normal Peripheral Pulses Gastrointestinal: soft, tenderness (at incision), other (ostomy is viable with some output) Extremity: No Calf Tenderness, No Pedal Edema Neurologic/Psychiatric: Alert, Oriented x3 Skin: Damp, Pallor Results Lab Laboratory Tests 08/02/18 10:30: White Blood Count 12.2H, Red Blood Count 3.81L, Hemoglobin 11.1#L, Hematocrit 34L, Mean Corpuscular Volume 90, Mean Corpuscular Hemoglobin 29, Mean Corpuscular Hemoglobin Concent 32, Red Cell Distribution Width 15.4H, Platelet Count 252, Mean Platelet Volume 9.7, Neutrophils (%) (Auto) 88H, Lymphocytes (% ) (Auto) 8L, Monocytes (%) (Auto) 4, Eosinophils (%) (Auto) 0, Basophils (%) ( Auto) 0, Neutrophils # (Auto) 10.8H, Lymphocytes # (Auto) 1.0, Monocytes # (Auto ) 0.5, Eosinophils # (Auto) 0.0, Basophils # (Auto) 0.0, Sodium Level 135, Potassium Level 4.6, Chloride Level 99, Carbon Dioxide Level 30, Anion Gap 6, Blood Urea Nitrogen 7, Creatinine 0.64, Estimat Glomerular Filtration Rate > 60 , BUN/Creatinine Ratio 11, Glucose Level 114H, Calcium Level 8.0L, Corrected Calcium 9.5, Total Bilirubin 0.4, Aspartate Amino Transf (AST/SGOT) 24, Alanine Aminotransferase (ALT/SGPT) 25, Alkaline Phosphatase 42, Total Protein 3.7L, Albumin 2.1L Microbiology 08/01/18 Urine Culture - Preliminary, Resulted Gram Negative Bacillus 1 Assessment/Plan Assessment/Plan Assessment/Plan Ulcerative Colitis - resistant to medical treatmen C. Diff Malnutrition S/P Subtotal Colectomy with ileostomy creation. Plan to increase diet slowly and switch to oral pain medications when we can. Pt encouraged to ambulate and use IS. Clinical Quality Measures DVT/VTE Risk/Contraindication: Risk Factor Score Per Nursin RFS Level Per Nursing on Admit: 4+=Very High SINDHU TENA DO Aug 02, 2018 11:48
[2018-08-02 12:00] VITALS: BP 130/77
[2018-08-02 16:00] VITALS: BP 115/77
[2018-08-02] MEDS: methylPREDNISolone 40 MG/ML (Solu-MEDROL) VIAL IV SCH ×2 (16:25→21:30)
[2018-08-02 19:54] VITALS: BP 119/78
[2018-08-03] VITALS: BP 121/70
[2018-08-03] MEDS: LACTATED RINGERS 1,000 ML IV SCH ×3 (00:42→22:14)
[2018-08-03 04:00] VITALS: BP 137/71
[2018-08-03 08:00] VITALS: BP 150/69
[2018-08-03] MEDS: fentaNYL INJECTION 100 MCG/2 ML AMP IV PRN (08:35)
[2018-08-03] MEDS: FAMOTIDINE 20MG/2ML IV (PEPCID) IV SCH ×2 (08:47→22:14)
[2018-08-03] MEDS: FLUCONAZOLE 200 MG/100 ML 100 ML IV SCH (08:47)
[2018-08-03] MEDS: methylPREDNISolone 40 MG/ML (Solu-MEDROL) VIAL IV SCH ×2 (08:47→22:14)
--- NOTE | 2018-08-03 11:46 | Progress Note ---
Subjective Date Seen by a Provider: Aug 03, 2018 Time Seen by a Provider: 11:44 Subjective/Events-last exam Patient feeling better than a few days ago. She is postoperative day 2. She's tolerating diet. Her pain is getting better and more tolerable. Denies any nausea vomiting fever sweats chills shortness of breath or chest pain. Ostomy is having some liquid stool. Objective Exam Vital Signs Date Time Temp Pulse Resp B/P (MAP) Pulse Ox O2 Delivery O2 Flow Rate FiO2 08/03/18 08:15 Room Air 08/03/18 08:00 97.5 80 20 150/69 (96) 95 Room Air 08/03/18 07:20 Nasal Cannula 1.50 08/03/18 04:00 97.9 83 18 137/71 (93) 94 Nasal Cannula 1.50 08/03/18 00:00 97.5 91 18 121/70 (87) 96 Nasal Cannula 1.50 08/02/18 19:54 97.6 91 16 119/78 (92) 96 Nasal Cannula 1.50 08/02/18 19:20 Room Air 08/02/18 16:00 97.5 84 16 115/77 (90) 97 Nasal Cannula 1.50 08/02/18 12:00 98.8 84 18 130/77 (94) 97 Nasal Cannula 1.50 I & O 08/03/18 07:00 Intake Total 2280 ml Output Total 3900 ml Balance -1620 ml Capillary Refill : Less Than 3 SecondsLess Than 3 Seconds General Appearance: No Apparent Distress, WD/WN, Chronically ill Respiratory: Chest Non Tender, No Accessory Muscle Use, No Respiratory Distress Cardiovascular: Regular Rate, Rhythm Gastrointestinal: soft, tenderness (at incision), other (ostomy is viable with some output) Extremity: No Calf Tenderness, No Pedal Edema Neurologic/Psychiatric: Alert, Oriented x3, No Motor/Sensory Deficits, Normal Mood/Affect Skin: Pallor Results Lab Microbiology 08/01/18 MRSA Screen - Final, Complete MRSA not isolated 08/01/18 Urine Culture - Final, Complete Klebsiella species Assessment/Plan Assessment/Plan Assessment/Plan Ulcerative Colitis - resistant to medical treatment C. Diff Malnutrition S/P Subtotal Colectomy with ileostomy creation. Plan to increase diet slowly and switch to oral pain medications when we can. Pt encouraged to ambulate and use IS. Continue postoperative management. Clinical Quality Measures DVT/VTE Risk/Contraindication: Risk Factor Score Per Nursin RFS Level Per Nursing on Admit: 4+=Very High TAMANNA ONEILL DO Aug 03, 2018 11:46
--- NOTE | 2018-08-03 12:28 | Progress Note-Hospitalist ---
Subjective HPI/CC On Admission Date Seen by Provider: Aug 03, 2018 Time Seen by Provider: 11:10 CC: Nausea and vomiting refractory HPI: This is a 63yoWF clinic patient of mine since early this year after dx of UC who presents to the ER last night 6 hours after she was DC for N/V and C diff colitis. Currently patient can no longer be upright due to N/V and had a large amount of diarrhea this morning. Pt is appears more and more declined and the fact that we can't fully treat the C diff without PO access we can't treat the UC with any type of aggressive immunosuppressive meds or surgery. Dr Salazar will come and see the patient but something needs to be decided regarding the next step because she appears to be worse since last seen yesterday morning. Thrush noted so initiated Diflucan IV since can't tolerate PO. Labs reviewed. Subjective/Events-last exam Patient doing very well Ambulating better each day Colostomy bag without bowel contents but gas is being passed Pain is controlled Solumedrol low dose to taper slowly to prevent adrenal crisis Checked meds and labs Review of Systems General: Fatigue Gastrointestinal: Abdominal Pain Objective Exam Vital Signs Vital Signs Date Time Temp Pulse Resp B/P (MAP) Pulse Ox O2 Delivery O2 Flow Rate FiO2 08/03/18 08:15 Room Air 08/03/18 08:00 97.5 80 20 150/69 (96) 95 08/03/18 07:20 1.50 Capillary Refill : Less Than 3 SecondsLess Than 3 Seconds General Appearance: No Apparent Distress, WD/WN, Chronically ill Respiratory: Chest Non Tender, Lungs Clear, Normal Breath Sounds, No Accessory Muscle Use, No Respiratory Distress Cardiovascular: Regular Rate, Rhythm, No Edema, No Gallop, No JVD, No Murmur, Normal Peripheral Pulses Gastrointestinal: Soft Neurologic/Psychiatric: Alert, Oriented x3, No Motor/Sensory Deficits, Normal Mood/Affect Skin: Normal Color, Warm/Dry Results/Procedures Lab Patient resulted labs reviewed. Assessment/Plan Assessment and Plan Assess & Plan/Chief Complaint s/p subtotal colectomy Severe debility Plan: Ambulate Low dose steroids for taper Monitor closely No indication for abx for UCx results Diagnosis/Problems Diagnosis/Problems (1) Status post colectomy Status: Acute (2) Intractable nausea and vomiting Status: Resolved Qualifiers: Vomiting type: unspecified Qualified Codes: R11.2 - Nausea with vomiting, unspecified (3) C. difficile colitis Status: Acute (4) Ulcerative colitis, acute Status: Chronic Qualifiers: Digestive disease complication type: unspecified complication Qualified Codes: K51.919 - Ulcerative colitis, unspecified with unspecified complications (5) Dehydration Status: Resolved (6) Protein malnutrition Status: Chronic (7) Normocytic anemia Status: Chronic Clinical Quality Measures DVT/VTE Risk/Contraindication: Risk Factor Score Per Nursin RFS Level Per Nursing on Admit: 4+=Very High TADEO LOPEZ DO Aug 03, 2018 12:28
[2018-08-03] MEDS: HYDROcodone/APAP 5 MG/325 MG (LORTAB) TAB PO PRN (13:03)
[2018-08-03 16:20] VITALS: BP 133/70
[2018-08-04] VITALS: BP 166/87
[2018-08-04] MEDS: HYDROcodone/APAP 5 MG/325 MG (LORTAB) TAB PO PRN (01:40)
[2018-08-04] MEDS: fentaNYL INJECTION 100 MCG/2 ML AMP IV PRN ×2 (01:48→13:04)
[2018-08-04] MEDS: ONDANSETRON 4 MG/2 ML (SDV) Z0FRAN IV PRN ×4 (03:05→23:52)
[2018-08-04] MEDS: PROMETHAZINE INJ 25 MG/ML (PHENERGAN) AMP IV PRN (04:07)
[2018-08-04] MEDS: SCOPOLAMINE 1.5 MG (TRANSDERM-SCOP) PATCH TOP SCH (04:08)
[2018-08-04 06:30] LABS: BASOPHILS % (AUTO) 0 % (0-10); EOSINOPHILS % (AUTO) 0 % (0-10); HEMATOCRIT 39 % (35-52); LYMPHOCYTES # (AUTO) 1.1 X 10^3 (1.0-4.0); LYMPHOCYTES % (AUTO) 5 % (12-44); MEAN CORPUSCULAR HEMOGLOBIN 29 PG (25-34); MEAN CORPUSCULAR HGB CONC 33 G/DL (32-36); MEAN CORPUSCULAR VOLUME 88 FL (80-99); MEAN PLATELET VOLUME 9.9 FL (7.4-10.4); MONOCYTES # (AUTO) 0.7 X 10^3 (0.0-1.0); MONOCYTES % (AUTO) 4 % (0-12); NEUTROPHILS % (AUTO) 91 % (42-75); PLATELET COUNT 384 10^3/uL (130-400); RED BLOOD COUNT 4.47 10^6/uL (4.35-5.85); RED CELL DISTRIBUTION WIDTH 15.3 % (10.0-14.5); WHITE BLOOD COUNT 19.8 10^3/uL (4.3-11.0)
[2018-08-04 06:44] LABS: ALANINE AMINOTRANSFERASE 28 U/L (0-55); ALBUMIN 2.6 GM/DL (3.2-4.5); ALKALINE PHOSPHATASE 52 U/L (40-136); BILIRUBIN,TOTAL 0.4 MG/DL (0.1-1.0); BUN/CREATININE RATIO 13; CALCIUM 8.4 MG/DL (8.5-10.1); CARBON DIOXIDE 26 MMOL/L (21-32); CHLORIDE 98 MMOL/L (98-107); CREATININE SERUM 0.61 MG/DL (0.60-1.30); GFR ESTIMATED > 60; GLUCOSE 154 MG/DL (70-105); POTASSIUM 3.9 MMOL/L (3.6-5.0); SODIUM 133 MMOL/L (135-145); TOTAL PROTEIN 4.6 GM/DL (6.4-8.2)
[2018-08-04 08:00] VITALS: BP_SYST 174; BP_SYST 188; BP_DIAS 102; BP_DIAS 91
[2018-08-04] MEDS: methylPREDNISolone 40 MG/ML (Solu-MEDROL) VIAL IV SCH (08:27)
[2018-08-04] MEDS: FLUCONAZOLE 200 MG/100 ML 100 ML IV SCH (08:28)
[2018-08-04] MEDS: FAMOTIDINE 20MG/2ML IV (PEPCID) IV SCH ×2 (08:28→20:25)
--- NOTE | 2018-08-04 12:10 | Progress Note-Hospitalist ---
Subjective HPI/CC On Admission Date Seen by Provider: Aug 04, 2018 Time Seen by Provider: 11:15 CC: Nausea and vomiting refractory HPI: This is a 63yoWF clinic patient of mine since early this year after dx of UC who presents to the ER last night 6 hours after she was DC for N/V and C diff colitis. Currently patient can no longer be upright due to N/V and had a large amount of diarrhea this morning. Pt is appears more and more declined and the fact that we can't fully treat the C diff without PO access we can't treat the UC with any type of aggressive immunosuppressive meds or surgery. Dr Salazar will come and see the patient but something needs to be decided regarding the next step because she appears to be worse since last seen yesterday morning. Thrush noted so initiated Diflucan IV since can't tolerate PO. Labs reviewed. Subjective/Events-last exam Patient not having as good of the day as yesterday Had an episode of emesis at 0300 today Elevated blood pressure will be treated conservatively Overall not feeling well but output from ostomy bag looks good Review of Systems General: Fatigue, Malaise Gastrointestinal: Nausea, Vomiting, Abdominal Pain Objective Exam Vital Signs Vital Signs Date Time Temp Pulse Resp B/P (MAP) Pulse Ox O2 Delivery O2 Flow Rate FiO2 08/04/18 08:17 Room Air 08/04/18 08:00 97.5 84 18 174/102 (126) 94 188/91 (123) 08/03/18 07:20 1.50 Capillary Refill : Less Than 3 SecondsLess Than 3 Seconds General Appearance: No Apparent Distress, WD/WN, Chronically ill Respiratory: Chest Non Tender, Lungs Clear, Normal Breath Sounds, No Accessory Muscle Use, No Respiratory Distress Cardiovascular: Regular Rate, Rhythm, No Edema, No Gallop, No JVD, No Murmur, Normal Peripheral Pulses Gastrointestinal: Normal Bowel Sounds, No Organomegaly, No Pulsatile Mass, Soft , Tenderness Neurologic/Psychiatric: Alert, Oriented x3, No Motor/Sensory Deficits, Normal Mood/Affect Results/Procedures Lab Laboratory Tests 08/04/18 06:15 Patient resulted labs reviewed. Assessment/Plan Assessment and Plan Assess & Plan/Chief Complaint s/p subtotal colectomy Severe debility Plan: Ambulate Low dose steroids for taper and decrease to 40mg once daily today Monitor closely No indication for abx for UCx results Monitor closely Slow recovery Diagnosis/Problems Diagnosis/Problems (1) Status post colectomy Status: Acute (2) Intractable nausea and vomiting Status: Acute Qualifiers: Vomiting type: unspecified Qualified Codes: R11.2 - Nausea with vomiting, unspecified (3) C. difficile colitis Status: Acute (4) Ulcerative colitis, acute Status: Chronic Qualifiers: Digestive disease complication type: unspecified complication Qualified Codes: K51.919 - Ulcerative colitis, unspecified with unspecified complications (5) Dehydration Status: Resolved (6) Protein malnutrition Status: Chronic (7) Normocytic anemia Status: Chronic Clinical Quality Measures DVT/VTE Risk/Contraindication: Risk Factor Score Per Nursin RFS Level Per Nursing on Admit: 4+=Very High TADEO LOPEZ DO Aug 04, 2018 12:10
--- NOTE | 2018-08-04 12:26 | Progress Note ---
Subjective Date Seen by a Provider: Aug 04, 2018 Time Seen by a Provider: 12:21 Subjective/Events-last exam 63 year old female who is status post subtotal colectomy with ileostomy. Pt developed nausea and vomiting at ~0400 this morning. Pt was given Zofran, Phenergan and had her scopolamine patch changed which helped with the vomiting but pt states she has continued to feel nauseous. Pt admits chills, denies fever , SOB, CP. Denies any redness or warmth from surgical incisions, states ileostomy is patent and is producing stool. Objective Exam Vital Signs Date Time Temp Pulse Resp B/P (MAP) Pulse Ox O2 Delivery O2 Flow Rate FiO2 08/04/18 08:17 Room Air 08/04/18 08:00 97.5 84 18 174/102 (126) 94 Room Air 188/91 (123) 08/04/18 00:00 97.3 83 18 166/87 (113) 92 Room Air 08/03/18 16:20 97.4 80 18 133/70 (91) 92 Room Air I & O 08/04/18 07:00 Intake Total 990 ml Output Total 950 ml Balance 40 ml Capillary Refill : Less Than 3 SecondsLess Than 3 Seconds General Appearance: WD/WN, Chronically ill, Mild Distress Respiratory: Chest Non Tender, Lungs Clear, Normal Breath Sounds, No Accessory Muscle Use, No Respiratory Distress Cardiovascular: Regular Rate, Rhythm, No Edema, No Gallop, No JVD, No Murmur, Normal Peripheral Pulses Gastrointestinal: soft, tenderness (at incision), other (ileostomy is viable with output) Extremity: No Calf Tenderness, No Pedal Edema Neurologic/Psychiatric: Alert, Oriented x3, No Motor/Sensory Deficits, Normal Mood/Affect Skin: Normal Color, Warm/Dry Results Lab Laboratory Tests 08/04/18 06:15: White Blood Count 19.8H, Red Blood Count 4.47, Hemoglobin 13.0, Hematocrit 39, Mean Corpuscular Volume 88, Mean Corpuscular Hemoglobin 29, Mean Corpuscular Hemoglobin Concent 33, Red Cell Distribution Width 15.3H, Platelet Count 384, Mean Platelet Volume 9.9, Neutrophils (%) (Auto) 91H, Lymphocytes (%) (Auto) 5L , Monocytes (%) (Auto) 4, Eosinophils (%) (Auto) 0, Basophils (%) (Auto) 0, Neutrophils # (Auto) 18.0H, Lymphocytes # (Auto) 1.1, Monocytes # (Auto) 0.7, Eosinophils # (Auto) 0.0, Basophils # (Auto) 0.0, Sodium Level 133L, Potassium Level 3.9, Chloride Level 98, Carbon Dioxide Level 26, Anion Gap 9, Blood Urea Nitrogen 8, Creatinine 0.61, Estimat Glomerular Filtration Rate > 60, BUN/ Creatinine Ratio 13, Glucose Level 154H, Calcium Level 8.4L, Corrected Calcium 9.5, Total Bilirubin 0.4, Aspartate Amino Transf (AST/SGOT) 24, Alanine Aminotransferase (ALT/SGPT) 28, Alkaline Phosphatase 52, Total Protein 4.6L, Albumin 2.6L Microbiology 08/01/18 MRSA Screen - Final, Complete MRSA not isolated 08/01/18 Urine Culture - Final, Complete Klebsiella species Assessment/Plan Assessment/Plan Assessment/Plan Ulcerative Colitis - resistant to medical treatment C. Diff Malnutrition Nausea feel may be medicine related. Increase activity. Slight increase in wbc may be related to steroids, patient has been afebrile. S/P Subtotal Colectomy with ileostomy creation. Plan to increase diet slowly and switch to oral pain medications when we can. Pt encouraged to ambulate and use IS. Continue postoperative management. Clinical Quality Measures DVT/VTE Risk/Contraindication: Risk Factor Score Per Nursin RFS Level Per Nursing on Admit: 4+=Very High TAMANNA ONEILL DO Aug 04, 2018 12:26
[2018-08-04] MEDS: amLODIPine 2.5MG (NORVASC) TAB PO SCH ×2 (12:29→20:25)
[2018-08-04] MEDS: LACTATED RINGERS 1,000 ML IV SCH ×2 (14:05→14:06)
[2018-08-04 16:50] VITALS: BP 136/76
[2018-08-05 00:53] VITALS: BP_SYST 164; BP_SYST 170; BP_DIAS 83; BP_DIAS 85
[2018-08-05] MEDS: PROMETHAZINE INJ 25 MG/ML (PHENERGAN) AMP IV PRN ×3 (01:02→20:49)
[2018-08-05] MEDS: LACTATED RINGERS 1,000 ML IV SCH ×4 (01:47→19:23)
[2018-08-05 05:43] LABS: BASOPHILS % (AUTO) 0 % (0-10); EOSINOPHILS % (AUTO) 0 % (0-10); HEMATOCRIT 34 % (35-52); HEMOGLOBIN 11.2 G/DL (11.5-16.0); LYMPHOCYTES # (AUTO) 1.4 X 10^3 (1.0-4.0); LYMPHOCYTES % (AUTO) 8 % (12-44); MEAN CORPUSCULAR HEMOGLOBIN 30 PG (25-34); MEAN CORPUSCULAR HGB CONC 33 G/DL (32-36); MEAN CORPUSCULAR VOLUME 90 FL (80-99); MEAN PLATELET VOLUME 9.6 FL (7.4-10.4); MONOCYTES # (AUTO) 0.7 X 10^3 (0.0-1.0); MONOCYTES % (AUTO) 4 % (0-12); NEUTROPHILS # (AUTO) 15.3 X 10^3 (1.8-7.8); NEUTROPHILS % (AUTO) 88 % (42-75); PLATELET COUNT 350 10^3/uL (130-400); RED BLOOD COUNT 3.75 10^6/uL (4.35-5.85); RED CELL DISTRIBUTION WIDTH 15.2 % (10.0-14.5); WHITE BLOOD COUNT 17.3 10^3/uL (4.3-11.0)
[2018-08-05 06:05] LABS: ALANINE AMINOTRANSFERASE 21 U/L (0-55); ALBUMIN 2.5 GM/DL (3.2-4.5); ALKALINE PHOSPHATASE 50 U/L (40-136); ANISOCYTOSIS SLIGHT; BAND NEUTROPHILS 2 %; BASOPHILS % (MANUAL) 0 %; BILIRUBIN,TOTAL 0.4 MG/DL (0.1-1.0); BUN/CREATININE RATIO 17; CALCIUM 8.6 MG/DL (8.5-10.1); CARBON DIOXIDE 27 MMOL/L (21-32); CHLORIDE 101 MMOL/L (98-107); CREATININE SERUM 0.69 MG/DL (0.60-1.30); EOSINOPHILS % (MANUAL) 0 %; GFR ESTIMATED > 60; GLUCOSE 104 MG/DL (70-105); LYMPHOCYTES % (MANUAL) 11 %; MONOCYTES % (MANUAL) 1 %; NEUTROPHILS % (MANUAL) 86 %; POTASSIUM 3.8 MMOL/L (3.6-5.0); SODIUM 137 MMOL/L (135-145); TOTAL PROTEIN 4.3 GM/DL (6.4-8.2)
[2018-08-05 08:00] VITALS: BP 134/76
[2018-08-05] MEDS: ONDANSETRON 4 MG/2 ML (SDV) Z0FRAN IV PRN (08:02)
[2018-08-05] MEDS: FAMOTIDINE 20MG/2ML IV (PEPCID) IV SCH ×2 (08:03→20:49)
[2018-08-05] MEDS: methylPREDNISolone 40 MG/ML (Solu-MEDROL) VIAL IV SCH (08:03)
[2018-08-05] MEDS: FLUCONAZOLE 200 MG/100 ML 100 ML IV SCH (08:04)
[2018-08-05] MEDS: amLODIPine 2.5MG (NORVASC) TAB PO SCH ×2 (08:05→20:49)
--- NOTE | 2018-08-05 09:02 | Progress Note-Hospitalist ---
Subjective HPI/CC On Admission Date Seen by Provider: Aug 05, 2018 Time Seen by Provider: 08:57 CC: Nausea and vomiting refractory HPI: This is a 63yoWF clinic patient of mine since early this year after dx of UC who presents to the ER last night 6 hours after she was DC for N/V and C diff colitis. Currently patient can no longer be upright due to N/V and had a large amount of diarrhea this morning. Pt is appears more and more declined and the fact that we can't fully treat the C diff without PO access we can't treat the UC with any type of aggressive immunosuppressive meds or surgery. Dr Salazar will come and see the patient but something needs to be decided regarding the next step because she appears to be worse since last seen yesterday morning. Thrush noted so initiated Diflucan IV since can't tolerate PO. Labs reviewed. Subjective/Events-last exam Patient very nausea during my exam. limited participation in conversation. Family member at bedside concerned about nutrition and asking about TPN. Objective Exam Vital Signs Vital Signs Date Time Temp Pulse Resp B/P (MAP) Pulse Ox O2 Delivery O2 Flow Rate FiO2 08/05/18 08:00 97.5 90 18 134/76 (95) 94 Room Air 08/03/18 07:20 1.50 Capillary Refill : Less Than 3 SecondsLess Than 3 Seconds General Appearance: Chronically ill, Other (appears uncomfortable) Respiratory: Lungs Clear, No Respiratory Distress Cardiovascular: Regular Rate, Rhythm, No Murmur Neurologic/Psychiatric: Alert, Oriented x3 Results/Procedures Lab Laboratory Tests 08/05/18 05:15 Patient resulted labs reviewed. Assessment/Plan Assessment and Plan Assess & Plan/Chief Complaint Ulcerative Colitis Diagnosis/Problems Diagnosis/Problems (1) Ulcerative colitis, acute Status: Chronic Assessment & Plan: s/p colectomy with Dr Salazar Still having persistent nausea and vomiting Continue Zofran, Phenergan, and Scopolamine Consider TPN if no improvement in nausea and vomiting in the next 1-2 days Qualifiers: Digestive disease complication type: unspecified complication Qualified Codes: K51.919 - Ulcerative colitis, unspecified with unspecified complications (2) C. difficile colitis Status: Acute Assessment & Plan: Positive on 07/27 (3) Essential (primary) hypertension Assessment & Plan: Mildly elevated on amlodipine trend (4) Intractable nausea and vomiting Status: Acute Assessment & Plan: Antiemetics as above Qualifiers: Vomiting type: unspecified Qualified Codes: R11.2 - Nausea with vomiting, unspecified Clinical Quality Measures DVT/VTE Risk/Contraindication: Risk Factor Score Per Nursin RFS Level Per Nursing on Admit: 4+=Very High YOLY NAVARRO MD Aug 05, 2018 9:02 am
--- NOTE | 2018-08-05 09:46 | Physical Therapy Progress Note ---
Therapy Progress Note Patient's family adamantly declined PT stating, "She will get really mad if you bother her and ask her to do anything." Will attempt later this date. 1 ref ([id number]) GURDEEP PUGA PT Aug 05, 2018 09:46
[2018-08-05] MEDS: fentaNYL INJECTION 100 MCG/2 ML AMP IV PRN (10:29)
--- NOTE | 2018-08-05 11:15 | Physical Therapy Progress Note ---
Therapy Progress Note Patient adamantly declined PT stating, "I will walk when I want to not when you want me too. My pain is under control right now and I don't want that to change." Attempted to educated patient on importance of mobility vs. the possible negative side effects of not, however, patient dismissed PT from room. RN notified. 1 ref ([id number]) GURDEEP PUGA PT Aug 05, 2018 11:15
--- NOTE | 2018-08-05 13:37 | Physical Therapy Progress Note ---
Therapy Progress Note Patient reports she has been up to the toilet and is now eating and declined PT. She reports she will "walk" later today if she wants. 1 ref ([id number]) GURDEEP PUGA PT Aug 05, 2018 13:37
--- NOTE | 2018-08-05 14:08 | Occ Therapy Progress Note ---
Therapy Progress Note [id number] Pt declined OT, stating that she doesn't have any problems taking care of herself. OT explained benefits of therapy but she declined again. Will follow up tomorrow. visit KUSH RYAN OT Aug 05, 2018 14:08
[2018-08-05 16:00] VITALS: BP 145/71
--- NOTE | 2018-08-05 20:15 | Progress Note ---
Subjective Time Seen by a Provider: 11:51 Subjective/Events-last exam Pt seen and examined, states she was vomiting all day yesterday and is afraid to eat. She states she does not have stomach pain like she had before surgery. Now it is only at incision. Review of Systems General: Fatigue, Malaise Pulmonary: No Dyspnea, No Cough Gastrointestinal: Nausea, Vomiting Objective Exam Vital Signs Date Time Temp Pulse Resp B/P (MAP) Pulse Ox O2 Delivery O2 Flow Rate FiO2 08/05/18 16:00 98.2 87 18 145/71 (95) 91 Room Air 145/71 (95) 08/05/18 08:00 97.5 90 18 134/76 (95) 94 Room Air 08/05/18 08:00 94 Room Air 08/05/18 00:53 98.0 83 17 170/85 (113) 93 Room Air 164/83 (110) I & O 08/05/18 07:00 Intake Total 1470 ml Output Total 225 ml Balance 1245 ml Capillary Refill : Less Than 3 SecondsLess Than 3 Seconds General Appearance: No Apparent Distress, Chronically ill HEENT: PERRL/EOMI, Pharynx Normal Respiratory: Lungs Clear, No Respiratory Distress Cardiovascular: Regular Rate, Rhythm, No Murmur Gastrointestinal: soft, tenderness (at incision), other (ileostomy is viable with output) Extremity: No Calf Tenderness, No Pedal Edema Neurologic/Psychiatric: Alert, Oriented x3 Skin: Cool, Pallor Results Lab Laboratory Tests 08/05/18 05:15: White Blood Count 17.3H, Red Blood Count 3.75L, Hemoglobin 11.2L, Hematocrit 34L , Mean Corpuscular Volume 90, Mean Corpuscular Hemoglobin 30, Mean Corpuscular Hemoglobin Concent 33, Red Cell Distribution Width 15.2H, Platelet Count 350, Mean Platelet Volume 9.6, Neutrophils (%) (Auto) 88H, Lymphocytes (%) (Auto) 8L , Monocytes (%) (Auto) 4, Eosinophils (%) (Auto) 0, Basophils (%) (Auto) 0, Neutrophils # (Auto) 15.3H, Lymphocytes # (Auto) 1.4, Monocytes # (Auto) 0.7, Eosinophils # (Auto) 0.0, Basophils # (Auto) 0.0, Neutrophils % (Manual) 86, Lymphocytes % (Manual) 11, Monocytes % (Manual) 1, Eosinophils % (Manual) 0, Basophils % (Manual) 0, Band Neutrophils 2, Anisocytosis SLIGHT, Sodium Level 137, Potassium Level 3.8, Chloride Level 101, Carbon Dioxide Level 27, Anion Gap 9, Blood Urea Nitrogen 12, Creatinine 0.69, Estimat Glomerular Filtration Rate > 60, BUN/Creatinine Ratio 17, Glucose Level 104, Calcium Level 8.6, Corrected Calcium 9.8, Total Bilirubin 0.4, Aspartate Amino Transf (AST/SGOT) 17 , Alanine Aminotransferase (ALT/SGPT) 21, Alkaline Phosphatase 50, Total Protein 4.3L, Albumin 2.5L Microbiology 08/01/18 MRSA Screen - Final, Complete MRSA not isolated 08/01/18 Urine Culture - Final, Complete Klebsiella species Assessment/Plan Assessment/Plan Assessment/Plan Ulcerative Colitis - resistant to medical treatment C. Diff Malnutrition Nausea feel may be medicine related. Increase activity. Slight increase in wbc may be related to steroids, patient has been afebrile. S/P Subtotal Colectomy with ileostomy creation. I encouraged pt to increase diet slowly, she is on oral pain medications and states Phenergan helps with her nausea. Pt must encouraged to ambulate and use IS. I would like to get pt home tomorrow, but she is worried about the nausea and vomiting. Continue current care. Clinical Quality Measures DVT/VTE Risk/Contraindication: Risk Factor Score Per Nursin RFS Level Per Nursing on Admit: 4+=Very High SINDHU TENA DO Aug 05, 2018 20:15
[2018-08-06 00:46] VITALS: BP_SYST 145; BP_SYST 159; BP_DIAS 71; BP_DIAS 79
[2018-08-06] MEDS: LACTATED RINGERS 1,000 ML IV SCH ×2 (03:38→13:42)
[2018-08-06 05:47] LABS: BASOPHILS % (AUTO) 0 % (0-10); EOSINOPHILS % (AUTO) 0 % (0-10); HEMATOCRIT 32 % (35-52); HEMOGLOBIN 10.3 G/DL (11.5-16.0); LYMPHOCYTES # (AUTO) 1.3 X 10^3 (1.0-4.0); LYMPHOCYTES % (AUTO) 10 % (12-44); MEAN CORPUSCULAR HEMOGLOBIN 29 PG (25-34); MEAN CORPUSCULAR HGB CONC 32 G/DL (32-36); MEAN CORPUSCULAR VOLUME 91 FL (80-99); MEAN PLATELET VOLUME 9.2 FL (7.4-10.4); MONOCYTES # (AUTO) 0.5 X 10^3 (0.0-1.0); MONOCYTES % (AUTO) 4 % (0-12); NEUTROPHILS # (AUTO) 10.8 X 10^3 (1.8-7.8); NEUTROPHILS % (AUTO) 86 % (42-75); PLATELET COUNT 347 10^3/uL (130-400); RED BLOOD COUNT 3.55 10^6/uL (4.35-5.85); RED CELL DISTRIBUTION WIDTH 15.5 % (10.0-14.5); WHITE BLOOD COUNT 12.6 10^3/uL (4.3-11.0)
[2018-08-06 06:08] LABS: BUN/CREATININE RATIO 15; CALCIUM 8.3 MG/DL (8.5-10.1); CARBON DIOXIDE 25 MMOL/L (21-32); CHLORIDE 103 MMOL/L (98-107); CREATININE SERUM 0.67 MG/DL (0.60-1.30); GFR ESTIMATED > 60; GLUCOSE 83 MG/DL (70-105); POTASSIUM 3.7 MMOL/L (3.6-5.0); SODIUM 135 MMOL/L (135-145)
[2018-08-06 08:00] VITALS: BP_SYST 133; BP_SYST 145; BP_DIAS 70; BP_DIAS 71
[2018-08-06] MEDS: FLUCONAZOLE 200 MG/100 ML 100 ML IV SCH (09:22)
[2018-08-06] MEDS: methylPREDNISolone 40 MG/ML (Solu-MEDROL) VIAL IV SCH (09:22)
[2018-08-06] MEDS: amLODIPine 2.5MG (NORVASC) TAB PO SCH (09:23)
[2018-08-06] MEDS: HYDROcodone/APAP 5 MG/325 MG (LORTAB) TAB PO PRN ×2 (09:23→13:56)
[2018-08-06] MEDS: PROMETHAZINE INJ 25 MG/ML (PHENERGAN) AMP IV PRN (09:23)
[2018-08-06] MEDS: FAMOTIDINE 20MG/2ML IV (PEPCID) IV SCH (09:26)
--- NOTE | 2018-08-06 09:46 | Physical Therapy Progress Note ---
Therapy Progress Note Patient declined PT intervention due to patient reports she is feeling better and is going home on this date. PT encouraged patient to ambulate in hallway, however, patient declined. 1 ref GURDEEP PUGA PT Aug 06, 2018 09:45
[2018-08-06] MEDS ORDERED: SCOP1PAT11 TOP (10:38)
[2018-08-06] MEDS ORDERED: PROM12.59 PO (10:38)
[2018-08-06] MEDS ORDERED: PRD20T PO (10:38)
--- NOTE | 2018-08-06 10:43 | Discharge Inst-Simple/Standard ---
Discharge Inst-Standard Discharge Medications New, Converted or Re-Newed RX: Transmitted to Pharmacy Patient Instructions/Follow Up Plan of Care/Instructions/FU: Please continue to take your medications as written. Please follow up with Dr Salazar and Dr Verduzco as scheduled. You can discuss with them if you need to continue to see your GI doctor. Activity as Tolerated: Yes Discharge Diet: Low Residue Return to The Hospital For: Abd pain, nausea or vomiting, fever, if you feel you are getting worse. YOLY NAVARRO MD Aug 06, 2018 10:43
--- NOTE | 2018-08-06 13:09 | Discharge Inst-Surgical ---
Discharge Inst-Surgical Depart Medication/Instructions New, Converted or Re-Newed RX: RX Given to Pt/Family Patient Instructions Follow up Appt: Make appointment for 1 week. [phone] Instructions: No lifting greater than 10 pounds. No strenuous activity. May shower in 24 hours, no tub bath or soaking. Use incentive spirometer at home as directed. No Smoking Skin/Wound Care: You need to leave the ann marie in place and f/u in a week at my office for removal. Symptoms to Report: Appetite Changes, Extremity Discoloration, Numbness/Tingling, Swelling Increased , Bleeding Excessive, Eyesight Changes, Pain Increased, Urine Color Change, Constipation(Persistent), Fever over 101 degree F, Pain/Pressure in chest, Urinating Difficulty, Cough Up/Vomit Blood, Heart Beat Irreg/Pounding, Pain/ Pressure in jaw, Vaginal Bleeding Increase, Cramps in feet or legs, Lightheadedness, Pain/Pressure in shoulder, Diarrhea(Persistent), Memory Changes Suddenly, Questions/Concerns, Weight gain consecutive days, Dizziness/ Fainting, Nausea/Vomiting, Shortness of Breath, Weight gain over 2 pounds If questions or concerns contact your physician Or seek help at emergency department. Activity Activity Instructions: Avoid Stress to Incision Driving Instructions: No Driving/Refer to Dr. Gomez Discharge Diet: No Restrictions Diet After 24 Hours: Clear Liquid if Nauseous If Any Problems/Questions/Issu: Contact Your Physician Skin/Wound Care Infection Signs and Symptoms: Increased Redness, Foul Odor of Wound, Increased Drainage, Skin Itchy or Has a Rash, Increased Swelling, Temperature Above 101 F Stitches/[place]/Dermabond Dis: Care of SINDHU Goodrich DO Aug 06, 2018 13:09
--- NOTE | 2018-08-06 14:00 | Progress Note ---
Subjective Time Seen by a Provider: 12:52 Subjective/Events-last exam Pt seen and examined, she is actually smiling and looks better than yesterday. She denies any more nausea or vomiting. Review of Systems General: No Chills, No Night Sweats Pulmonary: No Dyspnea, No Cough Gastrointestinal: Abdominal Pain (minimal at incision); No: Nausea, Vomiting Objective Exam Vital Signs Date Time Temp Pulse Resp B/P (MAP) Pulse Ox O2 Delivery O2 Flow Rate FiO2 08/06/18 08:00 Room Air 08/06/18 08:00 97.1 84 18 133/70 (91) 93 Room Air 145/71 (95) 08/06/18 00:46 98.9 81 17 145/71 (95) 93 Room Air 159/79 (105) 08/05/18 20:00 Room Air 08/05/18 16:00 98.2 87 18 145/71 (95) 91 Room Air 145/71 (95) I & O 08/06/18 07:00 Intake Total 4695 ml Output Total 750 ml Balance 3945 ml Capillary Refill : Less Than 3 SecondsLess Than 3 Seconds General Appearance: No Apparent Distress, Chronically ill HEENT: PERRL/EOMI, Pharynx Normal Respiratory: Lungs Clear, No Respiratory Distress Cardiovascular: Regular Rate, Rhythm, No Murmur Gastrointestinal: soft, tenderness (at incision), other (ileostomy is viable with output) Extremity: No Calf Tenderness, No Pedal Edema Neurologic/Psychiatric: Alert, Oriented x3 Skin: Cool, Pallor Results Lab Laboratory Tests 08/06/18 05:15: White Blood Count 12.6H, Red Blood Count 3.55L, Hemoglobin 10.3L, Hematocrit 32L , Mean Corpuscular Volume 91, Mean Corpuscular Hemoglobin 29, Mean Corpuscular Hemoglobin Concent 32, Red Cell Distribution Width 15.5H, Platelet Count 347, Mean Platelet Volume 9.2, Neutrophils (%) (Auto) 86H, Lymphocytes (%) (Auto) 10L , Monocytes (%) (Auto) 4, Eosinophils (%) (Auto) 0, Basophils (%) (Auto) 0, Neutrophils # (Auto) 10.8H, Lymphocytes # (Auto) 1.3, Monocytes # (Auto) 0.5, Eosinophils # (Auto) 0.0, Basophils # (Auto) 0.0, Sodium Level 135, Potassium Level 3.7, Chloride Level 103, Carbon Dioxide Level 25, Anion Gap 7, Blood Urea Nitrogen 10, Creatinine 0.67, Estimat Glomerular Filtration Rate > 60, BUN/ Creatinine Ratio 15, Glucose Level 83, Calcium Level 8.3L Microbiology 08/01/18 MRSA Screen - Final, Complete MRSA not isolated 08/01/18 Urine Culture - Final, Complete Klebsiella species Assessment/Plan Assessment/Plan Assessment/Plan Ulcerative Colitis - resistant to medical treatment C. Diff Malnutrition Nausea -resolved Plan to D/C pt home, family to change ileostomy and will f/u with me in a week. She had no other questions. Clinical Quality Measures DVT/VTE Risk/Contraindication: Risk Factor Score Per Nursin RFS Level Per Nursing on Admit: 4+=Very High SINDHU TENA DO Aug 06, 2018 14:00
--- NOTE | 2018-08-06 15:16 | Discharge Summary-Hospitalist ---
Diagnosis/Chief Complaint Date of Admission Aug 01, 2018 at 3:22 am Date of Discharge Aug 06, 2018 at 2:39 pm Discharge Date: Aug 06, 2018 Admission Diagnosis Assessment: Refractory N/V C diff colitis refractory Thrush Severe UC Episode of AF last admit last week IVF Dr Salazar to direct treatment Diflucan Discharge Diagnosis (1) Ulcerative colitis, acute Status: Chronic Assessment & Plan: s/p colectomy with Dr Salazar Still having persistent nausea and vomiting Continue Zofran, Phenergan, and Scopolamine Consider TPN if no improvement in nausea and vomiting in the next 1-2 days (2) C. difficile colitis Status: Acute Assessment & Plan: Positive on 07/27 (3) Essential (primary) hypertension Assessment & Plan: Mildly elevated on amlodipine trend (4) Intractable nausea and vomiting Status: Acute Assessment & Plan: Antiemetics as above Discharge Summary Discharge Physical Exam Allergies: Coded Allergies: sulfamethoxazole (Verified Allergy, Unknown, 06/21/18) Flushing trimethoprim (Verified Allergy, Unknown, 06/21/18) [place] Vitals & I&Os Vital Signs Date Time Temp Pulse Resp B/P (MAP) Pulse Ox O2 Delivery O2 Flow Rate FiO2 08/06/18 08:00 Room Air 08/06/18 08:00 97.1 84 18 133/70 (91) 93 145/71 (95) 08/03/18 07:20 1.50 General Appearance: No Apparent Distress, WD/WN Cardiovascular: Regular Rate, Rhythm, Normal Peripheral Pulses Gastrointestinal: Normal Bowel Sounds, Soft Neurologic/Psychiatric: Alert, Oriented x3 Hospital Course Pt was admitted for intractable nausea and vomiting due to her ulcerative colitis. She ultimately underwent subtotal colectomy with Dr Salazar on 08/01. She had significant nausea and vomiting after her surgery but she this resolve dby day of discharge. She had patient education to do ostomy education and home health was recommended but she declined. She was discharged home with instructions to order more ostomy and to follow up with Dr Salazar for further ostomy care. She is to continue on steroids and will need a slow taper. She is to see Dr Verduzco in one week to follow up this hospital stay. Labs (last 24 hrs) Laboratory Tests 08/06/18 05:15: White Blood Count 12.6H, Red Blood Count 3.55L, Hemoglobin 10.3L, Hematocrit 32L , Mean Corpuscular Volume 91, Mean Corpuscular Hemoglobin 29, Mean Corpuscular Hemoglobin Concent 32, Red Cell Distribution Width 15.5H, Platelet Count 347, Mean Platelet Volume 9.2, Neutrophils (%) (Auto) 86H, Lymphocytes (%) (Auto) 10L , Monocytes (%) (Auto) 4, Eosinophils (%) (Auto) 0, Basophils (%) (Auto) 0, Neutrophils # (Auto) 10.8H, Lymphocytes # (Auto) 1.3, Monocytes # (Auto) 0.5, Eosinophils # (Auto) 0.0, Basophils # (Auto) 0.0, Sodium Level 135, Potassium Level 3.7, Chloride Level 103, Carbon Dioxide Level 25, Anion Gap 7, Blood Urea Nitrogen 10, Creatinine 0.67, Estimat Glomerular Filtration Rate > 60, BUN/ Creatinine Ratio 15, Glucose Level 83, Calcium Level 8.3L Microbiology 08/01/18 MRSA Screen - Final, Complete MRSA not isolated 08/01/18 Urine Culture - Final, Complete Klebsiella species Patient resulted labs reviewed. Discussion & Recommendations Discharge Planning: >30 minutes discharge planning Discharge Home Medications: Active Scripts Active Transderm-Scop (Scopolamine) 1 Each Patch.td72 1.5 Mg TOP Q72H Prednisone 20 Mg Tab 40 Mg PO DAILY Promethazine HCl 12.5 Mg Tablet 12.5 Mg PO Q6H PRN Hydrocodone/Acetaminophen 5/325mg Tablet (Acetaminophen/Hydrocodone Bitart) 1 Tab Tab 1 Tab PO Q4H PRN Metoprolol Succinate 25 Mg Tab.er.24h 25 Mg PO DAILY Dicyclomine HCl 20 Mg Tablet 20 Mg PO ACHS PRN Reported Tylenol Extra Strength (Acetaminophen) 500 Mg Tablet 1,000 Mg PO Q6H PRN Colace (Docusate Sodium) 100 Mg Capsule 100 Mg PO DAILY PRN Multivitamins with Minerals (Multivitamin with Minerals) 1 Each Tablet 1 Tab PO DAILY Ferrous Sulfate 325 Mg Tablet 325 Mg PO TUTH Vitamin C (Ascorbate Calcium) 500 Mg Tablet 2 Tab PO DAILY Floranex Tablet (L. Acidophilus/Bulgaricus) 1 Each Tablet 1 Tab PO BID Folic Acid 1 Mg Tablet 1 Mg PO DAILY Instructions to patient/family Please see electronic discharge instructions given to patient. Clinical Quality Measures DVT/VTE Risk/Contraindication: Risk Factor Score Per Nursin RFS Level Per Nursing on Admit: 4+=Very High Problem Qualifiers (1) Ulcerative colitis, acute: Digestive disease complication type: unspecified complication Qualified Codes : K51.919 - Ulcerative colitis, unspecified with unspecified complications (2) Intractable nausea and vomiting: Vomiting type: unspecified Qualified Codes: R11.2 - Nausea with vomiting, unspecified YOLY NAVARRO MD Aug 06, 2018 3:16 pm
== END 2018-08-06 14:39 | disposition home or self-care (01) | DRG 330 ==
LOC: EDUNIT# 20:24 → ER 20:25 → 4TH 08-01 03:22
PROVIDERS: ADMIT Internal Medicine; ATTEND Internal Medicine
PROC: 0DBB0ZZ Excision of Ileum, Open Approach (ICD-10-PCS; 2018-08-01)
PROC: 0D1B0Z4 Bypass Ileum to Cutaneous, Open Approach (ICD-10-PCS; 2018-08-01)
PROC: 0DBE0ZZ Excision of Large Intestine, Open Approach (ICD-10-PCS; principal; 2018-08-01 16:03)
DX: A04.72 Enterocolitis due to Clostridium difficile, not specified as recurrent (principal); K51.918 Ulcerative colitis, unspecified with other complication; E46 Unspecified protein-calorie malnutrition; B37.0 Candidal stomatitis; E86.0 Dehydration; R11.2 Nausea with vomiting, unspecified; I10 Essential (primary) hypertension; J45.909 Unspecified asthma, uncomplicated; D64.9 Anemia, unspecified; F41.9 Anxiety disorder, unspecified; Z87.891 Personal history of nicotine dependence; Q43.0 Meckel's diverticulum (displaced) (hypertrophic)
CPT/HCPCS: 36415; 80048; 80053; 81000; 83690; 83735; 85007; 85025; 85027; 85652; 86141; 87077; 87081; 87088; 87186; 88305; 94664; 96361; 96374; 96375

== ENCOUNTER 2018-08-08 13:40 | Observation (INO) | payer BC, OTHER ==
[~2018-08-08] VITALS: Ht 162.6 cm; Wt 95.8 kg
[2018-08-08 13:40] VITALS: BP 128/71
[~2018-08-08 13:40] MED LIST changes: +PROM12.59 PO; +SCOP1PAT11 TOP
[2018-08-08] MEDS ORDERED: KETOROLAC 30 MG/ML VIAL IVP PRN (14:30)
[2018-08-08] MEDS ORDERED: PROMETHAZINE INJ 25 MG/ML (PHENERGAN) AMP IVP PRN ×3 (14:30→22:00)
[2018-08-08] MEDS ORDERED: ONDANSETRON 4 MG/2 ML (SDV) Z0FRAN IVP PRN (14:30)
[2018-08-08] MEDS ORDERED: PROM25TA14 PO (15:07)
[2018-08-08] MEDS ORDERED: METO-387 PO (15:07)
--- NOTE | 2018-08-08 15:30 | History & Physical-Surgical ---
History of Present Illness History of Present Illness Reason for visit/HPI Pt is a 63-year-old female who presents to office with severe nausea and vomiting. Patient does have Zofran and Phenergan home and says they are not working. Patient was recently discharged from the hospital after a subtotal colectomy for ulcerative colitis and C. difficile. [place] [facility] patient had some nausea and vomiting but that seemed to improve with IV Phenergan and she was doing well when she was discharged home. Patient states that the nausea and vomiting started again last night she had eaten some eggs and had some lactose free milk and then the nausea and vomiting started she try to take some Zofran and Phenergan didn't seem to work. She states she's only taking Phenergan 12.5 mg at home. Patient states she woke up about the same still been nausea tried some cereal with her with a lactose-free milk and again got severe nausea she is actually vomiting in my office. Patient states she can 't keep anything down and she is afraid to eat as she is not sure what causing the nausea and vomiting. Patient denies any new medicines. Patient states his abdominal pain but only after she vomits she does not want to take the hydrocodone that she is unsure whether this causes the nausea and because her abdomen is not bad and she has vomiting. Date of Admission Aug 08, 2018 at 14:00 Time Seen by a Provider: 13:28 I consulted on this patient on 08/08/18 15:25 Attending Physician Jayden Salazar DO Admitting Physician Jayden Salazar DO Consult Allergies and Home Medications Allergies Coded Allergies: sulfamethoxazole (Verified Allergy, Unknown, 06/21/18) Flushing trimethoprim (Verified Allergy, Unknown, 06/21/18) Flushing Home Medications Acetaminophen 500 Mg Tablet, 1,000 MG PO Q6H PRN for PAIN-MILD, (Reported) Ascorbate Calcium 500 Mg Tablet, 2 TAB PO DAILY, (Reported) Dicyclomine HCl 20 Mg Tablet, 20 MG PO ACHS PRN for ABDOMINAL PAIN Prescribed by: TADEO LOPEZ on 06/19/18 1040 Docusate Sodium 100 Mg Capsule, 100 MG PO DAILY PRN for CONSTIPATION-1ST LINE, ( Reported) Ferrous Sulfate 325 Mg Tablet, 325 MG PO TuTh, (Reported) Folic Acid 1 Mg Tablet, 1 MG PO DAILY, (Reported) Hydrocodone Bit/Acetaminophen 1 Tab Tab, 1 TAB PO Q4H PRN for PAIN-MODERATE Prescribed by: TADEO LOPEZ on 07/30/18 0951 L. Acidophilus/Bulgaricus 1 Each Tablet, 1 TAB PO BID, (Reported) Metoprolol Succinate 25 Mg Tab.er.24h, 25 MG PO DAILY, (Reported) Multivitamin with Minerals 1 Each Tablet, 1 TAB PO DAILY, (Reported) Prednisone 20 Mg Tab, 40 MG PO DAILY Prescribed by: YOLY NAVARRO on 08/06/18 1038 Promethazine HCl 25 Mg Tablet, 12.5 MG PO Q6H PRN for NAUSEA/VOMITING-2ND LINE, (Reported) Patient Home Medication List Home Medication List Reviewed: Yes Past Zyvqazw-Oaoqwa-Gjviyf Hx Patient Social History Alcohol Use: Denies Use Recreational Drug Use: No Smoking Status: Former Smoker Former Smoker, Quit: Aug 08, 1968 Type Used: Cigars 2nd Hand Smoke Exposure: No Recent Foreign Travel: No Contact w/Someone Who Travel: No Recent Infectious Disease Expo: No Recent Hopitalizations: Yes (06/19) Physical Abuse Screen: No Sexual Abuse: No Immunizations Up To Date Tetanus Booster (TDap): Unknown Seasonal Allergies Seasonal Allergies: No Surgeries History of Surgeries: Yes Surgeries: Tubal Ligation Respiratory History of Respiratory Disorde: Yes Respiratory Disorders: Asthma Cardiovascular History of Cardiac Disorders: Yes Cardiac Disorders: Hypertension Neurological History of Neurological Disord: No Reproductive System Hx Reproductive Disorders: No Sexually Transmitted Disease: No HIV/AIDS: No Female Reproductive Disorders: Denies SOFTWARE 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 History: Tubal Ligation, Menopausal Genitourinary History of Genitourinary Disor: No Gastrointestinal History of Gastrointestinal Di: Yes Gastrointestinal Disorders: Colitis, C-Diff Musculoskeletal History of Musculoskeletal Dis: No Endocrine History of Endocrine Disorders: No HEENT History of HEENT Disorders: No Loss of Vision: Denies Hearing Impairment: Denies Cancer History of Cancer: No Psychosocial History of Psychiatric Problem: No Behavioral Health Disorders: Anxiety Integumentary History of Skin or Integumenta: No Blood Transfusions History of Blood Disorders: No Adverse Reaction to a Blood Tr: No Family Medical History Significant Family History: Hypertension, Lung Disease Family Medial History: Colitis G8 BROTHER G8 SISTER Respiratory disorder 19 MOTHER (COPD) Review of Systems Constitutional: diaphoresis, malaise, weakness, weight loss EENTM: No blurred vision, No hoarseness, No mouth swelling, No epistaxis, No throat swelling Respiratory: No cough, No dyspnea on exertion Cardiovascular: No chest pain, No edema, No palpitations Gastrointestinal: abdominal pain (at incision); No jaundice; loss of appetite; No melena; nausea, vomiting Genitourinary: No dysuria, No frequency, No hematuria Musculoskeletal: No back pain, No joint pain, No joint swelling Skin: No pruritus, No rash Psychiatric/Neurological: Anxiety, Depressed; Denies Seizure, Denies Tingling Pt denies abnormal bruising or bleeding, denies heat or cold intolerance Physical Exam Vital Signs Capillary Refill : Height, Weight, BMI Height: 5'4.00" Weight: 233lbs. 3.0oz. [id number]; 40.0 BMI Method:Stated General Appearance: Chronically ill, Moderate Distress Eyes: Bilateral Eye PERRL, Bilateral Eye EOMI HEENT: Pharynx Normal; No Moist Mucous Membranes, No Scleral Icterus (L), No Scleral Icterus (R) Neck: Full Range of Motion, Supple Respiratory: Chest Non Tender, Lungs Clear, Normal Breath Sounds, No Accessory Muscle Use, No Respiratory Distress Cardiovascular: No Murmur, Normal Peripheral Pulses Gastrointestinal: Normal Bowel Sounds, Soft, Other (incision is c/d/i, ileostomy is pink and functioning) Rectal: Deferred Extremity: Normal Capillary Refill, No Calf Tenderness, No Pedal Edema Neurologic/Psychiatric: Alert, Oriented x3, No Motor/Sensory Deficits, process development engineer II- XII Norm as Tested Skin: Cool, Damp Lymphatic: No Adenopathy (neck, axilla or groin) Assessment/Plan Assessment/Plan Admission Diagonsis Intractable Nausea and Vomiting Protein Malnutrition HTN Admission Status: Observation Assessment/Plan Intractable Nausea and Vomiting Protein Malnutrition HTN Patient will be admitted and started on IV fluids, nothing by mouth, we'll start IV Phenergan and Zofran as needed., She can take Tramadol for pain and will resume her home medications. Hopefully we will be able to treat this nausea and vomiting; so that we get her eating and then home again. Clinical Quality Measures DVT/VTE Risk/Contraindication: Risk Factor Score Per Nursin RFS Level Per Nursing on Admit: 4+=Very High JAYDEN SALAZAR DO Aug 08, 2018 15:30
[2018-08-08 15:50] VITALS: BP 121/65
[2018-08-08] MEDS ORDERED: predniSONE 20 MG TAB PO SCH (16:15)
[2018-08-08] MEDS ORDERED: FLU QUADRIvalent (5+ YOA) 2018-2019 (AFLURIA) 0.5 ML IM ONE (17:00)
[2018-08-08] MEDS: LACTATED RINGERS 1,000 ML IV SCH ×2 (18:19→21:55)
[2018-08-08 18:34] LABS: BASOPHILS % (AUTO) 0 % (0-10); EOSINOPHILS % (AUTO) 0 % (0-10); HEMATOCRIT 34 % (35-52); LYMPHOCYTES # (AUTO) 1.3 X 10^3 (1.0-4.0); LYMPHOCYTES % (AUTO) 8 % (12-44); MEAN CORPUSCULAR HEMOGLOBIN 29 PG (25-34); MEAN CORPUSCULAR HGB CONC 33 G/DL (32-36); MEAN CORPUSCULAR VOLUME 90 FL (80-99); MEAN PLATELET VOLUME 9.1 FL (7.4-10.4); MONOCYTES # (AUTO) 0.5 X 10^3 (0.0-1.0); MONOCYTES % (AUTO) 3 % (0-12); NEUTROPHILS # (AUTO) 15.1 X 10^3 (1.8-7.8); NEUTROPHILS % (AUTO) 89 % (42-75); PLATELET COUNT 419 10^3/uL (130-400); RED BLOOD COUNT 3.76 10^6/uL (4.35-5.85); RED CELL DISTRIBUTION WIDTH 15.7 % (10.0-14.5); WHITE BLOOD COUNT 16.9 10^3/uL (4.3-11.0)
[2018-08-08 18:54] LABS: ALANINE AMINOTRANSFERASE 85 U/L (0-55); ALBUMIN 2.9 GM/DL (3.2-4.5); ALKALINE PHOSPHATASE 97 U/L (40-136); BILIRUBIN,TOTAL 0.7 MG/DL (0.1-1.0); BUN/CREATININE RATIO 17; CALCIUM 8.5 MG/DL (8.5-10.1); CARBON DIOXIDE 25 MMOL/L (21-32); CHLORIDE 100 MMOL/L (98-107); CREATININE SERUM 0.75 MG/DL (0.60-1.30); GFR ESTIMATED > 60; GLUCOSE 88 MG/DL (70-105); POTASSIUM 3.3 MMOL/L (3.6-5.0); SODIUM 137 MMOL/L (135-145); TOTAL PROTEIN 4.9 GM/DL (6.4-8.2)
[2018-08-08 19:03] LABS: BAND NEUTROPHILS 3 %; BASOPHILS % (MANUAL) 0 %; EOSINOPHILS % (MANUAL) 0 %; LYMPHOCYTES % (MANUAL) 13 %; MONOCYTES % (MANUAL) 1 %; NEUTROPHILS % (MANUAL) 83 %; RBC MORPH NORMAL
[2018-08-08] MEDS ORDERED: POTASSIUM CL 10MEQ/50ML IVPB 200 ML IV ONE (20:05)
[2018-08-08] MEDS ORDERED: methylPREDNISolone 40 MG/ML (Solu-MEDROL) VIAL ONE (20:05)
[2018-08-08 20:20] VITALS: BP 102/63
[2018-08-08] MEDS: POTASSIUM CL 10MEQ/50ML IVPB 50 ML IV SCH ×2 (20:20→23:09)
[2018-08-08] MEDS: methylPREDNISolone 40 MG/ML (Solu-MEDROL) VIAL IV SCH (20:20)
[2018-08-08] MEDS ORDERED: PROMETHAZINE INJ 25 MG/ML (PHENERGAN) AMP ONE (20:37)
--- NOTE | 2018-08-08 20:44 | Diagnostic Imaging Report ---
INDICATION: Fever and vomiting. COMPARISON: 07/27/2018. TECHNIQUE: Single view of the chest was obtained. FINDINGS: Blunting of the right lateral costophrenic angle has developed. Visualized lungs are clear. Posterior lower lobes are poorly evaluated by portable radiography. No pneumothorax. Heart is normal in size. IMPRESSION: New blunting of the right lateral costophrenic angle could relate to pleural effusion versus subpleural atelectasis/scar. If it will alter the patient's management, consider dedicated PA and lateral chest radiographs for more detailed evaluation of the lung bases. Dictated by: Dictated on workstation # [id number]
[2018-08-09 00:07] VITALS: BP 112/62
[2018-08-09] MEDS: methylPREDNISolone 40 MG/ML (Solu-MEDROL) VIAL IV SCH ×3 (00:58→12:00)
[2018-08-09] MEDS: POTASSIUM CL 10MEQ/50ML IVPB 50 ML IV SCH ×2 (01:38→03:40)
[2018-08-09] MEDS: LACTATED RINGERS 1,000 ML IV SCH ×2 (01:55→08:56)
[2018-08-09 04:08] VITALS: BP 113/64
[2018-08-09 05:46] LABS: BASOPHILS % (AUTO) 0 % (0-10); EOSINOPHILS % (AUTO) 0 % (0-10); HEMATOCRIT 32 % (35-52); HEMOGLOBIN 10.3 G/DL (11.5-16.0); LYMPHOCYTES # (AUTO) 0.8 X 10^3 (1.0-4.0); LYMPHOCYTES % (AUTO) 6 % (12-44); MEAN CORPUSCULAR HEMOGLOBIN 29 PG (25-34); MEAN CORPUSCULAR HGB CONC 32 G/DL (32-36); MEAN CORPUSCULAR VOLUME 91 FL (80-99); MEAN PLATELET VOLUME 9.1 FL (7.4-10.4); MONOCYTES # (AUTO) 0.1 X 10^3 (0.0-1.0); MONOCYTES % (AUTO) 1 % (0-12); NEUTROPHILS # (AUTO) 12.1 X 10^3 (1.8-7.8); NEUTROPHILS % (AUTO) 94 % (42-75); PLATELET COUNT 414 10^3/uL (130-400); RED BLOOD COUNT 3.53 10^6/uL (4.35-5.85); RED CELL DISTRIBUTION WIDTH 15.6 % (10.0-14.5); WHITE BLOOD COUNT 12.9 10^3/uL (4.3-11.0)
[2018-08-09 06:07] LABS: ALANINE AMINOTRANSFERASE 81 U/L (0-55); ALBUMIN 2.7 GM/DL (3.2-4.5); ALKALINE PHOSPHATASE 94 U/L (40-136); BILIRUBIN,TOTAL 0.6 MG/DL (0.1-1.0); BUN/CREATININE RATIO 16; CALCIUM 8.4 MG/DL (8.5-10.1); CARBON DIOXIDE 25 MMOL/L (21-32); CHLORIDE 103 MMOL/L (98-107); CREATININE SERUM 0.76 MG/DL (0.60-1.30); GFR ESTIMATED > 60; GLUCOSE 115 MG/DL (70-105); POTASSIUM 4.7 MMOL/L (3.6-5.0); SODIUM 138 MMOL/L (135-145); TOTAL PROTEIN 5.3 GM/DL (6.4-8.2)
[2018-08-09 08:00] VITALS: BP 111/59
[2018-08-09 12:00] VITALS: BP 121/62
--- NOTE | 2018-08-09 12:26 | Progress Note ---
Subjective Time Seen by a Provider: 12:00 Subjective/Events-last exam Pt seen and examined, she looks much better than yesterday and states she feels great today. "Thought I was dying yesterday". She states she has not had nausea or abdominal pain and has not taken any meds either. She would like to try a soft diet for lunch and go home later if she keeps it down. Review of Systems General: No Chills, No Night Sweats Pulmonary: No Dyspnea, No Cough Cardiovascular: No: Chest Pain, Palpitations Gastrointestinal: No: Nausea, Vomiting, Abdominal Pain Objective Exam Vital Signs Date Time Temp Pulse Resp B/P (MAP) Pulse Ox O2 Delivery O2 Flow Rate FiO2 08/09/18 08:00 Room Air 08/09/18 04:08 97.9 86 16 113/64 (80) 96 Room Air 08/09/18 00:07 98.4 100 17 112/62 (79) 94 Room Air 08/08/18 20:20 98.6 107 18 102/63 (76) 93 Room Air 08/08/18 20:10 Room Air 08/08/18 15:50 101.0 103 20 121/65 (83) 97 Room Air 08/08/18 14:00 Room Air 08/08/18 13:40 99.7 111 20 128/71 (90) 95 Room Air I & O 08/09/18 07:00 Intake Total 1100 ml Output Total 1150 ml Balance -50 ml Capillary Refill : General Appearance: No Apparent Distress, WD/WN HEENT: Pharynx Normal; No Moist Mucous Membranes, No Scleral Icterus (L), No Scleral Icterus (R) Neck: Full Range of Motion, Supple Respiratory: Chest Non Tender, Lungs Clear, Normal Breath Sounds, No Accessory Muscle Use, No Respiratory Distress Cardiovascular: No Murmur, Normal Peripheral Pulses Gastrointestinal: non tender, soft, other (incision is c/d/i, ostomy pink and fxning) Extremity: Normal Capillary Refill, No Calf Tenderness, No Pedal Edema Neurologic/Psychiatric: Alert, Oriented x3, No Motor/Sensory Deficits, information technology administrator II- XII Norm as Tested Skin: Cool, Damp Lymphatic: No Adenopathy (neck, axilla or groin) Results Lab Laboratory Tests 08/08/18 18:28: White Blood Count 16.9H, Red Blood Count 3.76L, Hemoglobin 11.0L, Hematocrit 34L , Mean Corpuscular Volume 90, Mean Corpuscular Hemoglobin 29, Mean Corpuscular Hemoglobin Concent 33, Red Cell Distribution Width 15.7H, Platelet Count 419H, Mean Platelet Volume 9.1, Neutrophils (%) (Auto) 89H, Lymphocytes (%) (Auto) 8L , Monocytes (%) (Auto) 3, Eosinophils (%) (Auto) 0, Basophils (%) (Auto) 0, Neutrophils # (Auto) 15.1H, Lymphocytes # (Auto) 1.3, Monocytes # (Auto) 0.5, Eosinophils # (Auto) 0.0, Basophils # (Auto) 0.0, Neutrophils % (Manual) 83, Lymphocytes % (Manual) 13, Monocytes % (Manual) 1, Eosinophils % (Manual) 0, Basophils % (Manual) 0, Band Neutrophils 3, Blood Morphology Comment NORMAL, Sodium Level 137, Potassium Level 3.3L, Chloride Level 100, Carbon Dioxide Level 25, Anion Gap 12, Blood Urea Nitrogen 13, Creatinine 0.75, Estimat Glomerular Filtration Rate > 60, BUN/Creatinine Ratio 17, Glucose Level 88, Calcium Level 8.5, Corrected Calcium 9.4, Total Bilirubin 0.7, Aspartate Amino Transf (AST/SGOT) 38H, Alanine Aminotransferase (ALT/SGPT) 85H, Alkaline Phosphatase 97, Total Protein 4.9L, Albumin 2.9L 08/09/18 05:25: White Blood Count 12.9H, Red Blood Count 3.53L, Hemoglobin 10.3L, Hematocrit 32L , Mean Corpuscular Volume 91, Mean Corpuscular Hemoglobin 29, Mean Corpuscular Hemoglobin Concent 32, Red Cell Distribution Width 15.6H, Platelet Count 414H, Mean Platelet Volume 9.1, Neutrophils (%) (Auto) 94H, Lymphocytes (%) (Auto) 6L , Monocytes (%) (Auto) 1, Eosinophils (%) (Auto) 0, Basophils (%) (Auto) 0, Neutrophils # (Auto) 12.1H, Lymphocytes # (Auto) 0.8L, Monocytes # (Auto) 0.1, Eosinophils # (Auto) 0.0, Basophils # (Auto) 0.0, Sodium Level 138, Potassium Level 4.7, Chloride Level 103, Carbon Dioxide Level 25, Anion Gap 10, Blood Urea Nitrogen 12, Creatinine 0.76, Estimat Glomerular Filtration Rate > 60, BUN/ Creatinine Ratio 16, Glucose Level 115H, Calcium Level 8.4L, Corrected Calcium 9.4, Total Bilirubin 0.6, Aspartate Amino Transf (AST/SGOT) 39H, Alanine Aminotransferase (ALT/SGPT) 81H, Alkaline Phosphatase 94, Total Protein 5.3L, Albumin 2.7L Microbiology 08/09/18 C. difficile GDH Antigen & Toxins - Final, Complete Assessment/Plan Assessment/Plan Assessment/Plan Intractable Nausea and Vomiting Protein Malnutrition HTN Nausea and vomiting have resolved, will try soft diet. Pt told to avoid "her milk" at home and watch to see if oral prednisone is the cause of her problems. I also think she was dehydrated and the IV fluids have really helped her. If she tolerates soft diet with no nausea then I will send her home. Clinical Quality Measures DVT/VTE Risk/Contraindication: Risk Factor Score Per Nursin RFS Level Per Nursing on Admit: 4+=Very High SINDHU TENA DO Aug 09, 2018 12:26
--- NOTE | 2018-08-09 12:32 | Discharge Inst-Surgical ---
Discharge Inst-Surgical Depart Medication/Instructions New, Converted or Re-Newed RX: Other Patient Instructions Follow up Appt: Make appointment for 1 week. Instructions: No lifting greater than 10 pounds. No strenuous activity. May shower in 24 hours, no tub bath or soaking. Use incentive spirometer at home as directed. No Smoking Skin/Wound Care: Come in for staple removal. Symptoms to Report: Appetite Changes, Extremity Discoloration, Numbness/Tingling, Swelling Increased , Bleeding Excessive, Eyesight Changes, Pain Increased, Urine Color Change, Constipation(Persistent), Fever over 101 degree F, Pain/Pressure in chest, Urinating Difficulty, Cough Up/Vomit Blood, Heart Beat Irreg/Pounding, Pain/ Pressure in jaw, Vaginal Bleeding Increase, Cramps in feet or legs, Lightheadedness, Pain/Pressure in shoulder, Diarrhea(Persistent), Memory Changes Suddenly, Questions/Concerns, Weight gain consecutive days, Dizziness/ Fainting, Nausea/Vomiting, Shortness of Breath, Weight gain over 2 pounds If questions or concerns contact your physician Or seek help at emergency department. Consults/Follow Up Patient Instructions: Instruction for Taperin Prednisone 35mg 08/10-08/13 30mg 08/14-08/17 25mg 08/18-08/21 20mg 08/22-08/25 15mg 08/26-08/29 10mg 08/30-09/02 5mg 09/03-09/06 Activity Activity as Tolerated: Yes Activity Instructions: Avoid Stress to Incision Driving Instructions: No Driving/Refer to Dr. Gomez Discharge Diet: No Restrictions Diet After 24 Hours: Clear Liquid if Nauseous If Any Problems/Questions/Issu: Contact Your Physician Skin/Wound Care Infection Signs and Symptoms: Increased Redness, Foul Odor of Wound, Increased Drainage, Skin Itchy or Has a Rash, Increased Swelling, Temperature Above 101 F Stitches/[place]/Dermabond Dis: Care of SINDHU Goodrich DO Aug 09, 2018 12:32
== END 2018-08-09 12:30 | disposition home or self-care (01) ==
LOC: 4TH 13:40 → UNDOADMIN 14:00 → 4TH 08-09 12:14 → UNDODISIN 08-09 14:10 → EDSTATUS 08-14 12:42
PROVIDERS: ADMIT Surgery; ATTEND Surgery
DX: G43.A1 Cyclical vomiting, in migraine, intractable (principal); E86.0 Dehydration; E46 Unspecified protein-calorie malnutrition; I10 Essential (primary) hypertension; Z79.52 Long term (current) use of systemic steroids; Z79.899 Other long term (current) drug therapy
CPT/HCPCS: 36415; 71045; 80053; 85007; 85025; 85027; 87324; 87449; G0378

== ENCOUNTER → 2018-09-03 | Outpatient (CLI) | payer BC ==
[~2018-09-03] MED LIST changes: +METR-197 PO; -METR500T21 PO
[2018-09-03 09:45] LABS: BASOPHILS % (AUTO) 0 % (0-10); EOSINOPHILS # (AUTO) 0.1 10^3/uL (0.0-0.3); EOSINOPHILS % (AUTO) 1 % (0-10); HEMATOCRIT 38 % (35-52); HEMOGLOBIN 11.6 G/DL (11.5-16.0); LYMPHOCYTES # (AUTO) 2.5 X 10^3 (1.0-4.0); LYMPHOCYTES % (AUTO) 28 % (12-44); MEAN CORPUSCULAR HEMOGLOBIN 28 PG (25-34); MEAN CORPUSCULAR HGB CONC 30 G/DL (32-36); MEAN CORPUSCULAR VOLUME 94 FL (80-99); MEAN PLATELET VOLUME 9.6 FL (7.4-10.4); MONOCYTES # (AUTO) 0.5 X 10^3 (0.0-1.0); MONOCYTES % (AUTO) 5 % (0-12); NEUTROPHILS # (AUTO) 5.8 X 10^3 (1.8-7.8); NEUTROPHILS % (AUTO) 66 % (42-75); PLATELET COUNT 337 10^3/uL (130-400); RED BLOOD COUNT 4.08 10^6/uL (4.35-5.85); RED CELL DISTRIBUTION WIDTH 16.4 % (10.0-14.5); WHITE BLOOD COUNT 8.9 10^3/uL (4.3-11.0)
[2018-09-03 10:14] LABS: BILIRUBIN,TOTAL 0.4 MG/DL (0.1-1.0); CALCIUM 9.8 MG/DL (8.5-10.1); CREATININE SERUM 1.16 MG/DL (0.60-1.30); POTASSIUM 4.1 MMOL/L (3.6-5.0); TOTAL PROTEIN 6.5 GM/DL (6.4-8.2)
== END ==
LOC: LAB 09:21
PROVIDERS: ATTEND Internal Medicine
DX: K51.019 Ulcerative (chronic) pancolitis with unspecified complications (principal); D64.9 Anemia, unspecified
CPT/HCPCS: 36415; 80053; 82728; 83540; 85025; 86141

== ENCOUNTER 2018-10-15 05:38 | Outpatient (CLI) | payer BC ==
[~2018-10-15] VITALS: Ht 162.6 cm; Wt 95.7 kg
== END 2018-10-15 10:33 ==
LOC: PREOP 05:38
PROVIDERS: ATTEND Surgery
DX: Z01.818 Encounter for other preprocedural examination (principal)

== ENCOUNTER 2018-10-16 09:29 | Day surgery (SDC) | payer BC ==
[~2018-10-16] VITALS: Ht 162.6 cm; Wt 103.4 kg
[2018-10-16 09:35] VITALS: BP 132/77
[2018-10-16] MEDS: LACTATED RINGERS 1,000 ML IV PRN ×2 (09:46→12:47)
[2018-10-16] MEDS ORDERED: ONDANSETRON 4 MG/2 ML (SDV) Z0FRAN ONE (10:43)
[2018-10-16] MEDS ORDERED: LIDOCAINE PF 2% 5 ML (XYLOCAINE) VIAL ONE (10:43)
[2018-10-16] MEDS ORDERED: MIDAZOLAM 2 MG/2 ML (VERSED) VIAL ONE (10:43)
[2018-10-16] MEDS ORDERED: proPOfol 200 MG/20 ML (DIPRIVAN) VIAL IV ONE ×2 (10:43→12:19)
[2018-10-16] MEDS ORDERED: fentaNYL INJECTION 100 MCG/2 ML AMP ONE (10:43)
[2018-10-16] MEDS ORDERED: DEXAMETHASONE 10 MG/ML (DECADRON) 1 ML VIAL ONE (10:43)
[2018-10-16] MEDS ORDERED: SEVOFLURANE (ULTANE) 15 ML INHAL SOLN ONE (10:45)
[2018-10-16] MEDS ORDERED: FAMOTIDINE 20MG/2ML IV (PEPCID) IV ONE (10:45)
[2018-10-16] MEDS ORDERED: SCOPOLAMINE 1.5 MG (TRANSDERM-SCOP) PATCH TOP ONE (10:45)
[2018-10-16] MEDS ORDERED: ONDANSETRON 4 MG/2 ML (SDV) Z0FRAN IV ONE (10:45)
--- NOTE | 2018-10-16 11:40 | Progress Note-Pre Operative ---
Pre-Operative Progress Note H&P Reviewed The H&P was reviewed, patient examined and no changes noted. Time Seen by Provider: 11:34 Date H&P Reviewed: Oct 16, 2018 Time H&P Reviewed: 11:35 Pre-Operative Diagnosis: Rectal bleed SINDHU TENA DO Oct 16, 2018 11:40
[2018-10-16] MEDS ORDERED: LACTATED RINGERS 1,000 ML IV ONE (12:25)
--- NOTE | 2018-10-16 12:39 | Progress Note-Post Operative ---
Post-Operative Progess Note Surgeon (s)/Glass Novelty Maker (s) Surgeon SINDHU TENA DO Glass Novelty Maker: none Pre-Operative Diagnosis Rectal bleed Post-Operative Diagnosis rectal stump colitis pending path Procedure & Operative Findings Date of Procedure 10/16/18 Procedure Performed/Findings REUA Flex Sig with biopsies Anesthesia Type IV sedation by AQUATICS INSTRUCTOR Estimated Blood Loss Estimated blood loss (mL): scant, but there was a large amount of blood already in rectal stump Specimens/Packing Specimens Removed rectal stump biopsy rectal vault biopsy SINDHU TENA DO Oct 16, 2018 12:39
--- NOTE | 2018-10-16 12:41 | Discharge Inst-Surgical ---
Discharge Inst-Surgical Depart Medication/Instructions New, Converted or Re-Newed RX: Other (no RX needed at this time) Patient Instructions Follow up Appt: Make appointment for 1 week. Instructions: No Restrictions Symptoms to Report: Appetite Changes, Extremity Discoloration, Numbness/Tingling, Swelling Increased , Bleeding Excessive, Eyesight Changes, Pain Increased, Urine Color Change, Constipation(Persistent), Fever over 101 degree F, Pain/Pressure in chest, Urinating Difficulty, Cough Up/Vomit Blood, Heart Beat Irreg/Pounding, Pain/ Pressure in jaw, Vaginal Bleeding Increase, Cramps in feet or legs, Lightheadedness, Pain/Pressure in shoulder, Diarrhea(Persistent), Memory Changes Suddenly, Questions/Concerns, Weight gain consecutive days, Dizziness/ Fainting, Nausea/Vomiting, Shortness of Breath, Weight gain over 2 pounds If questions or concerns contact your physician Or seek help at emergency department. Activity Activity as Tolerated: Yes Driving Instructions: No Driving for 24 Hours Diet Discharge Diet: No Restrictions Diet After 24 Hours: Clear Liquid if Nauseous If Any Problems/Questions/Issu: Contact Your Physician, Go to Emergency Room Skin/Wound Care Infection Signs and Symptoms: Increased Drainage, Skin Itchy or Has a Rash, Increased Swelling, Temperature Above 101 F Bathing Instructions: SINDHU Alvarado DO Oct 16, 2018 12:41
[2018-10-16] MEDS ORDERED: morphine INJ 10 MG/ML 1ML (SYR OR VIAL) IVP ONE (12:45)
[2018-10-16] MEDS ORDERED: fentaNYL INJECTION 100 MCG/2 ML AMP IVP ONE (12:45)
[2018-10-16] MEDS ORDERED: MEPERIDINE (DEMEROL) INJ 50 MG/ML IVP ONE (12:45)
[2018-10-16] MEDS ORDERED: ONDANSETRON 4 MG/2 ML (SDV) Z0FRAN IVP PRN (12:45)
[2018-10-16 13:00] VITALS: BP 132/74
[2018-10-16 13:30] VITALS: BP 125/77
[2018-10-16 14:03] VITALS: BP 125/77
--- NOTE | 2018-10-18 00:59 | OPERATIVE REPORT ---
DATE OF SERVICE: 10/16/2018 PREOPERATIVE DIAGNOSIS: Rectal bleed. POSTOPERATIVE DIAGNOSIS: Rectal stump colitis. PROCEDURES: 1. Rectal exam under anesthesia. 2. Flex sig with biopsy. SURGEON: Jayden Salazar DO. RETAIL FIELD REPRESENTATIVE: None. ANESTHESIA: IV sedation. SPECIMEN: Biopsy from the rectal stump as well as some tissue. BLOOD LOSS: Scant. Although, there were already blood bleeding in there. FLUIDS: Per anesthesia. POSTOPERATIVE CONDITION: Stable. INDICATION FOR PROCEDURE: The patient is a 63-year-old female who has a history of ulcerative colitis, C. diff and had a subtotal colectomy. She was doing fine, but recently was seen in my office with complaints of blood coming out whenever she sat down to urinate. She does have an end ileostomy. We had left the rectal stump for possible reanastomosis. The patient wanted to have exam down to see if we can figure out why she is having bleeding. FINDINGS: The patient had a lot of bleeding in the rectal stump. Able to flush out some of this blood and could see some colitis. Took pictures and then did biopsies. PROCEDURE NOTE: After informed consent was obtained, the patient was brought to the operating room, placed on table in the lithotomy position. She was sterilely prepped and draped in normal fashion. Upon starting the rectal exam under anesthesia, immediately got out maroonish very liquidy fluid copious amount tried to look with a speculum, but still we getting a lot of bloody fluid out, felt in there could not really feel anything the distal portion of the stump like as far as I can feel my finger, felt like there was some little bit main possible nodule, so elected to have endoscopy, up and placed a flexible sigmoidoscopy in then a copiously flushed out the rectal stump. There was a lot of bright red blood in there. Able to get to the stump, the stump looked fine, but there are also areas of inflammation. These were biopsied. Once at the stump and then once in the rectum, there is also looked like there was almost sloughing of the tissue, so flushed this out and suctioned this up and sent this tissue for pathology and at this point then removed the scope. The patient tolerated the procedure. She was transferred to recovery room in stable condition. Sponge and needle count correct at the end of the case. Job ID: [id number] DocumentID: [id number] Dictated Date: 10/17/2018 19:06:41 Customer Service Professional Date: 10/18/2018 00:58:36 Dictated By: JAYDEN SALAZAR DO
== END 2018-10-16 14:10 | disposition home or self-care (01) ==
LOC: SDC 09:29
PROVIDERS: ATTEND Surgery
DX: K51.911 Ulcerative colitis, unspecified with rectal bleeding (principal); K62.5 Hemorrhage of anus and rectum; Z87.891 Personal history of nicotine dependence; I10 Essential (primary) hypertension; J45.909 Unspecified asthma, uncomplicated; J44.9 Chronic obstructive pulmonary disease, unspecified; Z79.899 Other long term (current) drug therapy
CPT/HCPCS: 87081

== ENCOUNTER 2018-10-28 09:38 | Inpatient (IN) | payer BC | END 2018-10-30 15:00 | disposition home or self-care (01) | LOC: 4TH 09:38 | DX: K51.911 Ulcerative colitis, unspecified with rectal bleeding (principal) ==

== ENCOUNTER → 2018-11-15 | Outpatient (CLI) | payer BC ==
[~2018-11-15] MED LIST changes: +BIOT10005 PO
[2018-11-15 11:42] LABS: BILIRUBIN,URINE NEGATIVE (NEGATIVE); CLARITY,URINE CLEAR; COLOR,URINE YELLOW; GLUCOSE, URINE (UA) NEGATIVE (NEGATIVE); KETONES,URINE NEGATIVE (NEGATIVE); LEUKOCYTE ESTERASE ,URINE 3+ (NEGATIVE); NITRITE,URINE NEGATIVE (NEGATIVE); PH,URINE 6 (5-9); PROTEIN,URINE 2+ (NEGATIVE); UROBILINOGEN,URINE NORMAL (NORMAL)
[2018-11-15 12:00] LABS: BACTERIA,URINE MODERATE /HPF; RBC,URINE 0-2 /HPF
== END ==
LOC: LAB 11:25
PROVIDERS: ATTEND Surgery
DX: R30.0 Dysuria (principal)
CPT/HCPCS: 81000; 87088

== ENCOUNTER → 2019-01-30 | Outpatient (CLI) | payer BC ==
[~2019-01-30] MED LIST changes: -MESA800T3 PO; +MESA800T9 PO; +METR-145 PO; -METR-197 PO; +MIRT-47 PO; -MIRT15TA8 PO
[2019-01-30 07:57] LABS: BASOPHILS % (AUTO) 0 % (0-10); EOSINOPHILS # (AUTO) 0.1 10^3/uL (0.0-0.3); EOSINOPHILS % (AUTO) 3 % (0-10); HEMATOCRIT 39 % (35-52); HEMOGLOBIN 12.1 G/DL (11.5-16.0); LYMPHOCYTES % (AUTO) 41 % (12-44); MEAN CORPUSCULAR HEMOGLOBIN 26 PG (25-34); MEAN CORPUSCULAR HGB CONC 31 G/DL (32-36); MEAN CORPUSCULAR VOLUME 84 FL (80-99); MONOCYTES # (AUTO) 0.3 X 10^3 (0.0-1.0); MONOCYTES % (AUTO) 7 % (0-12); NEUTROPHILS # (AUTO) 2.4 X 10^3 (1.8-7.8); NEUTROPHILS % (AUTO) 49 % (42-75); PLATELET COUNT 291 10^3/uL (130-400); RED CELL DISTRIBUTION WIDTH 16.7 % (10.0-14.5); WHITE BLOOD COUNT 4.8 10^3/uL (4.3-11.0)
[2019-01-30 08:19] LABS: ALANINE AMINOTRANSFERASE 34 U/L (0-55); ALKALINE PHOSPHATASE 112 U/L (40-136); BILIRUBIN,TOTAL 0.4 MG/DL (0.1-1.0); BUN/CREATININE RATIO 15; CALCIUM 9.9 MG/DL (8.5-10.1); CARBON DIOXIDE 24 MMOL/L (21-32); CHLORIDE 108 MMOL/L (98-107); CREATININE SERUM 0.75 MG/DL (0.60-1.30); GFR ESTIMATED > 60; GLUCOSE 95 MG/DL (70-105); POTASSIUM 4.2 MMOL/L (3.6-5.0); SODIUM 140 MMOL/L (135-145); TOTAL PROTEIN 6.6 GM/DL (6.4-8.2)
== END ==
LOC: LAB 07:37
PROVIDERS: ATTEND Internal Medicine
DX: K90.9 Intestinal malabsorption, unspecified (principal); R73.09 Other abnormal glucose; R03.0 Elevated blood-pressure reading, without diagnosis of hypertension
CPT/HCPCS: 36415; 80053; 82306; 82607; 82728; 82746; 83036; 83540; 84443; 85025

== ENCOUNTER → 2019-07-16 | Outpatient (CLI) | payer MEDICARE ==
[~2019-07-16] MED LIST changes: +PROM12.511 PO; -PROM12.59 PO
== END ==
LOC: LAB 10:07
PROVIDERS: ATTEND Internal Medicine
DX: E55.9 Vitamin D deficiency, unspecified (principal)
CPT/HCPCS: 36415; 82306

== ENCOUNTER → 2019-12-18 | Outpatient (CLI) | payer MEDICARE ==
[~2019-12-18] MED LIST changes: -LOPE-145 PO; +LOPE-175 PO; -METO-387 PO; +MTP25TSR PO
[2019-12-18 11:51] LABS: HEMOGLOBIN 13.3 G/DL (11.5-16.0); MEAN PLATELET VOLUME 10.1 FL (7.4-10.4); WHITE BLOOD COUNT 5.7 10^3/uL (4.3-11.0)
[2019-12-18 12:16] LABS: ALANINE AMINOTRANSFERASE 38 U/L (0-55); ALBUMIN 4.4 GM/DL (3.2-4.5); ALKALINE PHOSPHATASE 131 U/L (40-136); BILIRUBIN,TOTAL 0.3 MG/DL (0.1-1.0); BUN/CREATININE RATIO 12; CALCIUM 9.9 MG/DL (8.5-10.1); CARBON DIOXIDE 24 MMOL/L (21-32); CHLORIDE 107 MMOL/L (98-107); CREATININE SERUM 0.77 MG/DL (0.60-1.30); GFR ESTIMATED > 60; GLUCOSE 95 MG/DL (70-105); POTASSIUM 4.7 MMOL/L (3.6-5.0); SODIUM 140 MMOL/L (135-145); TOTAL PROTEIN 7.3 GM/DL (6.4-8.2)
== END ==
LOC: LAB 11:34
PROVIDERS: ATTEND Internal Medicine
DX: E55.9 Vitamin D deficiency, unspecified (principal); D51.9 Vitamin B12 deficiency anemia, unspecified
CPT/HCPCS: 36415; 80053; 82306; 82607; 82728; 83540; 85027

== ENCOUNTER → 2020-06-14 | Outpatient (CLI) | payer MEDICARE ==
[2020-06-14 08:24] LABS: ALANINE AMINOTRANSFERASE 50 U/L (0-55); ALBUMIN 4.3 GM/DL (3.2-4.5); ALKALINE PHOSPHATASE 116 U/L (40-136); BILIRUBIN,TOTAL 0.4 MG/DL (0.1-1.0); BUN/CREATININE RATIO 12; CALCIUM 9.7 MG/DL (8.5-10.1); CARBON DIOXIDE 25 MMOL/L (21-32); CHLORIDE 108 MMOL/L (98-107); CHOLESTEROL 166 MG/DL (< 200); CREATININE SERUM 0.83 MG/DL (0.60-1.30); GFR ESTIMATED > 60; GLUCOSE 108 MG/DL (70-105); POTASSIUM 4.5 MMOL/L (3.6-5.0); SODIUM 141 MMOL/L (135-145); TOTAL PROTEIN 7.1 GM/DL (6.4-8.2); TRIGLYCERIDES 112 MG/DL (<150)
== END ==
LOC: LAB 07:42
PROVIDERS: ATTEND Internal Medicine
DX: Z13.6 Encounter for screening for cardiovascular disorders (principal); E55.9 Vitamin D deficiency, unspecified; K51.90 Ulcerative colitis, unspecified, without complications
CPT/HCPCS: 36415; 80053; 82465; 82652; 84478

== ENCOUNTER 2021-01-17 11:09 | Emergency (ER) | payer MEDICARE ==
[~2021-01-17] VITALS: Ht 162 cm; Wt 112.4 kg
[~2021-01-17 11:09] MED LIST changes: -CIPR500T4 PO; +CIPR500T5 PO; -FOLI1TAB24 PO; +FOLI1TAB33 PO; +SERT-413 PO; -SERT50TA9 PO
--- NOTE | 2021-01-17 11:38 | ED Abdominal Pain ---
General Stated Complaint: ILEOSTSOMY SITE CLOGGED Source of Information: Patient, Family Exam Limitations: No Limitations History of Present Illness Date Seen by Provider: Jan 17, 2021 Time Seen by Provider: 11:25 Initial Comments Patient is a 65-year-old female who presents to the emergency room with a chief complaint of abdominal pain and nausea. Patient has a history of ulcerative colitis status post total colectomy 2 years ago. Patient states that she woke up fine around 6 AM this morning, had some coffee around 7 AM and that is when her pain started. Patient has progressively had increasing pain over the course of the morning as well as increasing nausea. She took 8 mg of ODT Zofran around 1030 this morning without any relief of symptoms. She is not taken anything for pain. Patient states that she has not had any ostomy output since around 6 AM this morning. Patient has never had pain quite like this before. She believes that her ileostomy is "clogged". Patient has not actually vomited yet this morning. She denies any problems with bladder specifically dysuria, urgency or frequency. She has not run a fever that she knows of. Patient states that she ate some pizza last night for dinner. She does not believe that anybody else has been sick. She states she did fine throughout the night. All other review of systems reviewed and negative except as stated. Timing/Duration: 4-6 Hours Severity/Quality: Severe ("8") Location: Generalized Abdomen Activities at Onset: None Associated Symptoms: Nausea/Vomiting Allergies and Home Medications Allergies Coded Allergies: sulfamethoxazole (Verified Allergy, Unknown, 06/21/18) Flushing trimethoprim (Verified Allergy, Unknown, 06/21/18) Flushing Home Medications Ascorbate Calcium 500 Mg Tablet, 2 TAB PO DAILY, (Reported) Biotin 10,000 Mcg Capsule, 10,000 MCG PO DAILY, (Reported) Ferrous Sulfate 325 Mg Tablet, 325 MG PO TuTh, (Reported) Hydrocodone Bit/Acetaminophen 1 Tab Tab, 1 TAB PO Q6H PRN for PAIN-MODERATE Prescribed by: SINDHU TENA on 10/30/18 1011 Hydrocodone/Acetaminophen 1 Each Tablet, 1 TAB PO Q6H PRN for PAIN-MODERATE (5- 7) Prescribed by: MELA BARAJAS on 01/17/21 1402 Metoprolol Succinate 25 Mg Tab.er.24h, 25 MG PO DAILY, (Reported) Multivitamin with Minerals 1 Each Tablet, 1 TAB PO DAILY, (Reported) Promethazine HCl 25 Mg Tablet, 25 MG PO Q6H PRN for NAUSEA/VOMITING Prescribed by: MELA BARAJAS on 01/17/21 1401 Patient Home Medication List Home Medication List Reviewed: Yes Review of Systems Review of Systems Constitutional: see HPI EENTM: No Symptoms Reported Respiratory: No Symptoms Reported Cardiovascular: No Symptoms Reported Gastrointestinal: Abdomen Distended, Abdominal Pain Genitourinary: No Symptoms Reported Musculoskeletal: no symptoms reported Skin: no symptoms reported All Other Systems Reviewed Negative Unless Noted: Yes Past Ofchwdx-Dqfljh-Ilvkyg Hx Patient Social History Type Used: Cigars Former Smoker, Quit: Aug 08, 1968 2nd Hand Smoke Exposure: No Recent Hopitalizations: No Immunizations Up To Date Tetanus Booster (TDap): Unknown Seasonal Allergies Seasonal Allergies: No Past Medical History Surgeries: Yes (colon removed ileostomy placed) Tubal Ligation Respiratory: Yes Asthma Currently Using CPAP: No Currently Using BIPAP: No Cardiac: Yes Hypertension Neurological: No Reproductive Disorders: No Female Reproductive Disorders: Denies 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, 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 Sexually Transmitted Disease: No HIV/AIDS: No Genitourinary: No Gastrointestinal: Yes (ileostomy) Colitis, C-Diff Musculoskeletal: No Endocrine: No HEENT: Yes (READING GLASSES) Loss of Vision: Bilateral Hearing Impairment: Denies Cancer: No Did You Recieve Any Treatments: No Psychosocial: No Anxiety Integumentary: No Blood Disorders: No Adverse Reaction/Blood Tranf: No Family Medical History Colitis G8 BROTHER G8 SISTER Respiratory disorder 19 MOTHER (COPD) Hypertension, Lung Disease Physical Exam Vital Signs Vital Signs - First Documented 01/17/21 01/17/21 11:37 12:11 Temp 35.9 Pulse 73 Resp 16 B/P (MAP) 175/101 (125) Pulse Ox 98 O2 Delivery Nasal Cannula O2 Flow Rate 2.00 Capillary Refill : Height/Weight/BMI Height: 5'4.00" Weight: 221lbs. 4.0oz. 100.340124vn; 38.0 BMI Method:Stated General Appearance: WD/WN, mild distress Respiratory: lungs clear, normal breath sounds, no respiratory distress, no accessory muscle use Cardiovascular: regular rate, rhythm Gastrointestinal: soft, abnormal bowel sounds (Hyperactive bowel sounds), tenderness (Exquisite tenderness diffusely, patient does not tolerate abdominal palpation well at all.) Extremities: normal range of motion, non-tender, normal inspection, no pedal edema Neurologic/Psychiatric: no motor/sensory deficits, alert, normal mood/affect, oriented x 3 Skin: normal color, warm/dry Progress/Results/Core Measures Results/Orders Lab Results Laboratory Tests Test 01/17/21 11:35 Range/Units White Blood Count 6.2 4.3-11.0 10^3/uL Red Blood Count 4.67 3.80-5.11 10^6/uL Hemoglobin 13.9 11.5-16.0 g/dL Hematocrit 43 35-52 % Mean Corpuscular Volume 93 80-99 fL Mean Corpuscular Hemoglobin 30 25-34 pg Mean Corpuscular Hemoglobin Concent 32 32-36 g/dL Red Cell Distribution Width 13.2 10.0-14.5 % Platelet Count 263 130-400 10^3/uL Mean Platelet Volume 10.5 9.0-12.2 fL Immature Granulocyte % (Auto) 1 % Neutrophils (%) (Auto) 70 42-75 % Lymphocytes (%) (Auto) 23 12-44 % Monocytes (%) (Auto) 5 0-12 % Eosinophils (%) (Auto) 1 0-10 % Basophils (%) (Auto) 0 0-10 % Neutrophils # (Auto) 4.4 1.8-7.8 10^3/uL Lymphocytes # (Auto) 1.4 1.0-4.0 10^3/uL Monocytes # (Auto) 0.3 0.0-1.0 10^3/uL Eosinophils # (Auto) 0.1 0.0-0.3 10^3/uL Basophils # (Auto) 0.0 0.0-0.1 10^3/uL Immature Granulocyte # (Auto) 0.0 0.0-0.1 10^3/uL Sodium Level 139 135-145 MMOL/L Potassium Level 4.3 3.6-5.0 MMOL/L Chloride Level 107 98-107 MMOL/L Carbon Dioxide Level 21 21-32 MMOL/L Anion Gap 11 5-14 MMOL/L Blood Urea Nitrogen 8 7-18 MG/DL Creatinine 0.82 0.60-1.30 MG/DL Estimat Glomerular Filtration Rate > 60 BUN/Creatinine Ratio 10 Glucose Level 111 H 70-105 MG/DL Calcium Level 9.4 8.5-10.1 MG/DL Corrected Calcium 9.2 8.5-10.1 MG/DL Total Bilirubin 0.4 0.1-1.0 MG/DL Aspartate Amino Transf (AST/SGOT) 37 H 5-34 U/L Alanine Aminotransferase (ALT/SGPT) 43 0-55 U/L Alkaline Phosphatase 103 40-136 U/L Total Protein 7.1 6.4-8.2 GM/DL Albumin 4.3 3.2-4.5 GM/DL My Orders Orders - MELA BARAJAS MD Cbc With Automated Diff (01/17/21 11:39) Comprehensive Metabolic Panel (01/17/21 11:39) Ct Abdomen/Pelvis Wo (01/17/21 11:39) Fentanyl Inj (Sublimaze Injection) (01/17/21 11:45) Promethazine Injection (Phenergan Injec (01/17/21 11:45) Simethicone Tablet (Mylicon Chewable Tab (01/17/21 13:15) Fentanyl Inj (Sublimaze Injection) (01/17/21 14:15) Medications Given in ED Current Medications Medications Dose Ordered Sig/Leny Route Start Time Stop Time Status Last Admin Dose Admin Fentanyl Citrate 25 mcg ONCE ONCE IVP 01/17/21 14:15 01/17/21 14:16 DC 01/17/21 14:17 25 MCG Fentanyl Citrate 50 mcg ONCE ONCE IVP 01/17/21 11:45 01/17/21 11:49 DC 01/17/21 12:02 50 MCG Promethazine HCl 25 mg ONCE ONCE IVP 01/17/21 11:45 01/17/21 11:49 DC 01/17/21 12:02 25 MG Simethicone 80 mg ONCE ONCE PO 01/17/21 13:15 01/17/21 13:16 DC 01/17/21 13:29 80 MG Vital Signs/I&O 01/17/21 01/17/21 01/17/21 11:37 12:11 14:24 Temp 35.9 Pulse 73 77 Resp 16 18 B/P (MAP) 175/101 (125) 155/78 Pulse Ox 98 95 95 O2 Delivery Nasal Cannula O2 Flow Rate 2.00 Progress Progress Note : Time: 13:40 Progress Note I discussed the CT findings of parastomal hernia with Dr. Reese. I advised that the patient feels much better and has less pain. She still has no output from h er ostomy. He states that she could have a functional obstruction due to the parastomal hernia however he believes that this will resolve on its own with bowel rest and pain medications. He recommends follow-up with Dr. Tena, the patient's primary surgeon for possible operative repair of the parastomal hernia. Patient will be given good return precautions including if she develops worsening abdominal pain with vomiting to come back to the emergency department for further evaluation. Had a long discussion with the patient and her family member who is at the bedside. They are fairly comfortable with the plan of care. I advised that if she starts vomiting she needs to come back to the emergency room for reevaluation. I advised that they call Dr. Tena's office today for a follow- up appointment on . If at any point she is uncomfortable and is having increasing pain that is not alleviated by her home pain medications or her home nausea medication she needs to come back to the emergency department. Patient will be sent home on a clear liquid diet for the next 24 hours and then once she starts having output from her ostomy she can slowly advance her diet as tolerated. She verbalizes understanding as does her daughter who is at the bedside. All questions are sought and answered. Patient is stable for discharge. Diagnostic Imaging Diagonstic Imaging: CT Plain Films/CT/US/NM/MRI: abdomen Comments [facility], [place] NAME: DAVID CRABTREE [facility] REC#: [id number] PT STATUS: REG ER : 1955 PHYSICIAN: MELA BARAJAS MD ADMIT DATE: 01/17/21/ER Draft Date of Exam:01/17/21 CT ABDOMEN/PELVIS WO EXAMINATION: CT Abdomen/Pelvis without contrast. TECHNIQUE: Multiple contiguous axial images were obtained through the abdomen and pelvis without the use of intravenous contrast. All CT scans use one or more of the following dose optimizing techniques: automated exposure control, MA and/or KvP adjustment based on a patient size and exam type, or iterative reconstruction. HISTORY: Right lower quadrant abdominal pain. COMPARISON: CT abdomen/pelvis 06/18/2018. FINDINGS: Lung bases: There is a calcified granuloma within the left lower lobe. Atelectasis within both lung bases. Solid organs: There is diffuse hypoattenuation of the liver which can be seen with hepatic steatosis. Multiple layering hyperdense stones within the gallbladder. There is no biliary ductal dilation. Pancreas is normal. Spleen is normal. Adrenal glands are normal. There is a 0.2 cm nonobstructing right renal calculus. No hydronephrosis. Bowel: Surgical changes from right lower quadrant ostomy. There are multiple loops of nondistended small bowel within the stoma site. No bowel obstruction. Surgical changes of prior colon resection. Peritoneum: There is no intraperitoneal free fluid or free air. No suspicious lymphadenopathy. Vasculature: Calcification of the aorta without aneurysm. Musculoskeletal: Degenerative changes of the spine without suspicious osseous lesion or compression fracture. Pelvis: The uterus and adnexa are normal. The urinary bladder is normal. IMPRESSION: 1. Multiple loops of bowel within the right lower quadrant ileostomy stoma site which could be post surgical as intended but could represent parastomal hernia. No dilated loops of bowel to suggest bowel obstruction. 2. No other acute abnormality in the abdomen or pelvis. 3. Hepatic steatosis. 4. Nonobstructing 0.2 cm right renal calculus without hydronephrosis. Dictated on workstation # [id number] Dict: 01/17/21 1314 Trans: 01/17/21 1324 [id number] Interpreted by: DESTINY CEDEÑO DO Electronically signed by: Departure Impression Primary Impression: Abdominal pain Qualified Codes: R10.84 - Generalized abdominal pain Additional Impression: Parastomal hernia of ileal conduit Disposition: HOME, SELF-CARE Condition: Stable Departure-Patient Inst. Decision time for Depature: 13:59 Referrals: SINDHU TENA MINDI DO (PCP/Family) Primary Care Physician Patient Instructions: Abdominal Pain, Adult ED Add. Discharge Instructions: Please follow a clear liquid diet for at least the next 24 hours. When you start having output from your ileostomy, you can slowly advance her diet as tolerated. Take your pain medication every 6 hours as needed. Phenergan every 6 hours as needed for nausea. If you develop worsening abdominal pain, vomiting, fever or any other emergent concerning symptoms, please come back to the emergency department for reevaluation. Please call Dr. Tena's office for a follow-up appointment this . See Dr Verduzco tomorrow in her [facility] at 4pm Scripts Promethazine HCl (Promethazine Tablet) 25 Mg Tablet 25 MG PO Q6H PRN for NAUSEA/VOMITING, #15 TAB Prov: MELA BARAJAS MD 01/17/21 Hydrocodone/Acetaminophen (Hydrocodone-Acetamin 5-325 mg) 1 Each Tablet 1 TAB PO Q6H PRN for PAIN-MODERATE (5-7), #15 TAB Prov: MELA BARAJAS MD 01/17/21 MELA BARAJAS MD Jan 17, 2021 11:38
[2021-01-17] MEDS ORDERED: fentaNYL INJ 100 MCG/2 ML AMP IVP ONE ×2 (11:45→14:15)
[2021-01-17] MEDS ORDERED: PROMETHAZINE INJ 25 MG/ML (PHENERGAN) AMP IVP ONE (11:45)
[2021-01-17 11:55] LABS: BASOPHILS % (AUTO) 0 % (0-10); EOSINOPHILS # (AUTO) 0.1 10^3/uL (0.0-0.3); EOSINOPHILS % (AUTO) 1 % (0-10); HEMATOCRIT 43 % (35-52); HEMOGLOBIN 13.9 g/dL (11.5-16.0); LYMPHOCYTES # (AUTO) 1.4 10^3/uL (1.0-4.0); LYMPHOCYTES % (AUTO) 23 % (12-44); MEAN CORPUSCULAR HEMOGLOBIN 30 pg (25-34); MEAN CORPUSCULAR HGB CONC 32 g/dL (32-36); MEAN CORPUSCULAR VOLUME 93 fL (80-99); MEAN PLATELET VOLUME 10.5 fL (9.0-12.2); MONOCYTES # (AUTO) 0.3 10^3/uL (0.0-1.0); MONOCYTES % (AUTO) 5 % (0-12); NEUTROPHILS # (AUTO) 4.4 10^3/uL (1.8-7.8); NEUTROPHILS % (AUTO) 70 % (42-75); PLATELET COUNT 263 10^3/uL (130-400); WHITE BLOOD COUNT 6.2 10^3/uL (4.3-11.0)
[2021-01-17 12:08] LABS: ALANINE AMINOTRANSFERASE 43 U/L (0-55); ALBUMIN 4.3 GM/DL (3.2-4.5); ALKALINE PHOSPHATASE 103 U/L (40-136); BILIRUBIN,TOTAL 0.4 MG/DL (0.1-1.0); BUN/CREATININE RATIO 10; CALCIUM 9.4 MG/DL (8.5-10.1); CARBON DIOXIDE 21 MMOL/L (21-32); CHLORIDE 107 MMOL/L (98-107); CREATININE SERUM 0.82 MG/DL (0.60-1.30); GFR ESTIMATED > 60; GLUCOSE 111 MG/DL (70-105); POTASSIUM 4.3 MMOL/L (3.6-5.0); SODIUM 139 MMOL/L (135-145); TOTAL PROTEIN 7.1 GM/DL (6.4-8.2)
[2021-01-17] MEDS ORDERED: SIMETHICONE 80 MG (MYLICON) CHEW PO ONE (13:15)
--- NOTE | 2021-01-17 13:24 | Diagnostic Imaging Report ---
EXAMINATION: CT Abdomen/Pelvis without contrast. TECHNIQUE: Multiple contiguous axial images were obtained through the abdomen and pelvis without the use of intravenous contrast. All CT scans use one or more of the following dose optimizing techniques: automated exposure control, MA and/or KvP adjustment based on a patient size and exam type, or iterative reconstruction. HISTORY: Right lower quadrant abdominal pain. COMPARISON: CT abdomen/pelvis 06/18/2018. FINDINGS: Lung bases: There is a calcified granuloma within the left lower lobe. Atelectasis within both lung bases. Solid organs: There is diffuse hypoattenuation of the liver which can be seen with hepatic steatosis. Multiple layering hyperdense stones within the gallbladder. There is no biliary ductal dilation. Pancreas is normal. Spleen is normal. Adrenal glands are normal. There is a 0.2 cm nonobstructing right renal calculus. No hydronephrosis. Bowel: Surgical changes from right lower quadrant ostomy. There are multiple loops of nondistended small bowel within the stoma site. No bowel obstruction. Surgical changes of prior colon resection. Peritoneum: There is no intraperitoneal free fluid or free air. No suspicious lymphadenopathy. Vasculature: Calcification of the aorta without aneurysm. Musculoskeletal: Degenerative changes of the spine without suspicious osseous lesion or compression fracture. Pelvis: The uterus and adnexa are normal. The urinary bladder is normal. IMPRESSION: 1. Multiple loops of bowel within the right lower quadrant ileostomy stoma site which could be post surgical as intended but could represent parastomal hernia. No dilated loops of bowel to suggest bowel obstruction. 2. No other acute abnormality in the abdomen or pelvis. 3. Hepatic steatosis. 4. Nonobstructing 0.2 cm right renal calculus without hydronephrosis. Dictated by: Dictated on workstation # [id number]
[2021-01-17] MEDS ORDERED: ACHD5005 PO (14:01)
[2021-01-17] MEDS ORDERED: PROM25TA14 PO (14:01)
[2021-01-17 14:24] VITALS: BP 155/78
[2021-01-18] MEDS ORDERED: MULT9LIQ6 PO (13:56)
[2021-01-18] MEDS ORDERED: ACET-2267 PO (13:56)
== END 2021-01-17 14:24 | disposition home or self-care (01) ==
LOC: EDUNIT# 11:09 → ER 11:11
DX: K43.5 Parastomal hernia without obstruction or gangrene (principal); J45.909 Unspecified asthma, uncomplicated; I10 Essential (primary) hypertension; Z98.51 Tubal ligation status; Z88.1 Allergy status to other antibiotic agents; Z88.2 Allergy status to sulfonamides; Z93.2 Ileostomy status
CPT/HCPCS: 36415; 74176; 80053; 85025

== ENCOUNTER 2021-01-17 18:14 | Day surgery (SDC) | payer MEDICARE ==
[~2021-01-17] VITALS: Ht 162 cm; Wt 112.4 kg
[2021-01-17] MEDS ORDERED: morphine INJ 10 MG/ML 1ML (SYR OR VIAL) ONE (19:28)
[2021-01-17 19:30] VITALS: BP 180/90
[2021-01-17] MEDS: morphine INJ 4 MG/ML 1 ML (VIAL/SYRINGE) IM ONE ×2 (19:37→19:42)
[2021-01-17] MEDS ORDERED: PROMETHAZINE INJ 25 MG/ML (PHENERGAN) AMP IVP PRN (19:45)
[2021-01-17] MEDS: LACTATED RINGERS 1,000 ML IV SCH (20:00)
[2021-01-17] MEDS: ONDANSETRON 4 MG/2 ML (SDV) Z0FRAN IVP PRN (20:00)
--- NOTE | 2021-01-17 20:02 | HISTORY AND PHYSICAL ---
DATE OF SERVICE: 01/17/2021 ATTENDING PRIMARY CARE PHYSICIAN: Elsie Verduzco DO HISTORY OF PRESENT ILLNESS: The patient is a 65-year-old female who initially presented to the Emergency Department with abdominal pain as well as nausea and vomiting. She reports that this came on all of a sudden. She does not report any hematemesis, no coffee ground emesis. She also has what appears to be an end colostomy from a previous surgery. A CT scan was performed, which did not show any signs of a bowel obstruction and questionable parastomal hernia; however, again no signs of obstruction. The patient was discharged home; however, had continued issues with pain as well as nausea and vomiting. PAST MEDICAL HISTORY: Ulcerative colitis. PAST SURGICAL HISTORY: Subtotal colectomy 07/2020 followed by abdominoperineal resection of the remaining rectum. The first surgery was in 2017 and the abdominoperineal resection 09/2018. ALLERGIES: No known drug allergies. MEDICATIONS: None. SOCIAL HISTORY: Negative smoke, negative alcohol. FAMILY HISTORY: Noncontributory. VITAL SIGNS: Temperature 35.9, blood pressure 155/78, pulse 77, respirations 18, pulse ox 95% on room air. REVIEW OF SYSTEMS: Well-nourished female currently uncomfortable due to the nausea as well as abdominal pain. She is not experiencing any shortness of breath or difficulty breathing. No chest pain, palpitations, diaphoresis. Intermittent episodes of nausea as well as vomiting. No hematemesis, no coffee ground emesis. Her ostomy was pink and appears viable. There are no obvious parastomal hernias palpable. No fever, chills, no recent inadvertent weight loss. All other review of systems negative. PHYSICAL EXAMINATION: CHEST: Clear. Good breath sounds bilaterally. HEART: Regular, no murmurs. EXTREMITIES: No lower extremity edema, negative Homans sign. HEENT: No scleral icterus. NECK: No cervical lymphadenopathy. ABDOMEN: Soft, nondistended. There is a discomfort around the stomal region. There are no obvious parastomal hernias. The stoma is pink and viable. SKIN: Warm, dry. LABORATORY DATA: WBC 6.2, hemoglobin 13.9, hematocrit 43, platelets 263. BUN 8, creatinine 0.82. ASSESSMENT AND PLAN: A 65-year-old female with parastomal abdominal pain as well as nausea and vomiting. At this time, there are no signs of obstruction and she does continue to have symptoms and so we will admit her and proceed with IV hydration as well as medications for nausea and pain. We will also monitor end ileostomy output. Job ID: [id number] DocumentID: [id number] Dictated Date: 01/17/2021 19:43:21 Front Of House Manager Date: 01/17/2021 20:01:23 Dictated By: ZAK ROBERTS MD
[2021-01-18 00:47] VITALS: BP 134/70
[2021-01-18] MEDS: ONDANSETRON 4 MG/2 ML (SDV) Z0FRAN IVP PRN ×3 (02:45→12:23)
[2021-01-18 04:44] VITALS: BP 170/85
[2021-01-18] MEDS: fentaNYL INJ 100 MCG/2 ML AMP IVP PRN ×3 (04:48→09:45)
[2021-01-18] MEDS: LACTATED RINGERS 1,000 ML IV SCH ×3 (05:46→15:57)
[2021-01-18 06:39] LABS: BASOPHILS % (AUTO) 0 % (0-10); EOSINOPHILS % (AUTO) 0 % (0-10); HEMATOCRIT 43 % (35-52); LYMPHOCYTES # (AUTO) 1.3 10^3/uL (1.0-4.0); LYMPHOCYTES % (AUTO) 15 % (12-44); MEAN CORPUSCULAR HEMOGLOBIN 30 pg (25-34); MEAN CORPUSCULAR HGB CONC 33 g/dL (32-36); MEAN CORPUSCULAR VOLUME 92 fL (80-99); MEAN PLATELET VOLUME 10.2 fL (9.0-12.2); MONOCYTES # (AUTO) 0.2 10^3/uL (0.0-1.0); MONOCYTES % (AUTO) 3 % (0-12); NEUTROPHILS # (AUTO) 7.2 10^3/uL (1.8-7.8); NEUTROPHILS % (AUTO) 82 % (42-75); PLATELET COUNT 288 10^3/uL (130-400); WHITE BLOOD COUNT 8.8 10^3/uL (4.3-11.0)
[2021-01-18 06:56] LABS: ALBUMIN 4.1 GM/DL (3.2-4.5); CHLORIDE 108 MMOL/L (98-107); POTASSIUM 4.4 MMOL/L (3.6-5.0); SODIUM 141 MMOL/L (135-145)
[2021-01-18 06:58] LABS: CALCIUM 9.2 MG/DL (8.5-10.1)
[2021-01-18 06:59] LABS: GLUCOSE 137 MG/DL (70-105); TOTAL PROTEIN 6.8 GM/DL (6.4-8.2)
[2021-01-18 07:00] LABS: CARBON DIOXIDE 22 MMOL/L (21-32)
[2021-01-18 07:01] LABS: BILIRUBIN,TOTAL 0.4 MG/DL (0.1-1.0)
[2021-01-18 07:02] LABS: ALKALINE PHOSPHATASE 95 U/L (40-136)
[2021-01-18 07:03] LABS: CREATININE SERUM 0.79 MG/DL (0.60-1.30); GFR ESTIMATED > 60
[2021-01-18 07:04] LABS: BUN/CREATININE RATIO 13
[2021-01-18 07:05] LABS: ALANINE AMINOTRANSFERASE 36 U/L (0-55)
[2021-01-18 08:00] VITALS: BP 166/84
[2021-01-18] MEDS: PANTOPRAZOLE 40 MG (PROTONIX) TAB PO SCH (09:31)
[2021-01-18] MEDS ORDERED: amLODIPine 5 MG (NORVASC) TAB PO NR (10:15)
--- NOTE | 2021-01-18 11:26 | Consultation - Hospitalist ---
[facility] 01/18/21 1126: HPI History of Present Illness: HPI/Chief Complaint Carolyn is a 65 y/o female that was admitted for observation due to abdominal pain, nausea and vomiting. PMH is a subtotal colectomy 11/30 to ulcerative colitis. Internal medicine was consulted to help manage patients nausea, vomiting, hydration and pain control. She is currently resting in bed and describes pain in her stomach as "rolling" with it reaching a 6/10. Her symptoms started Sunday with bad nausea which lead to her vomiting and having abdominal pain. She states she had pizza Sunday night, which may be why she feels sick. She denies other close sick contacts. Tenderness around ostomy is improved. CT showed multiple looks of small bowel which could be post surgical changes or parstomal hernia. She is positive for nausea and mild abdominal pain. She denies chest pain, sob, vomiting, stool output through ostomy, dysuria or feeling of incomplete empyting. Source: patient Exam Limitations: no limitations Date Seen 01/18/21 Attending Physician Chinmay Reese MD PCP Elsie Lopez DO Referring Physician Date of Admission Jan 17, 2021 at 18:14 Home Medications & Allergies Home Medications Reviewed patient Home Medication Reconciliation performed by pharmacy medication reconciliations security installation technician and/or nursing. Patients Allergies have been reviewed. Allergies Allergies Coded Allergies sulfamethoxazole (Verified Allergy, Unknown, 06/21/18) Flushing trimethoprim (Verified Allergy, Unknown, 06/21/18) Flushing Past Bthfkzf-Nxsmte-Embbig Hx Patient Social History Smoking Status: Former Smoker Former Smoker, Quit: Aug 08, 1968 Type Used: Cigars 2nd Hand Smoke Exposure: No Recent Foreign Travel: No Contact w/other who traveled: No Recent Hopitalizations: No Immunizations Up To Date Tetanus Booster (TDap): Unknown Seasonal Allergies Seasonal Allergies: No Past Medical History Surgeries: Tubal Ligation Respiratory: Asthma Currently Using CPAP: No Currently Using BIPAP: No Cardiac: Hypertension Reproductive: No Sexually Transmitted Disease: No HIV/AIDS: No Female Reproductive Disorders: Denies Tubal Ligation, Menopausal Gastrointestinal: Colitis, C-Diff Loss of Vision: Bilateral Hearing Impairment: Denies Did You Recieve Any Treatments: No Psychosocial: Anxiety History of Blood Disorders: No Adverse Reaction to Blood [place]: No Family History Colitis G8 BROTHER G8 SISTER Respiratory disorder 19 MOTHER (COPD) Hypertension, Lung Disease Review of Systems Constitutional: No chills, No fever EENTM: no symptoms reported Respiratory: no symptoms reported Cardiovascular: no symptoms reported Gastrointestinal: abdominal pain (diffuse); No hematemesis; nausea, vomiting Genitourinary: no symptoms reported Musculoskeletal: no symptoms reported Skin: no symptoms reported, other (allergic reaction to tape around ostomy site) Psychiatric/Neurological: No Symptoms Reported Physical Exam Physical Exam Vital Signs Vital Signs - First Documented 01/17/21 19:30 Temp 36.4 Pulse 71 Resp 18 B/P (MAP) 180/90 (120) Pulse Ox 97 O2 Delivery Room Air Capillary Refill : Height, Weight, BMI Height: 5'4.00" Weight: 221lbs. 4.0oz. [id number]; 42.82 BMI Method:Stated General Appearance: No Apparent Distress HEENT: PERRL/EOMI Neck: Full Range of Motion, Non Tender Respiratory: Chest Non Tender, No Accessory Muscle Use, No Respiratory Distress Cardiovascular: Regular Rate, Rhythm, No Edema, Normal Peripheral Pulses Gastrointestinal: Soft, Distended (minimal ); No Guarding, No Mass, No Tenderness; Other (no pain around ostomy site. Improved compared to previous day) Extremity: Normal Capillary Refill, No Calf Tenderness, No Pedal Edema Neurologic/Psychiatric: Alert, Oriented x3, Normal Mood/Affect Skin: Normal Color, Warm/Dry Lymphatic: No Adenopathy Results Results/Procedures Labs Laboratory Tests 01/18/21 06:34 Patient resulted labs reviewed. Assessment/Plan Assessment and Plan Assess & Plan/Chief Complaint 1. Parastomal abdominal pain - improved - still has pain that she describes as "rolling" - consider hycosamine for muscle spasms if it continues 2. Nausea and vomiting - improved 3. dehydration - continue Plan: 01/18 - reviewed gen surg note, will follow recommendations. Currently on clear liquid diet. - continue IV fluids - continue N/V and pain management - will follow ELSIE LOPEZ DO 01/19/21 0600: HPI History of Present Illness: HPI/Chief Complaint CC: Nausea and vomiting and abdominal pain HPI: This is a 65[facility]WF clinic [facility] who has a PMH of ulcerative colitis s/p complete total Colectomy by Dr. Salazar two years ago due to the severity of her disease and refractory to any treatment who presents with abdominal pain and nausea and vomiting. CT scan did not show a definite bowel obstruction but Dr. Reese was consulted because of Dr. Salazar on vacation and we will maintain on conservative treatment with IV fluids and antiemetics and monitor pt closely for any obstructive signs. Source: patient Exam Limitations: no limitations Past Jskuskh-Lyeiqz-Vqnwak Hx Past Med/Social Hx: Reviewed Nursing Past Med/Soc Hx, Reviewed and Corrections made Patient Social History Marrital Status: Employed/Student: retired Alcohol Use: Denies Use Smoking Status: Never a Smoker Past Medical History total colectomy for UC Cardiac: Hypertension Gastrointestinal: Colitis Family History Colitis G8 BROTHER G8 SISTER Respiratory disorder 19 MOTHER (COPD) Review of Systems Constitutional: see HPI Gastrointestinal: abdominal pain (diffuse), nausea, vomiting Physical Exam Physical Exam General Appearance: No Apparent Distress, WD/WN, Chronically ill Eyes: Bilateral Eye Normal Inspection, Bilateral Eye PERRL HEENT: PERRL/EOMI, TMs Normal, Normal ENT Inspection, Pharynx Normal Neck: Full Range of Motion, Normal Inspection, Non Tender, Supple, Carotid Bruit Respiratory: Chest Non Tender, Lungs Clear, Normal Breath Sounds, No Accessory Muscle Use, No Respiratory Distress Cardiovascular: Regular Rate, Rhythm, No Edema, No Gallop, No JVD, No Murmur, Normal Peripheral Pulses Gastrointestinal: Normal Bowel Sounds, No Organomegaly, No Pulsatile Mass, Non Tender, Soft Back: Normal Inspection, No CVA Tenderness, No Vertebral Tenderness Extremity: Normal Capillary Refill, Normal Inspection, Normal Range of Motion, Non Tender, No Calf Tenderness, No Pedal Edema Neurologic/Psychiatric: Alert, Oriented x3, No Motor/Sensory Deficits, Normal Mood/Affect Skin: Normal Color, Warm/Dry Lymphatic: No Adenopathy Assessment/Plan Assessment and Plan Assess & Plan/Chief Complaint Dr Reese consult Monitor N/V IVF Pain control Diagnosis/Problems Diagnosis/Problems (1) Abdominal pain Status: Acute (2) Parastomal hernia of ileal conduit Status: Acute (3) Status post colectomy Status: Acute Supervisory-Addendum Brief Verification & Attestation Participated in pt care: history, MDM, physical Personally performed: exam, history, MDM, supervision of care Care discussed with: Medical Student Procedures: n/a Results interpretation: Verified all documentation Verification and Attestation of Medical Student E/M Service A medical student performed and documented this service in my presence. I reviewed and verified all information documented by the medical student and made modifications to such information, when appropriate. I personally performed the physical exam and medical decision making. Elsie Lopez, Jan 19, 2021,06:00 [facility] Jan 18, 2021 11:26 ELSIE LOPEZ DO Jan 19, 2021 06:00
[2021-01-18 12:00] VITALS: BP 169/94
[2021-01-18] MEDS ORDERED: ACET-2267 PO (13:56)
[2021-01-18] MEDS ORDERED: MULT9LIQ6 PO (13:56)
[2021-01-18] MEDS: PROMETHAZINE INJ 25 MG/ML (PHENERGAN) AMP IVP PRN ×3 (14:54→22:21)
[2021-01-18 16:02] VITALS: BP 163/91
--- NOTE | 2021-01-18 16:35 | Progress Note ---
Subjective Date Seen by a Provider: Jan 18, 2021 Time Seen by a Provider: 16:00 Subjective/Events-last exam doing better today. tolerating some liquids but no appetite. no abd pain. still has some nausea. Objective Exam Vital Signs Date Time Temp Pulse Resp B/P (MAP) Pulse Ox O2 Delivery O2 Flow Rate FiO2 01/18/21 16:02 36.5 86 18 163/91 (115) 94 Room Air 01/18/21 12:00 36.3 82 18 169/94 (119) 94 Room Air 01/18/21 08:00 36.9 80 18 166/84 (111) 96 Room Air 01/18/21 08:00 94 Room Air 01/18/21 04:44 36.8 77 18 170/85 (113) 92 Room Air 01/18/21 00:47 37.4 84 18 134/70 (91) 92 Room Air 01/17/21 19:50 Room Air 01/17/21 19:30 36.4 71 18 180/90 (120) 97 Room Air I & O 01/18/21 07:00 Intake Total 200 ml Output Total 200 ml Balance 0 ml Capillary Refill : General Appearance: No Apparent Distress HEENT: PERRL/EOMI Neck: Full Range of Motion Respiratory: Chest Non Tender, Lungs Clear Cardiovascular: Regular Rate, Rhythm Gastrointestinal: normal bowel sounds, non tender, soft Extremity: Normal Capillary Refill Neurologic/Psychiatric: Alert, Oriented x3 Skin: Normal Color Lymphatic: No Adenopathy Results Lab Laboratory Tests 01/18/21 06:34: White Blood Count 8.8, Red Blood Count 4.65, Hemoglobin 14.0, Hematocrit 43, Mean Corpuscular Volume 92, Mean Corpuscular Hemoglobin 30, Mean Corpuscular Hemoglobin Concent 33, Red Cell Distribution Width 13.2, Platelet Count 288, Mean Platelet Volume 10.2, Immature Granulocyte % (Auto) 0, Neutrophils (%) (Auto) 82H, Lymphocytes (%) (Auto) 15, Monocytes (%) (Auto) 3, Eosinophils (%) (Auto) 0, Basophils (%) (Auto) 0, Neutrophils # (Auto) 7.2, Lymphocytes # (Auto) 1.3, Monocytes # (Auto) 0.2, Eosinophils # (Auto) 0.0, Basophils # (Auto) 0.0, Immature Granulocyte # (Auto) 0.0, Sodium Level 141, Potassium Level 4.4, Chloride Level 108H, Carbon Dioxide Level 22, Anion Gap 11, Blood Urea Nitrogen 10, Creatinine 0.79, Estimat Glomerular Filtration Rate > 60, BUN/Creatinine Ratio 13, Glucose Level 137H, Calcium Level 9.2, Corrected Calcium 9.1, Total Bilirubin 0.4, Aspartate Amino Transf (AST/SGOT) 28, Alanine Aminotransferase (ALT/SGPT) 36, Alkaline Phosphatase 95, Total Protein 6.8, Albumin 4.1 Assessment/Plan Assessment/Plan Assess & Plan/Chief Complaint nausea/vomiting, ileus. cont clears for now. ambulate. await more ileostomy function. ZAK ROBERTS MD Jan 18, 2021 16:35
[2021-01-18 19:54] VITALS: BP 154/90
[2021-01-19] VITALS (7 sets, daily range): BP systolic 130–178; BP diastolic 69–96
[2021-01-19] MEDS: LACTATED RINGERS 1,000 ML IV SCH ×3 (02:33→23:54)
[2021-01-19] MEDS: PROMETHAZINE INJ 25 MG/ML (PHENERGAN) AMP IVP PRN ×5 (03:19→20:54)
[2021-01-19 05:37] LABS: BASOPHILS % (AUTO) 0 % (0-10); EOSINOPHILS % (AUTO) 0 % (0-10); HEMATOCRIT 44 % (35-52); HEMOGLOBIN 14.1 g/dL (11.5-16.0); LYMPHOCYTES # (AUTO) 1.8 10^3/uL (1.0-4.0); LYMPHOCYTES % (AUTO) 16 % (12-44); MEAN CORPUSCULAR HEMOGLOBIN 30 pg (25-34); MEAN CORPUSCULAR HGB CONC 32 g/dL (32-36); MEAN CORPUSCULAR VOLUME 92 fL (80-99); MEAN PLATELET VOLUME 10.1 fL (9.0-12.2); MONOCYTES # (AUTO) 0.6 10^3/uL (0.0-1.0); MONOCYTES % (AUTO) 5 % (0-12); NEUTROPHILS # (AUTO) 8.8 10^3/uL (1.8-7.8); NEUTROPHILS % (AUTO) 78 % (42-75); PLATELET COUNT 286 10^3/uL (130-400); WHITE BLOOD COUNT 11.3 10^3/uL (4.3-11.0)
[2021-01-19 05:46] LABS: ALBUMIN 3.9 GM/DL (3.2-4.5); CHLORIDE 103 MMOL/L (98-107); POTASSIUM 3.7 MMOL/L (3.6-5.0); SODIUM 140 MMOL/L (135-145)
[2021-01-19 05:47] LABS: CALCIUM 8.8 MG/DL (8.5-10.1)
[2021-01-19 05:48] LABS: GLUCOSE 117 MG/DL (70-105); TOTAL PROTEIN 6.4 GM/DL (6.4-8.2)
[2021-01-19 05:49] LABS: CARBON DIOXIDE 26 MMOL/L (21-32)
[2021-01-19 05:50] LABS: BILIRUBIN,TOTAL 0.4 MG/DL (0.1-1.0)
[2021-01-19 05:52] LABS: ALKALINE PHOSPHATASE 82 U/L (40-136); GFR ESTIMATED > 60
[2021-01-19 05:53] LABS: BUN/CREATININE RATIO 16
[2021-01-19 05:55] LABS: ALANINE AMINOTRANSFERASE 28 U/L (0-55)
[2021-01-19] MEDS: PANTOPRAZOLE 40 MG (PROTONIX) TAB PO SCH (08:11)
[2021-01-19] MEDS ORDERED: amLODIPine 5 MG (NORVASC) TAB PO NR (12:00)
--- NOTE | 2021-01-19 12:44 | Progress Note - Hospitalist ---
[facility] 01/19/21 1244: Subjective HPI/CC On Admission Date Seen by Provider: Jan 19, 2021 Time Seen by Provider: 10:15 CC: Nausea and vomiting and abdominal pain HPI: This is a 65yoWF clinic pt of [facility] who has a PMH of ulcerative colitis s/p complete total Colectomy by Dr. Salazar two years ago due to the severity of her disease and refractory to any treatment who presents with abdominal pain and nausea and vomiting. CT scan did not show a definite bowel obstruction but Dr. Reese was consulted because of Dr. Salazar on vacation and we will maintain on conservative treatment with IV fluids and antiemetics and monitor pt closely for any obstructive signs. Subjective/Events-last exam Carolyn was laying in bed and asked about going home. Family at bedside. She is not able to tolerate food or liquids by mouth. She continues to have N/V. She has pain starting in her abdomen and around her ostomy site, which was improved the previous day. She is urinating without issue. Her ostomy has minimal output of yellowish fluid. She has not been getting out of bed. Overall she is not improving and feels slightly worse then yesterday. Vitals and Labs stable. Discussed with her that she will not be discharged today. Review of Systems General: No Chills; Fatigue Pulmonary: No Dyspnea, No Cough Cardiovascular: No: Chest Pain Gastrointestinal: Nausea, Vomiting, Abdominal Pain Genitourinary: No Dysuria Objective Exam Vital Signs Vital Signs Date Time Temp Pulse Resp B/P (MAP) Pulse Ox O2 Delivery O2 Flow Rate FiO2 01/19/21 08:00 95 Room Air 01/19/21 08:00 36.4 77 20 169/96 (120) Capillary Refill : General Appearance: Anxious Neck: Non Tender Respiratory: Chest Non Tender, Normal Breath Sounds, No Accessory Muscle Use, No Respiratory Distress Cardiovascular: Regular Rate, Rhythm, No Edema, Normal Peripheral Pulses Gastrointestinal: Distended (minimal ), Tenderness (around ostomy and RUQ) Extremity: Normal Capillary Refill, No Calf Tenderness Neurologic/Psychiatric: Alert, Oriented x3 Skin: Normal Color, Warm/Dry Lymphatic: No Adenopathy Results/Procedures Lab Laboratory Tests 01/19/21 05:30 Patient resulted labs reviewed. Assessment/Plan Assessment and Plan Assess & Plan/Chief Complaint 1. Parastomal abdominal pain - improved - still has pain that she describes as "rolling" - consider hycosamine for muscle spasms if it continues 2. Nausea and vomiting - improved 3. dehydration - continue Plan: 01/18 - reviewed gen surg note, will follow recommendations. Currently on clear liquid diet. - continue IV fluids - continue N/V and pain management - will follow Plan 01/19: - Dr. Salazar will see patient today, will review note. Appreciate recs. - Continue IV fluids - continue N/V and pain management - WBC slighly bumped today from 8.8 to 11.2, will follow. - will follow ELSIE LOPEZ DO 01/20/21 0545: Subjective Subjective/Events-last exam Pt still having abdominal pain and nausea and vomiting PT will be ordered since it is hard for her to even lean up in bed I will give Norvasc for elevated BP Labs remain stable at WBC of 11 Objective Exam General Appearance: WD/WN, Chronically ill, Mild Distress Respiratory: Lungs Clear Cardiovascular: Regular Rate, Rhythm Assessment/Plan Assessment and Plan Assess & Plan/Chief Complaint Dr Salazar consultation appreciated IVF NPO Supervisory-Addendum Brief Verification & Attestation Participated in pt care: history, MDM, physical Personally performed: exam, history, MDM, supervision of care Care discussed with: Medical Student Procedures: n/a Results interpretation: Verified all documentation Verification and Attestation of Medical Student E/M Service A medical student performed and documented this service in my presence. I reviewed and verified all information documented by the medical student and made modifications to such information, when appropriate. I personally performed the physical exam and medical decision making. Elsie Loepz Jan 20, 2021,05:43 [facility] Jan 19, 2021 12:44 ELSIE LOPEZ DO Jan 20, 2021 05:45
--- NOTE | 2021-01-19 14:36 | Occupational Therapy Eval ---
OT Evaluation-General/PLF Medical Diagnosis Admission Date Jan 17, 2021 at 18:14 Medical Diagnosis: ABD pain Onset Date: Jan 17, 2021 Therapy Diagnosis Therapy Diagnosis: weakness Height/Weight Height (Feet): 5 Height (Inches): 4.00 Weight (Pounds): 221 Weight (Ounces): 4.0 Precautions Precautions/Isolations: Fall Prevention, Standard Precautions Referral Physician: Dax Referral Reason: Evaluation/Treatment Medical History Additional Medical History ulcerative colitis s/p complete total colectomy Current History ED with c/o abdominal pain, nausea, vomiting Social History Home: Single Level ADL-Prior Level of Function SCALE: Activities may be completed with or without assistive devices. 2-Fjnvconsay-loawzkt completes the activity by him/herself with no assistance from a helper. 5-Set-up or Clean-up Assistance-helper sets up or cleans up; patient completes activity. [place] assists only prior to or following the activity. 4-Supervision or Touching Assistance-helper provides verbal cues and/or touching/steadying and/or contact guard assistance as patient completes activity. Assistance may be provided throughout the activity or intermittently. 3-Partial/Moderate Assistance-helper does LESS THAN HALF the effort. [place] lifts, holds or supports trunk or limbs, but provides less than half the effort. 2-Substantial/Maximal Assistance-helper does MORE THAN HALF the effort. [place] lifts or holds trunk or limbs and provides more than half the effort. 8-Oumgqnqwy-nuazze does ALL the effort. Patient does none of the effort to complete the activity. Or, the assistance of 2 or more helpers is required for the patient to complete the activity. If activity was not attempted, code reason: 7-Patient Refused. 9-Not Applicable-not attempted and the patient did not perform the activity before the current illness, exacerbation or injury. 10-Not Attempted due to Environmental Limitations-(lack of equipment, weather restraints, etc.). 88-Not Attempted due to Medical Conditions or Safety Concerns. ADL PLOF Comments Pt reports being independent with ADLs and functional mobility at OF, no AD Self Care: Independent Functional Cognition: Independent OT Current Status Subjective Pt laying in bed, damp washcloth on her forehead and family present. Pt a greeable to OT evaluation, but declines any OOB activity due to nausea. Per pt's family, pt is not getting out of bed today. OT informed pt she would return tomorrow to check on pt, family indicates that pt is not going to get better overnight and it is going to take awhile. Mental Status/Objective Patient Orientation: Person, Place, Time, Situation Attachments: IV Current Upper Extremity ROM WFL Upper Extremity Sensation WFL ADL-Treatment Eating (QC): 6 (Based on clinical judgement, pt would be able to complete independently.) Oral Hygiene (QC): 7 Shower/Bathe Self (QC): 7 Upper Body Dressing (QC): 7 Lower Body Dressing (QC): 7 On/Off Footwear (QC): 7 Toileting Hygiene (QC): 4 (Based on pt and family report, pt requires SBA with toileting.) Other Treatments Pt laying in bed, agreeable to OT evaluation. OT educated pt on purpose and benefit of OT, she verbalized understanding. Pt and family provided information about PLOF and home set up. Pt's family and pt quick to state that pt will not be getting out of bed due to her nausea. OT educated pt on benefits of getting out of bed in order to increase strength, pt still declined any OOB activities as "I don't want to vomit all over you". OT then encouraged pt to complete ADLs, including washing her face, going to the bathroom, or oral care, pt still declines. Pt and family indicate pt has been up to bathroom with close SBA provided by family, no AD. OT educated pt on purpose and benefits of exercise, encouraging her to complete UE exercises, she adamantly declined. OT educated pt on OT POC, and will recheck with pt tomorrow, pt's family states that pt is not going to get better overnight and it is going to take awhile. Post tx, pt laying in bed, call light in reach and all needs met. Education OT Patient Education: Correct positioning, Energy conservation, Modified ADL techniques, Progress toward Goal/Update tx plan, Purpose of tx/functional activities, Rehab process, Safety issues Teaching Recipient: Patient Teaching Methods: Discussion Response to Teaching: Verbalize Understanding OT Mask Design Engineer Goals Mask Design Engineer Goals Time Frame: Jan 28, 2021 Eating (QC): 6 Oral Hygiene (QC): 6 Toileting Hygiene (QC): 6 Shower/Bathe Self (QC): 6 Upper Body Dressing (QC): 6 Lower Body Dressing (QC): 6 On/Off Footwear (QC): 6 Additional Goals: 1-Demonstrate ADL Tasks, 2-Verbalize Understanding, 3- ImproveStrength/Filiberto 1=Demonstrate adherence to instructed precautions during ADL tasks. 2=Patient will verbalize/demonstrate understanding of assistive devices/modifications for ADL. 3=Patient will improve strength/tolerance for activity to enable patient to perform ADL's. OT Education/Plan Problem List/Assessment Assessment: Decreased Activ Tolerance, Decreased UE Strength, Impaired I ADL's, Impaired Self-Care Skills Discharge Recommendations Plan/Recommendations: Continue POC Treatment Plan/Plan of Care Patient would benefit from OT for education, treatment and training to promote independence in ADL's, mobility, safety and/or upper extremity function for ADL's. Plan of Care: ADL Retraining, Functional Mobility, UE Funct Exercise/Act Treatment Duration: Jan 28, 2021 Frequency: 5 times per week Estimated Hrs Per Day: .25 hour per day Rehab Potential: Fair Time/GCodes Start Time: 14:10 Stop Time: 14:18 Total Time Billed (hr/min): 8 Billed Treatment Time 1, ALONZO GARNETT OT Jan 19, 2021 14:36
--- NOTE | 2021-01-19 14:38 | Progress Note - Surgery ---
Subjective Time Seen by a Provider: 12:57 Subjective/Events-last exam Pt seen and examined, looks ill and states she feel miserable. Per nurse, she has been taking her Phenergan every 2 hours and not getting much relief. She is not really taking much liquids and is complaining of some abdominal pain. Review of Systems General: Night Sweats, Fatigue, Malaise Pulmonary: No Dyspnea, No Cough Cardiovascular: No: Chest Pain, Palpitations Gastrointestinal: Nausea, Vomiting, Abdominal Pain Genitourinary: No Dysuria, No Frequency Objective Exam Vital Signs Date Time Temp Pulse Resp B/P (MAP) Pulse Ox O2 Delivery O2 Flow Rate FiO2 01/19/21 12:41 36.4 84 18 154/88 (110) 96 Room Air 01/19/21 08:00 95 Room Air 01/19/21 08:00 36.4 77 20 169/96 (120) 97 Room Air 01/19/21 04:30 36.2 87 18 167/69 (101) 92 Room Air 01/19/21 00:00 36.6 84 18 178/80 (112) 93 Room Air 01/18/21 19:54 36.4 94 18 154/90 (111) 92 Room Air 01/18/21 19:47 94 Room Air 01/18/21 16:02 36.5 86 18 163/91 (115) 94 Room Air I & O 01/19/21 07:00 Intake Total 400 ml Balance 400 ml Capillary Refill : General Appearance: Anxious, Mild Distress HEENT: PERRL/EOMI Neck: Non Tender Respiratory: Chest Non Tender, Lungs Clear, Normal Breath Sounds, No Accessory Muscle Use, No Respiratory Distress Cardiovascular: Regular Rate, Rhythm, No Edema, No Murmur Gastrointestinal: soft, abnormal bowel sounds (decreased); No rebound; tenderness (around stoma), other (stoma pink and functioning) Extremity: No Calf Tenderness Neurologic/Psychiatric: Alert, Oriented x3 Skin: Damp Results Lab Laboratory Tests 01/19/21 05:30: White Blood Count 11.3H, Red Blood Count 4.72, Hemoglobin 14.1, Hematocrit 44, Mean Corpuscular Volume 92, Mean Corpuscular Hemoglobin 30, Mean Corpuscular Hemoglobin Concent 32, Red Cell Distribution Width 13.2, Platelet Count 286, Mean Platelet Volume 10.1, Immature Granulocyte % (Auto) 0, Neutrophils (%) (Auto) 78H, Lymphocytes (%) (Auto) 16, Monocytes (%) (Auto) 5, Eosinophils (%) (Auto) 0, Basophils (%) (Auto) 0, Neutrophils # (Auto) 8.8H, Lymphocytes # (Auto) 1.8, Monocytes # (Auto) 0.6, Eosinophils # (Auto) 0.0, Basophils # (Auto) 0.0, Immature Granulocyte # (Auto) 0.0, Sodium Level 140, Potassium Level 3.7, Chloride Level 103, Carbon Dioxide Level 26, Anion Gap 11, Blood Urea Nitrogen 13, Creatinine 0.80, Estimat Glomerular Filtration Rate > 60, BUN/Creatinine Ratio 16, Glucose Level 117H, Calcium Level 8.8, Corrected Calcium 8.9, Total Bilirubin 0.4, Aspartate Amino Transf (AST/SGOT) 22, Alanine Aminotransferase (ALT/SGPT) 28, Alkaline Phosphatase 82, Total Protein 6.4, Albumin 3.9 Assessment/Plan Assessment/Plan Assessment/Plan Parastomal Hernia Partial small bowel obstruction secondary to above I reviewed the CT myself and can see a parastomal hernia with narrowing of the small bowel. I do not think this is going to get better without surgery. However, I discussed with pt, and daughter a few options. Pt can wait and see if it improves on its own. We can do a SBFT to determine if there is an obstruction; partial vs. complete. We can do surgery to repair the hernia and try to place mesh to avoid recurrence. I did explain that even if we fixed the hernia and "tacked" intestine down out of the way (Sugarbaker technique); there is a 30% chance of it failing. In addition, surgery will not be easy because of her previous surgeries; I would attempt laparoscopically. Discussed all risks and complications; not limited to pain, bleeding, infection, scar and damage to intestine. All questions answered to their satisfaction; will come back to get their final decision. SINDHU TENA DO Jan 19, 2021 14:38
--- NOTE | 2021-01-19 15:57 | Physical Therapy Progress Note ---
Therapy Progress Note PT order received. Per OT, Pt's family and pt quick to state that pt will not be getting out of bed due to her nausea. OT educated pt on benefits of getting out of bed in order to increase strength, pt still declined any OOB activities as "I don't want to vomit all over you". Pt and family indicate pt has been up to bathroom with close SBA provided by family, no AD. pt's family states that pt is not going to get better overnight and it is going to take awhile. PT will eval tomorrow as Pt tolerates. RUDY BAEZA DPT Jan 19, 2021 15:57
[2021-01-19] MEDS ORDERED: SCOPOLAMINE 1.5 MG (TRANSDERM-SCOP) PATCH ONE (16:19)
[2021-01-19] MEDS ORDERED: NITROGLYCERIN 2% OINT 1 GM UNIT DOSE PACKET TOP PRN (20:45)
[2021-01-19] MEDS: ENALAPRILAT 1.25 MG/1 ML (VASOTEC) 1 ML VIAL IV SCH ×2 (22:21→22:32)
[2021-01-19] MEDS: hydrALAZINE (APESOLINE) 20 MG/ML VIAL IV SCH ×2 (22:32→23:57)
[2021-01-20] VITALS (14 sets, daily range): BP systolic 118–157; BP diastolic 58–98
[2021-01-20] MEDS: hydrALAZINE (APESOLINE) 20 MG/ML VIAL IV SCH ×6 (04:46→23:53)
[2021-01-20] MEDS: PROMETHAZINE INJ 25 MG/ML (PHENERGAN) AMP IVP PRN ×2 (04:52→08:15)
[2021-01-20 05:12] LABS: BASOPHILS % (AUTO) 0 % (0-10); EOSINOPHILS % (AUTO) 0 % (0-10); HEMATOCRIT 43 % (35-52); HEMOGLOBIN 14.1 g/dL (11.5-16.0); LYMPHOCYTES # (AUTO) 2.1 10^3/uL (1.0-4.0); LYMPHOCYTES % (AUTO) 22 % (12-44); MEAN CORPUSCULAR HEMOGLOBIN 30 pg (25-34); MEAN CORPUSCULAR HGB CONC 33 g/dL (32-36); MEAN CORPUSCULAR VOLUME 90 fL (80-99); MEAN PLATELET VOLUME 10.2 fL (9.0-12.2); MONOCYTES # (AUTO) 0.7 10^3/uL (0.0-1.0); MONOCYTES % (AUTO) 8 % (0-12); NEUTROPHILS # (AUTO) 6.7 10^3/uL (1.8-7.8); NEUTROPHILS % (AUTO) 70 % (42-75); PLATELET COUNT 270 10^3/uL (130-400); WHITE BLOOD COUNT 9.6 10^3/uL (4.3-11.0)
[2021-01-20 05:38] LABS: ALANINE AMINOTRANSFERASE 24 U/L (0-55); ALBUMIN 3.6 GM/DL (3.2-4.5); ALKALINE PHOSPHATASE 84 U/L (40-136); BILIRUBIN,TOTAL 0.6 MG/DL (0.1-1.0); BUN/CREATININE RATIO 17; CALCIUM 8.6 MG/DL (8.5-10.1); CARBON DIOXIDE 24 MMOL/L (21-32); CHLORIDE 104 MMOL/L (98-107); CREATININE SERUM 0.69 MG/DL (0.60-1.30); GFR ESTIMATED > 60; GLUCOSE 100 MG/DL (70-105); POTASSIUM 3.2 MMOL/L (3.6-5.0); SODIUM 138 MMOL/L (135-145); TOTAL PROTEIN 6.1 GM/DL (6.4-8.2)
[2021-01-20] MEDS ORDERED: MAGNESIUM 1 GM/100 ML IVPB 100 ML IV ONE (05:45)
[2021-01-20] MEDS: fentaNYL INJ 100 MCG/2 ML AMP IVP PRN (06:17)
[2021-01-20] MEDS: POTASSIUM CL 10MEQ/50ML IVPB 50 ML IV SCH ×7 (07:21→12:34)
--- NOTE | 2021-01-20 07:50 | Progress Note - Surgery ---
ROSI BOATENG MED STUDENT 01/20/21 0750: Subjective Date Seen by a Provider: Jan 20, 2021 Time Seen by a Provider: 06:30 Subjective/Events-last exam Patient is awake and lying in bed this morning. States she is feeling better. Pain at its worst is a 10 and normally is about a 4 or 5. Describes pain as grabbing and twisting. Pain is all throughout the lower abdomen, no radiation. She is Not eating, states she has nausea and vomiting if she takes anything by mouth. Ostomy is in place, states it is only draining some clear liquid today and hasn,t produced anything since Sunday. She is having no pain with urination. No other questions or concerns this morning. Review of Systems General: No Chills, No Fatigue HEENT: Head Aches; No Visual Changes, No Dysphasia Pulmonary: No Dyspnea, No Cough Cardiovascular: No: Chest Pain, Palpitations Gastrointestinal: Nausea, Vomiting Genitourinary: No Dysuria, No Hematuria Musculoskeletal: No: leg pain Focused Exam Lactate Level 01/20/21 04:55: Lactic Acid Level 0.93 Lactic Acid Level Laboratory Tests Test 01/20/21 04:55 Lactic Acid Level 0.93 MMOL/L (0.50-2.00) Objective Exam Vital Signs Date Time Temp Pulse Resp B/P (MAP) Pulse Ox O2 Delivery O2 Flow Rate FiO2 01/20/21 04:00 36.1 80 18 150/72 (98) 97 Room Air 01/20/21 01:00 90 01/20/21 00:00 35.8 80 18 157/77 (103) 92 Room Air 01/19/21 22:22 81 01/19/21 22:20 36.3 81 18 130/82 (98) 94 Room Air 01/19/21 21:00 Room Air 01/19/21 19:49 35.8 80 18 171/94 (119) 95 Room Air 01/19/21 15:47 36.8 87 18 164/89 (114) 96 Room Air 01/19/21 12:41 36.4 84 18 154/88 (110) 96 Room Air 01/19/21 08:00 95 Room Air 01/19/21 08:00 36.4 77 20 169/96 (120) 97 Room Air I & O 01/20/21 07:00 Intake Total 2548 ml Output Total 400 ml Balance 2148 ml Capillary Refill : General Appearance: No Apparent Distress, WD/WN Respiratory: Chest Non Tender, Lungs Clear, Normal Breath Sounds, No Accessory Muscle Use, No Respiratory Distress Cardiovascular: Regular Rate, Rhythm, No Edema, No Murmur Peripheral Pulses: 2+ Radial Pulses (R), 2+ Radial Pulses (L) Gastrointestinal: soft, abnormal bowel sounds (decreased), tenderness (around stoma), other (stoma pink and functioning) Extremity: No Calf Tenderness, No Pedal Edema Neurologic/Psychiatric: Alert, Oriented x3 Skin: Normal Color, Warm/Dry Results Lab Laboratory Tests 01/19/21 18:18: Coronavirus 2019 ([facility]) Negative 01/20/21 04:55: White Blood Count 9.6, Red Blood Count 4.74, Hemoglobin 14.1, Hematocrit 43, Mean Corpuscular Volume 90, Mean Corpuscular Hemoglobin 30, Mean Corpuscular Hemoglobin Concent 33, Red Cell Distribution Width 13.1, Platelet Count 270, Mean Platelet Volume 10.2, Immature Granulocyte % (Auto) 0, Neutrophils (%) (Auto) 70, Lymphocytes (%) (Auto) 22, Monocytes (%) (Auto) 8, Eosinophils (%) (Auto) 0, Basophils (%) (Auto) 0, Neutrophils # (Auto) 6.7, Lymphocytes # (Auto) 2.1, Monocytes # (Auto) 0.7, Eosinophils # (Auto) 0.0, Basophils # (Auto) 0.0, Immature Granulocyte # (Auto) 0.0, Sodium Level 138, Potassium Level 3.2L, Chloride Level 104, Carbon Dioxide Level 24, Anion Gap 10, Blood Urea Nitrogen 12, Creatinine 0.69, Estimat Glomerular Filtration Rate > 60, BUN/Creatinine Ratio 17, Glucose Level 100, Lactic Acid Level 0.93, Calcium Level 8.6, Co rrected Calcium 8.9, Magnesium Level 1.8, Total Bilirubin 0.6, Aspartate Amino Transf (AST/SGOT) 25, Alanine Aminotransferase (ALT/SGPT) 24, Alkaline Phosphatase 84, Total Protein 6.1L, Albumin 3.6, Procalcitonin 0.04 Assessment/Plan Assessment/Plan Assessment/Plan Parastomal Hernia/Partial small bowel obstruction secondary to above -Pt is having surgery on sunday, NPO tonight. -Continue Pain meds, encourage pt to ambulate Hypokalemia -Decreased from 3.7 to 3.2 -Continue to monitor w/ CMP -If continues to decrease, K supplementation JAYDEN SALAZAR DO 01/20/21 1150: Subjective Time Seen by a Provider: 11:37 Subjective/Events-last exam Pt seen and examined, still having pain and nausea. Objective Exam General Appearance: No Apparent Distress, WD/WN Respiratory: Lungs Clear, Normal Breath Sounds, No Accessory Muscle Use, No Respiratory Distress Cardiovascular: Regular Rate, Rhythm, No Murmur Gastrointestinal: soft, abnormal bowel sounds (decreased), tenderness (around stoma), other (stoma pink and functioning) Assessment/Plan Assessment/Plan Assessment/Plan Parastomal hernia causing PSBO Plan to OR, spoke with pt and family last night; they decided to go ahead with surgery. We discussed Laparoscopic visualization and then hopefully reduce the hernia and close fascial defect. Will attempt Sugar Valdez technique for repair of parastomal hernia. All questions answered to their satisfaction. All risks and complications discussed; not limited to pain, bleeding, infection, scar and damage to bowel. Supervisory-Addendum Brief Verification & Attestation Participated in pt care: history, MDM, physical Personally performed: exam, history, MDM Care discussed with: Medical Student Procedures: n/a Verification and Attestation of Medical Student E/M Service A medical student performed and documented this service. I then reviewed and verified all information documented by the medical student and made modifications to such information, when appropriate. I personally performed a ph ysical exam, medical decision making and then discussed any differences between the notes and made revisions as necessary to create one note. Jayden Salazar , 01/20/21 , 11:50 ROSI BOATENG MED STUDENT Jan 20, 2021 07:50 JAYDEN SALAZAR DO Jan 20, 2021 11:50
[2021-01-20] MEDS ORDERED: PANTOPRAZOLE 40 MG (PROTONIX) VIAL ONE (08:02)
[2021-01-20] MEDS: PANTOPRAZOLE 40 MG (PROTONIX) TAB PO SCH (08:12)
[2021-01-20] MEDS: amLODIPine 5 MG (NORVASC) TAB PO SCH (08:12)
[2021-01-20] MEDS: ENALAPRILAT 2.5 MG/2 ML (VASOTEC) VIAL IV SCH ×2 (09:43→20:52)
--- NOTE | 2021-01-20 10:02 | Physical Therapy Progress Note ---
Therapy Progress Note Patient declined PT due to N/V. Up with family in room independently. Patient to have surgery on this date per RN. Will assess in AM. 1 Refusal: [id number] GURDEEP PUGA PT Jan 20, 2021 10:02
[2021-01-20] MEDS ORDERED: LACTATED RINGERS 1,000 ML IV ONE (10:47)
--- NOTE | 2021-01-20 10:56 | Occ Therapy Progress Note ---
Therapy Progress Note OT attempted tx, pt out of room at this time. OT will attempt tx this afternoon. [id number] ALONZO ARELLANO OT Jan 20, 2021 10:56
[2021-01-20] MEDS ORDERED: LACTATED RINGERS 1,000 ML IV PRN (11:00)
[2021-01-20] MEDS ORDERED: LIDOCAINE/EPI 1%-1:100,000 (XYLOCAINE) 10 ML ONE (11:36)
[2021-01-20] MEDS ORDERED: SEVOFLURANE (ULTANE) 15 ML INHAL SOLN ONE ×12 (11:38→16:04)
[2021-01-20] MEDS ORDERED: MIDAZOLAM 2 MG/2 ML (VERSED) VIAL ONE (11:38)
[2021-01-20] MEDS ORDERED: LIDOCAINE PF 2% 5 ML (XYLOCAINE) VIAL ONE (11:38)
[2021-01-20] MEDS ORDERED: fentaNYL INJ 100 MCG/2 ML AMP ONE (11:38)
[2021-01-20] MEDS ORDERED: ROCURONIUM 10 MG/ML 5 ML SYRINGE IV ONE ×2 (11:38→15:42)
[2021-01-20] MEDS ORDERED: ONDANSETRON 4 MG/2 ML (SDV) Z0FRAN ONE (11:38)
[2021-01-20] MEDS ORDERED: proPOfol 200 MG/20 ML (DIPRIVAN) VIAL IV ONE (11:38)
[2021-01-20] MEDS ORDERED: ceFAZolin INJECTION 2,000 MG ONE (12:15)
[2021-01-20] MEDS ORDERED: WATER (STERILE) FOR INJECTION 40 ML ONE (12:15)
[2021-01-20] MEDS ORDERED: SUCCINYLCHOLINE INJ 100 MG/5 ML SYR/VIAL ONE (12:23)
--- NOTE | 2021-01-20 13:02 | Occ Therapy Progress Note ---
Therapy Progress Note Patient in surgery on this date per chart. Will continue OT tomorrow. LINDSAY ROCHA Jan 20, 2021 13:02
[2021-01-20] MEDS: LACTATED RINGERS 1,000 ML IV SCH ×6 (13:30→19:31)
--- NOTE | 2021-01-20 13:36 | Progress Note - Hospitalist ---
STELLA ZAMORANO MED STUDENT 01/20/21 1336: Subjective HPI/CC On Admission Date Seen by Provider: Jan 20, 2021 Time Seen by Provider: 08:30 CC: Nausea and vomiting and abdominal pain HPI: This is a 65yoWF clinic pt of [facility] who has a PMH of ulcerative colitis s/p complete total Colectomy by Dr. Salazar two years ago due to the severity of her disease and refractory to any treatment who presents with abdominal pain and nausea and vomiting. CT scan did not show a definite bowel obstruction but Dr. Reese was consulted because of Dr. Salazar on vacation and we will maintain on conservative treatment with IV fluids and antiemetics and monitor pt closely for any obstructive signs. Subjective/Events-last exam Pt is lying in bed with and daughter in the room. Pt spoke with Dr. Salazar yesterday and has decided to proceed with surgery. Pt still nauseated but has not vomited today. Pt also complains of headache. Pt expressed desire for relief and that hopefully surgery will provide that. No acute events over night. Review of Systems General: No Chills; Fatigue HEENT: Head Aches; No Dysphasia Pulmonary: No Dyspnea, No Cough Cardiovascular: No: Chest Pain, Palpitations Gastrointestinal: Nausea, Abdominal Pain; No: Vomiting Genitourinary: No Dysuria, No Hematuria Musculoskeletal: No: back pain, leg pain Neurological: No: Weakness, Confusion Focused Exam Lactate Level 01/20/21 04:55: Lactic Acid Level 0.93 Objective Exam Vital Signs Vital Signs Date Time Temp Pulse Resp B/P (MAP) Pulse Ox O2 Delivery O2 Flow Rate FiO2 01/20/21 09:40 91 152/70 (97) 01/20/21 08:03 36.8 16 97 Room Air Capillary Refill : General Appearance: No Apparent Distress, WD/WN HEENT: PERRL/EOMI, Moist Mucous Membranes Neck: Normal Inspection, Supple Respiratory: Chest Non Tender, Lungs Clear, Normal Breath Sounds, No Accessory Muscle Use, No Respiratory Distress Cardiovascular: Regular Rate, Rhythm, No Edema, No Gallop, No Murmur, Normal Peripheral Pulses Gastrointestinal: Soft, Abnormal Bowel Sounds (decreased), Tenderness (Diffuse) Rectal: Deferred Back: Normal Inspection, No Vertebral Tenderness Extremity: Normal Inspection, Non Tender, No Calf Tenderness, No Pedal Edema, Swelling (LE bilaterally and pitting) Neurologic/Psychiatric: Alert, Oriented x3, No Motor/Sensory Deficits, Normal Mood/Affect Skin: Warm/Dry, Pallor Results/Procedures Lab Laboratory Tests 01/20/21 04:55 Patient resulted labs reviewed. Assessment/Plan Assessment and Plan Assess & Plan/Chief Complaint ASSESSMENT: Parastomal hernia w/t partial SBO Dehydration Hypokalemia - 3.2 PLAN: Surgery with Dr. Salazar today - NPO, appreciate recs Potassium replacement WBC improved - 9.6 Potassium replacement Pain management Anti-emetics ELSIE LOPEZ DO 01/21/21 0537: Subjective Subjective/Events-last exam Patient in OR Monitor pain Review of Systems Gastrointestinal: Nausea, Abdominal Pain Objective Exam General Appearance: No Apparent Distress, WD/WN, Chronically ill Respiratory: Lungs Clear Cardiovascular: Regular Rate, Rhythm Neurologic/Psychiatric: Alert, Oriented x3 Assessment/Plan Assessment and Plan Assess & Plan/Chief Complaint OR Monitor pain Supervisory-Addendum Brief Verification & Attestation Participated in pt care: history, MDM, physical Personally performed: exam, history, MDM, supervision of care Care discussed with: Medical Student Procedures: n/a Results interpretation: Verified all documentation Verification and Attestation of Medical Student E/M Service A medical student performed and documented this service in my presence. I reviewed and verified all information documented by the medical student and made modifications to such information, when appropriate. I personally performed the physical exam and medical decision making. Elsie Lopez, Jan 21, 2021,05:36 STELLA ZAMORANO MED STUDENT Jan 20, 2021 13:36 ELSIE LOPEZ DO Jan 21, 2021 05:37
[2021-01-20] MEDS ORDERED: fentaNYL INJ 100 MCG/2 ML AMP IVP ONE (15:15)
[2021-01-20] MEDS ORDERED: ONDANSETRON 4 MG/2 ML (SDV) Z0FRAN IVP PRN (15:15)
[2021-01-20] MEDS ORDERED: MEPERIDINE (DEMEROL) INJ 50 MG/ML IVP ONE (15:15)
[2021-01-20] MEDS ORDERED: morphine INJ 10 MG/ML 1ML (SYR OR VIAL) IVP ONE (15:15)
[2021-01-20] MEDS ORDERED: PHENYLEPHRINE 100 MCG/ML 10 ML (ANESTHESIA) SYR ONE (15:43)
[2021-01-20] MEDS ORDERED: morphine INJ 10 MG/ML 1ML (SYR OR VIAL) ONE ×2 (15:48→16:48)
--- NOTE | 2021-01-20 18:20 | Progress Note-Post Operative ---
Post-Operative Progess Note Surgeon (s)/Embedder (s) Surgeon SINDHU TENA DO Embedder: DANITA Mcginnis Pre-Operative Diagnosis Parastomal hernia causing PSBO Post-Operative Diagnosis PSBO in Parastomal Hernia Early ischemic bowel Adhesions Procedure & Operative Findings Date of Procedure 01/20/21 Procedure Performed/Findings 1) Laparoscopic CHIN with reduction of parastomal hernia 2) Repair of Enterotomy 3) Parastomal Hernia (incarcerated) repair with mesh placement Anesthesia Type GET Estimated Blood Loss Estimated blood loss (mL): less than 20ml Specimens/Packing Specimens Removed none SINDHU TENA DO Jan 20, 2021 18:20
[2021-01-20] MEDS: HYDROcodone/APAP 7.5 MG/325 MG (LORTAB, LORCET PLUS) TABLET PO PRN (23:53)
--- NOTE | 2021-01-21 01:13 | OPERATIVE REPORT ---
DATE OF SERVICE: PREOPERATIVE DIAGNOSES: Parastomal hernia causing partial small-bowel obstruction. POSTOPERATIVE DIAGNOSES: 1. Partial small-bowel obstruction in parastomal hernia. 2. Early ischemic bowel. 3. Adhesions. 4. Enterotomy. PROCEDURES: 1. Laparoscopic lysis of adhesions with reduction of parastomal hernia. 2. Repair of enterotomy, laparoscopically. 3. Parastomal hernia repair with mesh placement laparoscopically. SURGEON: Jayden Salazar DO MARKETING DIRECTOR ASSISTED LIVING: Randy Rosales MS3. ANESTHESIA: General endotracheal tube. SPECIMENS: None. BLOOD LOSS: Less than 20 mL. FLUIDS: Per anesthesia. POSTOPERATIVE CONDITION: Stable. INDICATION FOR PROCEDURE: The patient is a 65-year-old female who came in with nausea, abdominal pain and I felt that she had a parastomal hernia and I felt that this was causing a partial small-bowel obstruction. FINDINGS: The patient had fluid in the abdomen secondary to edematous bowel, some of the bowel was beginning to become congested and found to have an early ischemic small intestine in the parastomal hernia. She had some murky fluid that came out of here as well and adhesions from previous surgery. PROCEDURE NOTE: After informed consent was obtained, the patient was brought to the operating room, placed on the table in supine position. She was sterilely prepped and draped in normal fashion. I started with the left upper quadrant, infiltrated with local, then made an incision with 11 blade, carried down through the skin and subcutaneous tissue, deepened down to subcutaneous tissue with Bovie electrocautery down to the fascia. Fascia was incised with Bovie electrocautery, then bluntly moved the muscle out of the way and then bluntly entered the abdomen with an S retractor. Immediately upon entering, got out serous fluid, suctioned this out and then placed an 11 mm trocar port, held in place with the balloon, entered the abdomen and then noted adhesions from the previous surgery as well as dilated bowel and congested, starting to look almost dusky. Placed 2 more ports in normal fashion using local lidocaine, 11 blade for stab incision and then placed the 8 mm robotic ports, one directly about the height of the umbilicus and then one in left lower quadrant, watching them come in with the left upper quadrant port. At this point, noted adhesions and fluid. The adhesions are taken down, could tell that some of the bowel was very distended and then found bowel that was completely decompressed. Took down all the adhesions and then noted some edematous and dilated bowel in the parastomal hernia, started taking this down gently also using sharp dissection with scissors as well as Bovie electrocautery, continued trying to take this down. There was a piece of small intestine that was stuck in the parastomal hernia. It looked ischemic and as we were pulling out, it ripped a little causing an enterotomy, but then the intestine came out and a lot of purplish of murky fluid came out with it. This looked like it was early ischemic bowel, not yet completely necrotic or bowel. At this point, I elected to place another port subxiphoid using local lidocaine, 11 blade for stab incision and the 8 mm robotic port placed. I then using all four arms of the robot, used a fenestrated grasper in the lower port, held the intestine up and then the third port had the scope and the ports #2 and 4 were used for tying. Used another bipolar fenestrated and then 2-0 V-Loc suture to carefully close this enterotomy, it closed nicely. The area was copiously irrigated with 2 liters warm normal saline and suctioned out. The enterotomy repair looked good. At this point, continued taking some of the adhesions down and making sure everything was out of the parastomal hernia, could see the parastomal hernia and then elected to close the parastomal hernia with an 0 V-Loc suture running from superior portion about residential down to just tighten up the ostomy site and then elected to place a Phasix mesh, chose the 15 x 20 cm Phasix mesh, cut off the bottom 3 cm and then trimmed this up to about 5 or 6 cm and attached this nonadhesive side up onto the adhesive side of the Phasix mesh at four points using a 2-0 Prolene suture. This was then wet and rolled and then placed into the abdomen, then made four stab incisions with a #11 blade and using a EktaNora to grasp all four of these sutures and brought this up to hold the mesh in place as well as to place this nonsticky portion on covering the bowel. This was to protect the bowel from the rest of the mesh. This was a onlay of a Sugarbaker technique. Once this was up, hemostats were placed on the 2-0 Prolene on the abdominal wall, two were just above the ileostomy and then two were well below this. At this point, then I used a SecureStrap to start going around the edges, could see where the intestine was because of the four Prolene sutures we had placed and did SecureStrap around all the edges from the distal portion all the way up to the upper portion about half or centimeter distances and then in the middle to crown and closed this. The mesh laid up very nicely and flat. Pictures were taken. All the intestine had pinked up and actually was now a little bit decompressed and the decompressed intestine had some fluid in it, suctioned out all the fluid and then removed all ports under direct visualization, allowed pneumoperitoneum to escape. Closed the left upper quadrant incision, closing the incision with 0 Vicryl [id number] suture, tied down and the 2-0 Prolene sutures and then closed the skin incision with ann marie. The small stab incisions were closed with Skin Affix and the ileostomy was placed back. Just before placing the ileostomy bag back on, I placed my finger through the ileostomy, open, did not appear to be any problems down through the opening. At this point, areas were cleaned and dried, dressings placed. The patient was transferred to recovery room in stable condition. Sponge, instrument and needle count correct at the end of the case. Job ID: [id number] DocumentID: [id number] Dictated Date: 01/20/2021 20:48:25 Top Inventory Control Executive Date: 01/21/2021 01:12:05 Dictated By: DO ISAIAH CELIS
[2021-01-21 04:14] VITALS: BP 136/68
[2021-01-21] MEDS: hydrALAZINE (APESOLINE) 20 MG/ML VIAL IV SCH (04:16)
[2021-01-21] MEDS: HYDROcodone/APAP 7.5 MG/325 MG (LORTAB, LORCET PLUS) TABLET PO PRN ×3 (04:19→13:47)
[2021-01-21 05:00] LABS: BASOPHILS % (AUTO) 0 % (0-10); EOSINOPHILS % (AUTO) 0 % (0-10); HEMATOCRIT 42 % (35-52); HEMOGLOBIN 13.7 g/dL (11.5-16.0); LYMPHOCYTES # (AUTO) 1.6 10^3/uL (1.0-4.0); LYMPHOCYTES % (AUTO) 13 % (12-44); MEAN CORPUSCULAR HEMOGLOBIN 30 pg (25-34); MEAN CORPUSCULAR HGB CONC 33 g/dL (32-36); MEAN CORPUSCULAR VOLUME 90 fL (80-99); MEAN PLATELET VOLUME 10.2 fL (9.0-12.2); MONOCYTES # (AUTO) 0.7 10^3/uL (0.0-1.0); MONOCYTES % (AUTO) 5 % (0-12); NEUTROPHILS # (AUTO) 10.3 10^3/uL (1.8-7.8); NEUTROPHILS % (AUTO) 82 % (42-75); PLATELET COUNT 242 10^3/uL (130-400); WHITE BLOOD COUNT 12.6 10^3/uL (4.3-11.0)
[2021-01-21 05:11] LABS: ALBUMIN 3.2 GM/DL (3.2-4.5); CHLORIDE 105 MMOL/L (98-107); POTASSIUM 3.6 MMOL/L (3.6-5.0); SODIUM 137 MMOL/L (135-145)
[2021-01-21 05:12] LABS: CALCIUM 7.8 MG/DL (8.5-10.1)
[2021-01-21 05:13] LABS: GLUCOSE 119 MG/DL (70-105); TOTAL PROTEIN 5.4 GM/DL (6.4-8.2)
[2021-01-21 05:14] LABS: CARBON DIOXIDE 24 MMOL/L (21-32)
[2021-01-21 05:15] LABS: BILIRUBIN,TOTAL 0.9 MG/DL (0.1-1.0)
[2021-01-21 05:17] LABS: ALKALINE PHOSPHATASE 65 U/L (40-136); CREATININE SERUM 0.68 MG/DL (0.60-1.30); GFR ESTIMATED > 60
[2021-01-21 05:18] LABS: BUN/CREATININE RATIO 18
[2021-01-21 05:20] LABS: ALANINE AMINOTRANSFERASE 36 U/L (0-55); MAGNESIUM 1.9 MG/DL (1.6-2.4)
[2021-01-21] MEDS: LACTATED RINGERS 1,000 ML IV SCH (05:36)
--- NOTE | 2021-01-21 05:58 | Progress Note - Hospitalist ---
Subjective HPI/CC On Admission Date Seen by Provider: Jan 21, 2021 Time Seen by Provider: 10:30 CC: Nausea and vomiting and abdominal pain HPI: This is a 65yoWF clinic pt of [facility] who has a PMH of ulcerative colitis s/p complete total Colectomy by Dr. Salazar two years ago due to the severity of her disease and refractory to any treatment who presents with abdominal pain and nausea and vomiting. CT scan did not show a definite bowel obstruction but Dr. Reese was consulted because of Dr. Salazar on vacation and we will maintain on conservative treatment with IV fluids and antiemetics and monitor pt closely for any obstructive signs. Subjective/Events-last exam Patient had an uneventful OR yesterday Conferred with Dr Salazar who is pleased with the results Regular diet started DC IVF Tely Nettles today Labs stable Review of Systems General: Fatigue Gastrointestinal: Abdominal Pain Focused Exam Lactate Level 01/20/21 04:55: Lactic Acid Level 0.93 Objective Exam Vital Signs Vital Signs Date Time Temp Pulse Resp B/P (MAP) Pulse Ox O2 Delivery O2 Flow Rate FiO2 01/21/21 16:04 37.5 109 18 108/65 (79) 93 Room Air 01/21/21 12:00 2.00 Capillary Refill : General Appearance: No Apparent Distress, WD/WN, Chronically ill Respiratory: Lungs Clear, Normal Breath Sounds Cardiovascular: Regular Rate, Rhythm Neurologic/Psychiatric: Alert, Oriented x3, No Motor/Sensory Deficits, Normal Mood/Affect Results/Procedures Lab Laboratory Tests 01/21/21 04:45 Patient resulted labs reviewed. Assessment/Plan Assessment and Plan Assess & Plan/Chief Complaint Assessment: s/p peristomal hernia causing SBO s/p repair Early ischemic bowel h/o UC s/p total colectomy 2 yrs ago Plan: DC IVF Nettles Tely Diagnosis/Problems Diagnosis/Problems (1) Abdominal pain Status: Acute (2) Parastomal hernia of ileal conduit Status: Acute (3) Status post colectomy Status: Acute TADEO LOPEZ DO Jan 21, 2021 05:58
[2021-01-21 08:00] VITALS: BP 129/60
[2021-01-21] MEDS: amLODIPine 5 MG (NORVASC) TAB PO SCH (08:05)
[2021-01-21] MEDS: PANTOPRAZOLE 40 MG (PROTONIX) TAB PO SCH (08:05)
--- NOTE | 2021-01-21 10:01 | Occ Therapy Progress Note ---
Therapy Progress Note Pt laying in bed and family present. OT attempted tx but pt and family decline as pt's pain is just starting to be controlled better. Pt states she feels better than she did at admission, but does not feel up to OOB activities. OT educated pt on the purpose and benefit of OT, OOB activities, and exercises, but pt still declines OT services for today. OT informed pt she would attempt again next available date. 1, refusal [id number] ALONZO ARELLANO OT Jan 21, 2021 10:01
--- NOTE | 2021-01-21 10:39 | Anesthesia-General Post-Op ---
General Patient Condition Mental Status/LOC: Same as Preop Cardiovascular: Satisfactory Nausea/Vomiting: Absent Respiratory: Satisfactory Pain: Controlled Complications: Absent Post Op Complications Complications None Follow Up Care/Instructions Patient Instructions None needed. Anesthesia/Patient Condition Patient Condition Patient is doing well, no complaints, stable vital signs, no apparent adverse anesthesia problems. No complications reported per nursing. SHARRON MIX CRNA Jan 21, 2021 10:39
--- NOTE | 2021-01-21 11:16 | Physical Therapy Progress Note ---
Therapy Progress Note Patient denied PT services. Patient is up with family around room. GURDEEP PUGA PT Jan 21, 2021 11:16
[2021-01-21 12:00] VITALS: BP 130/62
[2021-01-21] MEDS: fentaNYL INJ 100 MCG/2 ML AMP IVP PRN ×2 (14:37→18:24)
[2021-01-21 16:04] VITALS: BP 108/65
--- NOTE | 2021-01-21 18:39 | Progress Note - Surgery ---
Subjective Time Seen by a Provider: 10:36 Subjective/Events-last exam Pt seen and examined, states she feels much better today and no nausea. Review of Systems Pulmonary: No Dyspnea, No Cough Cardiovascular: No: Chest Pain, Palpitations Gastrointestinal: Abdominal Pain; No: Nausea, Vomiting Focused Exam Lactate Level 01/20/21 04:55: Lactic Acid Level 0.93 Objective Exam Vital Signs Date Time Temp Pulse Resp B/P (MAP) Pulse Ox O2 Delivery O2 Flow Rate FiO2 01/21/21 16:04 37.5 109 18 108/65 (79) 93 Room Air 01/21/21 12:00 36.5 105 16 130/62 (84) 92 Nasal Cannula 2.00 01/21/21 08:00 92 Room Air 01/21/21 08:00 36.7 94 18 129/60 (83) 94 Nasal Cannula 2.00 01/21/21 07:00 93 01/21/21 04:14 36.8 95 18 136/68 (90) 95 Nasal Cannula 2.00 01/21/21 01:00 93 01/20/21 23:42 36.9 89 18 142/67 (92) 95 Nasal Cannula 2.00 01/20/21 20:00 94 Room Air 01/20/21 19:45 37.0 96 16 125/74 (91) 97 Nasal Cannula 2.00 01/20/21 19:00 93 I & O 01/21/21 07:00 Intake Total 6850 ml Output Total 2155 ml Balance 4695 ml Capillary Refill : General Appearance: No Apparent Distress, WD/WN HEENT: PERRL/EOMI, Moist Mucous Membranes Respiratory: Lungs Clear, Normal Breath Sounds Cardiovascular: Regular Rate, Rhythm, No Murmur Peripheral Pulses: 2+ Radial Pulses (R), 2+ Radial Pulses (L) Gastrointestinal: soft, abnormal bowel sounds (decreased), tenderness (at incisions), other (stoma pink and functioning) Extremity: Swelling (LE bilaterally and pitting) Results Lab Laboratory Tests 01/21/21 04:45: White Blood Count 12.6H, Red Blood Count 4.59, Hemoglobin 13.7, Hematocrit 42, Mean Corpuscular Volume 90, Mean Corpuscular Hemoglobin 30, Mean Corpuscular Hemoglobin Concent 33, Red Cell Distribution Width 13.6, Platelet Count 242, Mean Platelet Volume 10.2, Immature Granulocyte % (Auto) 0, Neutrophils (%) (Auto) 82H, Lymphocytes (%) (Auto) 13, Monocytes (%) (Auto) 5, Eosinophils (%) (Auto) 0, Basophils (%) (Auto) 0, Neutrophils # (Auto) 10.3H, Lymphocytes # (Auto) 1.6, Monocytes # (Auto) 0.7, Eosinophils # (Auto) 0.0, Basophils # (Auto) 0.0, Immature Granulocyte # (Auto) 0.0, Sodium Level 137, Potassium Level 3.6, Chloride Level 105, Carbon Dioxide Level 24, Anion Gap 8, Blood Urea Nitrogen 12, Creatinine 0.68, Estimat Glomerular Filtration Rate > 60, BUN/Creatinine Ratio 18, Glucose Level 119H, Calcium Level 7.8L, Corrected Calcium 8.4L, Magnesium Level 1.9, Total Bilirubin 0.9, Aspartate Amino Transf (AST/SGOT) 36H, Alanine Aminotransferase (ALT/SGPT) 36, Alkaline Phosphatase 65, Total Protein 5.4L, Albumin 3.2 Microbiology 01/19/21 MRSA Screen - Final, Complete MRSA not isolated Assessment/Plan Assessment/Plan Assessment/Plan S/P Laparoscopic Parastomal hernia repair Clear liquid diet, can increase to soft. Pt encouraged to ambulate and use IS. Waiting on fxn from ileostomy and pain controlled; then pt can go home. SINDHU TENA DO Jan 21, 2021 18:39
[2021-01-21 19:46] VITALS: BP 122/73
[2021-01-21 23:29] VITALS: BP 138/69
[2021-01-22] MEDS: HYDROcodone/APAP 7.5 MG/325 MG (LORTAB, LORCET PLUS) TABLET PO PRN ×3 (03:54→13:09)
[2021-01-22 03:55] VITALS: BP 143/80
[2021-01-22 05:46] LABS: BASOPHILS % (AUTO) 0 % (0-10); EOSINOPHILS % (AUTO) 0 % (0-10); HEMATOCRIT 41 % (35-52); LYMPHOCYTES % (AUTO) 10 % (12-44); MEAN CORPUSCULAR HEMOGLOBIN 30 pg (25-34); MEAN CORPUSCULAR HGB CONC 32 g/dL (32-36); MEAN CORPUSCULAR VOLUME 93 fL (80-99); MEAN PLATELET VOLUME 10.6 fL (9.0-12.2); MONOCYTES # (AUTO) 0.6 10^3/uL (0.0-1.0); MONOCYTES % (AUTO) 6 % (0-12); NEUTROPHILS % (AUTO) 84 % (42-75); PLATELET COUNT 240 10^3/uL (130-400); WHITE BLOOD COUNT 10.7 10^3/uL (4.3-11.0)
[2021-01-22 05:58] LABS: CHLORIDE 103 MMOL/L (98-107); POTASSIUM 3.4 MMOL/L (3.6-5.0); SODIUM 136 MMOL/L (135-145)
[2021-01-22 05:59] LABS: CALCIUM 8.3 MG/DL (8.5-10.1)
[2021-01-22 06:00] LABS: GLUCOSE 120 MG/DL (70-105); TOTAL PROTEIN 5.4 GM/DL (6.4-8.2)
[2021-01-22 06:01] LABS: CARBON DIOXIDE 23 MMOL/L (21-32)
[2021-01-22 06:02] LABS: BILIRUBIN,TOTAL 1.3 MG/DL (0.1-1.0)
[2021-01-22 06:03] LABS: ALKALINE PHOSPHATASE 99 U/L (40-136)
[2021-01-22 06:04] LABS: CREATININE SERUM 0.67 MG/DL (0.60-1.30); GFR ESTIMATED > 60
[2021-01-22 06:05] LABS: BUN/CREATININE RATIO 16
[2021-01-22 06:06] LABS: ALANINE AMINOTRANSFERASE 65 U/L (0-55)
[2021-01-22] MEDS ORDERED: KCL 10 MEQ TAB (MICRO K) PO SCH (07:00)
[2021-01-22] MEDS: amLODIPine 5 MG (NORVASC) TAB PO SCH (07:49)
[2021-01-22] MEDS: PANTOPRAZOLE 40 MG (PROTONIX) TAB PO SCH (07:49)
[2021-01-22 08:00] VITALS: BP 123/74
--- NOTE | 2021-01-22 09:52 | Progress Note - Surgery ---
ROSI BOATENG MED STUDENT 01/22/21 0951: Subjective Date Seen by a Provider: Jan 22, 2021 Time Seen by a Provider: 07:35 Subjective/Events-last exam Patient is awake and laying in bed this morning. She states that she is ready to go home. Her pain is a lot better today, probably a 1, described as rolling, toothache-boris, and radiates through abdomen. She states she has a little more pain with movement. She is walking around with her daughter without too much difficulty. She ate some mashed potatoes last night with no Nausea or vomiting. Ostomy is functioning. No further questions or concerns. Review of Systems General: No Chills HEENT: No Head Aches, No Visual Changes Pulmonary: No Dyspnea, No Cough Cardiovascular: No: Chest Pain, Palpitations Gastrointestinal: Abdominal Pain (Very mild, moreso with movement); No: Nausea, Vomiting Genitourinary: No Dysuria, No Hematuria Musculoskeletal: No: leg pain Focused Exam Lactate Level 01/20/21 04:55: Lactic Acid Level 0.93 Objective Exam Vital Signs Date Time Temp Pulse Resp B/P (MAP) Pulse Ox O2 Delivery O2 Flow Rate FiO2 01/22/21 08:00 36.1 112 20 123/74 (90) 94 Room Air 01/22/21 07:30 Room Air 01/22/21 03:55 36.3 100 20 143/80 (101) 94 Room Air 01/21/21 23:29 37.5 105 20 138/69 (92) 94 Room Air 01/21/21 19:50 Room Air 01/21/21 19:46 35.9 112 18 122/73 (89) 94 Room Air 01/21/21 16:04 37.5 109 18 108/65 (79) 93 Room Air 01/21/21 12:00 36.5 105 16 130/62 (84) 92 Nasal Cannula 2.00 I & O 01/22/21 06:59 Intake Total 1050 ml Output Total 450 ml Balance 600 ml Capillary Refill : General Appearance: No Apparent Distress, WD/WN Respiratory: Chest Non Tender, Lungs Clear, Normal Breath Sounds, No Accessory Muscle Use, No Respiratory Distress Cardiovascular: Regular Rate, Rhythm, No Murmur Peripheral Pulses: 2+ Radial Pulses (R), 2+ Radial Pulses (L) Gastrointestinal: soft, abnormal bowel sounds (decreased), tenderness (at i ncisions), other (stoma pink and functioning) Extremity: No Calf Tenderness, Swelling (LE bilaterally and pitting) Neurologic/Psychiatric: Alert, Oriented x3, Normal Mood/Affect Skin: Normal Color, Warm/Dry Results Lab Laboratory Tests 01/22/21 05:15: White Blood Count 10.7, Red Blood Count 4.38, Hemoglobin 13.0, Hematocrit 41, Mean Corpuscular Volume 93, Mean Corpuscular Hemoglobin 30, Mean Corpuscular Hemoglobin Concent 32, Red Cell Distribution Width 13.8, Platelet Count 240, Mean Platelet Volume 10.6, Immature Granulocyte % (Auto) 1, Neutrophils (%) (Auto) 84H, Lymphocytes (%) (Auto) 10L, Monocytes (%) (Auto) 6, Eosinophils (%) (Auto) 0, Basophils (%) (Auto) 0, Neutrophils # (Auto) 9.0H, Lymphocytes # (Auto) 1.0, Monocytes # (Auto) 0.6, Eosinophils # (Auto) 0.0, Basophils # (Auto) 0.0, Immature Granulocyte # (Auto) 0.1, Sodium Level 136, Potassium Level 3.4L, Chloride Level 103, Carbon Dioxide Level 23, Anion Gap 10, Blood Urea Nitrogen 11, Creatinine 0.67, Estimat Glomerular Filtration Rate > 60, BUN/Creatinine Ratio 16, Glucose Level 120H, Calcium Level 8.3L, Corrected Calcium 9.1, Total Bilirubin 1.3H, Aspartate Amino Transf (AST/SGOT) 61H, Alanine Aminotransferase (ALT/SGPT) 65H, Alkaline Phosphatase 99, Total Protein 5.4L, Albumin 3.0L Microbiology 01/19/21 MRSA Screen - Final, Complete MRSA not isolated Assessment/Plan Assessment/Plan Assessment/Plan S/P Laparoscopic Parastomal hernia repair -Pt tolerating soft foods, ostomy functioning -Pain is very minimal, well controlled with meds -Using IS -Daughter helps ambulate -Pt ready to leave, states she will recover better at home, meets criteria for discharge JAYDEN SALAZAR DO 01/22/21 1326: Subjective Time Seen by a Provider: 12:12 Subjective/Events-last exam Pt seen and examined, states she feels good today. She can't eat, but states that is because food is not good. She has no pain unless she moves and has some fluid in ostomy bag. Review of Systems General: No Chills HEENT: No Head Aches, No Visual Changes Pulmonary: No Dyspnea, No Cough Cardiovascular: No: Chest Pain, Palpitations Gastrointestinal: Abdominal Pain (Very mild, moreso with movement); No: Nausea, Vomiting Objective Exam General Appearance: No Apparent Distress, WD/WN Respiratory: Lungs Clear, Normal Breath Sounds, No Accessory Muscle Use, No Respiratory Distress Cardiovascular: Regular Rate, Rhythm, No Murmur Gastrointestinal: soft, abnormal bowel sounds (decreased), tenderness (at incisions), other (stoma pink and functioning) Assessment/Plan Assessment/Plan Assessment/Plan S/P Laparoscopic Parastomal hernia repair will d/c IV and D/C home. I went over signs and symptoms of intestinal leak with pt and her daughter, they understand and will f/u in my office Sunday. Supervisory-Addendum Brief Verification & Attestation Participated in pt care: history, MDM, physical Personally performed: exam, history, MDM Care discussed with: Medical Student Procedures: n/a Verification and Attestation of Medical Student E/M Service A medical student performed and documented this service. I then reviewed and verified all information documented by the medical student and made modifications to such information, when appropriate. I personally performed a physical exam, medical decision making and then discussed any differences between the notes and made revisions as necessary to create one note. Jayden Salazar , 01/22/21 , 13:25 ROSI BOATENG MED STUDENT Jan 22, 2021 09:51 JAYDEN SALAZAR DO Jan 22, 2021 13:26
[2021-01-22 12:00] VITALS: BP 127/79
[2021-01-22] MEDS ORDERED: POTA10TA6 PO (12:34)
[2021-01-22] MEDS ORDERED: HYDR-34 PO (12:34)
--- NOTE | 2021-01-22 13:22 | Discharge Inst-Surgical ---
Discharge Inst-Surgical Depart Medication/Instructions New, Converted or Re-Newed RX: RX Given to Pt/Family Patient Instructions Follow up Appt: Make appointment for 1 week. [phone] Instructions: No lifting greater than 20 pounds. No strenuous activity. May shower in 24 hours, no tub bath or soaking. Use incentive spirometer at home as directed. No Smoking Skin/Wound Care: May remove bandages in am. You need to leave the Dermabond on incision it will fall off on it's own. Symptoms to Report: Appetite Changes, Extremity Discoloration, Numbness/Tingling, Swelling Increased, Bleeding Excessive, Eyesight Changes, Pain Increased, Urine Color Change, Constipation(Persistent), Fever over 101 degree F, Pain/Pressure in chest, Urinating Difficulty, Cough Up/Vomit Blood, Heart Beat Irreg/Pounding, Pain/Pressure in jaw, Cramps in feet or legs, Lightheadedness, Pain/Pressure in shoulder, Diarrhea(Persistent), Memory Changes Suddenly, Questions/Concerns, Weight gain consecutive days, Dizziness/Fainting, Nausea/Vomiting, Shortness of Breath, Weight gain over 2 pounds If questions or concerns contact your physician Or seek help at emergency department. Activity Activity as Tolerated: Yes Driving Instructions: No Driving/Refer to Dr. Gomez Discharge Diet: No Restrictions Diet After 24 Hours: Clear Liquid if Nauseous Return to The Hospital For: Increased pain, abdominal distention, fever, vomiting. No function from ileostomy. If Any Problems/Questions/Issu: Contact Your Physician, Go to Emergency Room Skin/Wound Care Infection Signs and Symptoms: Increased Redness, Foul Odor of Wound, Increased Drainage, Skin Itchy or Has a Rash, Increased Swelling, Temperature Above 101 F Bathing Instructions: Shower Stitches/Cana/Dermabond Dis: Care of SINDHU Goodrich DO Jan 22, 2021 13:22
--- NOTE | 2021-01-22 21:17 | Discharge Summary ---
Discharge Summary Hospital Course Was the Problem List Reviewed?: Yes Problems/Dx: (1) SBO (small bowel obstruction) (2) Abdominal pain Status: Acute (3) Parastomal hernia of ileal conduit Status: Acute (4) Status post colectomy Status: Acute Hospital Course Date of Admission: Jan 17, 2021 at 18:14 Admission Diagnosis : Family Physician/Provider: Elsie Verduzco DO Date of Discharge: 01/22/21 Discharge Diagnosis: SBO from parastomal hernia of ileal conduit, hypokalemia, HTN Hospital Course: Standard course after CT did not identify SBO until re-reviewed by Dr Salazar so he brought her to surgery and tacked down parastomal hernia and noted early ischemia in bowel. Patient was able to tolerate CLD and was able to ambulate and was ready for DC. Labs and Pending Lab Test: Laboratory Tests 01/22/21 05:15: White Blood Count 10.7, Red Blood Count 4.38, Hemoglobin 13.0, Hematocrit 41, Mean Corpuscular Volume 93, Mean Corpuscular Hemoglobin 30, Mean Corpuscular Hemoglobin Concent 32, Red Cell Distribution Width 13.8, Platelet Count 240, Mean Platelet Volume 10.6, Immature Granulocyte % (Auto) 1, Neutrophils (%) (Auto) 84H, Lymphocytes (%) (Auto) 10L, Monocytes (%) (Auto) 6, Eosinophils (%) (Auto) 0, Basophils (%) (Auto) 0, Neutrophils # (Auto) 9.0H, Lymphocytes # (Auto) 1.0, Monocytes # (Auto) 0.6, Eosinophils # (Auto) 0.0, Basophils # (Auto) 0.0, Immature Granulocyte # (Auto) 0.1, Sodium Level 136, Potassium Level 3.4L, Chloride Level 103, Carbon Dioxide Level 23, Anion Gap 10, Blood Urea Nitrogen 11, Creatinine 0.67, Estimat Glomerular Filtration Rate > 60, BUN/Creatinine Ratio 16, Glucose Level 120H, Calcium Level 8.3L, Corrected Calcium 9.1, Total Bilirubin 1.3H, Aspartate Amino Transf (AST/SGOT) 61H, Alanine Aminotransferase (ALT/SGPT) 65H, Alkaline Phosphatase 99, Total Protein 5.4L, Albumin 3.0L Microbiology 01/19/21 MRSA Screen - Final, Complete MRSA not isolated Home Meds Active HYDROcodone/APAP 7.5/325 TAB (Acetaminophen/Hydrocodone Bitart) 1 Ea Tablet 1 Ea PO Q4H PRN Klor-Con 10 (Potassium Chloride) 10 Meq Tablet.er 10 Meq PO DAILY@0700 Reported Tylenol Extra Strength (Acetaminophen) 500 Mg Tablet 500-1,000 Mg PO Q6H PRN Multivitamin Liquid (Multivit &Minerals/Ferrous Fum) 9 Mg/15 Ml Liquid 9 Mg PO DAILY Assessment/Pt Instructions Dr Verduzco this week Discharge Planning: <30 minutes discharge planning Discharge Instructions Discharge Diet: No Restrictions Activity as Tolerated: Yes Discharge Physical Examination Vital Signs Vital Signs Date Time Temp Pulse Resp B/P (MAP) Pulse Ox O2 Delivery O2 Flow Rate FiO2 01/22/21 12:00 36.1 98 20 127/79 (95) 97 Room Air 01/21/21 12:00 2.00 General Appearance: No Apparent Distress, WD/WN Respiratory: Lungs Clear Cardiovascular: Regular Rate, Rhythm Allergies: Coded Allergies: sulfamethoxazole (Verified Allergy, Unknown, 06/21/18) Flushing trimethoprim (Verified Allergy, Unknown, 06/21/18) Flushing Discharge Summary Date of Admission Jan 17, 2021 at 18:14 Date of Discharge Jan 22, 2021 at 13:35 Discharge Date: Jan 22, 2021 Discharge Diagnosis Assessment: s/p peristomal hernia causing SBO s/p repair Early ischemic bowel h/o UC s/p total colectomy 2 yrs ago Plan: DC IVF Nettles Tely (1) Abdominal pain Status: Acute (2) Parastomal hernia of ileal conduit Status: Acute (3) Status post colectomy Status: Acute ELSIE VERDUZCO DO Jan 22, 2021 21:17
== END 2021-01-22 13:35 | disposition home or self-care (01) ==
LOC: SDC 18:14 → 4TH 18:14 → UNDOADMOB 18:14 → INTOOBSV 18:14 → UNDODISOB 01-22 13:35 → SDC 01-22 13:35
PROVIDERS: ATTEND Surgery
DX: K43.3 Parastomal hernia with obstruction, without gangrene (principal); K66.0 Peritoneal adhesions (postprocedural) (postinfection); I10 Essential (primary) hypertension; J45.909 Unspecified asthma, uncomplicated; F32.9 Major depressive disorder, single episode, unspecified; F41.9 Anxiety disorder, unspecified; E66.9 Obesity, unspecified; Z68.41 Body mass index [BMI] 40.0-44.9, adult; Z79.899 Other long term (current) drug therapy; Z88.2 Allergy status to sulfonamides; Z88.1 Allergy status to other antibiotic agents; Z90.49 Acquired absence of other specified parts of digestive tract; Z20.822 Contact with and (suspected) exposure to COVID-19
CPT/HCPCS: 44346; 80053 ×5; 83605; 83735 ×2; 84145; 85025 ×5; 87081; 97166; C1781; G0378; G0379; U0002; 36415; 87635; 99211

== ENCOUNTER 2021-02-07 17:19 | Day surgery (SDC) | payer MEDICARE ==
[2021-02-07] MEDS ORDERED: LACTATED RINGERS 1,000 ML IV SCH (17:45)
[2021-02-07 18:02] LABS: BASOPHILS % (AUTO) 0 % (0-10); EOSINOPHILS % (AUTO) 0 % (0-10); HEMATOCRIT 42 % (35-52); LYMPHOCYTES % (AUTO) 17 % (12-44); MEAN CORPUSCULAR HEMOGLOBIN 30 pg (25-34); MEAN CORPUSCULAR HGB CONC 31 g/dL (32-36); MEAN CORPUSCULAR VOLUME 95 fL (80-99); MEAN PLATELET VOLUME 9.7 fL (9.0-12.2); MONOCYTES % (AUTO) 9 % (0-12); NEUTROPHILS # (AUTO) 8.6 10^3/uL (1.8-7.8); NEUTROPHILS % (AUTO) 74 % (42-75); PLATELET COUNT 464 10^3/uL (130-400); WHITE BLOOD COUNT 11.6 10^3/uL (4.3-11.0)
--- NOTE | 2021-02-07 18:21 | Diagnostic Imaging Report ---
INDICATION: Fever Frontal chest obtained at 06:04 p.m. and compared to 08/08/2018. Heart is borderline in size. There is mild central vascular congestion. There is no focal infiltrate or pneumothorax or pleural fluid. IMPRESSION: Borderline heart size with mild central vascular prominence. No focal infiltrate or pleural fluid. Dictated by: Dictated on workstation # [id number]
[2021-02-07 18:26] LABS: ALBUMIN 3.9 GM/DL (3.2-4.5); CHLORIDE 101 MMOL/L (98-107); POTASSIUM 3.9 MMOL/L (3.6-5.0); SODIUM 137 MMOL/L (135-145)
[2021-02-07 18:28] LABS: CALCIUM 9.6 MG/DL (8.5-10.1)
[2021-02-07 18:29] LABS: GLUCOSE 111 MG/DL (70-105); TOTAL PROTEIN 7.3 GM/DL (6.4-8.2)
[2021-02-07 18:30] VITALS: BP 147/84
[2021-02-07 18:30] LABS: BILIRUBIN,TOTAL 0.7 MG/DL (0.1-1.0); CARBON DIOXIDE 23 MMOL/L (21-32)
[2021-02-07 18:32] LABS: ALKALINE PHOSPHATASE 183 U/L (40-136); CREATININE SERUM 0.81 MG/DL (0.60-1.30); GFR ESTIMATED > 60
[2021-02-07 18:33] LABS: BUN/CREATININE RATIO 10
[2021-02-07 18:35] LABS: ALANINE AMINOTRANSFERASE 61 U/L (0-55)
== END 2021-02-07 19:00 | disposition home or self-care (01) ==
LOC: SDC 17:19
PROVIDERS: ATTEND Surgery
DX: R50.9 Fever, unspecified (principal); Z53.9 Procedure and treatment not carried out, unspecified reason
CPT/HCPCS: 36415; 71045; 80053; 85025; 96360; 96361

== ENCOUNTER → 2021-02-07 | Outpatient (CLI) | payer MEDICARE ==
[~2021-02-07] MED LIST changes: +HYDR-34 PO; +MULT9LIQ6 PO; +POTA10TA6 PO
[2021-02-07 11:29] LABS: BILIRUBIN,URINE NEGATIVE (NEGATIVE); CLARITY,URINE SL CLOUDY; COLOR,URINE DARK YELLOW; GLUCOSE, URINE (UA) NEGATIVE (NEGATIVE); KETONES,URINE NEGATIVE (NEGATIVE); LEUKOCYTE ESTERASE ,URINE NEGATIVE (NEGATIVE); NITRITE,URINE NEGATIVE (NEGATIVE); PH,URINE 5.5 (5-9); PROTEIN,URINE NEGATIVE (NEGATIVE)
[2021-02-07 11:57] LABS: BACTERIA,URINE FEW /HPF; RBC,URINE 0-2 /HPF; WBC,URINE 0-2 /HPF
== END ==
LOC: LAB 11:11
PROVIDERS: ATTEND Surgery
DX: R30.9 Painful micturition, unspecified (principal)
CPT/HCPCS: 81000; 87088

== ENCOUNTER → 2021-02-09 | Outpatient (CLI) | payer MEDICARE ==
[~2021-02-09] MED LIST changes: +CATHETER FLUSH 10 ML SYR IV PRN; +HOLD METFORMIN - RECEIVED CONTRAST 20 ML VIAL IV SCH; +IOHEXOL 350 MG/ML 100 ML (OMNIPAQUE 350) VIAL IV ONE; +NS 100 ML (IVPB) BAG IV ONE
--- NOTE | 2021-02-09 14:54 | Diagnostic Imaging Report ---
PROCEDURE: CT abdomen and pelvis with contrast. TECHNIQUE: Multiple contiguous axial images were obtained through the abdomen and pelvis after administration of intravenous contrast. Auto Exposure Controls were utilized during the CT exam to meet ALARA standards for radiation dose reduction. All CT scans use one or more of the following dose optimizing techniques: automated exposure control, MA and/or KvP adjustment based on patient size and exam type or iterative reconstruction. INDICATION: Patient is status post surgery on January 20, 2021, for parastomal hernia and obstruction. Patient does have some drainage from the anal region. The study is performed to evaluate for pelvic abscess. COMPARISON: Correlation is made with prior CT from 01/25/2021. FINDINGS: Imaging through the lung bases does show some linear atelectasis in the right lower lobe. The liver demonstrates diffuse low density, consistent with hepatic steatosis. No liver mass is identified. Gallbladder contains small stones. There is no biliary ductal dilatation. Pancreas and spleen are unremarkable. No adrenal mass is detected. Kidneys are unremarkable. Aorta is nonaneurysmal. There is significant improvement in bowel distention since prior study. Patient reportedly has had parastomal hernia repair. No bowel obstruction is seen on today's study. There is some fluid just deep to the right lower quadrant abdominal wall at the level of the ostomy. This measures approximately 10 cm x 1.3 cm. Fluid was located at this location on the prior CT but is significantly reduced in size on today's exam. However, patient has developed a deep midline pelvic fluid collection posterior to the vaginal cuff. This measures approximately 5.8 cm cephalocaudal x 3.3 cm AP x 3.2 cm transverse. Trace gas within the collection is seen and features are suggestive of a small abscess. There is some presacral inflammatory stranding present. This is similar to prior exam. Bladder is unremarkable. IMPRESSION: 1. Hepatic steatosis with cholelithiasis. 2. Right basilar subsegmental atelectasis. 3. Resolution of previously noted small bowel obstruction when compared with CT from 01/25/2021. There is a very thin fluid collection in the right lower quadrant just deep to the ostomy, however this does appear to be significantly reduced in size since prior CT. 4. Development of a deep midline pelvic abscess when compared with prior CT. This reportedly is draining externally. No other significant abnormality is detected. Dictated by: Dictated on workstation # [id number]
== END ==
LOC: RAD 14:00
PROVIDERS: ATTEND Surgery
DX: N73.9 Female pelvic inflammatory disease, unspecified (principal); K76.0 Fatty (change of) liver, not elsewhere classified; K80.20 Calculus of gallbladder without cholecystitis without obstruction; J98.11 Atelectasis
CPT/HCPCS: 74177

== ENCOUNTER → 2021-08-23 | Outpatient (CLI) | payer MEDICARE ==
[~2021-08-23] MED LIST changes: -CATHETER FLUSH 10 ML SYR IV PRN; -HOLD METFORMIN - RECEIVED CONTRAST 20 ML VIAL IV SCH; -IOHEXOL 350 MG/ML 100 ML (OMNIPAQUE 350) VIAL IV ONE; -NS 100 ML (IVPB) BAG IV ONE; +SCOP1PAT10 TOP; -SCOP1PAT11 TOP; -SULF1TAB35 PO; +SULF1TAB38 PO
[2021-08-23 12:58] LABS: BASOPHILS % (AUTO) 1 % (0-10); EOSINOPHILS # (AUTO) 0.2 10^3/uL (0.0-0.3); EOSINOPHILS % (AUTO) 3 % (0-10); HEMATOCRIT 43 % (35-52); HEMOGLOBIN 13.7 g/dL (11.5-16.0); LYMPHOCYTES # (AUTO) 1.9 10^3/uL (1.0-4.0); LYMPHOCYTES % (AUTO) 31 % (12-44); MEAN CORPUSCULAR HEMOGLOBIN 30 pg (25-34); MEAN CORPUSCULAR HGB CONC 32 g/dL (32-36); MEAN CORPUSCULAR VOLUME 93 fL (80-99); MONOCYTES # (AUTO) 0.4 10^3/uL (0.0-1.0); MONOCYTES % (AUTO) 6 % (0-12); NEUTROPHILS # (AUTO) 3.6 10^3/uL (1.8-7.8); NEUTROPHILS % (AUTO) 58 % (42-75); PLATELET COUNT 263 10^3/uL (130-400); WHITE BLOOD COUNT 6.1 10^3/uL (4.3-11.0)
[2021-08-23 13:22] LABS: ALBUMIN 4.2 GM/DL (3.2-4.5); POTASSIUM 3.9 MMOL/L (3.6-5.0)
[2021-08-23 13:25] LABS: TOTAL PROTEIN 7.3 GM/DL (6.4-8.2)
[2021-08-23 13:27] LABS: BILIRUBIN,TOTAL 0.6 MG/DL (0.1-1.0)
[2021-08-23 13:28] LABS: CREATININE SERUM 0.79 MG/DL (0.60-1.30)
== END ==
LOC: LAB 12:20
PROVIDERS: ATTEND Internal Medicine
DX: Z00.00 Encounter for general adult medical examination without abnormal findings (principal); Z13.6 Encounter for screening for cardiovascular disorders; E55.9 Vitamin D deficiency, unspecified; K51.90 Ulcerative colitis, unspecified, without complications
CPT/HCPCS: 36415; 80053; 80061; 82306; 84443; 85025

== ENCOUNTER → 2021-08-23 | Outpatient (CLI) | payer MEDICARE ==
[2021-08-23 16:04] LABS: BILIRUBIN,URINE NEGATIVE (NEGATIVE); CLARITY,URINE CLEAR; COLOR,URINE YELLOW; GLUCOSE, URINE (UA) NEGATIVE (NEGATIVE); KETONES,URINE NEGATIVE (NEGATIVE); LEUKOCYTE ESTERASE ,URINE 1+ (NEGATIVE); NITRITE,URINE POSITIVE (NEGATIVE); PH,URINE 5.5 (5-9); PROTEIN,URINE 1+ (NEGATIVE)
[2021-08-23 16:12] LABS: BACTERIA,URINE LARGE /HPF; SQUAMOUS EPITHELIAL CELL,UR 0-2 /HPF
== END ==
LOC: LAB 15:45
PROVIDERS: ATTEND Surgery
DX: Z01.89 Encounter for other specified special examinations (principal)
CPT/HCPCS: 81000; 87077; 87088; 87186

== ENCOUNTER → 2022-08-23 | Outpatient (CLI) | payer MEDICARE ==
[~2022-08-23] MED LIST changes: +DICY20TA PO; -DICY20TA10 PO; +POTA-160 PO; -POTA10TA6 PO
[2022-08-23 09:18] LABS: BASOPHILS % (AUTO) 1 % (0-10); EOSINOPHILS # (AUTO) 0.2 10^3/uL (0.0-0.3); EOSINOPHILS % (AUTO) 3 % (0-10); HEMATOCRIT 45 % (35-52); HEMOGLOBIN 14.3 g/dL (11.5-16.0); LYMPHOCYTES # (AUTO) 1.9 10^3/uL (1.0-4.0); LYMPHOCYTES % (AUTO) 35 % (12-44); MEAN CORPUSCULAR HEMOGLOBIN 30 pg (25-34); MEAN CORPUSCULAR HGB CONC 32 g/dL (32-36); MEAN CORPUSCULAR VOLUME 93 fL (80-99); MEAN PLATELET VOLUME 10.1 fL (9.0-12.2); MONOCYTES # (AUTO) 0.4 10^3/uL (0.0-1.0); MONOCYTES % (AUTO) 7 % (0-12); NEUTROPHILS # (AUTO) 2.9 10^3/uL (1.8-7.8); NEUTROPHILS % (AUTO) 54 % (42-75); PLATELET COUNT 277 10^3/uL (130-400); WHITE BLOOD COUNT 5.3 10^3/uL (4.3-11.0)
[2022-08-23 09:44] LABS: ALBUMIN 4.2 GM/DL (3.2-4.5); BILIRUBIN,TOTAL 0.4 MG/DL (0.1-1.0); CALCIUM 9.9 MG/DL (8.5-10.1); CREATININE SERUM 0.83 MG/DL (0.60-1.30); POTASSIUM 4.3 MMOL/L (3.6-5.0); TOTAL PROTEIN 7.5 GM/DL (6.4-8.2)
== END ==
LOC: LAB 08:59
PROVIDERS: ATTEND Internal Medicine
DX: Z13.6 Encounter for screening for cardiovascular disorders (principal); I10 Essential (primary) hypertension; D64.9 Anemia, unspecified; E55.9 Vitamin D deficiency, unspecified
CPT/HCPCS: 36415; 80053; 80061; 82306; 82728; 83540; 83550; 84443; 85025

== ENCOUNTER 2023-01-06 12:34 | Emergency (ER) | payer MEDICARE ==
[2023-01-06] MEDS ORDERED: NS IV 1000 ML 1,000 ML IV STA (13:01)
[2023-01-06] MEDS ORDERED: morphine INJ 10 MG/ML 1ML (SYR OR VIAL) IVP STA (13:01)
--- NOTE | 2023-01-06 13:05 | ED GI ---
General Chief Complaint: Skin/Wound Problems Stated Complaint: SORE ON BUTT Source of Information: Patient Exam Limitations: No Limitations History of Present Illness Date Seen by Provider: Jan 06, 2023 Time Seen by Provider: 12:50 Initial Comments Patient is a 67-year-old female with a history of ulcerative colitis status post subtotal colectomy in 2019 with subsequent rectum and anus removal afterwards due to complications. Has an ileostomy now. Patient states that she started having rectal pain approximately 3 days ago, . She had the "flu" last week with lots of nausea and dry heaving. Did not test positive for influenza just assume she had a "stomach flu". She is nauseated today. Decreased oral intake. Only had half a cup of coffee at about 730 this morning. No fevers or chills. Significant pain in the rectum and perineal area. No fevers or chills. No shortness of breath or cough. No other complaints of illness such as dysuria urgency frequency. Dr. Tena is aware and has seen the patient in the emergency department. Timing/Duration: 2-3 Days Severity/Quality: Moderate, Throbbing Location: Other (rectum) Radiation: No Radiation Activities at Onset: None Modifying Factors: Improves With Movement Associated Symptoms: Nausea/Vomiting Allergies and Home Medications Allergies Coded Allergies: sulfamethoxazole (Verified Allergy, Unknown, 06/21/18) Flushing trimethoprim (Verified Allergy, Unknown, 06/21/18) Flushing Patient Home Medication List Home Medication List Reviewed: Yes Acetaminophen (Tylenol Extra Strength) 500 Mg Tablet, 500-1,000 MG PO Q6H PRN for PAIN-MILD (1-4), (Reported) Entered as Reported by: CARLY SANCHEZ on 01/18/21 1356 Hydrocodone Bit/Acetaminophen (HYDROcodone/APAP 7.5/325 TAB) 1 Ea Tablet, 1 EA PO Q4H PRN for PAIN-MODERATE (5-7) Prescribed by: TADEO LOPEZ on 01/22/21 1234 Multivit &Minerals/Ferrous Fum (Multivitamin Liquid) 9 Mg/15 Ml Liquid, 9 MG PO DAILY, (Reported) Entered as Reported by: CARLY SANCHEZ on 01/18/21 1356 Potassium Chloride (Klor-Con 10) 10 Meq Tablet.er, 10 MEQ PO DAILY@0700 Prescribed by: TADEO LOPEZ on 01/22/21 1234 Tramadol HCl (Tramadol HCl) 50 Mg Tablet, 50 MG PO Q6H PRN for PAIN Prescribed by: MELA BARAJAS on 01/06/23 1554 Review of Systems Review of Systems Constitutional: see HPI EENTM: No Symptoms Reported Respiratory: No Symptoms Reported Cardiovascular: No Symptoms Reported Gastrointestinal: Nausea, Other (rectal pain) Genitourinary: No Symptoms Reported Musculoskeletal: no symptoms reported Skin: no symptoms reported All Other Systems Reviewed Negative Unless Noted: Yes Past Lbaeqev-Ggiyyw-Izkmar Hx Patient Social History Tobacco Use?: No Use of E-Cig and/or Vaping dev: No Substance use?: No Alcohol Use?: No Pt feels they are or have been: No Immunizations Up To Date Tetanus Booster (TDap): Unknown Influenza Vaccine Up-to-Date: No; Not Current Seasonal Allergies Seasonal Allergies: No Past Medical History Surgery/Hospitalization HX: ILEOSTOMY, TUBAL UC Surgeries: Yes (colon removed ileostomy placed) Tubal Ligation Respiratory: Yes Asthma Currently Using CPAP: No Currently Using BIPAP: No Cardiac: Yes Hypertension Neurological: No Reproductive Disorders: No Female Reproductive Disorders: Denies ECOLOGIST History: Tubal Ligation, Menopausal Sexually Transmitted Disease: No HIV/AIDS: No Genitourinary: No Gastrointestinal: Yes (ileostomy) Colitis Musculoskeletal: No Endocrine: No HEENT: Yes (READING GLASSES) Loss of Vision: Bilateral Hearing Impairment: Denies Cancer: No Did You Recieve Any Treatments: No Psychosocial: No Anxiety Integumentary: No Blood Disorders: No Adverse Reaction/Blood Tranf: No Family Medical History Colitis G8 BROTHER G8 SISTER Respiratory disorder 19 MOTHER (COPD) Hypertension, Lung Disease Physical Exam Vital Signs Vital Signs - First Documented 01/06/23 12:43 Temp 36.9 Pulse 99 Resp 18 B/P (MAP) 153/83 (106) Capillary Refill : Height/Weight/BMI Height: 5'4.00" Weight: 221lbs. 4.0oz. 100.501242ja; 39.96 BMI Method:Stated General Appearance: WD/WN, no apparent distress HEENT: PERRL/EOMI Respiratory: lungs clear, normal breath sounds, no respiratory distress, no accessory muscle use Cardiovascular: regular rate, rhythm Gastrointestinal: soft, other (mild left lower quadrant abdominal tenderness; +BS; ) Genital/Rectal: tenderness (Significant tenderness a@ rectum, no drainage. Tenderness extends into medial right buttock adjacent to rectum. Also very ttp over the perineum. There is a small crevice at the perineum and at the base there is a white line - not draining, but exquisitely tender.) Extremities: normal range of motion, normal inspection Neurologic/Psychiatric: alert, normal mood/affect, oriented x 3 Skin: normal color, warm/dry Progress/Results/Core Measures Results/Orders Lab Results Laboratory Tests Test 01/06/23 13:00 Range/Units White Blood Count 12.3 H 4.3-11.0 10^3/uL Red Blood Count 4.70 3.80-5.11 10^6/uL Hemoglobin 14.1 11.5-16.0 g/dL Hematocrit 43 35-52 % Mean Corpuscular Volume 91 80-99 fL Mean Corpuscular Hemoglobin 30 25-34 pg Mean Corpuscular Hemoglobin Concent 33 32-36 g/dL Red Cell Distribution Width 13.2 10.0-14.5 % Platelet Count 286 130-400 10^3/uL Mean Platelet Volume 10.0 9.0-12.2 fL Immature Granulocyte % (Auto) 1 % Neutrophils (%) (Auto) 71 42-75 % Lymphocytes (%) (Auto) 20 12-44 % Monocytes (%) (Auto) 8 0-12 % Eosinophils (%) (Auto) 1 0-10 % Basophils (%) (Auto) 0 0-10 % Neutrophils # (Auto) 8.7 H 1.8-7.8 10^3/uL Lymphocytes # (Auto) 2.4 1.0-4.0 10^3/uL Monocytes # (Auto) 1.0 0.0-1.0 10^3/uL Eosinophils # (Auto) 0.1 0.0-0.3 10^3/uL Basophils # (Auto) 0.0 0.0-0.1 10^3/uL Immature Granulocyte # (Auto) 0.1 0.0-0.1 10^3/uL Sodium Level 140 135-145 MMOL/L Potassium Level 3.8 3.6-5.0 MMOL/L Chloride Level 106 98-107 MMOL/L Carbon Dioxide Level 23 21-32 MMOL/L Anion Gap 11 5-14 MMOL/L Blood Urea Nitrogen 11 7-18 MG/DL Creatinine 0.77 0.60-1.30 MG/DL Estimat Glomerular Filtration Rate 84 BUN/Creatinine Ratio 14 Glucose Level 106 H 70-105 MG/DL Calcium Level 9.6 8.5-10.1 MG/DL My Orders Orders - MELA BARAJAS MD Ed Iv/Invasive Line Start (01/06/23 13:01) Cbc With Automated Diff (01/06/23 13:01) Basic Metabolic Panel (01/06/23 13:) Ns Iv 1000 Ml (Sodium Chloride 0.9%) (01/06/23 13:01) Morphine Injection (Morphine Injection (01/06/23 13:01) Ondansetron Injection (Zofran Injectio (01/06/23 13:15) Ct Pelvis W (01/06/23 13:33) Iohexol Injection (Omnipaque 350 Mg/Ml 1 (01/06/23 13:45) Received Contrast (Hold Metformin- Contr (01/06/23 13:45) Ns (Ivpb) (Sodium Chloride 0.9% Ivpb Bag (01/06/23 13:45) Medications Given in ED Vital Signs/I&O 01/06/23 01/06/23 12:43 15:51 Temp 36.9 36.9 Pulse 99 84 Resp 18 18 B/P (MAP) 153/83 (106) 142/85 01/07/23 00:00 Intake Total 1000 ml Balance 1000 ml Progress Progress Note : Time: 15:39 Progress Note Patient seen and evaluated by me, 67-year-old with rectal pain. Evaluation today includes physical exam, CBC, chemistry and CT pelvis with IV contrast. Patient is treated in the emergency department with 4 of morphine and 4 of Zofran for pain. She is given 1 L of normal saline after IV contrast. Physical exam is pertinent for a little bit of left lower quadrant abdominal tenderness, significant rectal tenderness (the patient has had rectal and anus resection due to ulcerative colitis). She is very tender in the perineum. No significant erythema, no drainage is noted. Differential diagnosis based on history and physical exam, perineal cellulitis, abscess. Labs returned with a white count of 12.5, normal H&H. Normal chemistry. CT pelvis shows a fluid collection consistent with similar size shape and location at the perineum. Dr. Tena has seen and evaluated the patient as well as her CT. He was her original surgeon. He states there is really no difference in the fluid collection. He has talked to her about further treatment. She does not wish to be admitted for treatment at this time (and Dr Tena does not believe it is indicated). He is going to follow-up with her on Sunday in his office. We will send her home with a little bit of pain medicines and return precautions. Departure Impression Primary Impression: Rectal or anal pain Disposition: HOME, SELF-CARE Condition: Stable Departure-Patient Inst. Decision time for Depature: 15:42 Referrals: TADEO LOPEZ DO (PCP/Family) Primary Care Physician Patient Instructions: Acute Pain, Adult (DC) Add. Discharge Instructions: Monitor your symptoms for any fever, developing abdominal pain, nausea or vomiting. If any of these develop please come back to the emergency room for reevaluation. You can take the tramadol 1 tablet every 6 hours as needed for pain. Sometimes pain medications can cause constipation. It is a good idea to take stool softeners while taking pain medications. You can also take jhst-frr-cpohpss ibuprofen 3 tablets which is 600 mg every 6 hours with food as needed for pain. Please follow-up with Dr. Tena on Sunday. Scripts Tramadol HCl (Tramadol HCl) 50 Mg Tablet 50 MG PO Q6H PRN for PAIN, #12 TAB 0 Refills Prov: MELA BARAJAS MD 01/06/23 Copy Copies To 1: SINDHU TENA DO Copies To 2: TADEO LOPEZ KATHRYN M MD Jan 06, 2023 13:05
[2023-01-06 13:13] LABS: BASOPHILS % (AUTO) 0 % (0-10); EOSINOPHILS # (AUTO) 0.1 10^3/uL (0.0-0.3); EOSINOPHILS % (AUTO) 1 % (0-10); HEMATOCRIT 43 % (35-52); HEMOGLOBIN 14.1 g/dL (11.5-16.0); LYMPHOCYTES # (AUTO) 2.4 10^3/uL (1.0-4.0); LYMPHOCYTES % (AUTO) 20 % (12-44); MEAN CORPUSCULAR HEMOGLOBIN 30 pg (25-34); MEAN CORPUSCULAR HGB CONC 33 g/dL (32-36); MEAN CORPUSCULAR VOLUME 91 fL (80-99); MONOCYTES % (AUTO) 8 % (0-12); NEUTROPHILS # (AUTO) 8.7 10^3/uL (1.8-7.8); NEUTROPHILS % (AUTO) 71 % (42-75); PLATELET COUNT 286 10^3/uL (130-400); WHITE BLOOD COUNT 12.3 10^3/uL (4.3-11.0)
[2023-01-06] MEDS ORDERED: ONDANSETRON 4 MG/2 ML (SDV) Z0FRAN IVP ONE (13:15)
[2023-01-06 13:17] LABS: POTASSIUM 3.8 MMOL/L (3.6-5.0)
[2023-01-06 13:18] LABS: CALCIUM 9.6 MG/DL (8.5-10.1)
[2023-01-06 13:23] LABS: CREATININE SERUM 0.77 MG/DL (0.60-1.30)
[2023-01-06] MEDS ORDERED: NS 100 ML (IVPB) BAG IV ONE (13:45)
[2023-01-06] MEDS ORDERED: IOHEXOL 350 MG/ML 100 ML (OMNIPAQUE 350) VIAL IV ONE (13:45)
[2023-01-06] MEDS ORDERED: HOLD METFORMIN - RECEIVED CONTRAST 20 ML VIAL IV SCH (13:45)
--- NOTE | 2023-01-06 14:18 | Diagnostic Imaging Report ---
PROCEDURE: CT pelvis with contrast. TECHNIQUE: Oral and intravenous contrast were administered with pelvic CT performed. Auto Exposure Controls were utilized during the CT exam to meet ALARA standards for radiation dose reduction. INDICATION: Rectal pain. COMPARISON: CT abdomen and pelvis IV contrast 02/09/2021. FINDINGS: Well-circumscribed peripherally enhancing fluid collection in the perineum in the region of the resected anus and rectum. This measures approximately 3.1 x 3.5 x 6.8 cm, similar to the prior exam. This appears decreased mass effect upon the vaginal canal where there is some fluid trapped superiorly near the cervix. The bladder, visualized collecting systems are unremarkable. No evidence of bowel obstruction within the pelvis. Right pelvic ostomy. No acute osseous findings. IMPRESSION: Peripherally enhancing peritoneal fluid collection in the region of the resected anus and rectum measuring up to 6.8 cm. This is similar in size and morphology when compared to 02/09/2021. This also appears to result in some entrapped fluid in the vaginal canal due to mass effect on the distal canal. Findings were discussed with Dr. Melissa Carlton at 2:10 PM on 01/06/2023. Dictated by: Dictated on workstation # [id number]
[2023-01-06 15:51] VITALS: BP 142/85
[2023-01-06] MEDS ORDERED: TRM50T PO (15:52)
== END 2023-01-06 15:55 | disposition home or self-care (01) ==
LOC: EDUNIT# 12:34 → ER 12:37
DX: K62.89 Other specified diseases of anus and rectum (principal); Z90.49 Acquired absence of other specified parts of digestive tract
CPT/HCPCS: 36415; 72193; 80048; 85025

== ENCOUNTER 2023-03-23 09:28 | Emergency (ER) | payer MEDICARE ==
[~2023-03-23] VITALS: Ht 162.6 cm; Wt 104.3 kg
[~2023-03-23 09:28] MED LIST changes: +TRM50T PO
[2023-03-23] MEDS ORDERED: fentaNYL INJ 100 MCG/2 ML AMP IVP STA (09:55)
[2023-03-23] MEDS ORDERED: NS IV 1000 ML 1,000 ML IV STA (09:55)
[2023-03-23] MEDS ORDERED: ONDANSETRON 4 MG/2 ML (SDV) Z0FRAN IVP ONE (10:00)
[2023-03-23 10:03] LABS: BILIRUBIN,URINE NEGATIVE (NEGATIVE); CLARITY,URINE CLEAR; COLOR,URINE YELLOW; GLUCOSE, URINE (UA) NEGATIVE (NEGATIVE); KETONES,URINE TRACE (NEGATIVE); LEUKOCYTE ESTERASE ,URINE 1+ (NEGATIVE); NITRITE,URINE POSITIVE (NEGATIVE); PROTEIN,URINE NEGATIVE (NEGATIVE)
[2023-03-23 10:06] LABS: ALBUMIN 4.2 GM/DL (3.2-4.5); BASOPHILS % (AUTO) 0 % (0-10); EOSINOPHILS % (AUTO) 0 % (0-10); HEMATOCRIT 42 % (35-52); HEMOGLOBIN 13.9 g/dL (11.5-16.0); LYMPHOCYTES # (AUTO) 0.8 10^3/uL (1.0-4.0); LYMPHOCYTES % (AUTO) 5 % (12-44); MEAN CORPUSCULAR HEMOGLOBIN 30 pg (25-34); MEAN CORPUSCULAR HGB CONC 33 g/dL (32-36); MEAN CORPUSCULAR VOLUME 91 fL (80-99); MEAN PLATELET VOLUME 10.5 fL (9.0-12.2); MONOCYTES # (AUTO) 0.3 10^3/uL (0.0-1.0); MONOCYTES % (AUTO) 2 % (0-12); NEUTROPHILS # (AUTO) 13.6 10^3/uL (1.8-7.8); NEUTROPHILS % (AUTO) 92 % (42-75); PLATELET COUNT 271 10^3/uL (130-400); WHITE BLOOD COUNT 14.8 10^3/uL (4.3-11.0)
[2023-03-23 10:07] LABS: POTASSIUM 3.8 MMOL/L (3.6-5.0)
[2023-03-23 10:08] LABS: CALCIUM 9.7 MG/DL (8.5-10.1)
[2023-03-23 10:09] LABS: TOTAL PROTEIN 7.1 GM/DL (6.4-8.2)
[2023-03-23 10:11] LABS: BILIRUBIN,TOTAL 0.5 MG/DL (0.1-1.0)
[2023-03-23 10:14] LABS: BACTERIA,URINE MODERATE /HPF; RBC,URINE 50-100 /HPF
[2023-03-23 10:29] LABS: BAND NEUTROPHILS 2 %; LYMPHOCYTES % (MANUAL) 5 %; MONOCYTES % (MANUAL) 1 %; NEUTROPHILS % (MANUAL) 92 %; RBC MORPH NORMAL
--- NOTE | 2023-03-23 10:57 | ED Abdominal Pain ---
General Chief Complaint: Abdominal/GI Problems Stated Complaint: LOWER ABD PAIN Nursing Triage Note: PT AMBULATE TO ROOM 06 WITHOUT DIFFICULTY WITH C/O RIGHT LOWER ABD PAIN, N/V STARTING AT 0300 TODAY. PT REPORT RIGHT SIDE ILIOSTOMY. PT STATES SHE THINKS SHE HAS A UTI. PT REPORTS TAKING ZOFRAN AT 0700 AND HYDROCODONE AT 0800 TODAY. Source of Information: Patient Exam Limitations: No Limitations History of Present Illness Date Seen by Provider: March 23, 2023 Time Seen by Provider: 09:47 Initial Comments Here with report of lower abdominal pain and states that she believes that she has a urinary tract infection. She does reports nausea and vomiting since early this morning. She does not appear to be able to get comfortable. 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 Did have rectal stump removed in Dec of this year. Follows with Dr. Alaniz. Denies fever currently. States she still has output from her ileostomy. Overall reports that she just does not feel well. Timing/Duration: 12 Hours Severity/Quality: Moderate, Severe Location: RLQ, LLQ, Suprapubic Radiation: Back Activities at Onset: None Modifying Factors: Worsens With Eating, Worsens With Palpation Associated Symptoms: No Chest Pain, No Fever/Chills; Nausea/Vomiting; No Swelling/Mass in Abdomen; Weakness Allergies and Home Medications Allergies Coded Allergies: sulfamethoxazole (Verified Allergy, Unknown, 06/21/18) Flushing trimethoprim (Verified Allergy, Unknown, 06/21/18) Flushing Patient Home Medication List Home Medication List Reviewed: Yes Acetaminophen (Tylenol Extra Strength) 500 Mg Tablet, 500-1,000 MG PO Q6H PRN for PAIN-MILD (1-4), (Reported) Entered as Reported by: CARLY SANCHEZ on 01/18/21 1356 Hydrocodone Bit/Acetaminophen (HYDROcodone/APAP 7.5/325 TAB) 1 Ea Tablet, 1 EA PO Q4H PRN for PAIN-MODERATE (5-7) Prescribed by: TADEO LOPEZ on 01/22/21 1234 Multivit &Minerals/Ferrous Fum (Multivitamin Liquid) 9 Mg/15 Ml Liquid, 9 MG PO DAILY, (Reported) Entered as Reported by: CARLY SANCHEZ on 01/18/21 1356 Potassium Chloride (Klor-Con 10) 10 Meq Tablet.er, 10 MEQ PO DAILY@0700 Prescribed by: TADEO LOPEZ on 01/22/21 1234 Tramadol HCl (Tramadol HCl) 50 Mg Tablet, 50 MG PO Q6H PRN for PAIN Prescribed by: MELA BARAJAS on 01/06/23 1554 Review of Systems Review of Systems Constitutional: see HPI; No chills, No fever EENTM: No Symptoms Reported Respiratory: Denies Cough, Denies Shortness of Air Cardiovascular: Denies Chest Pain, Denies Edema Gastrointestinal: Abdominal Pain, Nausea, Vomiting Genitourinary: Flank Pain, Pain Musculoskeletal: back pain Skin: no symptoms reported Psychiatric/Neurological: No Symptoms Reported Past Hvtiyvy-Vorxfa-Qeiomm Hx Patient Social History Tobacco Use?: No Smoking Status: Never a Smoker Smokeless Tobacco Frequency: Never a User Use of E-Cig and/or Vaping dev: No Use of E-Cig and/or Vaping Richie: Never a User Substance use?: No Alcohol Use?: No Pt feels they are or have been: No Immunizations Up To Date Tetanus Booster (TDap): Unknown Seasonal Allergies Seasonal Allergies: No Past Medical History Surgery/Hospitalization HX: ILEOSTOMY, TUBAL UC Surgeries: Yes (colon removed ileostomy placed) Tubal Ligation Respiratory: Yes Asthma Currently Using CPAP: No Currently Using BIPAP: No Cardiac: Yes Hypertension Neurological: No Reproductive Disorders: No Female Reproductive Disorders: Denies [employer] History: Tubal Ligation, Menopausal Sexually Transmitted Disease: No HIV/AIDS: No Genitourinary: No Gastrointestinal: Yes (ileostomy) Colitis Musculoskeletal: No Endocrine: No HEENT: Yes (READING GLASSES) Loss of Vision: Bilateral Hearing Impairment: Denies Cancer: No Did You Recieve Any Treatments: No Psychosocial: No Anxiety Integumentary: No Blood Disorders: No Adverse Reaction/Blood Tranf: No Family Medical History Reviewed Nursing Family Hx Colitis G8 BROTHER G8 SISTER Respiratory disorder 19 MOTHER (COPD) Hypertension, Lung Disease Physical Exam Vital Signs Vital Signs - First Documented 03/23/23 09:32 Temp 36.6 Pulse 76 Resp 20 B/P (MAP) 183/75 (111) O2 Delivery Room Air Capillary Refill : Less Than 3 Seconds Height/Weight/BMI Height: 5'4.00" Weight: 221lbs. 4.0oz. 100.677527so; 39.00 BMI Method:Stated General Appearance: WD/WN, no apparent distress HEENT: PERRL/EOMI, pharynx normal Neck: full range of motion, supple Respiratory: lungs clear, normal breath sounds Cardiovascular: regular rate, rhythm, no murmur Gastrointestinal: soft; No guarding, No rebound; tenderness, other (Ileostomy right side mid to lower abdomen with liquid stool drainage noted) Extremities: non-tender, normal inspection Back: normal inspection, no CVA tenderness, no vertebral tenderness Neurologic/Psychiatric: alert, normal mood/affect, oriented x 3 Skin: normal color, warm/dry Focused Exam Lactate Level 03/23/23 11:21: Lactic Acid Level 1.13 Lactic Acid Level Laboratory Tests Test 03/23/23 11:21 Lactic Acid Level 1.13 MMOL/L (0.50-2.00) Progress/Results/Core Measures Results/Orders Lab Results Laboratory Tests Test 03/23/23 09:00 03/23/23 09:34 03/23/23 11:21 Range/Units White Blood Count 14.8 H 4.3-11.0 10^3/uL Red Blood Count 4.63 3.80-5.11 10^6/uL Hemoglobin 13.9 11.5-16.0 g/dL Hematocrit 42 35-52 % Mean Corpuscular Volume 91 80-99 fL Mean Corpuscular Hemoglobin 30 25-34 pg Mean Corpuscular Hemoglobin Concent 33 32-36 g/dL Red Cell Distribution Width 13.5 10.0-14.5 % Platelet Count 271 130-400 10^3/uL Mean Platelet Volume 10.5 9.0-12.2 fL Immature Granulocyte % (Auto) 0 % Neutrophils (%) (Auto) 92 H 42-75 % Lymphocytes (%) (Auto) 5 L 12-44 % Monocytes (%) (Auto) 2 0-12 % Eosinophils (%) (Auto) 0 0-10 % Basophils (%) (Auto) 0 0-10 % Neutrophils # (Auto) 13.6 H 1.8-7.8 10^3/uL Lymphocytes # (Auto) 0.8 L 1.0-4.0 10^3/uL Monocytes # (Auto) 0.3 0.0-1.0 10^3/uL Eosinophils # (Auto) 0.0 0.0-0.3 10^3/uL Basophils # (Auto) 0.0 0.0-0.1 10^3/uL Immature Granulocyte # (Auto) 0.1 0.0-0.1 10^3/uL Neutrophils % (Manual) 92 % Lymphocytes % (Manual) 5 % Monocytes % (Manual) 1 % Band Neutrophils 2 % Blood Morphology Comment NORMAL Sodium Level 139 135-145 MMOL/L Potassium Level 3.8 3.6-5.0 MMOL/L Chloride Level 106 98-107 MMOL/L Carbon Dioxide Level 21 21-32 MMOL/L Anion Gap 12 5-14 MMOL/L Blood Urea Nitrogen 13 7-18 MG/DL Creatinine 1.00 0.60-1.30 MG/DL Estimat Glomerular Filtration Rate 61 BUN/Creatinine Ratio 13 Glucose Level 110 H 70-105 MG/DL Calcium Level 9.7 8.5-10.1 MG/DL Corrected Calcium 9.5 8.5-10.1 MG/DL Total Bilirubin 0.5 0.1-1.0 MG/DL Aspartate Amino Transf (AST/SGOT) 30 5-34 U/L Alanine Aminotransferase (ALT/SGPT) 29 0-55 U/L Alkaline Phosphatase 95 40-136 U/L C-Reactive Protein High Sensitivity 0.39 0.00-0.50 MG/DL Total Protein 7.1 6.4-8.2 GM/DL Albumin 4.2 3.2-4.5 GM/DL Urine Color YELLOW Urine Clarity CLEAR Urine pH 6.0 5-9 Urine Specific [place] 1.020 1.016-1.022 Urine Protein NEGATIVE NEGATIVE Urine Glucose (UA) NEGATIVE NEGATIVE Urine Ketones TRACE H NEGATIVE Urine Nitrite POSITIVE H NEGATIVE Urine Bilirubin NEGATIVE NEGATIVE Urine Urobilinogen 0.2 < = 1.0 MG/DL Urine Leukocyte Esterase 1+ H NEGATIVE Urine RBC (Auto) 3+ H NEGATIVE Urine RBC 50-100 H /HPF Urine WBC 10-25 H /HPF Urine Squamous Epithelial Cells 5-10 /HPF Urine Crystals NONE /LPF Urine Bacteria MODERATE H /HPF Urine Casts NONE /LPF Urine Mucus NEGATIVE /LPF Urine Culture Indicated YES Lactic Acid Level 1.13 0.50-2.00 MMOL/L My Orders Orders - KINGSLEY JACKSON MD Fentanyl Inj (Sublimaze Injection) (03/23/23 09:55) Ondansetron Injection (Zofran Injectio (03/23/23 10:00) Ns Iv 1000 Ml (Sodium Chloride 0.9%) (03/23/23 09:55) Ed Iv/Invasive Line Start (03/23/23 09:55) Cbc With Automated Diff (03/23/23 09:55) Comprehensive Metabolic Panel (03/23/23 09:55) Hs C Reactive Protein (03/23/23 09:55) Ua Culture If Indicated (03/23/23 09:55) Manual Differential (03/23/23 09:00) Urine Culture (03/23/23 09:34) Ct Abd/Pelvis Wo(Kidney Stone) (03/23/23 10:34) Lactic Acid Analyzer (03/23/23 11:07) Blood Culture (03/23/23 11:07) Vital Signs Adult Sepsis Patie Q15M (03/23/23 11:07) Remove Rings In Anticipation O (03/23/23 11:07) Ciprofloxacin Tablet (Cipro Tablet) (03/23/23 12:17) Medications Given in ED Current Medications Medications Dose Ordered Sig/Leny Route Start Time Stop Time Status Last Admin Dose Admin Ondansetron HCl 4 mg ONCE ONCE IVP 03/23/23 10:00 03/23/23 10:01 DC 03/23/23 10:17 4 MG Vital Signs/I&O 03/23/23 09:32 Temp 36.6 Pulse 76 Resp 20 B/P (MAP) 183/75 (111) O2 Delivery Room Air Blood Pressure Mean: 111 Progress Progress Note : Progress Note Seen and evaluated. IV, labs including CBC, CMP and CRP ordered. Normal saline 1 L bolus, Zofran 4 mg IV patient will 50 mcg IV ordered. Monitor patient. Differential diagnosis includes bowel obstruction, urinary tract infection, renal stone, electrolyte abnormality, dehydration 10/29/2006: Labs reviewed and CBC does show elevated white count. CMP reviewed and shows normal creatinine and grossly normal LFTs. UA reviewed and does show nitrite positive urinary tract infection with large amount of reds and whites. CRP is essentially negative. She does have findings of significant urinary tract infection so we will add blood cultures and lactic acid. I will get CT abdomen and pelvis to rule out renal stones given her pain. 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 She is allergic to sulfa medications so we will be limited to fluoroquinolones on this patient for UTI treatment. We will see how the stone study looks and also rule out obstruction without. Monitor patient. 1225: CT reviewed by me and shows small stone mid ureter on the right which is likely the cause of her pain with mild hydronephrosis on my interpretation. Radiology agrees. I did discuss the case with Dr. Salazar, patient's surgeon regarding her history and he has looked at the scan as well and is not concerned about any other significant intra-abdominal pathology. Lactic acid reviewed and is negative. I believe she will be safe for outpatient treatment. Ciprofloxacin 500 mg p.o. ordered. Discharged home with return precautions. Patient verbalized understanding instructions and agreement with plan. OTC medications as well as prescription medication management discussed. Follow-up plan discussed. Diagnostic Imaging Diagonstic Imaging: CT Plain Films/CT/US/NM/MRI: abdomen, pelvis Comments [facility], [place] NAME: DAVID CRABTREE [facility] REC#: [id number] PT STATUS: REG ER : 1955 PHYSICIAN: KINGSLEY JACKSON MD ADMIT DATE: 03/23/23/ER Draft Date of Exam:03/23/23 CT ABD/PELVIS WO(KIDNEY STONE) PROCEDURE: CT urinary tract, rule out kidney stone. TECHNIQUE: Multiple contiguous axial images were obtained through the abdomen and pelvis without the use of intravenous contrast. Auto Exposure Controls were utilized during the CT exam to meet ALARA standards for radiation dose reduction. INDICATION: Right lower quadrant pain with nausea and vomiting. Comparison is made with prior CT abdomen pelvis study from 02/09/2021. The lung bases are clear apart from minimal scarring or atelectasis in the left lower lobe. The liver shows diffuse low-attenuation consistent with hepatic steatosis. There are numerous stones in the gallbladder. No biliary ductal dilatation is seen. The pancreas and spleen are unremarkable. No adrenal mass is identified. Left kidney is unremarkable. The right kidney is enlarged and shows significant perinephric inflammatory stranding. There are also multiple nonobstructing calculi within the right kidney. There is hydronephrosis and hydroureter. The dilated right ureter is traced into the pelvis where there is a tiny approximately 2 mm stone at the UVJ. No other urinary tract calculi are seen. Aorta is calcified but nonaneurysmal. There is an ostomy in the right lower quadrant. Bowel loops are nonobstructed. Previously noted fluid collection in the surgical site of the anal and rectal resection is no longer appreciated. No new fluid collection is seen. There is no free fluid. No definite abdominal or pelvic lymphadenopathy is detected. IMPRESSION: 1. Hepatic steatosis. 2. Cholelithiasis. 3. Nonobstructing right-sided nephrolithiasis. In addition, there is a 2 to 3 mm distal right ureteric calculus producing moderate hydroureteronephrosis with a right renal enlargement and perinephric inflammatory stranding. Dictated on workstation # [id number] Dict: 03/23/23 1115 Trans: 03/23/23 1123 CVB [id number] Interpreted by: ELVIA CARDENAS MD Electronically signed by: Departure Impression Primary Impression: Urinary tract infection Qualified Codes: N30.00 - Acute cystitis without hematuria Additional Impression: Ureteral stone Disposition: HOME, SELF-CARE Condition: Improved Departure-Patient Inst. Decision time for Depature: 12:28 Referrals: TADEO LOPEZ DO (PCP/Family) Primary Care Physician Patient Instructions: How to Strain Your Urine, Urinary Tract Infection, Adult ED, Kidney Stones (DC) Add. Discharge Instructions: All discharge instructions reviewed with patient and/or family. Voiced understanding. Take medications as directed. Follow-up with your doctor for recheck and further evaluation as needed. Follow-up with urologist of your choosing for recheck and further evaluation. Your primary care doctor can help direct you towards a urologist as well. Return for worse pain, fever, vomiting, weakness, breathing problems or other concerns as needed. Drink plenty of fluids as this will help clear the stone. Strain your urine with each urination and look for stone to pass. Scripts Tamsulosin HCl (Flomax) 0.4 Mg Cap 0.4 MG PO DAILY for 14 Days, #14 CAP 0 Refills Prov: KINGSLEY JACKSON MD 03/23/23 Hydrocodone/Acetaminophen (Hydrocodone-Acetamin 5-325 mg) 5 Mg-325 Mg Tablet 1 TAB PO Q6H PRN for PAIN-MODERATE (5-7) for 7 Days, #12 TAB 0 Refills Prov: KINGSLEY JACKSON MD 03/23/23 Ciprofloxacin HCl (Ciprofloxacin HCl) 500 Mg Tablet 500 MG PO BID, #14 TAB Prov: KINGSLEY JACKSON MD 03/23/23 Copy Copies To 1: TADEO LOPEZ TIMOTHY D MD March 23, 2023 10:57
--- NOTE | 2023-03-23 11:24 | Diagnostic Imaging Report ---
PROCEDURE: CT urinary tract, rule out kidney stone. TECHNIQUE: Multiple contiguous axial images were obtained through the abdomen and pelvis without the use of intravenous contrast. Auto Exposure Controls were utilized during the CT exam to meet ALARA standards for radiation dose reduction. INDICATION: Right lower quadrant pain with nausea and vomiting. Comparison is made with prior CT abdomen pelvis study from 02/09/2021. The lung bases are clear apart from minimal scarring or atelectasis in the left lower lobe. The liver shows diffuse low-attenuation consistent with hepatic steatosis. There are numerous stones in the gallbladder. No biliary ductal dilatation is seen. The pancreas and spleen are unremarkable. No adrenal mass is identified. Left kidney is unremarkable. The right kidney is enlarged and shows significant perinephric inflammatory stranding. There are also multiple nonobstructing calculi within the right kidney. There is hydronephrosis and hydroureter. The dilated right ureter is traced into the pelvis where there is a tiny approximately 2 mm stone at the UVJ. No other urinary tract calculi are seen. Aorta is calcified but nonaneurysmal. There is an ostomy in the right lower quadrant. Bowel loops are nonobstructed. Previously noted fluid collection in the surgical site of the anal and rectal resection is no longer appreciated. No new fluid collection is seen. There is no free fluid. No definite abdominal or pelvic lymphadenopathy is detected. IMPRESSION: 1. Hepatic steatosis. 2. Cholelithiasis. 3. Nonobstructing right-sided nephrolithiasis. In addition, there is a 2 to 3 mm distal right ureteric calculus producing moderate hydroureteronephrosis with a right renal enlargement and perinephric inflammatory stranding. Dictated by: Dictated on workstation # [id number]
[2023-03-23] MEDS ORDERED: CIPROFLOXACIN 500 MG (CIPRO) TABLET PO STA (12:17)
[2023-03-23] MEDS ORDERED: CIPR500T5 PO (12:30)
[2023-03-23] MEDS ORDERED: ACHD5005 PO (12:30)
[2023-03-23] MEDS ORDERED: TMSL.4C PO (12:30)
[2023-03-23 12:46] VITALS: BP 149/87
[2023-03-23] MEDS ORDERED: ONDA4TAB11 PO (12:54)
== END 2023-03-23 12:46 | disposition home or self-care (01) ==
LOC: EDUNIT# 09:28 → ER 09:30
DX: N39.0 Urinary tract infection, site not specified (principal); N13.2 Hydronephrosis with renal and ureteral calculous obstruction; Z90.49 Acquired absence of other specified parts of digestive tract; Z88.2 Allergy status to sulfonamides
CPT/HCPCS: 36415; 74176; 80053; 81000; 83605; 85007; 85027; 86141; 87040; 87088

== ENCOUNTER → 2023-09-03 | Outpatient (CLI) | payer MEDICARE ==
[~2023-09-03] MED LIST changes: +ONDA4TAB11 PO; +TMSL.4C PO
[2023-09-03 08:27] LABS: BASOPHILS % (AUTO) 0 % (0-10); EOSINOPHILS # (AUTO) 0.2 10^3/uL (0.0-0.3); EOSINOPHILS % (AUTO) 3 % (0-10); HEMATOCRIT 42 % (35-52); HEMOGLOBIN 13.8 g/dL (11.5-16.0); LYMPHOCYTES # (AUTO) 1.5 10^3/uL (1.0-4.0); LYMPHOCYTES % (AUTO) 30 % (12-44); MEAN CORPUSCULAR HEMOGLOBIN 30 pg (25-34); MEAN CORPUSCULAR HGB CONC 33 g/dL (32-36); MEAN CORPUSCULAR VOLUME 92 fL (80-99); MEAN PLATELET VOLUME 10.1 fL (9.0-12.2); MONOCYTES # (AUTO) 0.3 10^3/uL (0.0-1.0); MONOCYTES % (AUTO) 7 % (0-12); NEUTROPHILS # (AUTO) 3.1 10^3/uL (1.8-7.8); NEUTROPHILS % (AUTO) 60 % (42-75); PLATELET COUNT 295 10^3/uL (130-400); WHITE BLOOD COUNT 5.2 10^3/uL (4.3-11.0)
[2023-09-03 08:52] LABS: ALBUMIN 4.3 GM/DL (3.2-4.5); BILIRUBIN,TOTAL 0.4 MG/DL (0.1-1.0); CALCIUM 9.8 MG/DL (8.5-10.1); CREATININE SERUM 0.86 MG/DL (0.60-1.30); POTASSIUM 4.5 MMOL/L (3.6-5.0); TOTAL PROTEIN 7.4 GM/DL (6.4-8.2)
== END ==
LOC: LAB 08:10
PROVIDERS: ATTEND Internal Medicine
DX: Z13.6 Encounter for screening for cardiovascular disorders (principal); D64.9 Anemia, unspecified; E55.9 Vitamin D deficiency, unspecified; I10 Essential (primary) hypertension; E53.8 Deficiency of other specified B group vitamins
CPT/HCPCS: 36415; 80053; 82306; 82465; 82607; 82728; 83540; 83550; 84478; 85025